=== PATIENT | female | born 1965 | race Caucasian/White ===

== ENCOUNTER 2016-07-11 16:48 | Emergency (ER) | payer BC ==
--- NOTE | 2016-07-11 18:08 | ER Document Report ---
ED Medical Screen (RME) - General Chief Complaint: Abdominal Pain Stated Complaint: FEEDING TUBE ISSUES Notes: 50 yo female with hx/o pancreatitis. feeding tube place April @ [facility]. pt reports feeding tube fell out approx 4 pm today. c/o increased pain since tube falling out. no fever. no nausea. TRAVEL OUTSIDE OF THE [place] IN LAST 30 DAYS: No - Related Data Allergies/Adverse Reactions: banana [Banana] Allergy (Intermediate, Verified 07/11/16 17:38) itching codeine [Codeine] Allergy (Verified 07/11/16 17:38) iodine [Iodine] Allergy (Verified 07/11/16 17:38) metronidazole [Metronidazole] Allergy (Verified 07/11/16 17:38) Penicillins Allergy (Verified 07/11/16 17:38) Cmnqoec-Ssw-Dle Reductase Inhibitor Adverse Reaction (Intermediate, Verified 10/22 17:38) muscle rigidity metoclopramide HCl [From Reglan] Adverse Reaction (Verified 07/11/16 17:38) Blue Cheese Allergy (Intermediate, Uncoded 07/11/16 17:38) itching Past Medical History - Social History Chew tobacco use (# tins/day): No Frequency of alcohol use: None Drug Abuse: None - Past Medical History Cardiac Medical History: Reports: Hx Hypercholesterolemia, Hx Hypertension Denies: Hx Atrial Fibrillation, Hx Congestive Heart Failure, Hx Coronary Artery Disease, Hx Heart Attack, Hx Peripheral Vascular Disease, Hx Pulmonary Embolism, Hx Heart Murmur Pulmonary Medical History: Reports: Hx Asthma, Hx Pneumonia Denies: Hx Bronchitis, Hx COPD, Hx Respiratory Failure, Hx Sleep Apnea, Hx Tuberculosis Neurological Medical History: Denies: Hx Seizures Endocrine Medical History: Reports: Hx Diabetes Mellitus Type 1, Hx Diabetes Mellitus Type 2, Hx Hypothyroidism. Denies: Hx Graves' Disease, Hx Hyperthyroidism Renal/ Medical History: Reports: Hx Kidney Stones. Denies: Hx End Stage Renal Disease, Hx Ovarian Cysts, Hx Peritoneal Dialysis, Hx Pelvic Inflammatory Disease Malignancy Medical History: Reports: Hx Pancreatic Cancer. Denies: Hx Breast Cancer, Hx Cervical Cancer, Hx Leukemia, Hx Lung Cancer, Hx Ovarian Cancer GI Medical History: Reports: Hx Gastroesophageal Reflux Disease, Hx Hiatal Hernia, Hx Irritable Bowel, Hx Ulcer, Hx Colonoscopy, Hx Endoscopy. Denies: Hx Crohn's Disease, Hx Liver Failure Musculoskeltal Medical History: Reports Hx Arthritis - rheumatoid, Denies Hx Fibromyalgia, Denies Hx Muscular Dystrophy Psychiatric Medical History: Reports: Hx Depression - current Denies: Hx Bipolar Disorder, Hx Post Traumatic Stress Disorder, Hx Schizophrenia Traumatic Medical History: Denies: Hx Fractures Infectious Medical History: Denies: Hx HIV Past Surgical History: Reports: Hx Abdominal Surgery - Pancreatic tumor removed noncancerous also at G/J tube, Hx Cholecystectomy, Hx Colostomy, Hx Herniorrhaphy, Hx Tonsillectomy. Denies: Hx Appendectomy, Hx Bowel Surgery, Hx Section, Hx Coronary Artery Bypass Graft, Hx Gastric Bypass Surgery, Hx Hysterectomy, Hx Mastectomy, Hx Pacemaker, Hx Tubal Ligation - Immunizations Hx Diphtheria, Pertussis, Tetanus Vaccination: Yes Physical Exam - Vital signs Vitals: Temp Pulse Resp BP Pulse Ox 98.9 F 108 H 18 141/90 H 95 07/11/16 17:40 07/11/16 17:40 07/11/16 17:40 07/11/16 17:40 07/11/16 17:40 Course - Vital Signs Vital signs: Temp Pulse Resp BP Pulse Ox 98.9 F 108 H 18 141/90 H 95 07/11/16 17:40 07/11/16 17:40 07/11/16 17:40 07/11/16 17:40 07/11/16 17:40
[2016-07-11] MEDS ORDERED: OXYCODONE-ACETAMINOPHEN 5-325 MG TABLET PO ONE (18:10)
[2016-07-11] MEDS ORDERED: ONDANSETRON 4 MG TAB.RAPDIS PO ONE (18:10)
[2016-07-11 18:25] LABS: ABSOLUTE BASOPHILS # (AUTO) 0.1 10^3/uL (0.0-0.2); ABSOLUTE EOSINOPHILS # (AUTO) 0.2 10^3/uL (0.0-0.6); ABSOLUTE LYMPHOCYTES (AUTO) 1.4 10^3/uL (0.5-4.7); ABSOLUTE MONOCYTES (AUTO) 0.8 10^3/uL (0.1-1.4); ABSOLUTE NEUT (AUTO) 7.5 10^3/uL (1.7-8.2); BASOPHILS % (AUTO) 1.3 % (0-2); EOSINOPHILS % (AUTO) 2.2 % (0-6); HEMATOCRIT 36.2 % (36.0-47.0); HEMOGLOBIN 12.1 g/dL (12.0-15.5); HGB HCT DIFFERENCE 0.1; LYMPHOCYTES % (AUTO) 13.8 % (13-45); MEAN CORPUSCULAR HEMOGLOBIN 26.1 pg (27.0-33.4); MEAN CORPUSCULAR HGB CONC 33.5 g/dL (32.0-36.0); MEAN CORPUSCULAR VOLUME 78 fl (80-97); MONOCYTES % (AUTO) 7.9 % (3-13); RED BLOOD COUNT 4.63 10^6/uL (3.72-5.28); RED CELL DISTRIBUTION WIDTH 14.3 % (11.5-14.0); SEGMENTED NEUTROPHILS % (AUTO) 74.8 % (42-78)
[2016-07-11 18:39] LABS: ALANINE AMINOTRANSFERASE 31 U/L (9-52); ALBUMIN 3.6 g/dL (3.5-5.0); ALKALINE PHOSPHATASE 87 U/L (38-126); ANION GAP 15 (5-19); ASPARTATE AMINO TRANSFERASE 10 U/L (14-36); BILIRUBIN,TOTAL 0.6 mg/dL (0.2-1.3); BLOOD UREA NITROGEN 14 mg/dL (7-20); CALCIUM 9.4 mg/dL (8.4-10.2); CARBON DIOXIDE 28 mmol/L (22-30); CHLORIDE 95 mmol/L (98-107); CREATININE RESULT 0.68 mg/dL (0.52-1.25); GLUCOSE 322 mg/dL (75-110); LIPASE 13.4 U/L (23-300); POTASSIUM 4.3 mmol/L (3.6-5.0); SODIUM 137.6 mmol/L (137-145); TOTAL PROTEIN 6.9 g/dL (6.3-8.2)
[2016-07-11] MEDS ORDERED: MORPHINE SULFATE 10 MG/ML INJ IV PRN (21:03)
[2016-07-11] MEDS ORDERED: NORMAL SALINE 1000 ML 1,000 ML IV ONE (21:03)
[2016-07-11] MEDS ORDERED: PROCHLORPERAZINE EDISYLATE INJ 10 MG/2 ML VIAL IV ONE (21:04)
[2016-07-11] MEDS ORDERED: CEFTRIAXONE 1 GM/D5W RTU 50 ML IV ONE (21:04)
[2016-07-11] MEDS ORDERED: INSULIN REG, HUMAN 100 UNIT/ML 3 ML VIAL (PYX) SUBCUT ONE (21:12)
[2016-07-11] MEDS ORDERED: MORPHINE SULFATE 10 MG/ML INJ IM ONE (22:25)
[2016-07-11] MEDS ORDERED: PROCHLORPERAZINE EDISYLATE INJ 10 MG/2 ML VIAL IM ONE (22:25)
[2016-07-11] MEDS ORDERED: CEPHALEXIN 500 MG CAPSULE PO ONE (22:26)
--- NOTE | 2016-07-11 22:28 | ER Document Report ---
ED General - General Chief Complaint: Abdominal Pain Stated Complaint: FEEDING TUBE ISSUES Notes: Patient is a 50-year-old female past medical history of chronic pancreatitis which has induced insulin-dependent diabetes as well as need for enzyme ingestion prior to oral intake who presents with multiple concerns. Her primary concern is that her G-tube site is infected and her G-tube has fallen out just prior to arrival. States that the site has been causing her pain that is described as a constant dull, aching pain has been progressively worsening over the last 2 weeks. No history of prior G-tube complications. She does use the G-tube for a majority of her feeds but does note that she is able to tolerate oral intake and takes all of her medicines by mouth. She has not seen her primary care physician regarding today's concerns. She also complains of diffuse, generalized abdominal pain that has been constant for the past several months and is unchanged. She is taking oxycodone without relief. States she has regular bowel movements. Denies any associated symptoms. Nothing improves or worsens this abdominal pain. She is requesting to be transferred to [facility] where she follows for her chronic pancreatitis. TRAVEL OUTSIDE OF THE [place] IN LAST 30 DAYS: No - Related Data Allergies/Adverse Reactions: banana [Banana] Allergy (Intermediate, Verified 07/11/16 17:38) itching codeine [Codeine] Allergy (Verified 07/11/16 17:38) iodine [Iodine] Allergy (Verified 07/11/16 17:38) metronidazole [Metronidazole] Allergy (Verified 07/11/16 17:38) Penicillins Allergy (Verified 07/11/16 17:38) Oezicxa-Ngs-Saa Reductase Inhibitor Adverse Reaction (Intermediate, Verified 10/22 17:38) muscle rigidity metoclopramide HCl [From Reglan] Adverse Reaction (Verified 07/11/16 17:38) Blue Cheese Allergy (Intermediate, Uncoded 07/11/16 17:38) itching Past Medical History - General Information source: Patient - Social History Smoking Status: Never Smoker Chew tobacco use (# tins/day): No Frequency of alcohol use: None Drug Abuse: None Lives with: Spouse/Significant other Family History: Arthritis, CAD, COPD, DM, Hyperlipidemia, Hypertension, Malignancy, Thyroid Disfunction Patient has suicidal ideation: No Patient has homicidal ideation: No - Past Medical History Cardiac Medical History: Reports: Hx Hypercholesterolemia, Hx Hypertension Denies: Hx Atrial Fibrillation, Hx Congestive Heart Failure, Hx Coronary Artery Disease, Hx Heart Attack, Hx Peripheral Vascular Disease, Hx Pulmonary Embolism, Hx Heart Murmur Pulmonary Medical History: Reports: Hx Asthma, Hx Pneumonia Denies: Hx Bronchitis, Hx COPD, Hx Respiratory Failure, Hx Sleep Apnea, Hx Tuberculosis Neurological Medical History: Denies: Hx Seizures Endocrine Medical History: Reports: Hx Diabetes Mellitus Type 1, Hx Diabetes Mellitus Type 2, Hx Hypothyroidism. Denies: Hx Graves' Disease, Hx Hyperthyroidism Renal/ Medical History: Reports: Hx Kidney Stones. Denies: Hx End Stage Renal Disease, Hx Ovarian Cysts, Hx Peritoneal Dialysis, Hx Pelvic Inflammatory Disease Malignancy Medical History: Reports: Hx Pancreatic Cancer. Denies: Hx Breast Cancer, Hx Cervical Cancer, Hx Leukemia, Hx Lung Cancer, Hx Ovarian Cancer GI Medical History: Reports: Hx Gastroesophageal Reflux Disease, Hx Hiatal Hernia, Hx Irritable Bowel, Hx Ulcer, Hx Colonoscopy, Hx Endoscopy. Denies: Hx Crohn's Disease, Hx Liver Failure Musculoskeltal Medical History: Reports Hx Arthritis - rheumatoid, Denies Hx Fibromyalgia, Denies Hx Muscular Dystrophy Psychiatric Medical History: Reports: Hx Depression - current Denies: Hx Bipolar Disorder, Hx Post Traumatic Stress Disorder, Hx Schizophrenia Traumatic Medical History: Denies: Hx Fractures Infectious Medical History: Denies: Hx HIV Past Surgical History: Reports: Hx Abdominal Surgery - Pancreatic tumor removed noncancerous also at G/J tube, Hx Cholecystectomy, Hx Colostomy, Hx Herniorrhaphy, Hx Tonsillectomy. Denies: Hx Appendectomy, Hx Bowel Surgery, Hx Section, Hx Coronary Artery Bypass Graft, Hx Gastric Bypass Surgery, Hx Hysterectomy, Hx Mastectomy, Hx Pacemaker, Hx Tubal Ligation - Immunizations Hx Diphtheria, Pertussis, Tetanus Vaccination: Yes Hx Pneumococcal Vaccination: 03/24/14 Review of Systems - Review of Systems Notes: Constitutional: Negative for fever. HENT: Negative for sore throat. Eyes: Negative for visual changes. Cardiovascular: Negative for chest pain. Respiratory: Negative for shortness of breath. Gastrointestinal: Positive for abdominal pain, negative for vomiting or diarrhea. Genitourinary: Negative for dysuria. Musculoskeletal: Negative for back pain. Skin: Negative for rash. Neurological: Negative for headaches, weakness or numbness. 10 point ROS negative except as marked above and in HPI. Physical Exam - Vital signs Vitals: Temp Pulse Resp BP Pulse Ox 98.9 F 108 H 18 141/90 H 95 07/11/16 17:40 07/11/16 17:40 07/11/16 17:40 07/11/16 17:40 07/11/16 17:40 Interpretation: Hypertensive, Tachycardic Notes: PHYSICAL EXAMINATION: GENERAL: Well-appearing, well-nourished and in no acute distress. HEAD: Atraumatic, normocephalic. EYES: Pupils equal round and reactive to light, extraocular movements intact, sclera anicteric, conjunctiva are normal. ENT: nares patent, oropharynx clear without exudates. Moist mucous membranes. NECK: Normal range of motion, supple without lymphadenopathy LUNGS: Breath sounds clear to auscultation bilaterally and equal. No wheezes rales or rhonchi. HEART: Regular rate and rhythm without murmurs ABDOMEN: Soft, mild epigastric tenderness to palpation, normoactive bowel sounds. No guarding, no rebound. No masses appreciated. EXTREMITIES: Normal range of motion, no pitting or edema. No cyanosis. NEUROLOGICAL: No focal neurological deficits. Moves all extremities spontaneously and on command. PSYCH: Normal mood, normal affect. SKIN: Warm, Dry, normal turgor, the G-tube site appears mildly erythematous with purulent drainage with some spreading erythema around the area Course - Re-evaluation Re-evalutation: 07/12/16 04:11 Patient presents with multiple vague complaints that did not appear to be concerning for any acute life-threatening pathology. The G-tube site does appear infected however patient will be started on antibiotics at this time. Vitals are within normal limits at time of my assessment and at time of discharge. Patient was not noted to be in distress at any point during their ER visit. At this time, based on the reassuring evaluation, I do not suspect an acute [place], pulmonary embolus, aortic dissection, acute intra-abdominal pathology, stroke, or sepsis. I did contact [facility] in an attempt to transfer the patient per her request for consideration for alternative G-tube site placement but they are on divert and are unable to evaluate the patient in the emergency department. I do not believe patient requires admission. I have offered to replace the G-tube in the emergency department and she has declined stating she wants a G-tube in a different location. This is except we will the patient does tolerate oral intake and takes her medications by mouth. Will discharge with return precautions and follow-up recommendations. Verbal discharge instructions given a the bedside and opportunity for questions given. Medication warnings reviewed. Patient is in agreement with this plan and has verbalized understanding of return precautions and the need for primary care follow-up in the next 24-72 hours. - Vital Signs Vital signs: Temp Pulse Resp BP Pulse Ox 99.2 F 87 18 126/79 H 95 07/12/16 00:10 07/12/16 00:10 07/12/16 00:10 07/12/16 00:10 07/12/16 00:10 - Laboratory Result Diagrams: 07/11/16 18:15 07/11/16 18:15 Laboratory results interpreted by me: 07/11/16 07/11/16 07/11/16 18:15 18:15 21:52 MCV 78 L MCH 26.1 L RDW 14.3 H Chloride 95 L Glucose 322 H POC Glucose 319 H AST 10 L Lipase 13.4 L - Diagnostic Test Radiology reviewed: Image reviewed, Reports reviewed Radiology results interpreted by me: 07/12/16 04:13 KUB: No bowel obstruction Discharge - Discharge Clinical Impression: Generalized abdominal pain, G-tube site cellulitis Nausea & vomiting Qualifiers: Vomiting type: unspecified Vomiting Intractability: non-intractable Qualified Code(s): R11.2 - Nausea with vomiting, unspecified Condition: Good Disposition: HOME, SELF-CARE Additional Instructions: Please contacted to GI clinic ([phone]) tomorrow regarding replacement of your G-tube as elena did not want to have it reinserted at your current site. You are being started on antibiotics to treat an infection at the G-tube site. Please take as directed. Return to the ED if your abdominal pain worsens or fails to improve, you develop bloody vomiting, bloody diarrhea, you are unable to tolerate fluids due to vomiting, fever greater than 101, or other symptoms that concern you. Prescriptions: Cephalexin Monohydrate [Keflex 500 mg Capsule] 500 mg PO QID #28 capsule Referrals: JASMYNE JACQUES MD [Primary Care Provider] - Follow up as needed
[2016-07-12 00:11] VITALS: BP 126/79
== END 2016-07-12 00:26 | disposition home or self-care (01) ==
LOC: ER 16:48
DX: K94.22 Gastrostomy infection (principal); L03.311 Cellulitis of abdominal wall; R11.2 Nausea with vomiting, unspecified; R10.9 Unspecified abdominal pain; E11.9 Type 2 diabetes mellitus without complications; Z79.4 Long term (current) use of insulin
CPT/HCPCS: 99284; 96372; 36415; 82962; 83690; 85025; 80053; 74000; S0119; J2270; J1815; J0780

== ENCOUNTER 2016-09-20 09:13 | Emergency (ER) | payer BC ==
--- NOTE | 2016-09-20 11:12 | ER Document Report ---
ED GI/ - General Time seen by provider: 11:00 Mode of Arrival: Medic Information source: Patient TRAVEL OUTSIDE OF THE [place] IN LAST 30 DAYS: No - HPI Onset: Other - see HPI note <JANEEDEVENDRA - Last Filed: 09/20/16 15:31> <ANNEMARIE KAUFFMAN - Last Filed: 10/05/16 05:50> - General Chief Complaint: Problem with Feeding Tube Stated Complaint: FEEDING TUBE PROBLEMS Notes: Patient is a 50-year-old female presented emergency department for her PEG tube falling out. Patient states that this is the second time her PEG tube has fallen out. Patient states she has a history of pancreatitis and pancreatic cancer since 2 years prior. Patient's PEG tube was placed at [facility] approximately 2 years ago; the first time the patient's PEG tube fell out it was replaced by Dr. Zuniga. Patient states that she has been losing some weight. Patient states her PEG tube fell out on 09/18/2016. Patient states she has not been able to eat but has been able to drink fluids. Patient states the area is very painful. Patient's primary care physician is Dr. Espitia. Patient states that they do not plan to remove the PEG tube permanently where she has not been aware of this idea. (DEVENDRA WELLER) - Related Data Allergies/Adverse Reactions: banana [Banana] Allergy (Intermediate, Verified 07/11/16 17:38) itching codeine [Codeine] Allergy (Verified 07/11/16 17:38) iodine [Iodine] Allergy (Verified 07/11/16 17:38) metronidazole [Metronidazole] Allergy (Verified 07/11/16 17:38) Penicillins Allergy (Verified 07/11/16 17:38) Ymxowdt-Vmh-Wts Reductase Inhibitor Adverse Reaction (Intermediate, Verified 10/22 17:38) muscle rigidity metoclopramide HCl [From Reglan] Adverse Reaction (Verified 07/11/16 17:38) Blue Cheese Allergy (Intermediate, Uncoded 07/11/16 17:38) itching Past Medical History - General Information source: Patient - Social History Smoking Status: Never Smoker Cigarette use (# per day): No Chew tobacco use (# tins/day): No Frequency of alcohol use: None Drug Abuse: None Family History: Arthritis, CAD, COPD, DM, Hyperlipidemia, Hypertension, Malignancy, Thyroid Disfunction Patient has suicidal ideation: No Patient has homicidal ideation: No - Past Medical History Cardiac Medical History: Reports: Hx Hypercholesterolemia, Hx Hypertension Pulmonary Medical History: Reports: Hx Asthma, Hx Pneumonia Endocrine Medical History: Reports: Hx Diabetes Mellitus Type 1, Hx Diabetes Mellitus Type 2, Hx Hypothyroidism Renal/ Medical History: Reports: Hx Kidney Stones Malignancy Medical History: Reports: Hx Pancreatic Cancer GI Medical History: Reports: Hx Gastroesophageal Reflux Disease, Hx Hiatal Hernia, Hx Irritable Bowel, Hx Ulcer, Hx Colonoscopy, Hx Endoscopy, Other - pancreatitis Musculoskeltal Medical History: Reports Hx Arthritis - rheumatoid Psychiatric Medical History: Reports: Hx Depression Past Surgical History: Reports: Hx Abdominal Surgery - Pancreatic tumor removed noncancerous also at G/J tube, Hx Cholecystectomy, Hx Colostomy, Hx Herniorrhaphy, Hx Tonsillectomy - Immunizations Hx Diphtheria, Pertussis, Tetanus Vaccination: Yes Hx Pneumococcal Vaccination: 03/24/14 <DEVENDRA WELLER - Last Filed: 09/20/16 15:31> Review of Systems - Review of Systems Constitutional: No symptoms reported EENT: No symptoms reported Cardiovascular: No symptoms reported Respiratory: No symptoms reported Gastrointestinal: See HPI Genitourinary: No symptoms reported Female Genitourinary: No symptoms reported Musculoskeletal: No symptoms reported Skin: No symptoms reported Hematologic/Lymphatic: No symptoms reported Neurological/Psychological: No symptoms reported -: Yes All other systems reviewed and negative <DEVENDRA WELLER - Last Filed: 09/20/16 15:31> Physical Exam - Vital signs Interpretation: Normal - General General appearance: Appears well, Alert In distress: Mild - HEENT Head: Normocephalic, Atraumatic Eyes: Normal Pupils: PERRL Mucous membranes: Moist - Respiratory Respiratory status: No respiratory distress Chest status: Nontender Breath sounds: Normal Chest palpation: Normal - Cardiovascular Rhythm: Regular Heart sounds: Normal auscultation Murmur: No - Abdominal Inspection: Obese, Other - surrounding erythema to the peg tube inscision site; no sign of infection Distension: No distension Bowel sounds: Normal Tenderness: Nontender Organomegaly: No organomegaly - Back Back: Normal, Nontender - Extremities General upper extremity: Normal inspection, Normal ROM, Normal strength General lower extremity: Normal inspection, Normal ROM, Normal strength - Neurological Neuro grossly intact: Yes Cognition: Normal Orientation: AAOx4 Wilmer Coma Scale Eye Opening: Spontaneous [place] Coma Scale Verbal: Oriented Wilmer Coma Scale Motor: Obeys Commands Wilmer Coma Scale Total: 15 Speech: Normal - Psychological Associated symptoms: Normal affect, Normal mood - Skin Skin Temperature: Warm Skin Moisture: Dry <DEVENDRA WELLER - Last Filed: 09/20/16 15:31> <ANNEMARIE KAUFFMAN - Last Filed: 10/05/16 05:50> - Vital signs Vitals: Temp Pulse Resp BP Pulse Ox 97.9 F 108 H 18 142/83 H 95 09/20/16 09:17 09/20/16 09:17 09/20/16 09:17 09/20/16 09:17 09/20/16 09:17 Course - Laboratory Result Diagrams: 09/20/16 11:25 09/20/16 11:25 <DEVENDRA WELLER - Last Filed: 09/20/16 15:31> - Laboratory Result Diagrams: 09/20/16 11:25 09/20/16 11:25 <ANNEMARIE KAUFFMAN - Last Filed: 10/05/16 05:50> - Re-evaluation Re-evalutation: 09/20/16 15:52 I personally performed the services described in the documentation, reviewed and edited the documentation which was dictated to my scribe in my presence, and it accurately records my words and actions. Patient presents emergency Department Center PEG tube fell out. She's had it since December of last year placed at [facility] for chronic pancreatitis. She said she is able to drink but not eat. She has insulin dependent diabetes but she hasn't checked her sugar is elevated here but she is not diabetic ketoacidosis. She said the PEG tube as far out once or twice in the past not while she is sleeping. On examination she is able to get the PEG tube and which is an 18. I had her lay in the Physician replace the tube with 15 amounts of fluid no difficulty whatsoever. Did a wound culture and start her on some clindamycin. She'll follow up with her primary care physician in 12-24 hours for recheck and discussed reasons for ED return sooner when and give her a dose of insulin here told her to continue to check her glucose despite the fact that she was off of the tube feeding. She verbalizes an understanding of this is well-appearing and otherwise nontoxic and discussed reasons for ED return sooner (ANNEMARIE KAUFFMAN) - Vital Signs Vital signs: Temp Pulse Resp BP Pulse Ox 98.2 F 94 16 150/94 H 96 09/20/16 16:28 09/20/16 16:28 09/20/16 16:28 09/20/16 16:28 09/20/16 16:28 - Laboratory Laboratory results interpreted by me: 09/20/16 09/20/16 11:25 11:25 MCV 78 L MCH 25.8 L RDW 14.9 H Sodium 131.1 L Chloride 90 L BUN 24 H Glucose 563 H* AST 13 L Lipase 22.5 L Discharge <DEVENDRA WELLER - Last Filed: 09/20/16 15:31> <ANNEMARIE KAUFFMAN - Last Filed: 10/05/16 05:50> - Discharge Clinical Impression: Peg tube replacement, Hyperglycemia Condition: Stable Disposition: HOME, SELF-CARE Additional Instructions: I have replaced your PEG tube that fell out at home with the exact size of your PEG tube that you brought in. It went in without any difficulty. There is some redness around the area which appears chronic but were going to go ahead and start her on some clindamycin. In addition to that I have done a wound culture which if positive we will call you with the results With her primary care physician in one to 2 days return for increasing worsening or new symptoms. Her blood sugar is also elevated here despite the fact that you have been getting anything through the PEG tube was please check your blood sugar and give appropriate insulin dose throughout the day. Return for increasing worsening or new symptoms Prescriptions: Clindamycin HCl 300 mg PO BID #14 capsule Referrals: JASMYNE JACQUES MD [Primary Care Provider] - Follow up as needed (In one to 2 days return for increasing worsening or new symptoms) Scribe Documentation - Scribe Written by Anaid:: Devendra Weller 09/20/16 15:30 acting as scribe for :: Hilario <DEVENDRA WELLER - Last Filed: 09/20/16 15:31>
[2016-09-20 11:35] LABS: ABSOLUTE BASOPHILS # (AUTO) 0.1 10^3/uL (0.0-0.2); ABSOLUTE EOSINOPHILS # (AUTO) 0.4 10^3/uL (0.0-0.6); ABSOLUTE LYMPHOCYTES (AUTO) 1.7 10^3/uL (0.5-4.7); ABSOLUTE MONOCYTES (AUTO) 0.5 10^3/uL (0.1-1.4); ABSOLUTE NEUT (AUTO) 5.7 10^3/uL (1.7-8.2); BASOPHILS % (AUTO) 1.3 % (0-2); EOSINOPHILS % (AUTO) 4.2 % (0-6); HEMATOCRIT 40.9 % (36.0-47.0); HEMOGLOBIN 13.5 g/dL (12.0-15.5); HGB HCT DIFFERENCE -0.4; LYMPHOCYTES % (AUTO) 20.6 % (13-45); MEAN CORPUSCULAR HEMOGLOBIN 25.8 pg (27.0-33.4); MEAN CORPUSCULAR VOLUME 78 fl (80-97); MONOCYTES % (AUTO) 5.8 % (3-13); RED BLOOD COUNT 5.23 10^6/uL (3.72-5.28); RED CELL DISTRIBUTION WIDTH 14.9 % (11.5-14.0); SEGMENTED NEUTROPHILS % (AUTO) 68.1 % (42-78); WHITE BLOOD COUNT 8.3 10^3/uL (4.0-10.5)
[2016-09-20 11:55] LABS: ALANINE AMINOTRANSFERASE 20 U/L (9-52); ALBUMIN 3.9 g/dL (3.5-5.0); ALKALINE PHOSPHATASE 118 U/L (38-126); ANION GAP 13 (5-19); ASPARTATE AMINO TRANSFERASE 13 U/L (14-36); BILIRUBIN,TOTAL 0.4 mg/dL (0.2-1.3); BLOOD UREA NITROGEN 24 mg/dL (7-20); CARBON DIOXIDE 28 mmol/L (22-30); CHLORIDE 90 mmol/L (98-107); CREATININE RESULT 0.95 mg/dL (0.52-1.25); LIPASE 22.5 U/L (23-300); POTASSIUM 4.4 mmol/L (3.6-5.0); SODIUM 131.1 mmol/L (137-145); TOTAL PROTEIN 7.6 g/dL (6.3-8.2)
[2016-09-20 12:03] LABS: GLUCOSE 563 mg/dL (75-110)
[2016-09-20] MEDS ORDERED: NORMAL SALINE 1000 ML 500 ML IV ONE (12:10)
[2016-09-20] MEDS ORDERED: OXYCODONE HCL SR 10 MG TABLET PO ONE (15:50)
[2016-09-20] MEDS ORDERED: INSULIN REG, HUMAN 100 UNIT/ML 3 ML VIAL (PYX) SUBCUT ONE (15:51)
[2016-09-20 16:30] VITALS: BP 150/94
== END 2016-09-20 16:43 | disposition home or self-care (01) ==
LOC: ER 09:13
PROC: 0D2DXUZ Change Feeding Device in Lower Intestinal Tract, External Approach (ICD-10-PCS; principal; 2016-09-20)
DX: Z43.4 Encounter for attention to other artificial openings of digestive tract (principal); E11.65 Type 2 diabetes mellitus with hyperglycemia; I10 Essential (primary) hypertension; J45.909 Unspecified asthma, uncomplicated; E03.9 Hypothyroidism, unspecified; E78.00 Pure hypercholesterolemia, unspecified; Z85.07 Personal history of malignant neoplasm of pancreas; Z88.6 Allergy status to analgesic agent; Z88.0 Allergy status to penicillin; Z87.442 Personal history of urinary calculi; Z90.49 Acquired absence of other specified parts of digestive tract
CPT/HCPCS: 99283; 36415; 87070; 87205; 83690; 85025; 87075; 87077; 80053; 87186; 49452; J1815; J7030

== ENCOUNTER 2016-12-18 15:31 | Emergency (ER) | payer BC ==
[2016-12-18] MEDS ORDERED: NORMAL SALINE 1000 ML 1,000 ML IV ONE ×2 (16:54→17:33)
--- NOTE | 2016-12-18 16:56 | ER Document Report ---
ED Medical Screen (RME) - General Chief Complaint: High Blood Sugar Stated Complaint: HIGH BLOOD SUGAR Time Seen by Provider: 12/18/16 16:40 Mode of Arrival: Ambulatory Information source: Patient Notes: This is a 51-year-old female with multiple medical problems including diabetes hypertension and history of pancreatitis and pancreatic cancer who presents with elevated blood sugar. Patient states that she has had bilateral "kidney pain" for the past 2 or 3 days and she was concerned she had a UTI. She went to her primary care physician who did a urinalysis and told her that she did not have a UTI but her blood sugar was over 500. At that point she was referred to the emergency department. She does report epigastric discomfort. No nausea or vomiting. She has eaten today. Of note she does have a PEG tube which she says is not functional and has not been for several months. She has had difficulty with referrals to get this taken care of. She has an insulin pump but she is concerned that it is not working correctly. I have greeted and performed a rapid initial assessment of this patient. A comprehensive ED assessment and evaluation of the patient, analysis of test results and completion of the medical decision making process will be conducted by additional ED providers. TRAVEL OUTSIDE OF THE [place] IN LAST 30 DAYS: No - Related Data Allergies/Adverse Reactions: banana [Banana] Allergy (Intermediate, Verified 12/18/16 15:34) itching codeine [Codeine] Allergy (Verified 12/18/16 15:34) iodine [Iodine] Allergy (Verified 12/18/16 15:34) metronidazole [Metronidazole] Allergy (Verified 12/18/16 15:34) Penicillins Allergy (Verified 12/18/16 15:34) Flwoeuw-Xcq-Ifh Reductase Inhibitor Adverse Reaction (Intermediate, Verified 15:34) muscle rigidity metoclopramide HCl [From Reglan] Adverse Reaction (Verified 12/18/16 15:34) Blue Cheese Allergy (Intermediate, Uncoded 12/18/16 15:34) itching Past Medical History - Social History Chew tobacco use (# tins/day): No Frequency of alcohol use: None Drug Abuse: None - Past Medical History Cardiac Medical History: Reports: Hx Hypercholesterolemia, Hx Hypertension Denies: Hx Atrial Fibrillation, Hx Congestive Heart Failure, Hx Coronary Artery Disease, Hx Heart Attack, Hx Peripheral Vascular Disease, Hx Pulmonary Embolism, Hx Heart Murmur Pulmonary Medical History: Reports: Hx Asthma, Hx Pneumonia Denies: Hx Bronchitis, Hx COPD, Hx Respiratory Failure, Hx Sleep Apnea, Hx Tuberculosis Neurological Medical History: Denies: Hx Seizures Endocrine Medical History: Reports: Hx Diabetes Mellitus Type 1, Hx Diabetes Mellitus Type 2, Hx Hypothyroidism. Denies: Hx Graves' Disease, Hx Hyperthyroidism Renal/ Medical History: Reports: Hx Kidney Stones. Denies: Hx End Stage Renal Disease, Hx Ovarian Cysts, Hx Peritoneal Dialysis, Hx Pelvic Inflammatory Disease Malignancy Medical History: Reports: Hx Pancreatic Cancer. Denies: Hx Breast Cancer, Hx Cervical Cancer, Hx Leukemia, Hx Lung Cancer, Hx Ovarian Cancer GI Medical History: Reports: Hx Gastroesophageal Reflux Disease, Hx Hiatal Hernia, Hx Irritable Bowel, Hx Ulcer, Hx Colonoscopy, Hx Endoscopy. Denies: Hx Crohn's Disease, Hx Liver Failure Musculoskeltal Medical History: Reports Hx Arthritis - rheumatoid, Denies Hx Fibromyalgia, Denies Hx Muscular Dystrophy Psychiatric Medical History: Reports: Hx Depression Denies: Hx Bipolar Disorder, Hx Post Traumatic Stress Disorder, Hx Schizophrenia Traumatic Medical History: Denies: Hx Fractures Infectious Medical History: Denies: Hx HIV Past Surgical History: Reports: Hx Abdominal Surgery - Pancreatic tumor removed noncancerous also at G/J tube, Hx Cholecystectomy, Hx Colostomy, Hx Herniorrhaphy, Hx Tonsillectomy. Denies: Hx Appendectomy, Hx Bowel Surgery, Hx Section, Hx Coronary Artery Bypass Graft, Hx Gastric Bypass Surgery, Hx Hysterectomy, Hx Mastectomy, Hx Pacemaker, Hx Tubal Ligation - Immunizations Hx Diphtheria, Pertussis, Tetanus Vaccination: Yes Physical Exam - Vital signs Vitals: Temp Pulse Resp BP Pulse Ox 98.2 F 112 H 20 152/98 H 96 12/18/16 15:34 12/18/16 15:34 12/18/16 15:34 12/18/16 15:34 12/18/16 15:34 Course - Vital Signs Vital signs: Temp Pulse Resp BP Pulse Ox 98.2 F 112 H 20 152/98 H 96 12/18/16 15:34 12/18/16 15:34 12/18/16 15:34 12/18/16 15:34 12/18/16 15:34
[2016-12-18 17:32] LABS: ABSOLUTE BASOPHILS # (AUTO) 0.1 10^3/uL (0.0-0.2); ABSOLUTE EOSINOPHILS # (AUTO) 0.3 10^3/uL (0.0-0.6); ABSOLUTE MONOCYTES (AUTO) 0.4 10^3/uL (0.1-1.4); ABSOLUTE NEUT (AUTO) 5.5 10^3/uL (1.7-8.2); BASOPHILS % (AUTO) 1.1 % (0-2); EOSINOPHILS % (AUTO) 3.8 % (0-6); HEMATOCRIT 46.5 % (36.0-47.0); HEMOGLOBIN 16.2 g/dL (12.0-15.5); HGB HCT DIFFERENCE 2.1; LYMPHOCYTES % (AUTO) 23.8 % (13-45); MEAN CORPUSCULAR HEMOGLOBIN 28.6 pg (27.0-33.4); MEAN CORPUSCULAR HGB CONC 34.8 g/dL (32.0-36.0); MEAN CORPUSCULAR VOLUME 82 fl (80-97); RED BLOOD COUNT 5.66 10^6/uL (3.72-5.28); RED CELL DISTRIBUTION WIDTH 14.8 % (11.5-14.0); SEGMENTED NEUTROPHILS % (AUTO) 66.3 % (42-78); WHITE BLOOD COUNT 8.3 10^3/uL (4.0-10.5)
--- NOTE | 2016-12-18 18:08 | ER Document Report ---
ED Blood Sugar Problem - General Chief Complaint: High Blood Sugar Stated Complaint: HIGH BLOOD SUGAR Time Seen by Provider: 12/18/16 16:40 Mode of Arrival: Ambulatory Notes: Patient is a 51-year-old female, past medical history type I diabetic, gastroparesis, chronic pancreatitis, presents with 2 days of high blood sugar readings and nausea. Her primary care physician and her Accu-Chek read high and was sent to the emergency room for further evaluation. He has a nonfunctioning G-tube and is trying to have outpatient referral by her primary care physician for removal. She is having nausea, but denies vomiting, increased abdominal pain, fevers, dysuria, headache, back pain, flank pain, chest pain or shortness of breath. TRAVEL OUTSIDE OF THE [place] IN LAST 30 DAYS: No - Related Data Allergies/Adverse Reactions: banana [Banana] Allergy (Intermediate, Verified 12/18/16 15:34) itching codeine [Codeine] Allergy (Verified 12/18/16 15:34) iodine [Iodine] Allergy (Verified 12/18/16 15:34) metronidazole [Metronidazole] Allergy (Verified 12/18/16 15:34) Penicillins Allergy (Verified 12/18/16 15:34) Qdylohj-Dxr-Wtt Reductase Inhibitor Adverse Reaction (Intermediate, Verified 15:34) muscle rigidity metoclopramide HCl [From Reglan] Adverse Reaction (Verified 12/18/16 15:34) Blue Cheese Allergy (Intermediate, Uncoded 12/18/16 15:34) itching Past Medical History - General Information source: Patient - Social History Smoking Status: Never Smoker Chew tobacco use (# tins/day): No Frequency of alcohol use: None Drug Abuse: None Family History: Arthritis, CAD, COPD, DM, Hyperlipidemia, Hypertension, Malignancy, Thyroid Disfunction Patient has suicidal ideation: No Patient has homicidal ideation: No - Past Medical History Cardiac Medical History: Reports: Hx Hypercholesterolemia, Hx Hypertension Denies: Hx Atrial Fibrillation, Hx Congestive Heart Failure, Hx Coronary Artery Disease, Hx Heart Attack, Hx Peripheral Vascular Disease, Hx Pulmonary Embolism, Hx Heart Murmur Pulmonary Medical History: Reports: Hx Asthma, Hx Pneumonia Denies: Hx Bronchitis, Hx COPD, Hx Respiratory Failure, Hx Sleep Apnea, Hx Tuberculosis Neurological Medical History: Denies: Hx Seizures Endocrine Medical History: Reports: Hx Diabetes Mellitus Type 1, Hx Diabetes Mellitus Type 2, Hx Hypothyroidism. Denies: Hx Graves' Disease, Hx Hyperthyroidism Renal/ Medical History: Reports: Hx Kidney Stones. Denies: Hx End Stage Renal Disease, Hx Ovarian Cysts, Hx Peritoneal Dialysis, Hx Pelvic Inflammatory Disease Malignancy Medical History: Reports: Hx Pancreatic Cancer. Denies: Hx Breast Cancer, Hx Cervical Cancer, Hx Leukemia, Hx Lung Cancer, Hx Ovarian Cancer GI Medical History: Reports: Hx Gastroesophageal Reflux Disease, Hx Hiatal Hernia, Hx Irritable Bowel, Hx Ulcer, Hx Colonoscopy, Hx Endoscopy. Denies: Hx Crohn's Disease, Hx Liver Failure Musculoskeltal Medical History: Reports Hx Arthritis - rheumatoid, Denies Hx Fibromyalgia, Denies Hx Muscular Dystrophy Psychiatric Medical History: Reports: Hx Depression Denies: Hx Bipolar Disorder, Hx Post Traumatic Stress Disorder, Hx Schizophrenia Traumatic Medical History: Denies: Hx Fractures Infectious Medical History: Denies: Hx HIV Past Surgical History: Reports: Hx Abdominal Surgery - Pancreatic tumor removed noncancerous also at G/J tube, Hx Cholecystectomy, Hx Colostomy, Hx Herniorrhaphy, Hx Tonsillectomy. Denies: Hx Appendectomy, Hx Bowel Surgery, Hx Section, Hx Coronary Artery Bypass Graft, Hx Gastric Bypass Surgery, Hx Hysterectomy, Hx Mastectomy, Hx Pacemaker, Hx Tubal Ligation - Immunizations Hx Diphtheria, Pertussis, Tetanus Vaccination: Yes Hx Pneumococcal Vaccination: 03/24/14 Review of Systems - Review of Systems Notes: REVIEW OF SYSTEMS: CONSTITUTIONAL: -fevers, -chills EENT: -eye pain, -difficulty swallowing, -nasal congestion CARDIOVASCULAR:-chest pain, -syncope. RESPIRATORY: -cough, -SOB GASTROINTESTINAL: -abdominal pain, +nausea, -vomiting, -diarrhea GENITOURINARY: -dysuria, -hematuria MUSCULOSKELETAL: -back pain, -neck pain SKIN: -rash or skin lesions. HEMATOLOGIC: -easy bruising or bleeding. LYMPHATIC: -swollen, enlarged glands. NEUROLOGICAL: -altered mental status or loss of consciousness, -headache, - neurologic symptoms PSYCHIATRIC: -anxiety, -depression. ALL OTHER SYSTEMS REVIEWED AND NEGATIVE. Physical Exam - Vital signs Vitals: Temp Pulse Resp BP Pulse Ox 98.2 F 112 H 20 152/98 H 96 12/18/16 15:34 12/18/16 15:34 12/18/16 15:34 12/18/16 15:34 12/18/16 15:34 - Notes Notes: PHYSICAL EXAMINATION: GENERAL: Well-appearing, well-nourished and in no acute distress. HEAD: Atraumatic, normocephalic. EYES: Pupils equal round and reactive to light, extraocular movements intact, sclera anicteric, conjunctiva are normal. ENT: nares patent, oropharynx clear without exudates. Moist mucous membranes. NECK: Normal range of motion, supple without lymphadenopathy LUNGS: Breath sounds clear to auscultation bilaterally and equal. No wheezes rales or rhonchi. HEART: Regular rate and rhythm without murmurs ABDOMEN: G-tube in place without surrounding erythema or tenderness, soft, nontender, normoactive bowel sounds. No guarding, no rebound. No masses appreciated. EXTREMITIES: Normal range of motion, no pitting or edema. No cyanosis. NEUROLOGICAL: Cranial nerves grossly intact. Normal speech, normal gait. Normal sensory and motor exams. PSYCH: Normal mood, normal affect. SKIN: Warm, Dry, normal turgor, no rashes or lesions noted. Course - Re-evaluation Re-evalutation: Peers well. She has hyperglycemia, but no evidence of DKA with a normal anion gap and only trace ketones. After fluids and insulin bolus, patient states that she is ready to go home now that she knows that she does not have DKA. She has equipment for her insulin drip and will follow up with her primary care physician. - Vital Signs Vital signs: Temp Pulse Resp BP Pulse Ox 98.1 F 109 H 16 169/100 H 98 12/18/16 21:19 12/18/16 21:19 12/18/16 21:19 12/18/16 21:19 12/18/16 21:19 - Laboratory Result Diagrams: 12/18/16 17:00 12/18/16 19:33 Laboratory results interpreted by me: 12/18/16 12/18/16 12/18/16 16:45 17:00 18:31 RBC 5.66 H Hgb 16.2 H RDW 14.8 H Sodium Chloride Carbon Dioxide Glucose POC Glucose > 550 H* Direct Bilirubin Urine Protein 100 H Urine Glucose (UA) >=500 H Urine Ketones TRACE H Ur Leukocyte Esterase SMALL H 12/18/16 19:33 RBC Hgb RDW Sodium 131.3 L Chloride 93 L Carbon Dioxide 21 L Glucose 506 H* POC Glucose Direct Bilirubin 0.7 H Urine Protein Urine Glucose (UA) Urine Ketones Ur Leukocyte Esterase Discharge - Discharge Clinical Impression: Hyperglycemia Condition: Stable Disposition: HOME, SELF-CARE Additional Instructions: HYPERGLYCEMIA (HIGH BLOOD SUGAR): You have an abnormally high blood sugar. Not all high blood sugar requires long-term treatment. High blood sugar can be due to medications, , or the stress of illness. (These cases are "borderline diabetes.") If the doctor feels your high blood sugar might resolve with time, you may not require treatment now. It's very important that you follow through, to see if the blood sugar returns to normal levels. Uncontrolled high blood sugar leads to early heart disease, strokes, nerve damage, eye damage, and kidney damage. Call the physician if there is faintness, excess sleepiness, or very rapid breathing. DIABETES: You have an abnormally high blood sugar, suspicious for diabetes. Not all high blood sugar requires long-term treatment. High blood sugar can be due to medications, , or the stress of illness. (These cases are "borderline diabetes.") If the doctor feels your high blood sugar might get better with time, you may not require treatment now. It's very important that you follow through. Uncontrolled high blood sugar leads to early heart disease, strokes, nerve damage, eye damage, and kidney damage. All diabetics should follow a diet designed to control the blood sugar. Overweight diabetics should exercise regularly and lose weight. If this is not sufficient to control the blood sugar, pills or insulin shots are necessary. Younger people who develop diabetes almost always require insulin daily. Home testing of blood sugars or urine sugar is required. Diabetic teaching is available to help you figure insulin doses and monitor the blood sugar. Call the physician if there is faintness, excess sleepiness, or very rapid breathing. If hypoglycemia (LOW blood sugar) develops, symptoms are shakiness, weakness, sweating, and confusion. In this case, you should eat or drink something with sugar at once. INSULIN: Insulin is a natural hormone that lowers blood sugar. Normal blood sugar prevents complications of diabetes. For most diabetics, insulin is the best way to treat the illness. Be sure you know how to measure the insulin correctly. Insulin is measured in "units." There are three types of insulin: N (NPH or long acting), R (regular or short acting), and L (Lente or very long acting). Be sure you are using the right amount of each type. Insulin must be injected into the fat. You can use the abdomen, upper arms , and thighs. Select a different injection site every time. Wipe the site with alcohol before injecting. When first starting insulin, some adjusting of the insulin dose is necessary. Keep a record of each insulin dose and time of injection, and of the blood sugar and the time you test it. Sometimes insulin can make the blood sugar too low. If you become dizzy, sweaty, shaky, or confused, you may be having a hypoglycemic episode. Immediately use juice or some other sweet food. Call the doctor if the symptoms don't go away. FOLLOW-UP CARE: If you have been referred to a physician for follow-up care, call the physician s office for an appointment as you were instructed or within the next two days. If you experience worsening or a significant change in your symptoms, notify the physician immediately or return to the Emergency Department at any time for re-evaluation. Referrals: JASMYNE JACQUES MD [Primary Care Provider] - Follow up as needed
[2016-12-18 19:29] LABS: APPEARANCE,URINE CLEAR; BILIRUBIN,URINE NEGATIVE (NEGATIVE); GLUCOSE, URINE >=500 mg/dL (NEGATIVE); KETONES,URINE TRACE mg/dL (NEGATIVE); LEUKOCYTE ESTERASE,URINE SMALL (NEGATIVE); NITRITE,URINE NEGATIVE (NEGATIVE); PROTEIN,URINE 100 mg/dL (NEGATIVE); UROBILINOGEN,URINE NEGATIVE mg/dL (<2.0)
[2016-12-18 19:55] LABS: ANION GAP 17 (5-19); CARBON DIOXIDE 21 mmol/L (22-30); CHLORIDE 93 mmol/L (98-107); CREATININE RESULT 0.71 mg/dL (0.52-1.25); LIPASE 107.8 U/L (23-300); SODIUM 131.3 mmol/L (137-145)
[2016-12-18 20:30] LABS: GLUCOSE 506 mg/dL (75-110)
[2016-12-18 20:31] LABS: ALBUMIN 3.8 g/dL (3.5-5.0); BLOOD UREA NITROGEN 15 mg/dL (7-20); POTASSIUM 4.7 mmol/L (3.6-5.0); TOTAL PROTEIN 7.9 g/dL (6.3-8.2)
[2016-12-18 20:32] LABS: ALANINE AMINOTRANSFERASE 22 U/L (9-52); ALKALINE PHOSPHATASE 116 U/L (38-126); ASPARTATE AMINO TRANSFERASE 25 U/L (14-36); BILIRUBIN,DIRECT 0.7 mg/dL (0.0-0.4); BILIRUBIN,TOTAL 0.9 mg/dL (0.2-1.3)
[2016-12-18] MEDS ORDERED: INSULIN REG, HUMAN 100 UNIT/ML 3 ML VIAL (PYX) IV ONE (20:35)
[2016-12-18 21:29] VITALS: BP 169/100
== END 2016-12-18 21:24 | disposition home or self-care (01) ==
LOC: ER 15:31
DX: E10.65 Type 1 diabetes mellitus with hyperglycemia (principal); R11.0 Nausea; E78.00 Pure hypercholesterolemia, unspecified; I10 Essential (primary) hypertension; J45.909 Unspecified asthma, uncomplicated; E03.9 Hypothyroidism, unspecified; Z88.0 Allergy status to penicillin; Z88.6 Allergy status to analgesic agent; Z93.1 Gastrostomy status; Z87.442 Personal history of urinary calculi; Z85.07 Personal history of malignant neoplasm of pancreas; Z90.49 Acquired absence of other specified parts of digestive tract
CPT/HCPCS: 99283; 36415; 82962; 83690; 85025; 80053; 81001; J1815

== ENCOUNTER 2017-01-02 16:34 | Emergency (ER) | payer BC ==
[2017-01-02] MEDS ORDERED: NORMAL SALINE 1000 ML 1,000 ML IV ONE (17:40)
--- NOTE | 2017-01-02 17:43 | ER Document Report ---
ED Medical Screen (RME) - General Chief Complaint: Abdominal Pain Stated Complaint: FLANK PAIN Time Seen by Provider: 01/02/17 17:34 Notes: Patient is a 51-year-old female, past medical history poorly controlled type 1 diabetes, gastroparesis, chronic pancreatitis, PEG tube that does not work, presents with epigastric pain and bilateral flank pain with nausea. She has not urinated today or had a bowel movement. Denies fevers, hematemesis, chest pain or shortness of breath. PE: Tachycardic, epigastric abdominal tenderness I have greeted and performed a rapid initial assessment of this patient. A comprehensive ED assessment and evaluation of the patient, analysis of test results and completion of the medical decision making process will be conducted by additional ED providers. TRAVEL OUTSIDE OF THE [place] IN LAST 30 DAYS: No - Related Data Allergies/Adverse Reactions: banana [Banana] Allergy (Intermediate, Verified 01/02/17 17:04) itching codeine [Codeine] Allergy (Verified 01/02/17 17:04) iodine [Iodine] Allergy (Verified 01/02/17 17:04) metronidazole [Metronidazole] Allergy (Verified 01/02/17 17:04) Penicillins Allergy (Verified 01/02/17 17:04) Edodaby-Vfr-Gsn Reductase Inhibitor Adverse Reaction (Intermediate, Verified 17:04) muscle rigidity metoclopramide HCl [From Reglan] Adverse Reaction (Verified 01/02/17 17:04) Blue Cheese Allergy (Intermediate, Uncoded 01/02/17 17:04) itching Past Medical History - Past Medical History Cardiac Medical History: Reports: Hx Hypercholesterolemia, Hx Hypertension Denies: Hx Atrial Fibrillation, Hx Congestive Heart Failure, Hx Coronary Artery Disease, Hx Heart Attack, Hx Peripheral Vascular Disease, Hx Pulmonary Embolism, Hx Heart Murmur Pulmonary Medical History: Reports: Hx Asthma, Hx Pneumonia Denies: Hx Bronchitis, Hx COPD, Hx Respiratory Failure, Hx Sleep Apnea, Hx Tuberculosis Neurological Medical History: Denies: Hx Seizures Endocrine Medical History: Reports: Hx Diabetes Mellitus Type 1, Hx Diabetes Mellitus Type 2, Hx Hypothyroidism. Denies: Hx Graves' Disease, Hx Hyperthyroidism Renal/ Medical History: Reports: Hx Kidney Stones. Denies: Hx End Stage Renal Disease, Hx Ovarian Cysts, Hx Peritoneal Dialysis, Hx Pelvic Inflammatory Disease Malignancy Medical History: Reports: Hx Pancreatic Cancer. Denies: Hx Breast Cancer, Hx Cervical Cancer, Hx Leukemia, Hx Lung Cancer, Hx Ovarian Cancer GI Medical History: Reports: Hx Gastroesophageal Reflux Disease, Hx Hiatal Hernia, Hx Irritable Bowel, Hx Ulcer, Hx Colonoscopy, Hx Endoscopy. Denies: Hx Crohn's Disease, Hx Liver Failure Musculoskeltal Medical History: Reports Hx Arthritis - rheumatoid, Denies Hx Fibromyalgia, Denies Hx Muscular Dystrophy Psychiatric Medical History: Reports: Hx Depression Denies: Hx Bipolar Disorder, Hx Post Traumatic Stress Disorder, Hx Schizophrenia Traumatic Medical History: Denies: Hx Fractures Infectious Medical History: Denies: Hx HIV Past Surgical History: Reports: Hx Abdominal Surgery - Pancreatic tumor removed noncancerous also at G/J tube, Hx Cholecystectomy, Hx Colostomy, Hx Herniorrhaphy, Hx Tonsillectomy. Denies: Hx Appendectomy, Hx Bowel Surgery, Hx Section, Hx Coronary Artery Bypass Graft, Hx Gastric Bypass Surgery, Hx Hysterectomy, Hx Mastectomy, Hx Pacemaker, Hx Tubal Ligation - Immunizations Hx Diphtheria, Pertussis, Tetanus Vaccination: Yes Physical Exam - Vital signs Vitals: Temp Pulse Resp BP Pulse Ox 98.3 F 117 H 16 186/119 H 91 L 01/02/17 16:38 01/02/17 16:38 01/02/17 16:38 01/02/17 16:38 01/02/17 16:38 Course - Vital Signs Vital signs: Temp Pulse Resp BP Pulse Ox 98.3 F 117 H 16 186/119 H 91 L 01/02/17 16:38 01/02/17 16:38 01/02/17 16:38 01/02/17 16:38 01/02/17 16:38
[2017-01-02 18:08] LABS: APPEARANCE,URINE CLEAR; BILIRUBIN,URINE NEGATIVE (NEGATIVE); GLUCOSE, URINE >=500 mg/dL (NEGATIVE); KETONES,URINE TRACE mg/dL (NEGATIVE); LEUKOCYTE ESTERASE,URINE TRACE (NEGATIVE); NITRITE,URINE NEGATIVE (NEGATIVE); PROTEIN,URINE >=500 mg/dL (NEGATIVE); URINE SPECIFIC GRAVITY 1.022; UROBILINOGEN,URINE NEGATIVE mg/dL (<2.0)
--- NOTE | 2017-01-02 18:30 | RADIOLOGY REPORT (SQ) ---
EXAM DESCRIPTION: CHEST SINGLE VIEW COMPLETED DATE/TIME: 01/02/2017 6:18 pm REASON FOR STUDY: vomiting COMPARISON: 04/17/2016 EXAM PARAMETERS: NUMBER OF VIEWS: One view. TECHNIQUE: Single frontal radiographic view of the chest acquired. RADIATION DOSE: NA LIMITATIONS: None. FINDINGS: LUNGS AND PLEURA: No opacities, masses or pneumothorax. No pleural effusion. MEDIASTINUM AND HILAR STRUCTURES: No masses. Contour normal. HEART AND VASCULAR STRUCTURES: Heart normal in size. Normal vasculature. BONES: No acute findings. HARDWARE: None in the chest. OTHER: No other significant finding. IMPRESSION: NO ACUTE RADIOGRAPHIC FINDING IN THE CHEST. TECHNICAL DOCUMENTATION: JOB ID: [id number]
[2017-01-02 18:56] LABS: ABSOLUTE BASOPHILS # (AUTO) 0.1 10^3/uL (0.0-0.2); ABSOLUTE EOSINOPHILS # (AUTO) 0.3 10^3/uL (0.0-0.6); ABSOLUTE LYMPHOCYTES (AUTO) 1.7 10^3/uL (0.5-4.7); ABSOLUTE MONOCYTES (AUTO) 0.4 10^3/uL (0.1-1.4); ABSOLUTE NEUT (AUTO) 5.2 10^3/uL (1.7-8.2); EOSINOPHILS % (AUTO) 3.4 % (0-6); HEMOGLOBIN 15.2 g/dL (12.0-15.5); HGB HCT DIFFERENCE 0.6; LYMPHOCYTES % (AUTO) 22.1 % (13-45); MEAN CORPUSCULAR HGB CONC 33.7 g/dL (32.0-36.0); MEAN CORPUSCULAR VOLUME 80 fl (80-97); MONOCYTES % (AUTO) 5.2 % (3-13); RED BLOOD COUNT 5.62 10^6/uL (3.72-5.28); RED CELL DISTRIBUTION WIDTH 14.1 % (11.5-14.0); SEGMENTED NEUTROPHILS % (AUTO) 68.3 % (42-78); WHITE BLOOD COUNT 7.7 10^3/uL (4.0-10.5)
[2017-01-02 19:08] LABS: ALANINE AMINOTRANSFERASE 38 U/L (9-52); ALBUMIN 4.7 g/dL (3.5-5.0); ALKALINE PHOSPHATASE 117 U/L (38-126); ANION GAP 17 (5-19); ASPARTATE AMINO TRANSFERASE 25 U/L (14-36); BILIRUBIN,DIRECT 0.4 mg/dL (0.0-0.4); BILIRUBIN,TOTAL 0.8 mg/dL (0.2-1.3); BLOOD UREA NITROGEN 11 mg/dL (7-20); CALCIUM 10.3 mg/dL (8.4-10.2); CARBON DIOXIDE 26 mmol/L (22-30); CHLORIDE 93 mmol/L (98-107); CREATININE RESULT 0.58 mg/dL (0.52-1.25); GLUCOSE 290 mg/dL (75-110); LIPASE 33.8 U/L (23-300); POTASSIUM 4.2 mmol/L (3.6-5.0); SODIUM 135.9 mmol/L (137-145); TOTAL PROTEIN 9.2 g/dL (6.3-8.2)
[2017-01-02] MEDS ORDERED: ONDANSETRON HCL INJ/PF 4 MG/2 ML SDV IV ONE (19:33)
[2017-01-02] MEDS ORDERED: FENTANYL CITRATE INJ/PF 100 MCG/2 ML AMPUL IV ONE (19:33)
--- NOTE | 2017-01-02 20:17 | ER Document Report ---
ED GI/ - General Chief Complaint: Abdominal Pain Stated Complaint: FLANK PAIN Time Seen by Provider: 01/02/17 17:34 Mode of Arrival: Ambulatory Information source: Patient TRAVEL OUTSIDE OF THE [place] IN LAST 30 DAYS: No - HPI Patient complains to provider of: Abdominal pain Onset: This morning Timing/Duration: Sudden Quality of pain: Sharp, Stabbing Severity at maximum: Moderate Severity in ED: Moderate Pain Level: 3 Location: Epigastric Vaginal bleeding (Compared to normal period): None Associated symptoms: Diarrhea, Nausea Exacerbated by: Denies Relieved by: Denies Similar symptoms previously: Yes Recently seen / treated by doctor: Yes Notes: 01/03/17 00:11 Patient is a 51-year-old female with a history of diabetes, gastroparesis, chronic pancreatitis and [place], who presents to the emergency room complaining of epigastric abdominal pain is been going on since earlier today, she reports nausea but no vomiting, she did have diarrhea 2 days ago, she denies fever, no dysuria or hematuria, patient is a chronic pain patient who states she currently takes fentanyl and oxycodone for pain at home, she is well known to this emergency room for frequent pain complaint visits in the past - Related Data Allergies/Adverse Reactions: banana [Banana] Allergy (Intermediate, Verified 01/02/17 17:04) itching codeine [Codeine] Allergy (Verified 01/02/17 17:04) iodine [Iodine] Allergy (Verified 01/02/17 17:04) metronidazole [Metronidazole] Allergy (Verified 01/02/17 17:04) Penicillins Allergy (Verified 01/02/17 17:04) Edhpdne-Uek-Zhd Reductase Inhibitor Adverse Reaction (Intermediate, Verified 17:04) muscle rigidity metoclopramide HCl [From Reglan] Adverse Reaction (Verified 01/02/17 17:04) Blue Cheese Allergy (Intermediate, Uncoded 01/02/17 17:04) itching Past Medical History - General Information source: Patient - Social History Smoking Status: Never Smoker Chew tobacco use (# tins/day): No Frequency of alcohol use: None Drug Abuse: None Family History: Arthritis, CAD, COPD, DM, Hyperlipidemia, Hypertension, Malignancy, Thyroid Disfunction Patient has suicidal ideation: No Patient has homicidal ideation: No - Past Medical History Cardiac Medical History: Reports: Hx Hypercholesterolemia, Hx Hypertension Denies: Hx Atrial Fibrillation, Hx Congestive Heart Failure, Hx Coronary Artery Disease, Hx Heart Attack, Hx Peripheral Vascular Disease, Hx Pulmonary Embolism, Hx Heart Murmur Pulmonary Medical History: Reports: Hx Asthma, Hx Pneumonia Denies: Hx Bronchitis, Hx COPD, Hx Respiratory Failure, Hx Sleep Apnea, Hx Tuberculosis Neurological Medical History: Denies: Hx Seizures Endocrine Medical History: Reports: Hx Diabetes Mellitus Type 1, Hx Diabetes Mellitus Type 2, Hx Hypothyroidism. Denies: Hx Graves' Disease, Hx Hyperthyroidism Renal/ Medical History: Reports: Hx Kidney Stones. Denies: Hx End Stage Renal Disease, Hx Ovarian Cysts, Hx Peritoneal Dialysis, Hx Pelvic Inflammatory Disease Malignancy Medical History: Reports: Hx Pancreatic Cancer. Denies: Hx Breast Cancer, Hx Cervical Cancer, Hx Leukemia, Hx Lung Cancer, Hx Ovarian Cancer GI Medical History: Reports: Hx Gastroesophageal Reflux Disease, Hx Hiatal Hernia, Hx Irritable Bowel, Hx Ulcer, Hx Colonoscopy, Hx Endoscopy. Denies: Hx Crohn's Disease, Hx Liver Failure Musculoskeltal Medical History: Reports Hx Arthritis - rheumatoid, Denies Hx Fibromyalgia, Denies Hx Muscular Dystrophy Psychiatric Medical History: Reports: Hx Depression Denies: Hx Bipolar Disorder, Hx Post Traumatic Stress Disorder, Hx Schizophrenia Traumatic Medical History: Denies: Hx Fractures Infectious Medical History: Denies: Hx HIV Past Surgical History: Reports: Hx Abdominal Surgery - Pancreatic tumor removed noncancerous also at G/J tube, Hx Cholecystectomy, Hx Colostomy, Hx Herniorrhaphy, Hx Tonsillectomy. Denies: Hx Appendectomy, Hx Bowel Surgery, Hx Section, Hx Coronary Artery Bypass Graft, Hx Gastric Bypass Surgery, Hx Hysterectomy, Hx Mastectomy, Hx Pacemaker, Hx Tubal Ligation - Immunizations Hx Diphtheria, Pertussis, Tetanus Vaccination: Yes Hx Pneumococcal Vaccination: 03/24/14 Review of Systems - Review of Systems Constitutional: No symptoms reported EENT: No symptoms reported Cardiovascular: No symptoms reported Respiratory: No symptoms reported Gastrointestinal: See HPI Genitourinary: No symptoms reported Female Genitourinary: No symptoms reported Musculoskeletal: No symptoms reported Skin: No symptoms reported Hematologic/Lymphatic: No symptoms reported Neurological/Psychological: No symptoms reported -: Yes All other systems reviewed and negative Physical Exam - Vital signs Vitals: Temp Pulse Resp BP Pulse Ox 98.3 F 117 H 16 186/119 H 91 L 01/02/17 16:38 01/02/17 16:38 01/02/17 16:38 01/02/17 16:38 01/02/17 16:38 Interpretation: Hypertensive, Tachycardic - General General appearance: Appears well, Alert - HEENT Head: Normocephalic, Atraumatic Eyes: Normal Pupils: PERRL - Respiratory Respiratory status: No respiratory distress Chest status: Nontender Breath sounds: Normal Chest palpation: Normal - Cardiovascular Rhythm: Regular Heart sounds: Normal auscultation Murmur: No - Abdominal Inspection: Obese, Other - Gastrostomy tube in place in left upper abdomen Distension: No distension Bowel sounds: Normal Tenderness: Tender - Epigastric Organomegaly: No organomegaly - Back Back: Normal, Nontender - Extremities General upper extremity: Normal inspection, Nontender, Normal color, Normal ROM , Normal temperature General lower extremity: Normal inspection, Nontender, Normal color, Normal ROM , Normal temperature, Normal weight bearing. No: Viviana's sign - Neurological Neuro grossly intact: Yes Cognition: Normal Orientation: AAOx4 Wilmer Coma Scale Eye Opening: Spontaneous Sanders Coma Scale Verbal: Oriented Wilmer Coma Scale Motor: Obeys Commands Wilmer Coma Scale Total: 15 Speech: Normal Motor strength normal: LUE, RUE, LLE, RLE Sensory: Normal - Psychological Associated symptoms: Normal affect, Normal mood - Skin Skin Temperature: Warm Skin Moisture: Dry Skin Color: Normal Course - Re-evaluation Re-evalutation: 01/02/17 21:15 Patient comfortably on stretcher, reports feeling much better after receiving IV medications, lab and imaging findings were discussed with her at bedside which are relatively unremarkable, she will be discharged with instructions for follow-up and advised to return if any additional concerns, patient acknowledges understanding and agreement with this plan - Vital Signs Vital signs: Temp Pulse Resp BP Pulse Ox 98.8 F 100 18 154/103 H 90 L 01/02/17 21:40 01/02/17 21:40 01/02/17 21:40 01/02/17 21:40 01/02/17 21:40 - Laboratory Result Diagrams: 01/02/17 18:45 01/02/17 18:45 Laboratory results interpreted by me: 01/02/17 01/02/17 01/02/17 17:54 18:45 18:45 RBC 5.62 H RDW 14.1 H Sodium 135.9 L Chloride 93 L Glucose 290 H Calcium 10.3 H Total Protein 9.2 H Urine Protein >=500 H Urine Glucose (UA) >=500 H Urine Ketones TRACE H Ur Leukocyte Esterase TRACE H - Diagnostic Test Radiology reviewed: Image reviewed, Reports reviewed - EKG Interpretation by Me EKG shows normal: Sinus rhythm Rate: Tachycardia Rhythm: NSR When compared to previous EKG there are: No significant change Discharge - Discharge Clinical Impression: Abdominal pain Qualifiers: Abdominal location: epigastric Qualified Code(s): R10.13 - Epigastric pain Condition: Stable Disposition: HOME, SELF-CARE Instructions: Abdominal Pain ([facility]) Additional Instructions: Follow up with your primary care provider in one to 2 days. Return to the emergency room immediately if symptoms worsen or any additional concerns. Forms: Elevated Blood Pressure Referrals: JASMYNE JACQUES MD [Primary Care Provider] - Follow up as needed
--- NOTE | 2017-01-02 21:24 | EKG REPORT ---
SEVERITY:- ABNORMAL ECG - SINUS TACHYCARDIA LEFT VENTRICULAR HYPERTROPHY BORDERLINE PROLONGED QT INTERVAL : Confirmed by: Antoine Funes 02-Jan-2017 21:22:53
[2017-01-02 21:42] VITALS: BP 154/103
== END 2017-01-02 21:42 | disposition home or self-care (01) ==
LOC: ER 16:34
DX: R10.13 Epigastric pain (principal); R10.9 Unspecified abdominal pain; R19.7 Diarrhea, unspecified; R11.0 Nausea
CPT/HCPCS: 93005; 99284; 96361; 96374; 96375; 36415; 83690; 85025; 80053; 81001; 84484; 71010; 93010; J3010; J2405; J7030

== ENCOUNTER 2017-03-23 14:29 | Emergency (ER) | payer BC ==
--- NOTE | 2017-03-23 14:37 | ER Document Report ---
ED Medical Screen (RME) - General Stated Complaint: DIZZINESS Time Seen by Provider: 03/23/17 14:32 TRAVEL OUTSIDE OF THE [place] IN LAST 30 DAYS: No - HPI Notes: 03/23/17 14:36 Asymmetric smile with a right extremity tremor. Patient is able to hold onto my fingers and pulling away will activate his stroke alert in place patient back for further evaluation - Related Data Allergies/Adverse Reactions: banana [Banana] Allergy (Intermediate, Verified 01/02/17 17:04) itching codeine [Codeine] Allergy (Verified 01/02/17 17:04) iodine [Iodine] Allergy (Verified 01/02/17 17:04) metronidazole [Metronidazole] Allergy (Verified 01/02/17 17:04) Penicillins Allergy (Verified 01/02/17 17:04) Nhzrtfo-Ttd-Vbc Reductase Inhibitor Adverse Reaction (Intermediate, Verified 17:04) muscle rigidity metoclopramide HCl [From Reglan] Adverse Reaction (Verified 01/02/17 17:04) Blue Cheese Allergy (Intermediate, Uncoded 01/02/17 17:04) itching Past Medical History - Past Medical History Cardiac Medical History: Reports: Hx Hypercholesterolemia, Hx Hypertension Denies: Hx Atrial Fibrillation, Hx Congestive Heart Failure, Hx Coronary Artery Disease, Hx Heart Attack, Hx Peripheral Vascular Disease, Hx Pulmonary Embolism, Hx Heart Murmur Pulmonary Medical History: Reports: Hx Asthma, Hx Pneumonia Denies: Hx Bronchitis, Hx COPD, Hx Respiratory Failure, Hx Sleep Apnea, Hx Tuberculosis Neurological Medical History: Denies: Hx Seizures Endocrine Medical History: Reports: Hx Diabetes Mellitus Type 1, Hx Diabetes Mellitus Type 2, Hx Hypothyroidism. Denies: Hx Graves' Disease, Hx Hyperthyroidism Renal/ Medical History: Reports: Hx Kidney Stones. Denies: Hx End Stage Renal Disease, Hx Ovarian Cysts, Hx Peritoneal Dialysis, Hx Pelvic Inflammatory Disease Malignancy Medical History: Reports: Hx Pancreatic Cancer. Denies: Hx Breast Cancer, Hx Cervical Cancer, Hx Leukemia, Hx Lung Cancer, Hx Ovarian Cancer GI Medical History: Reports: Hx Gastroesophageal Reflux Disease, Hx Hiatal Hernia, Hx Irritable Bowel, Hx Ulcer, Hx Colonoscopy, Hx Endoscopy. Denies: Hx Crohn's Disease, Hx Liver Failure Musculoskeltal Medical History: Reports Hx Arthritis - rheumatoid, Denies Hx Fibromyalgia, Denies Hx Muscular Dystrophy Psychiatric Medical History: Reports: Hx Depression Denies: Hx Bipolar Disorder, Hx Post Traumatic Stress Disorder, Hx Schizophrenia Traumatic Medical History: Denies: Hx Fractures Infectious Medical History: Denies: Hx HIV Past Surgical History: Reports: Hx Abdominal Surgery - Pancreatic tumor removed noncancerous also at G/J tube, Hx Cholecystectomy, Hx Colostomy, Hx Herniorrhaphy, Hx Tonsillectomy. Denies: Hx Appendectomy, Hx Bowel Surgery, Hx Section, Hx Coronary Artery Bypass Graft, Hx Gastric Bypass Surgery, Hx Hysterectomy, Hx Mastectomy, Hx Pacemaker, Hx Tubal Ligation - Immunizations Hx Diphtheria, Pertussis, Tetanus Vaccination: Yes Review of Systems - Review of Systems Constitutional: Other - Facial weakness Physical Exam - Notes Notes: Asymmetrical smile with a tremor on the right side
--- NOTE | 2017-03-23 15:07 | RADIOLOGY REPORT (SQ) ---
EXAM DESCRIPTION: CT HEAD WITHOUT COMPLETED DATE/TIME: 03/23/2017 2:49 pm REASON FOR STUDY: weakness COMPARISON: 04/21/2007. TECHNIQUE: Axial images acquired through the brain without intravenous contrast. Images reviewed wi th bone, brain and subdural windows. Images stored on PACS. All CT scanners at this facility use dose modulation, iterative reconstruction, and/or weight based d osing when appropriate to reduce radiation dose to as low as reasonably achievable (ALARA). [facility]: Dose Right [facility]: CareDose [facility]: Dose Right [facility]: Teradose 4D [facility]: Smart Embibe RADIATION DOSE: Up-to-date CT equipment and radiation dose reduction techniques were employed. CTDIv ol: 64.6 mGy. DLP: 1163 mGy-cm. mGy. LIMITATIONS: None. FINDINGS: VENTRICLES: Normal size and contour. CEREBRUM: No masses. No hemorrhage. No midline shift. No evidence for acute infarction. Normal gra y/white matter differentiation. No areas of low density in the white matter. CEREBELLUM: No masses. No hemorrhage. No alteration of density. No evidence for acute infarction. EXTRAAXIAL SPACES: No fluid collections. No masses. ORBITS AND GLOBE: No intra- or extraconal masses. Normal contour of globe without masses. CALVARIUM: No fracture. PARANASAL SINUSES: No fluid or mucosal thickening. SOFT TISSUES: No mass or hematoma. OTHER: No other significant finding. IMPRESSION: NORMAL BRAIN CT WITHOUT CONTRAST. COMMENT: Quality ID # [id number]: Final reports with documentation of one or more dose reduction techniques (e.g., Automated exposure control, adjustment of the mA and/or kV according to patient size, use of iterative reconstruction technique) TECHNICAL DOCUMENTATION: JOB ID: [id number] [email or web address]- All Rights Reserved
--- NOTE | 2017-03-23 15:26 | RADIOLOGY REPORT (SQ) ---
EXAM DESCRIPTION: CHEST SINGLE VIEW COMPLETED DATE/TIME: 03/23/2017 2:57 pm REASON FOR STUDY: weakness COMPARISON: 01/02/2017. EXAM PARAMETERS: NUMBER OF VIEWS: One view. TECHNIQUE: Single frontal radiographic view of the chest acquired. RADIATION DOSE: NA LIMITATIONS: None. FINDINGS: LUNGS AND PLEURA: No opacities, masses or pneumothorax. No pleural effusion. MEDIASTINUM AND HILAR STRUCTURES: No masses. Contour normal. HEART AND VASCULAR STRUCTURES: Heart normal in size. Normal vasculature. BONES: No acute findings. HARDWARE: None in the chest. OTHER: No other significant finding. IMPRESSION: NO ACUTE RADIOGRAPHIC FINDING IN THE CHEST. TECHNICAL DOCUMENTATION: JOB ID: [id number]
[2017-03-23 15:28] LABS: ABSOLUTE BASOPHILS # (AUTO) 0.1 10^3/uL (0.0-0.2); ABSOLUTE EOSINOPHILS # (AUTO) 0.6 10^3/uL (0.0-0.6); ABSOLUTE LYMPHOCYTES (AUTO) 1.6 10^3/uL (0.5-4.7); ABSOLUTE MONOCYTES (AUTO) 0.3 10^3/uL (0.1-1.4); ABSOLUTE NEUT (AUTO) 3.8 10^3/uL (1.7-8.2); EOSINOPHILS % (AUTO) 8.7 % (0-6); HEMATOCRIT 37.2 % (36.0-47.0); HEMOGLOBIN 12.8 g/dL (12.0-15.5); HGB HCT DIFFERENCE 1.2; LYMPHOCYTES % (AUTO) 25.5 % (13-45); MEAN CORPUSCULAR HEMOGLOBIN 28.3 pg (27.0-33.4); MEAN CORPUSCULAR HGB CONC 34.4 g/dL (32.0-36.0); MEAN CORPUSCULAR VOLUME 82 fl (80-97); MONOCYTES % (AUTO) 4.8 % (3-13); RED BLOOD COUNT 4.53 10^6/uL (3.72-5.28); RED CELL DISTRIBUTION WIDTH 13.9 % (11.5-14.0); WHITE BLOOD COUNT 6.3 10^3/uL (4.0-10.5)
[2017-03-23 15:34] LABS: PROTHROMBIN TIME 12.1 SEC (11.4-15.4)
[2017-03-23 15:35] LABS: PARTIAL THROMBOPLASTIN TIME 27.1 SEC (23.5-35.8)
[2017-03-23 15:46] LABS: ALANINE AMINOTRANSFERASE 23 U/L (9-52); ALBUMIN 3.8 g/dL (3.5-5.0); ALKALINE PHOSPHATASE 95 U/L (38-126); ANION GAP 16 (5-19); ASPARTATE AMINO TRANSFERASE 18 U/L (14-36); BILIRUBIN,DIRECT 0.4 mg/dL (0.0-0.4); BILIRUBIN,TOTAL 0.4 mg/dL (0.2-1.3); BLOOD UREA NITROGEN 14 mg/dL (7-20); CALCIUM 10.1 mg/dL (8.4-10.2); CARBON DIOXIDE 26 mmol/L (22-30); CHLORIDE 97 mmol/L (98-107); CREATININE RESULT 0.73 mg/dL (0.52-1.25); GLUCOSE 385 mg/dL (75-110); LIPASE 16.3 U/L (23-300); POTASSIUM 4.1 mmol/L (3.6-5.0); SODIUM 138.6 mmol/L (137-145); TOTAL PROTEIN 7.5 g/dL (6.3-8.2)
--- NOTE | 2017-03-23 15:56 | ER Document Report ---
ED General - General Information source: Patient TRAVEL OUTSIDE OF THE [place] IN LAST 30 DAYS: No - HPI Onset: Other - last known well 1145 today Onset/Duration: Sudden Associated symptoms: Other - see above <GERALD DARBY - Last Filed: 03/23/17 20:06> <PRESTON BARRIOS - Last Filed: 03/24/17 00:10> - General Chief Complaint: S/S of Possible Stroke Stated Complaint: DIZZINESS Time Seen by Provider: 03/23/17 14:32 Notes: Patient is a 51 year old female who presents to the ED with complaints of an intermittent tremor in extremities and an intermittent stutter that started today. Last known well time was 1145 today. Patient notes that she has an abscess healing on her abdomen from an infection that occurred around her insulin pump site. Patient states she has been having migraine headaches for the past week, she has no hx of migraines and she normally does not even have headaches. Patient states today she had more difficulty ambulating than normal due to the tremors, she states the tremors are worse on the right side than on the left. She denies any injuries, bee stings or new food or drink prior to onset of symptoms. She states she was watching an outdoor soccer game. She denies chest pain or dyspnea. She does have some new blurry vision. She denies any focal weakness or loss of sensation. Patient has a hx of type 1.5 diabetes and has been in DKA several times before. She states she has never felt like this when in DKA. (GERALD DARBY) - Related Data Allergies/Adverse Reactions: banana [Banana] Allergy (Intermediate, Verified 01/02/17 17:04) itching codeine [Codeine] Allergy (Verified 01/02/17 17:04) iodine [Iodine] Allergy (Verified 01/02/17 17:04) metronidazole [Metronidazole] Allergy (Verified 01/02/17 17:04) Penicillins Allergy (Verified 01/02/17 17:04) Xhqzmzl-Gdm-Yzw Reductase Inhibitor Adverse Reaction (Intermediate, Verified 17:04) muscle rigidity metoclopramide HCl [From Reglan] Adverse Reaction (Verified 01/02/17 17:04) Blue Cheese Allergy (Intermediate, Uncoded 01/02/17 17:04) itching Past Medical History - General Information source: Patient - Social History Smoking Status: Never Smoker Chew tobacco use (# tins/day): No Frequency of alcohol use: None Drug Abuse: None Family History: Arthritis, CAD, COPD, DM, Hyperlipidemia, Hypertension, Malignancy, Thyroid Disfunction Patient has suicidal ideation: No Patient has homicidal ideation: No - Past Medical History Cardiac Medical History: Reports: Hx Hypercholesterolemia, Hx Hypertension Pulmonary Medical History: Reports: Hx Asthma, Hx Pneumonia Endocrine Medical History: Reports: Hx Diabetes Mellitus Type 1, Hx Diabetes Mellitus Type 2, Hx Hypothyroidism Renal/ Medical History: Reports: Hx Kidney Stones Malignancy Medical History: Reports: Hx Pancreatic Cancer GI Medical History: Reports: Hx Gastroesophageal Reflux Disease, Hx Hiatal Hernia, Hx Irritable Bowel, Hx Ulcer, Hx Colonoscopy, Hx Endoscopy Musculoskeltal Medical History: Reports Hx Arthritis - rheumatoid Psychiatric Medical History: Reports: Hx Depression Past Surgical History: Reports: Hx Abdominal Surgery - Pancreatic tumor removed noncancerous also at G/J tube, Hx Cholecystectomy, Hx Colostomy, Hx Herniorrhaphy, Hx Tonsillectomy - Immunizations Hx Diphtheria, Pertussis, Tetanus Vaccination: Yes Hx Pneumococcal Vaccination: 03/24/14 <GERALD DARBY - Last Filed: 03/23/17 20:06> Review of Systems - Review of Systems Constitutional: No symptoms reported EENT: No symptoms reported Cardiovascular: No symptoms reported Respiratory: No symptoms reported Gastrointestinal: No symptoms reported Genitourinary: No symptoms reported Female Genitourinary: No symptoms reported Musculoskeletal: No symptoms reported Skin: No symptoms reported Hematologic/Lymphatic: No symptoms reported Neurological/Psychological: See HPI, Gait changes, Headaches, Speech impairment - stutter, Tremor. denies: Weakness <GERALD DARBY - Last Filed: 03/23/17 20:06> Physical Exam <GERALD DARBY - Last Filed: 03/23/17 20:06> <PRESTON BARRIOS - Last Filed: 03/24/17 00:10> - Vital signs Vitals: Temp Pulse Resp BP Pulse Ox 97.4 F 116 H 16 174/108 H 96 03/23/17 14:29 03/23/17 14:29 03/23/17 14:29 03/23/17 14:29 03/23/17 14:29 - Notes Notes: GENERAL: Alert, interacts well. No acute distress. Obese. HEAD: Normocephalic, atraumatic. EYES: Pupils equal, round, and reactive to light. Extraocular movements intact. ENT: Oral mucosa moist, tongue midline. NECK: Full range of motion. Supple. Trachea midline. LUNGS: Clear to auscultation bilaterally, no wheezes, rales, or rhonchi. No respiratory distress. HEART: Mild tachycardia. No murmurs, gallops, or rubs. ABDOMEN: Soft, non-tender. Non-distended. slightly decreased bowel sounds. EXTREMITIES: Moves all 4 extremities spontaneously. No edema, radial and dorsalis pedis pulses 2/4 bilaterally. No cyanosis. NEUROLOGICAL: Alert and oriented x3. No facial droop. Tremor but 5/5 muscle strength in upper and lower extremities bilaterally. Intermittent stutter, quite marked stutter when entering room, more fluent with prolonged conversation , when reminded of stutter it becomes more apparent. Intermittent tremor in extremities, when reminded of tremor it becomes more apparent. Gesticulates when speaking and no tremor is seen. PSYCH: Normal affect, normal mood. SKIN: Warm, dry, normal turgor. Sun burn noticed on face. Crusting and erythema on right lower abdomen consistent with prior abscess that patient reported on right lower abdomen, firm with no fluctuance. erythema and crusting around feeding tube. insulin pump site looks good. (GERALD DARBY) Course - Laboratory Result Diagrams: 03/23/17 15:20 03/23/17 15:20 <GERALD DARBY - Last Filed: 03/23/17 20:06> - Laboratory Result Diagrams: 03/23/17 15:20 03/23/17 15:20 <PRESTON BARRIOS - Last Filed: 03/24/17 00:10> - Re-evaluation Re-evalutation: 03/23/17 20:48 CBC unremarkable, coags normal, venous blood gas unremarkable, CMP shows elevated glucose but no evidence of DKA, cardiac enzymes negative, lipase normal , urinalysis shows glucose but no ketones, it appears to be contaminated with small leukocyte esterase, 4 WBCs and 1 squamous epithelial cell, no bacteria. Urine drug screen confirms opiates which she is prescribed. CT scan of the head rules out any acute hemorrhage or subacute infarct. Chest x-ray shows no acute process. EKG is tachycardic though it is nonischemic. Patient has no focal neurologic deficits, the stutter is transient, is worsened when she focuses on it, the tremor is also transient and is not there when I walked back into the room to reevaluate her. She did have somewhat elevated blood pressure which we treated with hydralazine, her blood pressure actually got higher after that however her headache did not change. Do not suspect hypertensive urgency or emergency, do not suspect that the headache is caused by the elevated blood pressure. No evidence of stroke. Discussed with the patient and the family that I do not know exactly why she has developed a stutter and a tremor but the symptoms are not explained by an infarct to any one particular area of the brain. NIH stroke scale is 0. Discussed with family that they should follow-up with a neuropsychiatrist as sometimes a new onset stutter can be a manifestation of a psychiatric disease. Certainly she should return should she develop focal weakness, difficulty with her vision, difficulty speaking or any new or concerning symptoms. Patient's migraine was treated with Toradol, Compazine, Benadryl. (PRESTON BARRIOS) - Vital Signs Vital signs: Temp Pulse Resp BP Pulse Ox 97.4 F 105 H 15 158/86 H 92 03/23/17 14:29 03/23/17 20:00 03/23/17 21:31 03/23/17 21:31 03/23/17 21:31 - Laboratory Laboratory results interpreted by me: 03/23/17 03/23/17 03/23/17 14:59 15:20 15:20 Eosinophils % 8.7 H VBG HCO3 Chloride 97 L Glucose 385 H POC Glucose 366 H Lipase 16.3 L Urine Protein Urine Glucose (UA) Ur Leukocyte Esterase 03/23/17 03/23/17 16:25 17:10 Eosinophils % VBG HCO3 36.5 H Chloride Glucose POC Glucose Lipase Urine Protein 100 H Urine Glucose (UA) >=500 H Ur Leukocyte Esterase SMALL H - EKG Interpretation by Me Additional EKG results interpreted by me: 03/23/17 20:50 EKG shows sinus tachycardia at a rate of 107, left anterior hemiblock, no ST segment elevations or depressions, there are isolated T-wave inversions in aVL which are nonspecific per my interpretation. (PRESTON BARRIOS) Discharge <GERALD DARBY - Last Filed: 03/23/17 20:06> <PRESTON BARRIOS - Last Filed: 03/24/17 00:10> - Discharge Clinical Impression: Stutter, Tremor, Diabetic gastroparesis Hypertension Qualifiers: Hypertension type: essential hypertension Qualified Code(s): I10 - Essential ( primary) hypertension Headache Qualifiers: Headache type: unspecified Headache chronicity pattern: acute headache Intractability: intractable Qualified Code(s): R51 - Headache Condition: Stable Disposition: HOME, SELF-CARE Additional Instructions: Today I do not see any signs of a stroke. Your stutter and tremor come and go. This is not consistent with a stroke. You may benefit from evaluation by a neuropsychiatrist. Should you develop weakness on one side of your body or the other but not both sides at once, slurred speech, or any new or concerning symptoms please return to the emergency department immediately. Your blood pressure was elevated today despite your blood pressure medications. I gave you a patch called clonidine 0.1 mg that will last for the next week. If you become dizzy, lightheaded or your heart rate is slow or your blood pressure is low please take it off and throw it away. Referrals: JASMYNE JACQUES MD [Primary Care Provider] - Follow up as needed Scribe Attestation: 03/24/17 00:10 I personally performed the services described in the documentation, reviewed and edited the documentation which was dictated to the scribe in my presence, and it accurately records my words and actions. (PRESTON BARRIOS) Scribe Documentation - Scribe Written by Liliya:: liliya Grace, 03/23/2017, 1630 acting as scribe for :: Anai <GERALD DARBY - Last Filed: 03/23/17 20:06>
[2017-03-23 17:19] LABS: APPEARANCE,URINE CLEAR; BILIRUBIN,URINE NEGATIVE (NEGATIVE); GLUCOSE, URINE >=500 mg/dL (NEGATIVE); KETONES,URINE NEGATIVE (NEGATIVE); LEUKOCYTE ESTERASE,URINE SMALL (NEGATIVE); NITRITE,URINE NEGATIVE (NEGATIVE); PROTEIN,URINE 100 mg/dL (NEGATIVE); URINE SPECIFIC GRAVITY 1.025; UROBILINOGEN,URINE NEGATIVE mg/dL (<2.0)
[2017-03-23 17:22] LABS: VENOUS BLOOD BASE EXCESS 9.9 mmol/L; VENOUS BLOOD HCO3 36.5 mmol/L (20-32); VENOUS BLOOD PCO2 57.5 mmHg (35-63); VENOUS BLOOD PH 7.42 (7.30-7.42)
[2017-03-23 17:32] LABS: URINE BARBITURATES SCREEN NEGATIVE; URINE METHADONE SCREEN NEGATIVE; URINE OPIATES LOW UNCONFIRMED POSITIVE; URINE PHENCYCLIDINE SCREEN NEGATIVE
[2017-03-23] MEDS ORDERED: HYDRALAZINE HCL INJ/PF 20 MG/1 ML SDV IV ONE (18:33)
[2017-03-23] MEDS ORDERED: KETOROLAC TROMETHAMINE INJ/PF 30 MG/1 ML SDV IV ONE (20:05)
[2017-03-23] MEDS ORDERED: DIPHENHYDRAMINE HCL 50 MG/ML VIAL IV ONE (20:05)
[2017-03-23] MEDS ORDERED: CLONIDINE 0.1 MG/24 HR PATCH.TDWK TD ONE (20:05)
[2017-03-23] MEDS ORDERED: PROCHLORPERAZINE EDISYLATE INJ 10 MG/2 ML VIAL IV ONE (20:05)
[2017-03-23 21:37] VITALS: BP 158/86
--- NOTE | 2017-03-23 22:01 | EKG REPORT ---
SEVERITY:- ABNORMAL ECG - SINUS TACHYCARDIA LVH WITH SECONDARY REPOLARIZATION ABNORMALITY : Confirmed by: Antoine Funes 23-Mar-2017 22:01:11
== END 2017-03-23 21:52 | disposition home or self-care (01) ==
LOC: ER 14:29
DX: R42 Dizziness and giddiness (principal); F98.5 Adult onset fluency disorder; R25.1 Tremor, unspecified; E11.43 Type 2 diabetes mellitus with diabetic autonomic (poly)neuropathy; K31.84 Gastroparesis; Z96.41 Presence of insulin pump (external) (internal); E78.00 Pure hypercholesterolemia, unspecified; I10 Essential (primary) hypertension; Z87.442 Personal history of urinary calculi; Z85.07 Personal history of malignant neoplasm of pancreas; Z90.49 Acquired absence of other specified parts of digestive tract
CPT/HCPCS: 93005; 99285; 96374; 96375; 36415; 82962; 83690; 85025; 85610; 85730; 80053; 81001; 84484; 80307; 82803; 71010; 70450; 93010; J1200; J0360; J1885; J0780; J3490

== ENCOUNTER 2017-04-07 15:36 | Emergency (ER) | payer BC ==
--- NOTE | 2017-04-07 17:22 | ER Document Report ---
ED Extremity Problem, Lower - General Chief Complaint: Ankle Injury Stated Complaint: LEFT ANKLE INJURY Time Seen by Provider: 04/07/17 16:22 Mode of Arrival: Wheelchair Information source: Patient Notes: 51-year-old female presents to ED for complaint of left ankle pain since yesterday. She denies any known injuries. She does have redness swelling and warmth to the left lateral ankle. She is in a wheelchair with no acute distress at this time. She has a history of a pancreatic tumor with frequent pancreatitis due to the tumor. She also has diabetic due to the tumor has a history of blood pressure cholesterol asthma pneumonia diabetes kidney stones rheumatoid arthritis as well as osteoarthritis TRAVEL OUTSIDE OF THE [place] IN LAST 30 DAYS: No - HPI Patient complains to provider of: Pain, Swelling. No: Injury Location: Ankle Occurred: Yesterday Onset/Duration: Gradual Quality of pain: Burning, Sharp Severity: Moderate Recent injury: No Associated symptoms: Painful ambulation Exacerbated by: Hanging down, Movement, Walking Relieved by: Nothing - Related Data Allergies/Adverse Reactions: banana [Banana] Allergy (Intermediate, Verified 04/07/17 16:11) itching codeine [Codeine] Allergy (Verified 04/07/17 16:11) iodine [Iodine] Allergy (Verified 04/07/17 16:11) metronidazole [Metronidazole] Allergy (Verified 04/07/17 16:11) Penicillins Allergy (Verified 04/07/17 16:11) Uoebwos-Mtd-Zfc Reductase Inhibitor Adverse Reaction (Intermediate, Verified 07/24 16:11) muscle rigidity metoclopramide HCl [From Reglan] Adverse Reaction (Verified 04/07/17 16:11) Blue Cheese Allergy (Intermediate, Uncoded 01/02/17 17:04) itching Past Medical History - General Information source: Patient - Social History Smoking Status: Former Smoker Cigarette use (# per day): No Chew tobacco use (# tins/day): No Smoking Education Provided: No Frequency of alcohol use: None Drug Abuse: None Occupation: no Lives with: Family Family History: Arthritis, CAD, COPD, DM, Hyperlipidemia, Hypertension, Malignancy, Thyroid Disfunction. denies: CVA Patient has suicidal ideation: No Patient has homicidal ideation: No - Past Medical History Cardiac Medical History: Reports: Hx Hypercholesterolemia, Hx Hypertension Pulmonary Medical History: Reports: Hx Asthma, Hx Pneumonia EENT Medical History: Reports: None Neurological Medical History: Reports: None Endocrine Medical History: Reports: Hx Diabetes Mellitus Type 2, Hx Hypothyroidism Renal/ Medical History: Reports: Hx Kidney Stones Malignancy Medical History: Denies: Hx Pancreatic Cancer - non malignant pancreatic tumor GI Medical History: Reports: Hx Gastritis, Hx Gastroesophageal Reflux Disease, Hx Hiatal Hernia, Hx Irritable Bowel, Hx Ulcer, Hx Colonoscopy, Hx Endoscopy, Other - pancreatitis Musculoskeltal Medical History: Reports Hx Arthritis - rheumatoidand osteo Skin Medical History: Reports None Psychiatric Medical History: Reports: Hx Depression Traumatic Medical History: Reports: None Infectious Medical History: Reports: None Past Surgical History: Reports: Hx Abdominal Surgery - Pancreatic tumor removed noncancerous also at G/J tube, Hx Cholecystectomy, Hx Inguinal Hernia, Hx Tonsillectomy, Hx Umbilical Hernia - Immunizations Hx Diphtheria, Pertussis, Tetanus Vaccination: Yes Hx Pneumococcal Vaccination: 03/24/14 Review of Systems - Review of Systems Constitutional: No symptoms reported EENT: No symptoms reported Cardiovascular: No symptoms reported Respiratory: No symptoms reported Gastrointestinal: No symptoms reported Genitourinary: No symptoms reported Female Genitourinary: No symptoms reported Musculoskeletal: Ankle swelling - erythema swelling warmth and tenderness to left ankle Skin: Other - erythema swelling warmth and tenderness to left ankle Hematologic/Lymphatic: No symptoms reported Neurological/Psychological: No symptoms reported Physical Exam - Vital signs Vitals: Temp Pulse Resp BP Pulse Ox 98.8 F 108 H 20 142/79 H 98 04/07/17 16:06 04/07/17 16:06 04/07/17 16:06 04/07/17 16:06 04/07/17 16:06 Interpretation: Normal - General General appearance: Appears well, Alert - HEENT Head: Normocephalic, Atraumatic Eyes: Normal Pupils: PERRL - Respiratory Respiratory status: No respiratory distress Chest status: Nontender Breath sounds: Normal Chest palpation: Normal - Cardiovascular Rhythm: Regular Heart sounds: Normal auscultation Murmur: No - Abdominal Inspection: Normal Distension: No distension Bowel sounds: Normal Tenderness: Nontender Organomegaly: No organomegaly - Back Back: Normal, Nontender - Extremities General upper extremity: Normal inspection, Nontender, Normal color, Normal ROM , Normal temperature General lower extremity: No: Viviana's sign Ankle: Tender, Edema, Limited ROM, Unable to bear weight, Other - erythema, swelling pain to lateral ankle left hot. No: Abrasion, Deformity, Ecchymosis, Instability, Positive Higgins's test - Neurological Neuro grossly intact: Yes Cognition: Normal Orientation: AAOx4 Wilmer Coma Scale Eye Opening: Spontaneous Wilmer Coma Scale Verbal: Oriented Oxford Coma Scale Motor: Obeys Commands Wilmer Coma Scale Total: 15 Speech: Normal Motor strength normal: LUE, RUE, LLE, RLE Sensory: Normal - Psychological Associated symptoms: Normal affect, Normal mood - Skin Skin Temperature: Warm Skin Moisture: Dry Skin Color: Normal Course - Re-evaluation Re-evalutation: 04/07/17 18:24 Discussed x-ray with patient and written report given to patient. Patient will be treated with colchicine right now 1.2 mg she will also be given 0.6 mg to taken 1 hour's time. Then she is to be on colchicine 0.6 mg daily. As she has been instructed to follow-up with her doctor tomorrow. - Vital Signs Vital signs: Temp Pulse Resp BP Pulse Ox 98.7 F 99 19 140/77 H 99 04/07/17 18:44 04/07/17 18:44 04/07/17 18:44 04/07/17 18:44 04/07/17 18:44 - Diagnostic Test Radiology reviewed: Image reviewed, Reports reviewed Discharge - Discharge Clinical Impression: Gout Qualifiers: Gout site: ankle Gout etiology: unspecified cause Chronicity: acute Laterality : left Qualified Code(s): M10.9 - Gout, unspecified Condition: Stable Disposition: HOME, SELF-CARE Additional Instructions: Gout You have been diagnosed as having gout. Gout is a problem caused by an excess of uric acid, a natural chemical found in the body. The cause of this disease is unknown. Gout arthritis occurs when crystals of uric acid form in the joints. The big toe is the most common joint involved, but any joint can become affected. Persons with gout may also form uric acid kidney stones, resulting in flank pain and blood in the urine. Nodules of uric acid may form under the skin. The first step of treatment is to decrease the inflammation in the joint with antiinflammatory medication. Medication to lower the uric acid level in the blood may then be prescribed. This medication should be taken regularly, as any sudden change in dosage may provoke an attack of gout. Some foods, such as red meat, can provoke an attack in some gout sufferers. Call the doctor if new symptoms arise, or if you do not improve. Gout Diet Changing your diet can decrease the uric acid in your blood. High levels of uric acid cause gouty arthritis and uric acid kidney stones. If you have gout , you should avoid meats that are high in purine. Meat products to avoid include liver, kidneys, and brains. In general, poultry is better than red meats. Seafoods to avoid include anchovies, sardines, gonzales, mackerel, and scallops. In addition to limiting purine-rich foods, people with gout should limit protein intake to 10-15% of total calories. Carbohydrate intake should be around 50% of total daily calories. Limit fat intake to 30% of total daily calories. Cholesterol intake should be less than 300 mg/day. Maintain or achieve a healthy body weight. Weight loss should be gradual. Rapid weight loss can actually increase uric acid levels temporarily. Alcohol, especially beer, should be avoided. Get plenty of fluids. This dilutes urinary uric acid, and helps prevent uric acid kidney stones. Drink eight to twelve cups of water daily. FOLLOW-UP CARE: If you have been referred to a physician for follow-up care, call the physician s office for an appointment as you were instructed or within the next two days. If you experience worsening or a significant change in your symptoms, notify the physician immediately or return to the Emergency Department at any time for re-evaluation. Prescriptions: Colchicine [Colchicine 0.6 mg Tablet] 0.6 mg PO DAILY #7 tablet Forms: Elevated Blood Pressure Referrals: JASMYNE JACQUES MD [Primary Care Provider] - Follow up tomorrow
--- NOTE | 2017-04-07 17:34 | RADIOLOGY REPORT (SQ) ---
EXAM DESCRIPTION: ANKLE LEFT COMPLETE COMPLETED DATE/TIME: 04/07/2017 5:23 pm REASON FOR STUDY: pain swelling redness to left ankle and foot COMPARISON: None. NUMBER OF VIEWS: Three views. TECHNIQUE: AP, lateral, and oblique radiographic images acquired of the left ankle. LIMITATIONS: None. FINDINGS: MINERALIZATION: Normal. BONES: No acute fracture or dislocation. No worrisome bone lesions. JOINTS: No effusions. SOFT TISSUES: Moderate soft tissue swelling. No foreign body. OTHER: No other significant finding. IMPRESSION: Moderate Soft tissue swelling. No fracture. TECHNICAL DOCUMENTATION: JOB ID: [id number] [employer]- All Rights Reserved
--- NOTE | 2017-04-07 17:36 | RADIOLOGY REPORT (SQ) ---
EXAM DESCRIPTION: FOOT LEFT COMPLETE COMPLETED DATE/TIME: 04/07/2017 5:23 pm REASON FOR STUDY: pain swelling redness to left ankle and foot COMPARISON: None. NUMBER OF VIEWS: Three views. TECHNIQUE: AP, lateral and oblique radiographic images acquired of the left foot. LIMITATIONS: None. FINDINGS: MINERALIZATION: Normal. BONES: No acute fracture or dislocation. No worrisome bone lesions. JOINTS: No effusions. SOFT TISSUES: Mild soft tissue swelling. No foreign body. OTHER: No other significant finding. IMPRESSION: No fracture. TECHNICAL DOCUMENTATION: JOB ID: [id number] [employer]- All Rights Reserved
[2017-04-07] MEDS ORDERED: COLCHICINE 0.6 MG TABLET PO ONE ×3 (18:15→18:22)
[2017-04-07 18:45] VITALS: BP 140/77
== END 2017-04-07 18:45 | disposition home or self-care (01) ==
LOC: ER 15:36
DX: M10.9 Gout, unspecified (principal); E78.00 Pure hypercholesterolemia, unspecified; I10 Essential (primary) hypertension; E11.9 Type 2 diabetes mellitus without complications; E03.9 Hypothyroidism, unspecified; Z87.442 Personal history of urinary calculi; Z90.49 Acquired absence of other specified parts of digestive tract; Z88.0 Allergy status to penicillin; Z88.6 Allergy status to analgesic agent
CPT/HCPCS: 99283

== ENCOUNTER 2017-05-23 15:21 | Emergency (ER) | payer BC ==
--- NOTE | 2017-05-23 16:12 | ER Document Report ---
ED Medical Screen (RME) - General Chief Complaint: Problem with Feeding Tube Stated Complaint: BLOOD SUGAR PROBLEMS Time Seen by Provider: 05/23/17 16:04 Notes: Patient is a 51-year-old female, past medical history type I diabetic, gastroparesis, chronic pancreatitis, chronic G-tube that is not used, presents with nausea, vomiting, elevated blood sugar readings at home and her G-tube falling out. PE: Tachycardia. No acute distress. G-tube partly out. I have greeted and performed a rapid initial assessment of this patient. A comprehensive ED assessment and evaluation of the patient, analysis of test results and completion of the medical decision making process will be conducted by additional ED providers. TRAVEL OUTSIDE OF THE [place] IN LAST 30 DAYS: No - Related Data Allergies/Adverse Reactions: banana [Banana] Allergy (Intermediate, Verified 05/23/17 15:42) itching codeine [Codeine] Allergy (Verified 05/23/17 15:42) iodine [Iodine] Allergy (Verified 05/23/17 15:42) metronidazole [Metronidazole] Allergy (Verified 05/23/17 15:42) Penicillins Allergy (Verified 05/23/17 15:42) Ktmpeub-Tnw-Hhv Reductase Inhibitor Adverse Reaction (Intermediate, Verified 15:42) muscle rigidity metoclopramide HCl [From Reglan] Adverse Reaction (Verified 05/23/17 15:42) Blue Cheese Allergy (Intermediate, Uncoded 01/02/17 17:04) itching Past Medical History - Past Medical History Cardiac Medical History: Reports: Hx Hypercholesterolemia, Hx Hypertension Pulmonary Medical History: Reports: Hx Asthma, Hx Pneumonia Endocrine Medical History: Reports: Hx Diabetes Mellitus Type 1, Hx Diabetes Mellitus Type 2, Hx Hypothyroidism Renal/ Medical History: Reports: Hx Kidney Stones. Denies: Hx Peritoneal Dialysis Malignancy Medical History: Denies: Hx Pancreatic Cancer - non malignant pancreatic tumor GI Medical History: Reports: Hx Gastritis, Hx Gastroesophageal Reflux Disease, Hx Hiatal Hernia, Hx Irritable Bowel, Hx Pancreatitis, Hx Ulcer, Hx Colonoscopy , Hx Endoscopy Musculoskeltal Medical History: Reports Hx Arthritis - rheumatoidand osteo Psychiatric Medical History: Reports: Hx Depression Past Surgical History: Reports: Hx Abdominal Surgery - Pancreatic tumor removed noncancerous also at G/J tube, Hx Cholecystectomy, Hx Inguinal Hernia, Hx Tonsillectomy, Hx Umbilical Hernia - Immunizations Hx Diphtheria, Pertussis, Tetanus Vaccination: Yes Physical Exam - Vital signs Vitals: Temp Pulse Resp BP Pulse Ox 98.4 F 111 H 16 158/94 H 94 05/23/17 15:39 05/23/17 15:39 05/23/17 15:39 05/23/17 15:39 05/23/17 15:39 Course - Vital Signs Vital signs: Temp Pulse Resp BP Pulse Ox 98.4 F 111 H 16 158/94 H 94 05/23/17 15:39 05/23/17 15:39 05/23/17 15:39 05/23/17 15:39 05/23/17 15:39
[2017-05-23 16:55] LABS: APPEARANCE,URINE CLEAR; BILIRUBIN,URINE NEGATIVE (NEGATIVE); GLUCOSE, URINE >=500 mg/dL (NEGATIVE); KETONES,URINE 20 mg/dL (NEGATIVE); LEUKOCYTE ESTERASE,URINE NEGATIVE (NEGATIVE); NITRITE,URINE NEGATIVE (NEGATIVE); PROTEIN,URINE >=500 mg/dL (NEGATIVE); UROBILINOGEN,URINE NEGATIVE mg/dL (<2.0)
[2017-05-23] MEDS: NORMAL SALINE 1000 ML 1,000 ML IV PRN ×2 (17:34→18:53)
[2017-05-23 17:43] LABS: VENOUS BLOOD BASE EXCESS 4.4 mmol/L; VENOUS BLOOD HCO3 29.8 mmol/L (20-32); VENOUS BLOOD PCO2 47.2 mmHg (35-63); VENOUS BLOOD PH 7.42 (7.30-7.42)
[2017-05-23 18:23] LABS: HEMATOCRIT 38.5 % (36.0-47.0); HEMOGLOBIN 13.6 g/dL (12.0-15.5); HGB HCT DIFFERENCE 2.3; MEAN CORPUSCULAR VOLUME 81 fl (80-97); RED BLOOD COUNT 4.79 10^6/uL (3.72-5.28); WHITE BLOOD COUNT 11.2 10^3/uL (4.0-10.5)
[2017-05-23 18:24] LABS: MEAN CORPUSCULAR HEMOGLOBIN 28.4 pg (27.0-33.4); MEAN CORPUSCULAR HGB CONC 35.2 g/dL (32.0-36.0); RED CELL DISTRIBUTION WIDTH 13.7 % (11.5-14.0)
[2017-05-23 18:26] LABS: BASOPHILS % (MANUAL) 0 % (0-2); EOSINOPHILS % (MANUAL) 2 % (0-6); LYMPHOCYTES % (MANUAL) 22 % (13-45); TOTAL CELLS COUNTED 100
[2017-05-23 18:27] LABS: TOXIC GRANULATION SLIGHT
[2017-05-23] MEDS ORDERED: ONDANSETRON HCL INJ/PF 4 MG/2 ML SDV IV ONE (18:35)
[2017-05-23] MEDS ORDERED: MORPHINE SULFATE 10 MG/ML INJ IV ONE (18:35)
[2017-05-23 19:13] LABS: ALANINE AMINOTRANSFERASE 20 U/L (9-52); ALBUMIN 3.7 g/dL (3.5-5.0); ALKALINE PHOSPHATASE 120 U/L (38-126); ANION GAP 12 (5-19); ASPARTATE AMINO TRANSFERASE 10 U/L (14-36); BILIRUBIN,DIRECT 0.4 mg/dL (0.0-0.4); BILIRUBIN,TOTAL 0.5 mg/dL (0.2-1.3); BLOOD UREA NITROGEN 12 mg/dL (7-20); CALCIUM 9.2 mg/dL (8.4-10.2); CARBON DIOXIDE 29 mmol/L (22-30); CHLORIDE 97 mmol/L (98-107); CREATININE RESULT 0.64 mg/dL (0.52-1.25); GLUCOSE 239 mg/dL (75-110); LIPASE 16.1 U/L (23-300); POTASSIUM 3.8 mmol/L (3.6-5.0); SODIUM 138.1 mmol/L (137-145)
--- NOTE | 2017-05-23 20:17 | ER Document Report ---
ED General - General Chief Complaint: Problem with Feeding Tube Stated Complaint: BLOOD SUGAR PROBLEMS Time Seen by Provider: 05/23/17 16:04 Mode of Arrival: Ambulatory Information source: Patient Notes: 51-year-old female with a history of a G/J tube presents noting that it has fallen out. Pt states last time she was here that the wrong tube was placed and did not fit her tubing. Patient also notes to some abdominal irritation though she has chronic pancreatitis and believes this may be irritated TRAVEL OUTSIDE OF THE [place] IN LAST 30 DAYS: No - HPI Onset: Just prior to arrival Onset/Duration: Sudden Quality of pain: Achy Severity: Mild Pain Level: 1 Associated symptoms: Nausea Exacerbated by: Denies Relieved by: Denies Similar symptoms previously: Yes Recently seen / treated by doctor: Yes - Related Data Allergies/Adverse Reactions: banana [Banana] Allergy (Intermediate, Verified 05/23/17 15:42) itching codeine [Codeine] Allergy (Verified 05/23/17 15:42) iodine [Iodine] Allergy (Verified 05/23/17 15:42) metronidazole [Metronidazole] Allergy (Verified 05/23/17 15:42) Penicillins Allergy (Verified 05/23/17 15:42) Kdbkrwe-Yzy-Zni Reductase Inhibitor Adverse Reaction (Intermediate, Verified 15:42) muscle rigidity metoclopramide HCl [From Reglan] Adverse Reaction (Verified 05/23/17 15:42) Blue Cheese Allergy (Intermediate, Uncoded 01/02/17 17:04) itching Past Medical History - Social History Smoking Status: Never Smoker Cigarette use (# per day): No Chew tobacco use (# tins/day): No Smoking Education Provided: No Frequency of alcohol use: None Drug Abuse: None Family History: Arthritis, CAD, COPD, DM, Hyperlipidemia, Hypertension, Malignancy, Thyroid Disfunction. denies: CVA Patient has suicidal ideation: No Patient has homicidal ideation: No - Past Medical History Cardiac Medical History: Reports: Hx Hypercholesterolemia, Hx Hypertension Pulmonary Medical History: Reports: Hx Asthma, Hx Pneumonia Endocrine Medical History: Reports: Hx Diabetes Mellitus Type 1, Hx Diabetes Mellitus Type 2, Hx Hypothyroidism Renal/ Medical History: Reports: Hx Kidney Stones. Denies: Hx Peritoneal Dialysis Malignancy Medical History: Denies: Hx Pancreatic Cancer - non malignant pancreatic tumor GI Medical History: Reports: Hx Gastritis, Hx Gastroesophageal Reflux Disease, Hx Hiatal Hernia, Hx Irritable Bowel, Hx Pancreatitis, Hx Ulcer, Hx Colonoscopy , Hx Endoscopy Musculoskeltal Medical History: Reports Hx Arthritis - rheumatoidand osteo Psychiatric Medical History: Reports: Hx Depression Past Surgical History: Reports: Hx Abdominal Surgery - Pancreatic tumor removed noncancerous also at G/J tube, Hx Cholecystectomy, Hx Inguinal Hernia, Hx Tonsillectomy, Hx Umbilical Hernia - Immunizations Hx Diphtheria, Pertussis, Tetanus Vaccination: Yes Hx Pneumococcal Vaccination: 03/24/14 Review of Systems - Review of Systems Notes: REVIEW OF SYSTEMS: CONSTITUTIONAL : Denies fever, chills, or sweats. Denies recent illness. EENT: Denies eye, ear, throat, or mouth pain or symptoms. Denies nasal or sinus congestion or discharge. Denies throat, tongue, or mouth swelling or difficulty swallowing. CARDIOVASCULAR: Denies chest pain. Denies palpitations or racing or irregular heart beat. Denies ankle edema. RESPIRATORY: Denies cough, cold, or chest congestion. Denies shortness of breath, difficulty breathing, or wheezing. GASTROINTESTINAL: Admits to abdominal pain notes feeding tube has fallen out GENITOURINARY: Denies difficulty urinating, painful urination, burning, frequency, blood in urine, or discharge. FEMALE GENITOURINARY: Denies vaginal bleeding, heavy or abnormal periods, irregular periods. Denies vaginal discharge or odor. MUSCULOSKELETAL: Denies back or neck pain or stiffness. Denies joint pain or swelling. SKIN: Denies rash, lesions or sores. HEMATOLOGIC : Denies easy bruising or bleeding. LYMPHATIC: Denies swollen, enlarged glands. NEUROLOGICAL: Denies confusion or altered mental status. Denies passing out or loss of consciousness. Denies dizziness or lightheadedness. Denies headache. Denies weakness or paralysis or loss of use of either side. Denies problems with gait or speech. Denies sensory loss, numbness, or tingling. Denies seizures. PSYCHIATRIC: Denies anxiety or stress. Denies depression, suicidal ideation, or homicidal ideation. ALL OTHER SYSTEMS REVIEWED AND NEGATIVE. PHYSICAL EXAMINATION: GENERAL: Well-appearing, well-nourished and in no acute distress. HEAD: Atraumatic, normocephalic. EYES: Pupils equal round and reactive to light, extraocular movements intact, conjunctiva are normal. ENT: Nares patent, oropharynx clear without exudates. Moist mucous membranes. NECK: Normal range of motion, supple without lymphadenopathy LUNGS: Breath sounds clear to auscultation bilaterally and equal. No wheezes rales or rhonchi. HEART: Regular rate and rhythm without murmurs ABDOMEN: Soft, nontender, nondistended abdomen. No guarding, no rebound. No masses appreciated. AFoley has been dislodged and the catheter balloon is outside of the skin with the tubing still inside the abdomen Female : deferred Musculoskeletal: Normal range of motion, no pitting or edema. No cyanosis. NEUROLOGICAL: Cranial nerves grossly intact. Normal speech, normal gait. Normal sensory, motor exams PSYCH: Normal mood, normal affect. SKIN: Warm, Dry, normal turgor, no rashes or lesions noted. Dictation was performed using [employer] voice recognition software Physical Exam - Vital signs Vitals: Temp Pulse Resp BP Pulse Ox 98.4 F 111 H 16 158/94 H 94 05/23/17 15:39 05/23/17 15:39 05/23/17 15:39 05/23/17 15:39 05/23/17 15:39 Course - Re-evaluation Re-evalutation: 05/23/17 23:35 On my evaluation the patient does in fact have a dislodged feeding tube, however we do not have the one with the ports that would fit her tubing. I did offer to place a G-tube to keep the stoma open but the patient defers and states she would rather go to [place] to have this done there. i explained that it since the patient defers on placement needs to be performed under fluoroscopy as well I will discharge her at this time to go there, I did discuss transferring her but she would rather drive herself After performing a Medical Screening Examination, I estimate there is LOW risk for OPEN FRACTURE, COMPARTMENT SYNDROME, TENDON RUPTURE, ACUTE NEUROVASCULAR INJURY, or RETAINED FOREIGN BODY, thus I consider the discharge disposition reasonable. Also, there is no evidence or peritonitis, sepsis, or toxicity. I have reevaluated this patient multiple times and no significant life threatening changes are noted. The patient and I have discussed the diagnosis and risks, and we agree with discharging home with close follow-up with the understanding that symptoms and presentations can change. We also discussed returning to the Emergency Department immediately if new or worsening symptoms occur. We have discussed the symptoms which are most concerning (e.g., changing or worsening pain, fever, numbness, weakness, cool or painful digits) that necessitate immediate return. - Vital Signs Vital signs: Temp Pulse Resp BP Pulse Ox 98.2 F 91 14 164/99 H 98 05/23/17 20:41 05/23/17 20:41 05/23/17 20:41 05/23/17 20:41 05/23/17 20:41 - Laboratory Result Diagrams: 05/23/17 17:13 05/23/17 18:28 Laboratory results interpreted by me: 05/23/17 05/23/17 05/23/17 16:26 17:13 18:28 WBC 11.2 H Chloride 97 L Glucose 239 H POC Glucose AST 10 L Lipase 16.1 L Urine Protein >=500 H Urine Glucose (UA) >=500 H Urine Ketones 20 H Urine Blood SMALL H 05/23/17 19:38 WBC Chloride Glucose POC Glucose 219 H AST Lipase Urine Protein Urine Glucose (UA) Urine Ketones Urine Blood Discharge - Discharge Clinical Impression: Encounter for gastrojejunal (GJ) tube placement Condition: Stable Disposition: HOME, SELF-CARE Additional Instructions: Please go directly to [place] where you can have the GJ tube placed otherwise return immediately if there are any other concerns Referrals: JASMYNE JACQUES MD [Primary Care Provider] - Follow up as needed
[2017-05-23 20:42] VITALS: BP 164/99
== END 2017-05-23 20:41 | disposition home or self-care (01) ==
LOC: ER 15:21
DX: Z43.4 Encounter for attention to other artificial openings of digestive tract (principal); E78.00 Pure hypercholesterolemia, unspecified; I10 Essential (primary) hypertension; E11.9 Type 2 diabetes mellitus without complications; E03.9 Hypothyroidism, unspecified; Z88.6 Allergy status to analgesic agent; Z88.0 Allergy status to penicillin; Z87.442 Personal history of urinary calculi; Z90.49 Acquired absence of other specified parts of digestive tract
CPT/HCPCS: 99283; 96361; 96374; 96375; 36415; 82962; 83690; 85025; 80053; 81001; 82803; J2270; J2405; J7030

== ENCOUNTER 2017-08-20 06:33 | Emergency (ER) | payer BC ==
[2017-08-20] MEDS ORDERED: NORMAL SALINE 1000 ML 1,000 ML IV ONE (08:20)
[2017-08-20 08:39] LABS: ABSOLUTE EOSINOPHILS # (AUTO) 0.4 10^3/uL (0.0-0.6); ABSOLUTE MONOCYTES (AUTO) 0.6 10^3/uL (0.1-1.4); ABSOLUTE NEUT (AUTO) 4.3 10^3/uL (1.7-8.2); BASOPHILS % (AUTO) 0.5 % (0-2); EOSINOPHILS % (AUTO) 5.9 % (0-6); HEMATOCRIT 40.7 % (36.0-47.0); HEMOGLOBIN 13.9 g/dL (12.0-15.5); LYMPHOCYTES % (AUTO) 27.4 % (13-45); MEAN CORPUSCULAR HEMOGLOBIN 27.5 pg (27.0-33.4); MEAN CORPUSCULAR HGB CONC 34.1 g/dL (32.0-36.0); MEAN CORPUSCULAR VOLUME 81 fl (80-97); MONOCYTES % (AUTO) 7.6 % (3-13); PLATELET COUNT 168 10^3/uL (150-450); RED BLOOD COUNT 5.05 10^6/uL (3.72-5.28); RED CELL DISTRIBUTION WIDTH 14.5 % (11.5-14.0); SEGMENTED NEUTROPHILS % (AUTO) 58.6 % (42-78); TOTAL CELLS COUNTED % (AUTO) 100 %; WHITE BLOOD COUNT 7.4 10^3/uL (4.0-10.5)
[2017-08-20 08:41] LABS: APPEARANCE,URINE CLEAR; BILIRUBIN,URINE NEGATIVE (NEGATIVE); COLOR,URINE YELLOW; GLUCOSE, URINE 50 mg/dL (NEGATIVE); KETONES,URINE NEGATIVE (NEGATIVE); LEUKOCYTE ESTERASE,URINE MODERATE (NEGATIVE); NITRITE,URINE NEGATIVE (NEGATIVE); PROTEIN,URINE 30 mg/dL (NEGATIVE); URINE SPECIFIC GRAVITY 1.019; UROBILINOGEN,URINE NEGATIVE mg/dL (<2.0)
[2017-08-20 08:56] LABS: ALANINE AMINOTRANSFERASE 27 U/L (9-52); ALBUMIN 4.4 g/dL (3.5-5.0); ALKALINE PHOSPHATASE 86 U/L (38-126); ANION GAP 9 (5-19); ASPARTATE AMINO TRANSFERASE 19 U/L (14-36); BILIRUBIN,DIRECT 0.5 mg/dL (0.0-0.4); BILIRUBIN,TOTAL 0.5 mg/dL (0.2-1.3); BLOOD UREA NITROGEN 21 mg/dL (7-20); CARBON DIOXIDE 28 mmol/L (22-30); CHLORIDE 102 mmol/L (98-107); GLUCOSE 222 mg/dL (75-110); POTASSIUM 4.7 mmol/L (3.6-5.0); SODIUM 139.2 mmol/L (137-145); TOTAL PROTEIN 8.2 g/dL (6.3-8.2)
[2017-08-20 09:05] LABS: CALCIUM 12.1 mg/dL (8.4-10.2)
[2017-08-20 09:17] LABS: VENOUS BLOOD BASE EXCESS 2.2 mmol/L; VENOUS BLOOD HCO3 28.1 mmol/L (20-32); VENOUS BLOOD PCO2 49.3 mmHg (35-63); VENOUS BLOOD PH 7.37 (7.30-7.42)
[2017-08-20] MEDS ORDERED: ONDANSETRON HCL INJ/PF 4 MG/2 ML SDV IV ONE (09:22)
[2017-08-20] MEDS ORDERED: FAMOTIDINE INJ/PF 20 MG/2 ML SDV IV ONE (09:22)
[2017-08-20] MEDS ORDERED: FENTANYL CITRATE INJ/PF 100 MCG/2 ML AMPUL IV ONE (09:22)
[2017-08-20] MEDS ORDERED: METHYLPREDNISOLONE INJ 125 MG/2 ML SDV IV ONE (10:40)
[2017-08-20] MEDS ORDERED: DIPHENHYDRAMINE HCL 50 MG/ML VIAL IV ONE (10:40)
[2017-08-20] MEDS ORDERED: HALOPERIDOL LACTATE INJ 5 MG/1 ML VIAL IV ONE (11:44)
--- NOTE | 2017-08-20 12:00 | RADIOLOGY REPORT (SQ) ---
EXAM DESCRIPTION: CT ABD/PELVIS WITH IV ONLY COMPLETED DATE/TIME: 08/20/2017 11:36 am REASON FOR STUDY: epigastric pain hx of pancreatitis COMPARISON: None. TECHNIQUE: CT scan of the abdomen and pelvis performed using helical scanning technique with dynamic intravenous contrast injection. No oral contrast. Images reviewed with lung, soft tissue, and bone windows. Reconstructed coronal and sagittal MPR images reviewed. Delayed images for evaluation of the urinary system also acquired. All images stored on PACS. All CT scanners at this facility use dose modulation, iterative reconstruction, and/or weight based d osing when appropriate to reduce radiation dose to as low as reasonably achievable (ALARA). [facility]: Dose Right [facility]: CareDose [facility]: Dose Right [facility]: Teradose 4D [facility]: [employer] CONTRAST TYPE AND DOSE: contrast/concentration: Isovue 370.00 mg/ml; Total Contrast Delivered: 100.0 ml; Total Saline Delivered: 43.5 ml 100 mL Isovue 370- low osmolar. RENAL FUNCTION: GFR > 60. RADIATION DOSE: CT Rad equipment meets quality standard of care and radiation dose reduction techniq ues were employed. CTDIvol: 17.2 - 19.4 mGy. DLP: 3227 mGy-cm.. LIMITATIONS: None. FINDINGS: LOWER CHEST: No significant findings. No nodules or infiltrates. LIVER: diffuse fatty infiltration. 3 hyperintense lesions involving the liver. Largest 3 cm. Lesi on along the inferior aspect of the right lobe of the liver has area of decreased attenuation that co uld represent edema. Etiology unclear. This lesion also does not washout as well as the other 2 les ions. Clip in close proximity. Unclear whether this is been biopsied before. SPLEEN: Normal size. No focal lesions. PANCREAS: Status post resection distal portion. No CT evidence of pancreatitis or pancreatic mass. GALLBLADDER: Surgically absent. ADRENAL GLANDS: No significant masses or asymmetry. RIGHT KIDNEY AND URETER: No solid masses. No significant calcifications. No hydronephrosis or hyd roureter. LEFT KIDNEY AND URETER: No solid masses. No significant calcifications. No hydronephrosis or hydr oureter. AORTA AND VESSELS: No aneurysm. No dissection. Renal arteries, SMA, celiac without stenosis. RETROPERITONEUM: No retroperitoneal adenopathy, hemorrhage or masses. BOWEL AND PERITONEAL CAVITY: No masses or inflammatory changes. No free fluid or peritoneal masses. APPENDIX: Not visualized. PELVIS: No mass. No free fluid. Normal bladder. ABDOMINAL WALL: Stable fat containing umbilical hernia. BONES: No significant or acute findings. OTHER: Feeding tube present. IMPRESSION: No acute findings. In particular no evidence of pancreatitis. Status post partial rese ction of the pancreas. Hyperintense lesions involving the liver most likely related to hemangiomas. Lesion along the inferior portion of the right lobe of the liver has a area of surrounding decreased attenuation and may represent edema. This lesion also does not washout as well as the others. See above discussion. Status post cholecystectomy. Feeding tube present. TECHNICAL DOCUMENTATION: JOB ID: [id number] Quality ID # [id number]: Final reports with documentation of one or more dose reduction techniques (e.g., Au tomated exposure control, adjustment of the mA and/or kV according to patient size, use of iterative reconstruction technique) 2010 [employer]- All Rights Reserved
--- NOTE | 2017-08-20 12:35 | ER Document Report ---
ED General - General Chief Complaint: Abdominal Pain Stated Complaint: ABDOMINAL PAIN Time Seen by Provider: 08/20/17 08:19 TRAVEL OUTSIDE OF THE U.S. IN LAST 30 DAYS: No - HPI Patient complains to provider of: Epigastric abdominal pain Notes: Patient coming in the epigastric abdominal pain nausea vomiting. States has history of pancreatitis. Patient states she has been taking a large amount times at home for her pain with no relief no relief Zofran all needed. Patient is concerned she is having pink otitis. Denies fevers chills diarrhea. Patient denies any trauma. Patient otherwise looks to be resting comfortably upon my evaluation. - Related Data Allergies/Adverse Reactions: banana [Banana] Allergy (Intermediate, Verified 05/23/17 15:42) itching codeine [Codeine] Allergy (Verified 05/23/17 15:42) iodine [Iodine] Allergy (Verified 05/23/17 15:42) metronidazole [Metronidazole] Allergy (Verified 05/23/17 15:42) Penicillins Allergy (Verified 05/23/17 15:42) Rgthaaj-Yne-Zuu Reductase Inhibitor Adverse Reaction (Intermediate, Verified 15:42) muscle rigidity metoclopramide HCl [From Reglan] Adverse Reaction (Verified 05/23/17 15:42) Blue Cheese Allergy (Intermediate, Uncoded 01/02/17 17:04) itching Past Medical History - Social History Smoking Status: Never Smoker Chew tobacco use (# tins/day): No Frequency of alcohol use: None Drug Abuse: None Family History: Arthritis, CAD, COPD, DM, Hyperlipidemia, Hypertension, Malignancy, Thyroid Disfunction. denies: CVA Patient has suicidal ideation: No Patient has homicidal ideation: No - Past Medical History Cardiac Medical History: Reports: Hx Hypercholesterolemia, Hx Hypertension Pulmonary Medical History: Reports: Hx Asthma, Hx Pneumonia Endocrine Medical History: Reports: Hx Diabetes Mellitus Type 1, Hx Diabetes Mellitus Type 2, Hx Hypothyroidism Renal/ Medical History: Reports: Hx Kidney Stones. Denies: Hx Peritoneal Dialysis Malignancy Medical History: Denies: Hx Pancreatic Cancer - non malignant pancreatic tumor GI Medical History: Reports: Hx Gastritis, Hx Gastroesophageal Reflux Disease, Hx Hiatal Hernia, Hx Irritable Bowel, Hx Pancreatitis, Hx Ulcer, Hx Colonoscopy , Hx Endoscopy Musculoskeltal Medical History: Reports Hx Arthritis - rheumatoidand osteo Psychiatric Medical History: Reports: Hx Depression Past Surgical History: Reports: Hx Abdominal Surgery - Pancreatic tumor removed noncancerous also at G/J tube, Hx Cholecystectomy, Hx Inguinal Hernia, Hx Tonsillectomy, Hx Umbilical Hernia - Immunizations Hx Diphtheria, Pertussis, Tetanus Vaccination: Yes Hx Pneumococcal Vaccination: 03/24/14 Review of Systems - Review of Systems Constitutional: No symptoms reported EENT: No symptoms reported Cardiovascular: No symptoms reported Respiratory: No symptoms reported Gastrointestinal: Abdominal pain Genitourinary: No symptoms reported Female Genitourinary: No symptoms reported Musculoskeletal: No symptoms reported Skin: No symptoms reported Hematologic/Lymphatic: No symptoms reported Neurological/Psychological: No symptoms reported -: Yes All other systems reviewed and negative Physical Exam - Vital signs Vitals: Temp Pulse Resp BP Pulse Ox 98.1 F 95 16 155/100 H 96 08/20/17 06:38 08/20/17 06:38 08/20/17 06:38 08/20/17 06:38 08/20/17 06:38 Interpretation: Normal - General General appearance: Appears well, Alert - HEENT Head: Normocephalic, Atraumatic Eyes: Normal Pupils: PERRL - Respiratory Respiratory status: No respiratory distress Chest status: Nontender Breath sounds: Normal Chest palpation: Normal - Cardiovascular Rhythm: Regular Heart sounds: Normal auscultation Murmur: No - Abdominal Inspection: Normal Distension: No distension Bowel sounds: Normal Tenderness: Tender - Diffuse tenderness to palpation worse in the epigastric region. No tenderness to deep auscultation with the stethoscope. Except in the epigastric region Organomegaly: No organomegaly - Back Back: Normal, Nontender - Extremities General upper extremity: Normal inspection, Nontender, Normal color, Normal ROM , Normal temperature General lower extremity: Normal inspection, Nontender, Normal color, Normal ROM , Normal temperature, Normal weight bearing. No: Viviana's sign - Neurological Neuro grossly intact: Yes Cognition: Normal Orientation: AAOx4 [place] Coma Scale Eye Opening: Spontaneous [place] Coma Scale Verbal: Oriented [place] Coma Scale Motor: Obeys Commands [place] Coma Scale Total: 15 Speech: Normal Motor strength normal: LUE, RUE, LLE, RLE Sensory: Normal - Psychological Associated symptoms: Normal affect, Normal mood - Skin Skin Temperature: Warm Skin Moisture: Dry Skin Color: Normal Course - Re-evaluation Re-evalutation: 02/14/18 12:22 Laboratory evaluation does not show any signs of acute pink otitis or other serious pathology. More likely patient has a gastritis possibly development of a gastroenteritis with nausea vomiting. Patient's vomiting was controlled with antiemetics here. Will discharge patient home with anti-medics. Patient was also given Carafate and omeprazole for her GI symptoms. Patient encouraged follow-up with her primary care physician. The patient presents with abdominal pain without signs of peritonitis or other life-threatening or serious etiology. The patient appears stable for discharge and has been instructed to return immediately if the symptoms worsen in any way, or in 8-12hr if not improved for re-evaluation. The patient has been instructed to return if the symptoms worsen or change in any way. 08/21/17 12:23 Elevated calcium more likely due to excessive Tums. - Vital Signs Vital signs: Temp Pulse Resp BP Pulse Ox 98.0 F 90 16 150/90 H 100 08/20/17 13:12 08/20/17 13:12 08/20/17 13:12 08/20/17 13:12 08/20/17 13:12 - Laboratory Result Diagrams: 08/20/17 08:29 08/20/17 08:29 Laboratory results interpreted by me: 08/20/17 08/20/17 08/20/17 08:15 08:29 08:29 RDW 14.5 H BUN 21 H Glucose 222 H Calcium 12.1 H* Direct Bilirubin 0.5 H Urine Protein 30 H Urine Glucose (UA) 50 H Ur Leukocyte Esterase MODERATE H Discharge - Discharge Clinical Impression: Epigastric abdominal pain, Excessive use of Tums Nausea & vomiting Qualifiers: Vomiting type: unspecified Vomiting Intractability: unspecified Qualified Code( s): R11.2 - Nausea with vomiting, unspecified Condition: Good Disposition: HOME, SELF-CARE Instructions: Abdominal Pain ([facility]), Gastritis ([facility]), Gastroenteritis (adult) ( [facility]) Additional Instructions: Please do not rely on Tums to help out your abdominal pain. At this time CAT scan laboratory studies not show any significant etiology for your abdominal pain or nausea vomiting. I do believe you probably have a mild case of gastritis inflammation of the stomach and more likely of viral etiology for your nausea vomiting. Please take Carafate and omeprazole to aid with your stomach relief. Please take the Zofran and rectal Phenergan as needed for nausea vomiting. Follow-up with your primary care physician. Prescriptions: Omeprazole 20 mg PO DAILY #30 capsule. Ondansetron [Zofran Odt] 4 mg PO Q6 PRN #30 tab.rapdis PRN Reason: For Nausea/Vomiting Promethazine HCl [Phenergan 25 mg Supp.rect] 1 supp RI Q6H #20 supp.rect Sucralfate [Carafate 1 gm Tablet] 1 gm PO ACHS #120 tablet Forms: Return to Work Referrals: JASMYNE JACQUES MD [Primary Care Provider] - Follow up as needed
[2017-08-20 13:13] VITALS: BP 150/90
== END 2017-08-20 13:13 | disposition home or self-care (01) ==
LOC: ER 06:33
DX: R10.13 Epigastric pain (principal); R11.2 Nausea with vomiting, unspecified; R10.817 Generalized abdominal tenderness; I10 Essential (primary) hypertension; J45.909 Unspecified asthma, uncomplicated; E11.9 Type 2 diabetes mellitus without complications; Z87.19 Personal history of other diseases of the digestive system; Z91.018 Allergy to other foods; Z88.5 Allergy status to narcotic agent; Z88.0 Allergy status to penicillin; Z88.8 Allergy status to other drugs, medicaments and biological substances; Z87.442 Personal history of urinary calculi; Z90.49 Acquired absence of other specified parts of digestive tract
CPT/HCPCS: 99284; 96361; 96374; 96375; 36415; 83605; 83690; 85025; 80053; 81001; 82803; 74177; J1200; J3010; J1630; J2930; J2405; J7030; S0028

== ENCOUNTER 2018-04-16 18:17 | Emergency (ER) | payer BC ==
[2018-04-16] MEDS ORDERED: ONDANSETRON HCL INJ/PF 4 MG/2 ML SDV IV ONE (18:56)
[2018-04-16] MEDS ORDERED: FENTANYL CITRATE INJ/PF 100 MCG/2 ML AMPUL IV ONE (18:56)
[2018-04-16] MEDS ORDERED: NORMAL SALINE 1000 ML 1,000 ML IV ONE (18:56)
--- NOTE | 2018-04-16 18:59 | ER Document Report ---
ED Medical Screen (RME) - General Chief Complaint: Abdominal Pain Stated Complaint: ABDOMINAL PAIN Time Seen by Provider: 04/16/18 18:37 Mode of Arrival: Ambulatory Information source: Patient TRAVEL OUTSIDE OF THE U.S. IN LAST 30 DAYS: No - HPI Patient complains to provider of: Abdominal pain Onset: Other - This is a 52-year-old female with recurrent pancreatitis as well as gastroparesis requiring placement of a GJ tube for which she has been dependent over the last several years, notes that multiple times it is become dislodged and that she is followed at [facility] for this which is the only place which is able to replace it. She notes that she has had increasing abdominal pain and difficulty getting her feeds tolerated with increasing dryness around the mouth over the last 2 days, she feels like this is a similar to previous episodes of pancreatitis. She also feels like this is similar to kidney pain which she has had in the past. Her G-tube is still functioning but it seems like the rate has decreased. - Related Data Allergies/Adverse Reactions: banana [Banana] Allergy (Intermediate, Verified 04/16/18 18:19) itching codeine [Codeine] Allergy (Verified 04/16/18 18:19) iodine [Iodine] Allergy (Verified 04/16/18 18:19) metronidazole [Metronidazole] Allergy (Verified 04/16/18 18:19) Penicillins Allergy (Verified 04/16/18 18:19) Puhuxxr-Wxc-Xzm Reductase Inhibitor Adverse Reaction (Intermediate, Verified 04/24 18:19) muscle rigidity metoclopramide HCl [From Reglan] Adverse Reaction (Verified 04/16/18 18:19) Blue Cheese Allergy (Intermediate, Uncoded 04/16/18 18:19) itching Past Medical History - Social History Chew tobacco use (# tins/day): No Frequency of alcohol use: None Drug Abuse: None - Past Medical History Cardiac Medical History: Reports: Hx Hypercholesterolemia, Hx Hypertension Pulmonary Medical History: Reports: Hx Asthma, Hx Pneumonia Endocrine Medical History: Reports: Hx Diabetes Mellitus Type 1, Hx Diabetes Mellitus Type 2, Hx Hypothyroidism Renal/ Medical History: Reports: Hx Kidney Stones. Denies: Hx Peritoneal Dialysis Malignancy Medical History: Denies: Hx Pancreatic Cancer - non malignant pancreatic tumor GI Medical History: Reports: Hx Gastritis, Hx Gastroesophageal Reflux Disease, Hx Hiatal Hernia, Hx Irritable Bowel, Hx Pancreatitis, Hx Ulcer, Hx Colonoscopy , Hx Endoscopy Musculoskeltal Medical History: Reports Hx Arthritis - rheumatoidand osteo Psychiatric Medical History: Reports: Hx Depression Past Surgical History: Reports: Hx Abdominal Surgery - Pancreatic tumor removed noncancerous also at G/J tube, Hx Cholecystectomy, Hx Inguinal Hernia, Hx Tonsillectomy, Hx Umbilical Hernia - Immunizations Hx Diphtheria, Pertussis, Tetanus Vaccination: Yes Physical Exam - Vital signs Vitals: Temp Pulse Resp BP Pulse Ox 98.7 F 95 18 127/91 H 98 04/16/18 18:26 04/16/18 18:26 04/16/18 18:26 04/16/18 18:26 04/16/18 18:26 Course - Re-evaluation Re-evalutation: 04/16/18 18:58 This 52-year-old female presents for evaluation of GJ tube dysfunction with possible pancreatitis kidney pain and abdominal pain. She is followed at [facility] regularly for this. Has not been there in some time. On examination her abdomen has not in place insulin pump, her G-tube does appear patent. We will initiate fluid resuscitation, obtain broad labs including lipase and urinalysis. I performed a rapid medical screening examination on this patient will defer further disposition determination workup and labs to next provider. - Vital Signs Vital signs: Temp Pulse Resp BP Pulse Ox 98.7 F 95 18 127/91 H 98 04/16/18 18:26 04/16/18 18:26 04/16/18 18:26 04/16/18 18:26 04/16/18 18:26 Doctor's Discharge - Discharge Referrals: JASMYNE JACQUES MD [Primary Care Provider] - Follow up as needed
--- NOTE | 2018-04-16 19:22 | RADIOLOGY REPORT (SQ) ---
EXAM DESCRIPTION: ABDOMEN 2 VIEWS COMPLETED DATE/TIME: 04/16/2018 7:07 pm REASON FOR STUDY: abdominal pain COMPARISON: None. NUMBER OF VIEWS: Two views. TECHNIQUE: Supine and erect/decubitus radiographic images of the abdomen acquired. LIMITATIONS: None. FINDINGS: FREE AIR: None. No abnormal gas collections. LUNG BASES: Clear. BOWEL GAS PATTERN: Nonobstructive pattern. No dilated loops or air fluid levels. CALCIFICATIONS: No suspicious calcifications. SOFT TISSUES: No gross mass or suggestion of organomegaly. HARDWARE: There is a feeding tube on the left. This appears to represent jejunostomy 2. There is a 2nd, smaller catheter that is slightly coiled overlying the mid abdomen of uncertain significance. BONES: No acute fracture. No worrisome bone lesions. OTHER: No other significant finding. IMPRESSION: There appears to be a jejunostomy tube. There is a 2nd segment of catheter that is of u ncertain significance. TECHNICAL DOCUMENTATION: JOB ID: [id number] [employer]- All Rights Reserved Reading location - IP/workstation name: [email or web address]
[2018-04-16 19:47] LABS: ABSOLUTE BASOPHILS # (AUTO) 0.1 10^3/uL (0.0-0.2); ABSOLUTE EOSINOPHILS # (AUTO) 0.2 10^3/uL (0.0-0.6); ABSOLUTE LYMPHOCYTES (AUTO) 1.3 10^3/uL (0.5-4.7); ABSOLUTE MONOCYTES (AUTO) 0.6 10^3/uL (0.1-1.4); BASOPHILS % (AUTO) 1.1 % (0-2); EOSINOPHILS % (AUTO) 2.4 % (0-6); HEMATOCRIT 39.3 % (36.0-47.0); HEMOGLOBIN 13.6 g/dL (12.0-15.5); LYMPHOCYTES % (AUTO) 15.5 % (13-45); MEAN CORPUSCULAR HEMOGLOBIN 27.8 pg (27.0-33.4); MEAN CORPUSCULAR HGB CONC 34.5 g/dL (32.0-36.0); MEAN CORPUSCULAR VOLUME 81 fl (80-97); MONOCYTES % (AUTO) 7.4 % (3-13); PLATELET COUNT 278 10^3/uL (150-450); RED BLOOD COUNT 4.88 10^6/uL (3.72-5.28); RED CELL DISTRIBUTION WIDTH 13.4 % (11.5-14.0); SEGMENTED NEUTROPHILS % (AUTO) 73.6 % (42-78); TOTAL CELLS COUNTED % (AUTO) 100 %; WHITE BLOOD COUNT 8.2 10^3/uL (4.0-10.5)
[2018-04-16 19:51] LABS: APPEARANCE,URINE CLEAR; BILIRUBIN,URINE NEGATIVE (NEGATIVE); COLOR,URINE YELLOW; GLUCOSE, URINE NEGATIVE (NEGATIVE); KETONES,URINE NEGATIVE (NEGATIVE); LEUKOCYTE ESTERASE,URINE SMALL (NEGATIVE); NITRITE,URINE NEGATIVE (NEGATIVE); PROTEIN,URINE NEGATIVE (NEGATIVE); URINE SPECIFIC GRAVITY 1.013
[2018-04-16 20:04] LABS: ALANINE AMINOTRANSFERASE 24 U/L (9-52); ALBUMIN 4.5 g/dL (3.5-5.0); ALKALINE PHOSPHATASE 97 U/L (38-126); ANION GAP 12 (5-19); ASPARTATE AMINO TRANSFERASE 24 U/L (14-36); BILIRUBIN,DIRECT 0.4 mg/dL (0.0-0.4); BILIRUBIN,TOTAL 0.6 mg/dL (0.2-1.3); BLOOD UREA NITROGEN 18 mg/dL (7-20); CARBON DIOXIDE 30 mmol/L (22-30); CHLORIDE 98 mmol/L (98-107); GLUCOSE 86 mg/dL (75-110); LIPASE 12.5 U/L (23-300); TOTAL PROTEIN 8.7 g/dL (6.3-8.2)
[2018-04-16] MEDS ORDERED: HYDROMORPHONE HCL INJ/PF 2 MG/ML AMPULE IM ONE (20:56)
[2018-04-16 22:38] VITALS: BP 119/76
--- NOTE | 2018-04-16 22:54 | ER Document Report ---
ED General - General Chief Complaint: Abdominal Pain Stated Complaint: ABDOMINAL PAIN Time Seen by Provider: 04/16/18 18:37 Mode of Arrival: Ambulatory TRAVEL OUTSIDE OF THE U.S. IN LAST 30 DAYS: No - HPI Patient complains to provider of: Abdominal pain Notes: Patient was seen in triage this is the triage note by the provider below This is a 52-year-old female with recurrent pancreatitis as well as gastroparesis requiring placement of a GJ tube for which she has been dependent over the last several years, notes that multiple times it is become dislodged and that she is followed at [facility] for this which is the only place which is able to replace it. She notes that she has had increasing abdominal pain and difficulty getting her feeds tolerated with increasing dryness around the mouth over the last 2 days, she feels like this is a similar to previous episodes of pancreatitis. She also feels like this is similar to kidney pain which she has had in the past. Her G-tube is still functioning but it seems like the rate has decreased. Upon my evaluation patient states that similar problems concerning her jejunostomy tube may be displaced also concern for pancreatitis. Patient states she decreased her recent rate to 40 cc however still having pain. Patient states she follows up with Dr. Alejandro Espitia however does not have any local surgical care patient is sitting on the bed reading a magazine upon my evaluation. Denies any fevers chills nausea vomiting denies any trauma at this time - Related Data Allergies/Adverse Reactions: banana [Banana] Allergy (Intermediate, Verified 04/16/18 18:19) itching codeine [Codeine] Allergy (Verified 04/16/18 18:19) iodine [Iodine] Allergy (Verified 04/16/18 18:19) metronidazole [Metronidazole] Allergy (Verified 04/16/18 18:19) Penicillins Allergy (Verified 04/16/18 18:19) Ptocvhz-Kfq-Tfl Reductase Inhibitor Adverse Reaction (Intermediate, Verified 04/24 18:19) muscle rigidity metoclopramide HCl [From Reglan] Adverse Reaction (Verified 04/16/18 18:19) Blue Cheese Allergy (Intermediate, Uncoded 04/16/18 18:19) itching Past Medical History - General Information source: Patient - Social History Smoking Status: Never Smoker Chew tobacco use (# tins/day): No Frequency of alcohol use: None Drug Abuse: None Family History: Arthritis, CAD, COPD, DM, Hyperlipidemia, Hypertension, Malignancy, Thyroid Disfunction. denies: CVA Patient has suicidal ideation: No Patient has homicidal ideation: No - Past Medical History Cardiac Medical History: Reports: Hx Hypercholesterolemia, Hx Hypertension Pulmonary Medical History: Reports: Hx Asthma, Hx Pneumonia Endocrine Medical History: Reports: Hx Diabetes Mellitus Type 1, Hx Diabetes Mellitus Type 2, Hx Hypothyroidism Renal/ Medical History: Reports: Hx Kidney Stones. Denies: Hx Peritoneal Dialysis Malignancy Medical History: Denies: Hx Pancreatic Cancer - non malignant pancreatic tumor GI Medical History: Reports: Hx Gastritis, Hx Gastroesophageal Reflux Disease, Hx Hiatal Hernia, Hx Irritable Bowel, Hx Pancreatitis, Hx Ulcer, Hx Colonoscopy , Hx Endoscopy Musculoskeletal Medical History: Reports Hx Arthritis - rheumatoidand osteo Psychiatric Medical History: Reports: Hx Depression Past Surgical History: Reports: Hx Abdominal Surgery - Pancreatic tumor removed noncancerous also at G/J tube, Hx Cholecystectomy, Hx Inguinal Hernia, Hx Tonsillectomy, Hx Umbilical Hernia - Immunizations Hx Diphtheria, Pertussis, Tetanus Vaccination: Yes Hx Pneumococcal Vaccination: 03/24/14 Review of Systems - Review of Systems Constitutional: No symptoms reported EENT: No symptoms reported Cardiovascular: No symptoms reported Respiratory: No symptoms reported Gastrointestinal: Abdominal pain Genitourinary: No symptoms reported Female Genitourinary: No symptoms reported Musculoskeletal: No symptoms reported Skin: No symptoms reported Hematologic/Lymphatic: No symptoms reported Neurological/Psychological: No symptoms reported -: Yes All other systems reviewed and negative Physical Exam - Vital signs Vitals: Temp Pulse Resp BP Pulse Ox 98.7 F 95 18 127/91 H 98 04/16/18 18:26 04/16/18 18:26 04/16/18 18:26 04/16/18 18:26 04/16/18 18:26 Interpretation: Normal - General General appearance: Appears well, Alert - HEENT Head: Normocephalic, Atraumatic Eyes: Normal Pupils: PERRL - Respiratory Respiratory status: No respiratory distress Chest status: Nontender Breath sounds: Normal Chest palpation: Normal - Cardiovascular Rhythm: Regular Heart sounds: Normal auscultation Murmur: No - Abdominal Inspection: No: Normal - The ostomy tube in place the adjustment is covered with 4 x 4 there was able to look underneath this bumper in place no signs of infection of the insertion site there is a insulin pump in place again no signs of infection multiple healed surgical scars Distension: No distension Bowel sounds: Normal Tenderness: Nontender Organomegaly: No organomegaly - Back Back: Normal, Nontender - Extremities General upper extremity: Normal inspection, Nontender, Normal color, Normal ROM , Normal temperature General lower extremity: Normal inspection, Nontender, Normal color, Normal ROM , Normal temperature, Normal weight bearing. No: Viviana's sign - Neurological Neuro grossly intact: Yes Cognition: Normal Orientation: AAOx4 [place] Coma Scale Eye Opening: Spontaneous [place] Coma Scale Verbal: Oriented [place] Coma Scale Motor: Obeys Commands [place] Coma Scale Total: 15 Speech: Normal Motor strength normal: LUE, RUE, LLE, RLE Sensory: Normal - Psychological Associated symptoms: Normal affect, Normal mood - Skin Skin Temperature: Warm Skin Moisture: Dry Skin Color: Normal Course - Re-evaluation Re-evalutation: 04/17/18 02:39 Laboratory studies acute abdominal series did not reveal any significant findings except for possible slight stool retention and constipation. Patient states that she has been off of her MiraLAX for last few days could be the etiology of her abdominal pain. At this time with the x-ray showing tube in place just seeing any change ostomy tube dysfunction. Recommend patient continue her MiraLAX also offered to give the patient a bottle of mag citrate. Patient agrees with this plan I did perform lactic acid look for possible signs of bowel ischemia and this was negative. Patient was encouraged to continue her feeds however decreased rate and possibly perform trickle feeds. Patient states understanding highly recommend patient follow-up with her primary care physician - Vital Signs Vital signs: Temp Pulse Resp BP Pulse Ox 99.0 F 86 16 119/76 93 04/16/18 22:37 04/16/18 22:37 04/16/18 22:37 04/16/18 22:37 04/16/18 22:37 - Laboratory Result Diagrams: 04/16/18 19:35 04/16/18 19:35 Laboratory results interpreted by me: 04/16/18 04/16/18 04/16/18 19:10 19:35 21:00 Lactic Acid 0.6 L Total Protein 8.7 H Lipase 12.5 L Urine Urobilinogen 2.0 H Ur Leukocyte Esterase SMALL H Discharge - Discharge Clinical Impression: History of jejunostomy tube placement Abdominal pain Qualifiers: Abdominal location: unspecified location Qualified Code(s): R10.9 - Unspecified abdominal pain Constipation Qualifiers: Constipation type: unspecified constipation type Qualified Code(s): K59.00 - Constipation, unspecified Condition: Good Disposition: HOME, SELF-CARE Instructions: Abdominal Pain ([facility]), Constipation ([facility]) Additional Instructions: Your laboratory studies show no signs of ischemia no signs of infection no signs of any electrolyte abnormalities. X-ray shows that the tubes currently are in place with some stool retained in the transverse colon. Would recommend to continue your bowel prep at home would recommend trying to drink the MiraLAX please be aware this can cause some nausea and some stomach cramping. Follow- up with your primary care physician return to the ER symptoms worsen. Referrals: JASMYNE JACQUES MD [Primary Care Provider] - Follow up as needed
[2018-04-16] MEDS ORDERED: MAGNESIUM CITRATE 296 ML BOTTLE PO ONE (22:55)
== END 2018-04-16 23:20 | disposition home or self-care (01) ==
LOC: ER 18:17
DX: R10.9 Unspecified abdominal pain (principal); K59.00 Constipation, unspecified; Z93.4 Other artificial openings of gastrointestinal tract status; E78.00 Pure hypercholesterolemia, unspecified; I10 Essential (primary) hypertension; E11.9 Type 2 diabetes mellitus without complications; E03.9 Hypothyroidism, unspecified; Z87.442 Personal history of urinary calculi; Z90.49 Acquired absence of other specified parts of digestive tract; Z88.0 Allergy status to penicillin
CPT/HCPCS: 99284; 96372; 96361; 96374; 96375; 36415; 82962; 83690; 85025; 80053; 81001; 83605; 74019; J3010; J1170; J2405; J7030

== ENCOUNTER 2018-12-24 12:46 | Emergency (ER) | payer BC ==
--- NOTE | 2018-12-24 13:46 | ER Document Report ---
ED Medical Screen (RME) - General Chief Complaint: Abdominal Pain Stated Complaint: ABDOMINAL PAIN Time Seen by Provider: 12/24/18 13:35 Primary Care Provider: JASMYNE JACQUES MD [Primary Care Provider] - Follow up as needed Mode of Arrival: Ambulatory Information source: Patient Notes: Patient is a 53-year-old female with a G-tube in place presenting to the emergency department with complaints of generalized abdominal pain. Patient reports Stack placed the G-tube due to her pancreatitis. Patient reports she has had bleeding at the site for about a year and now has increased pain that started at the site and has now progressed through her entire abdomen. She reports associated nausea but denies any vomiting or diarrhea. Patient reports no fevers lately. She does state that she is on a pain contract with [facility]. Exam: Generalized abdominal tenderness to palpation. I have greeted and performed a rapid initial assessment of this patient. A comprehensive ED assessment and evaluation of the patient, analysis of test results and completion of the medical decision making process will be conducted by additional ED providers. Dictation of this chart was performed using voice recognition software; therefore, there may be some unintended grammatical errors. TRAVEL OUTSIDE OF THE [place] IN LAST 30 DAYS: No - Related Data Allergies/Adverse Reactions: banana [Banana] Allergy (Intermediate, Verified 12/24/18 12:47) itching codeine [Codeine] Allergy (Verified 12/24/18 12:47) iodine [Iodine] Allergy (Verified 12/24/18 12:47) metronidazole [Metronidazole] Allergy (Verified 12/24/18 12:47) Penicillins Allergy (Verified 12/24/18 12:47) Xxzfdph-Tcj-Rdc Reductase Inhibitor Adverse Reaction (Intermediate, Verified 12/24/18 12:47) muscle rigidity metoclopramide HCl [From Reglan] Adverse Reaction (Verified 12/24/18 12:47) Blue Cheese Allergy (Intermediate, Uncoded 12/24/18 12:47) itching Past Medical History - Social History Chew tobacco use (# tins/day): No Frequency of alcohol use: None Drug Abuse: None - Past Medical History Cardiac Medical History: Reports: Hx Hypercholesterolemia, Hx Hypertension Pulmonary Medical History: Reports: Hx Asthma, Hx Pneumonia Endocrine Medical History: Reports: Hx Diabetes Mellitus Type 1, Hx Diabetes Mellitus Type 2, Hx Hypothyroidism Renal/ Medical History: Reports: Hx Kidney Stones. Denies: Hx Peritoneal Dialysis Malignancy Medical History: Denies: Hx Pancreatic Cancer - non malignant pancreatic tumor GI Medical History: Reports: Hx Gastritis, Hx Gastroesophageal Reflux Disease, Hx Hiatal Hernia, Hx Irritable Bowel, Hx Pancreatitis, Hx Ulcer, Hx Colonoscopy, Hx Endoscopy Musculoskeltal Medical History: Reports Hx Arthritis - rheumatoidand osteo, Denies Hx Systemic Lupus Erythematosus Psychiatric Medical History: Reports: Hx Depression Past Surgical History: Reports: Hx Abdominal Surgery - Pancreatic tumor removed noncancerous also at G/J tube, Hx Cholecystectomy, Hx Inguinal Hernia, Hx Tonsillectomy, Hx Umbilical Hernia - Immunizations Hx Diphtheria, Pertussis, Tetanus Vaccination: Yes Physical Exam - Vital signs Vitals: Temp Pulse Resp BP Pulse Ox 98.5 F 92 18 154/100 H 99 12/24/18 12:51 12/24/18 12:51 12/24/18 12:51 12/24/18 12:51 12/24/18 12:51 Course - Vital Signs Vital signs: Temp Pulse Resp BP Pulse Ox 98.5 F 92 18 154/100 H 99 12/24/18 12:51 12/24/18 12:51 12/24/18 12:51 12/24/18 12:51 12/24/18 12:51 Doctor's Discharge - Discharge Referrals: JASMYNE JACQUES MD [Primary Care Provider] - Follow up as needed
[2018-12-24 14:43] LABS: ABSOLUTE BASOPHILS # (AUTO) 0.1 10^3/uL (0.0-0.2); ABSOLUTE EOSINOPHILS # (AUTO) 0.2 10^3/uL (0.0-0.6); ABSOLUTE LYMPHOCYTES (AUTO) 1.3 10^3/uL (0.5-4.7); ABSOLUTE MONOCYTES (AUTO) 0.5 10^3/uL (0.1-1.4); ABSOLUTE NEUT (AUTO) 5.9 10^3/uL (1.7-8.2); BASOPHILS % (AUTO) 0.9 % (0-2); EOSINOPHILS % (AUTO) 2.2 % (0-6); HEMATOCRIT 40.5 % (36.0-47.0); HEMOGLOBIN 13.8 g/dL (12.0-15.5); LYMPHOCYTES % (AUTO) 16.7 % (13-45); MEAN CORPUSCULAR HEMOGLOBIN 27.1 pg (27.0-33.4); MEAN CORPUSCULAR HGB CONC 34.2 g/dL (32.0-36.0); MEAN CORPUSCULAR VOLUME 79 fl (80-97); MONOCYTES % (AUTO) 5.7 % (3-13); PLATELET COUNT 167 10^3/uL (150-450); RED BLOOD COUNT 5.11 10^6/uL (3.72-5.28); RED CELL DISTRIBUTION WIDTH 14.1 % (11.5-14.0); SEGMENTED NEUTROPHILS % (AUTO) 74.5 % (42-78); TOTAL CELLS COUNTED % (AUTO) 100 %; WHITE BLOOD COUNT 7.9 10^3/uL (4.0-10.5)
[2018-12-24 14:54] LABS: APPEARANCE,URINE SLIGHTLY-CLOUDY; BILIRUBIN,URINE NEGATIVE (NEGATIVE); COLOR,URINE AMBER; GLUCOSE, URINE NEGATIVE (NEGATIVE); KETONES,URINE NEGATIVE (NEGATIVE); LEUKOCYTE ESTERASE,URINE MODERATE (NEGATIVE); NITRITE,URINE NEGATIVE (NEGATIVE); PROTEIN,URINE 100 mg/dL (NEGATIVE); URINE SPECIFIC GRAVITY 1.024; UROBILINOGEN,URINE NEGATIVE mg/dL (<2.0)
[2018-12-24 15:03] LABS: ALANINE AMINOTRANSFERASE 21 U/L (9-52); ALBUMIN 4.5 g/dL (3.5-5.0); ALKALINE PHOSPHATASE 100 U/L (38-126); ANION GAP 11 (5-19); ASPARTATE AMINO TRANSFERASE 18 U/L (14-36); BILIRUBIN,DIRECT 0.3 mg/dL (0.0-0.4); BILIRUBIN,TOTAL 0.5 mg/dL (0.2-1.3); BLOOD UREA NITROGEN 15 mg/dL (7-20); CALCIUM 9.9 mg/dL (8.4-10.2); CARBON DIOXIDE 25 mmol/L (22-30); CHLORIDE 102 mmol/L (98-107); GLUCOSE 233 mg/dL (75-110); LIPASE 17.3 U/L (23-300); POTASSIUM 4.4 mmol/L (3.6-5.0); SODIUM 137.9 mmol/L (137-145); TOTAL PROTEIN 8.2 g/dL (6.3-8.2)
--- NOTE | 2018-12-24 18:29 | ER Document Report ---
ED GI/ - General Chief Complaint: Abdominal Pain Stated Complaint: ABDOMINAL PAIN Time Seen by Provider: 12/24/18 13:35 Primary Care Provider: JASMYNE JACQUES MD [Primary Care Provider] - Follow up as needed Mode of Arrival: Ambulatory Notes: This is a 53-year-old female patient emergency department chief complaint of abdominal discomfort. States that she feels very bloated. Has chronic pancr eatitis and has a feeding/J-tube. Does feeding tubes but recently started eating food again and then afterwards became bloated. States that she hurts all over. Denies any fever. No vomiting. No diarrhea. Little bit of bleeding around the feeding tube site TRAVEL OUTSIDE OF THE [place] IN LAST 30 DAYS: No - HPI Patient complains to provider of: Abdominal pain Timing/Duration: Gradual, Constant Quality of pain: Achy - Related Data Allergies/Adverse Reactions: banana [Banana] Allergy (Intermediate, Verified 12/24/18 12:47) itching codeine [Codeine] Allergy (Verified 12/24/18 12:47) iodine [Iodine] Allergy (Verified 12/24/18 12:47) metronidazole [Metronidazole] Allergy (Verified 12/24/18 12:47) Penicillins Allergy (Verified 12/24/18 12:47) Pywzyee-Onf-Fmp Reductase Inhibitor Adverse Reaction (Intermediate, Verified 12/24/18 12:47) muscle rigidity metoclopramide HCl [From Reglan] Adverse Reaction (Verified 12/24/18 12:47) Blue Cheese Allergy (Intermediate, Uncoded 12/24/18 12:47) itching Past Medical History - General Information source: Patient, [facility] Records - Social History Smoking Status: Never Smoker Chew tobacco use (# tins/day): No Frequency of alcohol use: None Drug Abuse: None Lives with: Family Family History: Arthritis, CAD, COPD, DM, Hyperlipidemia, Hypertension, Malign nithin, Thyroid Disfunction. denies: CVA Patient has suicidal ideation: No Patient has homicidal ideation: No - Past Medical History Cardiac Medical History: Reports: Hx Hypercholesterolemia, Hx Hypertension Pulmonary Medical History: Reports: Hx Asthma, Hx Pneumonia Endocrine Medical History: Reports: Hx Diabetes Mellitus Type 1, Hx Diabetes Mellitus Type 2, Hx Hypothyroidism Renal/ Medical History: Reports: Hx Kidney Stones. 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, Denies Hx Systemic Lupus Erythematosus Psychiatric Medical History: Reports: Hx Depression Past Surgical History: Reports: Hx Abdominal Surgery - Pancreatic tumor removed noncancerous also at G/J tube, Hx Cholecystectomy, Hx Inguinal Hernia, Hx Tonsillectomy, Hx Umbilical Hernia - Immunizations Hx Diphtheria, Pertussis, Tetanus Vaccination: Yes Hx Pneumococcal Vaccination: 03/24/14 Review of Systems - Review of Systems Notes: Constitutional: denies: Chills, Diaphoresis, Fever, Malaise, Weakness EENT: denies: Eye discharge, Blurred vision, Tearing, Double vision, Nose congestion, Nose discharge, Throat swelling, Mouth pain Cardiovascular: denies: Palpitations, Heart racing, Orthopnea, Dyspnea, Chest pain Respiratory: denies: Cough, Hurts to breathe, Wheezing, Shortness of breath Gastrointestinal: Vision is complaining of bloating, abdominal discomfort. Drainage from the feeding tube site. Genitourinary: denies: Burning, Dysuria, Discharge, Frequency, Flank pain, Hematuria Musculoskeletal: denies: Joint pain, Joint swelling, Muscle pain, Muscle stiffness, back pain Hematologic/Lymphatic: denies: Anemia, Easy bleeding, Easy bruising, Blood clots Neurological/Psychological: denies: Confusion, Dementia, Depression, Loss of consciousness Skin: No lesions, no masses, no skin breakdown, no abscesses Physical Exam - Vital signs Vitals: Temp Pulse Resp BP Pulse Ox 98.5 F 92 18 154/100 H 99 12/24/18 12:51 12/24/18 12:51 12/24/18 12:51 12/24/18 12:51 12/24/18 12:51 Interpretation: Normal - General General appearance: Appears well, Alert - HEENT Head: Normocephalic, Atraumatic Eyes: Normal Pupils: PERRL - Respiratory Respiratory status: No respiratory distress Chest status: Nontender Breath sounds: Normal Chest palpation: Normal - Cardiovascular Rhythm: Regular Heart sounds: Normal auscultation Murmur: No - Abdominal Inspection: Normal Distension: No distension Bowel sounds: Normal Tenderness: Tender - She has some mild diffuse tenderness but no guarding or rebound. There is a feeding tube present. There is no active bleeding. There is no significant malodorous or foul discharge coming out from around the tube. Organomegaly: No organomegaly - Back Back: Normal, Nontender - Extremities General upper extremity: Normal inspection, Nontender, Normal color, Normal ROM, Normal temperature General lower extremity: Normal inspection, Nontender, Normal color, Normal ROM, Normal temperature, Normal weight bearing. No: Viviana's sign - Neurological Neuro grossly intact: Yes Cognition: Normal Orientation: AAOx4 Wilmer Coma Scale Eye Opening: Spontaneous Wilmer Coma Scale Verbal: Oriented Wilmer Coma Scale Motor: Obeys Commands Wilmer Coma Scale Total: 15 Speech: Normal Motor strength normal: LUE, RUE, LLE, RLE Sensory: Normal - Psychological Associated symptoms: Normal affect, Normal mood - Skin Skin Temperature: Warm Skin Moisture: Dry Skin Color: Normal Course - Re-evaluation Re-evalutation: 12/24/18 21:37 Laboratory 12/24/18 12/24/18 12/24/18 14:00 14:26 14:26 WBC 7.9 RBC 5.11 Hgb 13.8 Hct 40.5 MCV 79 L MCH 27.1 MCHC 34.2 RDW 14.1 H Plt Count 167 Seg Neutrophils % 74.5 Lymphocytes % 16.7 Monocytes % 5.7 Eosinophils % 2.2 Basophils % 0.9 Absolute Neutrophils 5.9 Absolute Lymphocytes 1.3 Absolute Monocytes 0.5 Absolute Eosinophils 0.2 Absolute Basophils 0.1 Sodium 137.9 Potassium 4.4 Chloride 102 Carbon Dioxide 25 Anion Gap 11 BUN 15 Creatinine 0.67 Est GFR ( Amer) > 60 Est GFR (Non-Af Amer) > 60 Glucose 233 H Calcium 9.9 Total Bilirubin 0.5 Direct Bilirubin 0.3 Neonat Total Bilirubin Not Reportable Neonat Direct Bilirubin Not Reportable Neonat Indirect Bili Not Reportable AST 18 ALT 21 Alkaline Phosphatase 100 Total Protein 8.2 Albumin 4.5 Lipase 17.3 L Urine Color CAROLYN Urine Appearance SLIGHTLY-CLOUDY Urine pH 5.0 Ur Specific [place] 1.024 Urine Protein 100 H Urine Glucose (UA) NEGATIVE Urine Ketones NEGATIVE Urine Blood NEGATIVE Urine Nitrite NEGATIVE Urine Bilirubin NEGATIVE Urine Urobilinogen NEGATIVE Ur Leukocyte Esterase MODERATE H Urine WBC (Auto) 19 Urine RBC (Auto) 2 U Hyaline Cast (Auto) 1 Urine Bacteria (Auto) TRACE Squamous Epi Cells Auto 1 U Non-Squamous Epis Auto 1 Urine Mucus (Auto) OCC Urine Ascorbic Acid NEGATIVE Acute Abdomen Series 12/24/18 18:40 IMPRESSION: No acute disease within the chest. Nonobstructive bowel gas pattern. Moderate colonic stool load. copyright 2010 [employer]- All Rights Reserved There is no evidence of obstruction. The feeding tube was injected with some Gastrografin and the x-rays did not reveal any obstructive bowel gas pattern and the tube appears to be in place. Her labs are fairly unremarkable with exception of some WBCs and trace bacteria in the urine with moderate leukocytes. Given this finding of treated with some Cipro. I am encouraging patient to continue with all of her regular medications and to return for worsening symptoms or concerns. Continue with tube feeding only at this time as the oral feedings may be exacerbating her gastroparesis. Patient verbalizes understan ding of these instructions. Will discharge at this time in stable condition. - Vital Signs Vital signs: Temp Pulse Resp BP Pulse Ox 98.1 F 96 16 146/82 H 97 12/24/18 18:09 12/24/18 18:09 12/24/18 18:09 12/24/18 18:09 12/24/18 18:09 - Laboratory Result Diagrams: 12/24/18 14:26 12/24/18 14:26 Laboratory results interpreted by me: 12/24/18 12/24/18 12/24/18 14:00 14:26 14:26 MCV 79 L RDW 14.1 H Glucose 233 H Lipase 17.3 L Urine Protein 100 H Ur Leukocyte Esterase MODERATE H Discharge - Discharge Clinical Impression: Gastroparesis, Encounter for care related to feeding tube Condition: Good Disposition: HOME, SELF-CARE Instructions: Abdominal Pain ([facility]), Urinary Tract Infection ([facility]) Additional Instructions: Continue with the ciprofloxacin as prescribed. I would avoid using oral feedings and just stick to tube feedings at this time and to your abdominal pain and bloating is resolved. In the event that you begin to develop fever, worsening abdominal pain or worsening symptoms and please return for repeat evaluation Prescriptions: Ciprofloxacin HCl [Cipro 500 mg Tablet] 500 mg PO BID 5 Days #10 tablet Referrals: JASMYNE JACQUES MD [Primary Care Provider] - Follow up as needed
[2018-12-24] MEDS ORDERED: OXYCODONE-ACETAMINOPHEN 5-325 MG TABLET PO ONE (18:39)
[2018-12-24] MEDS ORDERED: FAMOTIDINE 20 MG TABLET PO ONE (18:40)
[2018-12-24] MEDS ORDERED: SIMETHICONE 80 MG TAB.CHEW PO ONE (18:40)
[2018-12-24] MEDS ORDERED: CIPROFLOXACIN HCL 500 MG TABLET PO ONE (19:59)
--- NOTE | 2018-12-24 21:34 | RADIOLOGY REPORT (SQ) ---
EXAM DESCRIPTION: XR ABDOMEN SUPINE AND ERECT WITH CHEST (ABD ACUTE SERIES) COMPLETED DATE/TME: 12/24/2018 18:40 CLINICAL HISTORY: 53 years, Female, abd pain COMPARISON: Prior study from 04/16/2018 NUMBER OF VIEWS: Four TECHNIQUE: Frontal radiographs of the chest and abdomen were obtained LIMITATIONS: None. FINDINGS: Cardiac and mediastinal contours are normal. Lungs are clear. No pleural effusion or pneumothorax. No subdiaphragmatic free air is appreciated. Surgical clips project over the right upper quadrant as well as the right lower quadrant. Catheter tubing projects over the mid abdomen. Contrast material appears to have been injected through a percutaneous jejunostomy tube with opacification of the jejunal bowel loops. Overall, the bowel gas pattern appears nonobstructive with a moderate amount of colonic stool. No suspicious osseous anomalies are appreciated. There are no suspicious soft tissue calcifications. IMPRESSION: No acute disease within the chest. Nonobstructive bowel gas pattern. Moderate colonic stool load. copyright 2010 [email or web address]- All Rights Reserved
[2018-12-24 22:21] VITALS: BP 158/103
== END 2018-12-24 21:50 | disposition home or self-care (01) ==
LOC: ER 12:46
DX: E11.43 Type 2 diabetes mellitus with diabetic autonomic (poly)neuropathy (principal); K31.84 Gastroparesis; R10.9 Unspecified abdominal pain; R14.0 Abdominal distension (gaseous); I10 Essential (primary) hypertension
CPT/HCPCS: 36415; 74022; 80053; 81001; 83690; 85025; 87086; 99284

== ENCOUNTER 2019-08-15 18:08 | Inpatient (IN) | payer BC ==
--- NOTE | 2019-08-15 18:23 | ER Document Report ---
ED Medical Screen (RME) - General Chief Complaint: Headache Stated Complaint: HEADACHE/RIGHT SIDE NUMBNESS Time Seen by Provider: 08/15/19 18:15 Primary Care Provider: JASMYNE JACQUES MD [Primary Care Provider] - Follow up as needed Mode of Arrival: Ambulatory Information source: Patient Notes: Patient presents stating that around 1:00 this morning she got up to go the ba throom and she noticed mild left-sided headache with entire right side weakness. Patient states that her right side of her body would not function. Patient also states that she had large spots in her field of vision to the right eye. Patient states these large spots are small spots at this time although not completely resolved. Patient states she went back to bed and woke up around 7 AM and the weakness symptoms seem to have resolved. Patient states left-sided headache pain is worsened. Patient with objectively weakened glass cleaner to the right hand as compared to the left. hx: Asthma, depression, hypertension, diabetes I have greeted and performed a rapid initial assessment of this patient. A comprehensive ED assessment and evaluation of the patient, analysis of test results and completion of the medical decision making process will be conducted by additional ED providers. TRAVEL OUTSIDE OF THE [place] IN LAST 30 DAYS: No - Related Data Allergies/Adverse Reactions: banana [Banana] Allergy (Intermediate, Verified 08/15/19 18:20) itching codeine [Codeine] Allergy (Verified 08/15/19 18:20) iodine [Iodine] Allergy (Verified 08/15/19 18:20) metronidazole [Metronidazole] Allergy (Verified 08/15/19 18:20) Penicillins Allergy (Verified 08/15/19 18:20) Yzdiirz-Vrj-Tbx Reductase Inhibitor Adverse Reaction (Intermediate, Verified 08/15/19 18:20) muscle rigidity metoclopramide HCl [From Reglan] Adverse Reaction (Verified 08/15/19 18:20) Blue Cheese Allergy (Intermediate, Uncoded 08/15/19 18:20) itching Past Medical History - Past Medical History Cardiac Medical History: Reports: Hx Hypercholesterolemia, Hx Hypertension Pulmonary Medical History: Reports: Hx Asthma, Hx Pneumonia Endocrine Medical History: Reports: Hx Diabetes Mellitus Type 1, Hx Diabetes Mellitus Type 2, Hx Hypothyroidism Renal/ Medical History: Reports: Hx Kidney Stones. 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 No: Dysarthria Doctor's Discharge - Discharge Referrals: JASMYNE JACQUES MD [Primary Care Provider] - Follow up as needed
--- NOTE | 2019-08-15 18:54 | RADIOLOGY REPORT (SQ) ---
EXAM DESCRIPTION: CT HEAD WITHOUT COMPLETED DATE/TIME: 08/15/2019 6:43 pm REASON FOR STUDY: DUFFY, vision change, RUE weakness COMPARISON: CT head 03/23/2017, 04/21/2007. TECHNIQUE: Axial images acquired through the brain without intravenous contrast. Images reviewed wi th bone, brain and subdural windows. Images stored on PACS. All CT scanners at this facility use dose modulation, iterative reconstruction, and/or weight based d osing when appropriate to reduce radiation dose to as low as reasonably achievable (ALARA). [facility]: Dose Right [facility]: CareDose [facility]: Dose Right [facility]: Teradose 4D [facility]: [employer] RADIATION DOSE: CT Rad equipment meets quality standard of care and radiation dose reduction techniq ues were employed. CTDIvol: 53.2 mGy. DLP: 937 mGy-cm. mGy. LIMITATIONS: None. FINDINGS: VENTRICLES: Normal size and contour. CEREBRUM: No mass effect. No hemorrhage. No midline shift. Normal oswald/white matter differentiatio n. No evidence for acute territorial infarction. CEREBELLUM: No mass effect. No hemorrhage. No alteration of density. No evidence for acute infarct ion. EXTRAAXIAL SPACES: No fluid collections. ORBITS AND GLOBE: Symmetrical contour of the globes. CALVARIUM: No depressed skull fracture. PARANASAL SINUSES: No air-fluid level. SOFT TISSUES: No hematoma. IMPRESSION: NO ACUTE INTRACRANIAL IMAGING FINDINGS. EVIDENCE OF ACUTE STROKE: NO. COMMENT: Quality ID # [id number]: Final reports with documentation of one or more dose reduction techniques (e.g., Automated exposure control, adjustment of the mA and/or kV according to patient size, use of iterative reconstruction technique) TECHNICAL DOCUMENTATION: JOB ID: [id number] 2010 [employer]- All Rights Reserved Reading location - IP/workstation name: [email or web address]
--- NOTE | 2019-08-15 18:56 | RADIOLOGY REPORT (SQ) ---
EXAM DESCRIPTION: CHEST SINGLE VIEW COMPLETED DATE/TIME: 08/15/2019 6:37 pm REASON FOR STUDY: DUFFY, vision change, RUE weakness COMPARISON: Chest x-ray 04/26/2013, 04/10/2013. EXAM PARAMETERS: NUMBER OF VIEWS: One view. TECHNIQUE: Single frontal radiographic view of the chest acquired. RADIATION DOSE: NA LIMITATIONS: None. FINDINGS: LUNGS AND PLEURA: No consolidation, pneumothorax or pleural effusion. MEDIASTINUM AND HILAR STRUCTURES: No masses. Contour normal. HEART AND VASCULAR STRUCTURES: Heart normal in size. Normal vasculature. BONES: No acute findings. HARDWARE: None in the chest. IMPRESSION: NO ACUTE RADIOGRAPHIC FINDING IN THE CHEST. TECHNICAL DOCUMENTATION: JOB ID: [id number] 2010 [employer]- All Rights Reserved Reading location - IP/workstation name: [email or web address]
--- NOTE | 2019-08-15 19:12 | ER Document Report ---
ED General - General Chief Complaint: S/S of Possible Stroke Stated Complaint: HEADACHE/RIGHT SIDE NUMBNESS Time Seen by Provider: 08/15/19 18:15 Primary Care Provider: JASMYNE JACQUES MD [Primary Care Provider] - Follow up as needed Mode of Arrival: Ambulatory Information source: Patient Notes: 53-year-old woman presents to the emergency department with complaint of numb ness on the right side of her body which began at approximately 1:30 AM on 08/15/2019. She states that she went to bed thinking that the symptoms will go away. She awoke at approximately 3:00 this afternoon and complained of headache left-sided and some mild continued numbness in her right upper extremity and right lower extremity. She denies weakness, speech difficulty or visual changes. She has a history of hypertension, hypercholesterolemia and obesity. She denies any history of prior CVA. TRAVEL OUTSIDE OF THE [place] IN LAST 30 DAYS: No - Related Data Allergies/Adverse Reactions: banana [Banana] Allergy (Intermediate, Verified 08/15/19 18:20) itching codeine [Codeine] Allergy (Verified 08/15/19 18:20) iodine [Iodine] Allergy (Verified 08/15/19 18:20) metronidazole [Metronidazole] Allergy (Verified 08/15/19 18:20) Penicillins Allergy (Verified 08/15/19 18:20) Uocnyui-Atn-Wse Reductase Inhibitor Adverse Reaction (Intermediate, Verified 08/15/19 18:20) muscle rigidity metoclopramide HCl [From Reglan] Adverse Reaction (Verified 08/15/19 18:20) Blue Cheese Allergy (Intermediate, Uncoded 08/15/19 18:20) itching Home Medications: metorpolol, cozar, lido patch, phenergan, amitriptyline, gabapentin, cymbalta, fenofibrate, colchine, fentanyl patch, novolog insuline, tylenol, plaquenil, synthroid, prilosec.... may be more Past Medical History - General Information source: Patient - Social History Smoking Status: Never Smoker Chew tobacco use (# tins/day): No Frequency of alcohol use: None Drug Abuse: None Family History: Arthritis, CAD, COPD, DM, Hyperlipidemia, Hypertension, Malignancy, Thyroid Disfunction. denies: CVA Patient has suicidal ideation: No Patient has homicidal ideation: No - Past Medical History Cardiac Medical History: Reports: Hx Hypercholesterolemia, Hx Hypertension Pulmonary Medical History: Reports: Hx Asthma, Hx Pneumonia Endocrine Medical History: Reports: Hx Diabetes Mellitus Type 1, Hx Diabetes Mellitus Type 2, Hx Hypothyroidism Renal/ Medical History: Reports: Hx Kidney Stones. 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, Denies Hx Systemic Lupus Erythematosus Psychiatric Medical History: Reports: Hx Depression Past Surgical History: Reports: Hx Abdominal Surgery - Pancreatic tumor removed noncancerous also at G/J tube, Hx Cholecystectomy, Hx Inguinal Hernia, Hx Tonsillectomy, Hx Umbilical Hernia - Immunizations Hx Diphtheria, Pertussis, Tetanus Vaccination: Yes Hx Pneumococcal Vaccination: 03/24/14 Review of Systems - Review of Systems Notes: Constitutional: Negative for fever. HENT: Negative for sore throat. Eyes: Negative for visual changes. Cardiovascular: Negative for chest pain. Respiratory: Negative for shortness of breath. Gastrointestinal: Negative for abdominal pain, vomiting or diarrhea. Genitourinary: Negative for dysuria. Musculoskeletal: Negative for back pain. Skin: Negative for rash. Neurological: + Headaches, + numbness/tingling, no weakness 10 point ROS negative except as marked above and in HPI. Physical Exam - Vital signs Vitals: Temp Pulse Resp BP Pulse Ox 97.5 F 81 20 152/95 H 96 08/15/19 18:12 08/15/19 18:12 08/15/19 18:12 08/15/19 18:12 08/15/19 18:12 - Notes Notes: PHYSICAL EXAMINATION: Physical Exam: General: Well-nourished well-developed 53-year-old woman in no acute distress HEENT: NC/AT, pupils equal round and reactive to light, MM moist,nares clear, Neck: supple, no adenopathy, no masses. Lungs: clear, no wheezing, no rales no rhonchi CVS: Regular rate and rhythm no murmur gallop or rub Abdomen: Soft active nontender, no masses, no hepatosplenomegaly Ext: No edema clubbing or cyanosis. Neuro: Face symmetric. Tongue protrudes midline. Extraocular motions intact. Pupils are 2 mm and equally reactive. Normal speech, normal gait. 5 out of 5 strength in both the distal and proximal upper and lower extremities bilaterally. Sensation is grossly intact throughout. Finger to nose testing normal. Pronator drift normal. Skin: Intact no open lesions, no rash PSYCH: Normal mood, normal affect. Course - Re-evaluation Re-evalutation: 08/15/19 19:12 Patient presents with acute neurologic symptoms of greater than 17 hours. Patient is not a candidate for TPA given the duration of her symptoms and an NIH score of 1-2. 08/15/19 22:06 The hospitalist was contacted, , a review of the patient's pre sentation and evaluation to date was given. States that he will see the patient in the emergency department. - Vital Signs Vital signs: Temp Pulse Resp BP Pulse Ox 97.5 F 81 13 156/98 H 93 08/15/19 18:12 08/15/19 18:12 08/15/19 22:01 08/15/19 22:01 08/15/19 22:01 - Laboratory Result Diagrams: 08/15/19 19:00 08/15/19 19:00 Laboratory results interpreted by me: 08/15/19 08/15/19 19:00 19:00 MCV 79 L RDW 14.2 H Sodium 136.7 L Chloride 97 L Glucose 135 H Discharge - Discharge Clinical Impression: Numbness on right side, Poorly-controlled hypertension Headache Qualifiers: Headache type: unspecified Headache chronicity pattern: episodic headache Intractability: not intractable Qualified Code(s): R51 - Headache Condition: Stable Disposition: ADMITTED INPATIENT Admitting Provider: Jessica (Hospitalist) Unit Admitted: IMCU Referrals: JASMYNE JACQUES MD [Primary Care Provider] - Follow up as needed
[2019-08-15] MEDS ORDERED: PROCHLORPERAZINE EDISYLATE INJ 10 MG/2 ML VIAL IV ONE (19:21)
[2019-08-15 19:24] LABS: ABSOLUTE BASOPHILS # (AUTO) 0.1 10^3/uL (0.0-0.2); ABSOLUTE EOSINOPHILS # (AUTO) 0.4 10^3/uL (0.0-0.6); ABSOLUTE LYMPHOCYTES (AUTO) 1.8 10^3/uL (0.5-4.7); ABSOLUTE MONOCYTES (AUTO) 0.4 10^3/uL (0.1-1.4); ABSOLUTE NEUT (AUTO) 3.5 10^3/uL (1.7-8.2); BASOPHILS % (AUTO) 1.2 % (0-2); EOSINOPHILS % (AUTO) 5.6 % (0-6); HEMATOCRIT 39.9 % (36.0-47.0); HEMOGLOBIN 13.9 g/dL (12.0-15.5); LYMPHOCYTES % (AUTO) 29.8 % (13-45); MEAN CORPUSCULAR HEMOGLOBIN 27.4 pg (27.0-33.4); MEAN CORPUSCULAR HGB CONC 34.8 g/dL (32.0-36.0); MEAN CORPUSCULAR VOLUME 79 fl (80-97); MONOCYTES % (AUTO) 7.1 % (3-13); PLATELET COUNT 195 10^3/uL (150-450); RED BLOOD COUNT 5.06 10^6/uL (3.72-5.28); RED CELL DISTRIBUTION WIDTH 14.2 % (11.5-14.0); SEGMENTED NEUTROPHILS % (AUTO) 56.3 % (42-78); TOTAL CELLS COUNTED % (AUTO) 100 %; WHITE BLOOD COUNT 6.2 10^3/uL (4.0-10.5)
[2019-08-15 19:27] LABS: INTERNATIONAL RATION (INR) 0.92
[2019-08-15 19:28] LABS: PARTIAL THROMBOPLASTIN TIME 25.8 SEC (23.5-35.8)
[2019-08-15 19:35] LABS: PROTHROMBIN TIME 12.3 SEC (11.4-15.4)
[2019-08-15 19:38] LABS: ALKALINE PHOSPHATASE 91 U/L (38-126); ANION GAP 10 (5-19); ASPARTATE AMINO TRANSFERASE 36 U/L (14-36); BILIRUBIN,DIRECT 0.2 mg/dL (0.0-0.4); BILIRUBIN,TOTAL 0.7 mg/dL (0.2-1.3); BLOOD UREA NITROGEN 13 mg/dL (7-20); CALCIUM 9.4 mg/dL (8.4-10.2); CARBON DIOXIDE 30 mmol/L (22-30); CHLORIDE 97 mmol/L (98-107); CREATINE KINASE 92 U/L (30-135); GLUCOSE 135 mg/dL (75-110); POTASSIUM 4.2 mmol/L (3.6-5.0); TOTAL PROTEIN 7.6 g/dL (6.3-8.2)
[2019-08-15 19:55] LABS: TROPONIN I < 0.012 ng/mL
--- NOTE | 2019-08-15 21:19 | EKG REPORT ---
SEVERITY:- ABNORMAL ECG - SINUS RHYTHM PROBABLE LEFT ATRIAL ABNORMALITY LEFT VENTRICULAR HYPERTROPHY ANTERIOR Q WAVES, POSSIBLY DUE TO LVH : Confirmed by: Irais Sherman MD 15-Aug-2019 21:18:20
[2019-08-15] MEDS ORDERED: ACETAMINOPHEN 325 MG TABLET PO PRN (23:03)
[2019-08-15] MEDS ORDERED: DOCUSATE SODIUM 100 MG CAPSULE PO PRN (23:03)
[2019-08-15] MEDS ORDERED: FAMOTIDINE 20 MG TABLET PO SCH (23:15)
[2019-08-15] MEDS ORDERED: PROMETHAZINE HCL INJ 25 MG/1 ML VIAL IV PRN (23:22)
[2019-08-15] MEDS ORDERED: METOPROLOL TARTRATE PF/INJ 5 MG/5 ML SDV IV PRN (23:24)
[2019-08-15] MEDS ORDERED: DEXTROSE 50%-WATER 25 GM/50 ML DISP.SYRIN IV PRN ×2 (23:30)
[2019-08-15] MEDS ORDERED: DEXTROSE 40% GEL 15 GM TUBE PO PRN ×2 (23:30)
[2019-08-15] MEDS ORDERED: GLUCAGON,HUMAN RECOMB 1 MG INJ IM PRN (23:30)
[2019-08-15] MEDS ORDERED: PHARMACY COMMUNICATION ORDER MC NR (23:30)
--- NOTE | 2019-08-15 23:52 | PDOC H&P ---
History of Present Illness Admission Date/PCP: JASMYNE JACQUES MD Patient complains of: Stroke History of Present Illness: MODESTO NESBITT is a 53 year old female with multiple complex past medical history. She is on an insulin pump from recurrent episodes of pancreatitis due to hypertriglyceridemia. She has nonalcoholic steatohepatitis and wears an insulin pump due to the nonfunctioning pancreas. She also has hypothyroidism. She has chronic abdominal pain due to the pancreas and liver. She has a GJ tube for Peptamen feeding at 40 mL/h from 8 PM to 8 AM every night. She woke up at 1:30 in the morning August 15 with right-sided weakness. She had difficulty standing. She denied slurred speech or confusion. She went to bed. She woke up at approximately 8:00 in the morning and still have the weakness as well as a headache. She took her morning medications and try to go back to sleep. Finally this afternoon she still had a severe headache when she spoke to her children that made her present to the emergency department. Despite a negative CAT scan she had right-sided hemiparesis. Speech was intact. Cognition was intact. She has a history of hypertension and hypertriglyceridemia as well as the endocrine issues noted above. CT scan was unremarkable. Examination revealed the right-sided hemiparesis. She also admits to severe depression. She has had suicidal thoughts in the past but is not currently suicidal. She will be admitted to [facility] on the stroke protocol. We will continue to use her insulin pump for baseline dosing and utilize our sliding scale for elevated glucose. She is not sure of all of her medications so we will initiate medications we know. We will try to mimic her Peptamen feeding nightly from 8 PM to 8 AM. Past Medical History Cardiac Medical History: Reports: Hyperlipidema, Hypertension Pulmonary Medical History: Reports: Asthma, Pneumonia Endocrine Medical History: Reports: Diabetes Mellitus Type 1, Diabetes Mellitus Type 2, Hypothyroidism Malignancy Medical History: Denies: Pancreatic Cancer - non malignant pancreatic tumor GI Medical History: Reports: Gastroesophageal Reflux Disease, Hiatal Hernia Musculoskeltal Medical History: Reports: Arthritis - rheumatoidand osteo Psychiatric Medical History: Reports: Depression Hematology: Reports: Anemia Denies: Hemophilia, Sickle Cell Disease Past Surgical History Past Surgical History: Reports: Cholecystectomy, Tonsillectomy Denies: Amputation Social History Smoking Status: Never Smoker Electronic Cigarette use?: No Frequency of Alcohol Use: None Hx Recreational Drug Use: No Drugs: None Hx Prescription Drug Abuse: No Family History Family History: Arthritis, CAD, COPD, DM, Hyperlipidemia, Hypertension, Malignancy, Thyroid Disfunction. denies: CVA Parental Family History Reviewed: Yes Children Family History Reviewed: Yes Sibling(s) Family History Reviewed.: Yes Medication/Allergy Home Medications: Hydroxychloroquine Sulfate [Plaquenil 200 mg Tablet] 400 mg PO DAILY 07/24/13 Albuterol Sulfate [Albuterol Sulfate Hfa] 2 inh PO Q4HP PRN 03/20/14 Aspirin [Aspirin 81 mg Chewable Tablet] 81 mg PO DAILY 03/20/14 Diphenhydramine HCl [Benadryl 25 mg Capsule] 25 cap PO Q8HP PRN 03/20/14 Glucagon,Human Recombinant [Glucagon Emergency Kit] 1 mg IJ PRN 03/20/14 Promethazine HCl [Phenergan 25 mg Tablet] 25 mg PO TID PRN 03/20/14 Omeprazole [Prilosec] 40 mg PO DAILY 08/24/14 Insulin Aspart [Novolog Insulin (Aspart) 100 unit/mL] 150 units SQ ASDIR 6 Losartan/Hydrochlorothiazide [Losartan-Hctz 50-12.5 mg Tab] 1 tab PO DAILY 07/08/15 Fenofibrate Nanocrystallized [Fenofibrate] 1 tab PO DAILY 08/11/15 Levothyroxine Sodium 1 tab PO DAILY 08/11/15 Promethazine HCl [Phenergan 25 mg Supp.rect] 1 supp MO Q6H #12 supp.rect 08/11/15 Duloxetine HCl [Cymbalta] 60 mg PO DAILY 04/17/16 Gabapentin [Neurontin 400 mg Capsule] 400 mg PO Q8 04/17/16 Melatonin/Pyridoxine [Melatonin 3 mg Tablet] 1 each PO QHS 04/17/16 Oxycodone HCl [Oxycontin] 20 mg PO Q12 04/17/16 Sulfasalazine [Azulfidine 500 mg Tablet.] 1,000 mg PO BID 04/17/16 Ciprofloxacin HCl [Ciloxan 0.3% Oph Soln 2.5 ml] 1 drop OD Q6 #1 bottle 04/21/16 Folic Acid [Folvite 1 mg Tablet] 1 mg PO DAILY tablet 04/21/16 Lipase/Protease/Amylase [Pancreaze-10 Capsule.] 6 cap PO TID #540 capsule. 04/21/16 Morphine Sulfate 30 mg PO Q8HP PRN #100 ml 04/21/16 Cephalexin Monohydrate [Keflex 500 mg Capsule] 500 mg PO QID #28 capsule 07/11/16 Clindamycin HCl 300 mg PO BID #14 capsule 09/20/16 Colchicine [Colchicine 0.6 mg Tablet] 0.6 mg PO DAILY #7 tablet 04/07/17 Omeprazole 20 mg PO DAILY #30 capsule. 08/20/17 Ondansetron [Zofran Odt] 4 mg PO Q6 PRN #30 tab.rapdis 08/20/17 Promethazine HCl [Phenergan 25 mg Supp.rect] 1 supp MO Q6H #20 supp.rect 08/20/17 Sucralfate [Carafate 1 gm Tablet] 1 gm PO ACHS #120 tablet 08/20/17 Ciprofloxacin HCl [Cipro 500 mg Tablet] 500 mg PO BID 5 Days #10 tablet 12/24/18 Lidocaine [Topicaine 5] 113 gm TP TID 10 Days #1 tube 12/24/18 Allergies/Adverse Reactions: banana [Banana] Allergy (Intermediate, Verified 08/15/19 18:20) itching codeine [Codeine] Allergy (Verified 08/15/19 18:20) iodine [Iodine] Allergy (Verified 08/15/19 18:20) metronidazole [Metronidazole] Allergy (Verified 08/15/19 18:20) Penicillins Allergy (Verified 08/15/19 18:20) Cdwqvbp-Zix-Cix Reductase Inhibitor Adverse Reaction (Intermediate, Verified 08/15/19 18:20) muscle rigidity metoclopramide HCl [From Reglan] Adverse Reaction (Verified 08/15/19 18:20) Blue Cheese Allergy (Intermediate, Uncoded 08/15/19 18:20) itching Physical Exam Vital Signs: Temp Pulse Resp BP Pulse Ox 97.5 F 81 13 156/98 H 93 08/15/19 18:12 08/15/19 18:12 08/15/19 22:01 08/15/19 22:01 08/15/19 22:01 General appearance: PRESENT: no acute distress, cooperative, well-developed Head exam: PRESENT: atraumatic, normocephalic Eye exam: PRESENT: conjunctiva pale, EOMI, PERRLA. ABSENT: nystagmus, scleral icterus Ear exam: PRESENT: normal external ear exam. ABSENT: bleeding, drainage Mouth exam: PRESENT: moist, tongue midline Teeth exam: PRESENT: poor dentation - Waiting to have all of her teeth pulled Neck exam: ABSENT: carotid bruit, JVD, lymphadenopathy, tracheostomy Respiratory exam: PRESENT: clear to auscultation jose de jesus, symmetrical, unlabored. ABSENT: accessory muscle use, rales, rhonchi, tachypnea, wheezes Cardiovascular exam: PRESENT: RRR, +S1, +S2, systolic murmur - 07/13 GI/Abdominal exam: PRESENT: normal bowel sounds, soft, tenderness - Around the GJ tube site, other - GJ tube in place left upper quadrant. ABSENT: distended, guarding, mass Rectal exam: PRESENT: deferred Gentrourinary exam: ABSENT: indwelling catheter Extremities exam: ABSENT: pedal edema Neurological exam: PRESENT: alert, awake, oriented to person, oriented to place, oriented to time, oriented to situation, CN II-XII grossly intact, motor sensory deficit - Right hand dry folder cloth squeeze as well as flexion and extension of the arm are 3/5 compared to 5/5 on the left. Plantar flexion and dorsiflexion as well as right leg raise approximately 3/5 as well. Unable to elicit deep tendon reflexes on either side but the patient states this is normal for her. Psychiatric exam: PRESENT: depressed - Patient reports a history of suicidal thoughts but no current thoughts or intentions., flat affect. ABSENT: agitated, anxious Focused psych exam: ABSENT: delusional, restlessness Skin exam: PRESENT: dry, normal color, warm. ABSENT: cyanosis, rash Results Laboratory Results: 08/15/19 19:00 08/15/19 19:00 08/15/19 08/15/19 19: 19:00 WBC 6.2 RBC 5.06 Hgb 13.9 Hct 39.9 MCV 79 L MCH 27.4 MCHC 34.8 RDW 14.2 H Plt Count 195 Seg Neutrophils % 56.3 Sodium 136.7 L Potassium 4.2 Chloride 97 L Carbon Dioxide 30 Anion Gap 10 BUN 13 Creatinine 0.83 Est GFR ( Amer) > 60 Glucose 135 H Calcium 9.4 Total Bilirubin 0.7 AST 36 Alkaline Phosphatase 91 Total Protein 7.6 Albumin 4.0 08/15/19 08/15/19 19:00 19:00 Creatine Kinase 92 CK-MB (CK-2) 1.40 Troponin I < 0.012 Impressions: Chest X-Ray 08/15/19 18:20 IMPRESSION: NO ACUTE RADIOGRAPHIC FINDING IN THE CHEST. Head CT 08/15/19 18:20 IMPRESSION: NO ACUTE INTRACRANIAL IMAGING FINDINGS. EVIDENCE OF ACUTE STROKE: NO. Assessment and Plan - Diagnosis (1) Right hemiparesis Is this a current diagnosis for this admission?: Yes Plan: The patient still has right-sided weakness secondary to a stroke more than 24 hours ago. Thrombolytic therapy was not administered as she did not meet acceptable criteria. She will be admitted and I have asked physical and Occupational Therapy to assess the patient. There is a family history of stroke. She will be on an aspirin daily. Carotid ultrasound and MRI studies have been ordered. She will be on a diabetic/cardiac diet and we will attempt to achieve good blood pressure control. 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 The stroke does suggest a left middle cerebral artery origin. She is on aspirin and statin therapy. We will continue her blood pressure medications to achieve systolic blood pressure less than 140 and diastolic blood pressure less than 90. Physical and occupational therapies have been ordered. She may need anticoagulation therapy as well. 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 She has had recurrent episodes of pancreatitis due to her hypertriglyceridemia. The majority of her nutrition is through her gastrojejunostomy tube. She normally uses Peptamen. I have asked for vital 1.5 to be utilized as I do not believe we have Peptamen on our formulary. I have asked the dietitian to evaluate the patient as well. She does eat and I have continued her pancreatic enzymes. (4) Hypothyroidism Qualifiers: Hypothyroidism type: unspecified Qualified Code(s): E03.9 - Hypothyroidism, unspecified Is this a current diagnosis for this admission?: Yes Plan: She reports that her levothyroxine is 200 mcg daily. We will continue same. (5) Chronic abdominal pain Is this a current diagnosis for this admission?: Yes Plan: The patient is on a pain management contract with [facility]. I have continued her 25 mcg fentanyl patch. In addition she takes 10 mg of oxycodone every 8 hours as needed. She states this is basically how often she takes medications. In addition she typically takes promethazine 25 mg with the narcotics as they tend to cause nausea. She reports that the pain is in the abdomen due to the recurrent episodes of pancreatitis. (6) Hypertension Qualifiers: Hypertension type: essential hypertension Qualified Code(s): I10 - Essential (primary) hypertension Is this a current diagnosis for this admission?: Yes Plan: The patient was unsure of some of her doses. I have placed her on a regimen based on some of her regimen that she was able to answer and old medication reconciliation's. She will be monitored on telemetry with vital signs every 4 hours. Medications will be adjusted based on her vital signs. (7) Hypertriglyceridemia Is this a current diagnosis for this admission?: Yes Plan: The patient reports that the hypertriglyceridemia is what caused the recurrent pancreatitis as well as her steatohepatitis. She is currently on statin therapy. Fenofibrate therapy was mentioned in old records. She denies being on fib rate therapy. A lipid panel has been ordered. (8) UTI (lower urinary tract infection) Is this a current diagnosis for this admission?: Yes Plan: The patient did report that she gets frequent urinary tract infections likely secondary to hyperglycemia. Her urine analysis strongly suggested infection. I have asked for a urine culture and initiated therapy with ceftriaxone. The patient has been on oral cephalosporins in the past. Await urine culture results to better determine focused therapy. (9) Dental caries Is this a current diagnosis for this admission?: Yes Plan: The patient states that she is waiting to get her teeth removed. She has horrible dentition. No evidence of acute dental infection at this time. (10) Major depression, chronic Is this a current diagnosis for this admission?: Yes Plan: The patient is quite depressed. She has discussed increasing her antidepressant medication with her primary care provider. She started seeing a therapist. She reports that she is on a very low-dose of duloxetine but could not remember the dose. Old records indicate 60 mg once a day. I have ordered 30 mg twice daily and I will add a second medication to try and complement the first. I will add bupropion to complement the duloxetine. (11) FIORE (nonalcoholic steatohepatitis) Is this a current diagnosis for this admission?: Yes Plan: The patient has steatohepatitis. Evaluation is underway to see if she is appropriate for a specialty protocol at [facility] or [facility]. I will continue her statin therapy at this time. Lipid profile has been ordered. Liver panel is unremarkable. (12) Headache Qualifiers: Headache type: unspecified Headache chronicity pattern: episodic headache Intractability: not intractable Qualified Code(s): R51 - Headache Is this a current diagnosis for this admission?: Yes Plan: The patient reports a headache. In addition to her regular medications I will order intravenous Toradol to see if this is effective if her headache is not improved with oral medications. (13) Asthma Qualifiers: Asthma severity: unspecified severity Asthma complication type: uncomplicated Is this a current diagnosis for this admission?: Yes Plan: The patient reports a history of asthma. She states that it has been stable for some time. She does not even use schedule inhaler therapy. I have ordered as needed nebulizers should her asthma flare. (14) History of jejunostomy tube placement Is this a current diagnosis for this admission?: Yes Plan: She has a jejunostomy tube. She uses the tube mostly for nutrition. I have ordered her tube feeds. I will also order lidocaine as she has discomfort at the site quite often. - Time Time Spent with patient: 35 or more minutes Medications reviewed and adjusted accordingly: Yes Anticipated discharge: Home - Inpatient Certification Based on my medical assessment, after consideration of the patient's comorbidities, presenting symptoms, or acuity I expect that the services needed warrant INPATIENT care.: Yes I certify that my determination is in accordance with my understanding of Medicare's requirements for reasonable and necessary INPATIENT services [42 CFR 412.3e].: Yes Medical Necessity: Significant Comorbidiites Make Outpatient Treatment Too Risky, Need For Continuous Telemetry Monitoring, Need for Neurological Checks, Need for IV Antibiotics Post Hospital Care: D/C Mushroom Packer Documentation
[2019-08-16] MEDS: GABAPENTIN 400 MG CAPSULE PO SCH ×3 (01:46→21:32)
[2019-08-16] MEDS: OXYCODONE HCL IR 5 MG TABLET PO PRN ×3 (01:47→18:13)
[2019-08-16] MEDS: METOPROLOL SUCCINATE 50 MG TAB.SR.24H PO SCH ×3 (01:47→21:33)
[2019-08-16] MEDS: DULOXETINE HCL 30 MG CAPSULE.DR PO SCH ×3 (01:47→21:32)
[2019-08-16] MEDS: AMITRIPTYLINE HCL 25 MG TABLET PO SCH ×2 (01:52→21:59)
[2019-08-16 03:26] LABS: APPEARANCE,URINE SLIGHTLY-CLOUDY; BILIRUBIN,URINE NEGATIVE (NEGATIVE); GLUCOSE, URINE NEGATIVE (NEGATIVE); KETONES,URINE TRACE mg/dL (NEGATIVE); LEUKOCYTE ESTERASE,URINE LARGE (NEGATIVE); NITRITE,URINE NEGATIVE (NEGATIVE); PROTEIN,URINE >=500 mg/dL (NEGATIVE); URINE SPECIFIC GRAVITY 1.034
[2019-08-16 03:27] LABS: COLOR,URINE DARK YELLOW
[2019-08-16] MEDS: LEVOTHYROXINE SODIUM 0.1 MG TABLET PO SCH (05:25)
[2019-08-16] MEDS: CEFTRIAXONE 1 GM/D5W RTU 1 GM/50 ML RTUPB IV SCH ×3 (05:25→17:19)
[2019-08-16] MEDS: PANTOPRAZOLE SODIUM 40 MG TABLET.DR PO SCH (05:26)
[2019-08-16 07:02] LABS: ABSOLUTE BASOPHILS # (AUTO) 0.1 10^3/uL (0.0-0.2); ABSOLUTE EOSINOPHILS # (AUTO) 0.3 10^3/uL (0.0-0.6); ABSOLUTE LYMPHOCYTES (AUTO) 1.8 10^3/uL (0.5-4.7); ABSOLUTE MONOCYTES (AUTO) 0.4 10^3/uL (0.1-1.4); ABSOLUTE NEUT (AUTO) 3.3 10^3/uL (1.7-8.2); BASOPHILS % (AUTO) 1.1 % (0-2); EOSINOPHILS % (AUTO) 4.6 % (0-6); HEMATOCRIT 38.1 % (36.0-47.0); HEMOGLOBIN 13.1 g/dL (12.0-15.5); LYMPHOCYTES % (AUTO) 30.5 % (13-45); MEAN CORPUSCULAR HEMOGLOBIN 27.6 pg (27.0-33.4); MEAN CORPUSCULAR HGB CONC 34.4 g/dL (32.0-36.0); MEAN CORPUSCULAR VOLUME 80 fl (80-97); MONOCYTES % (AUTO) 6.9 % (3-13); PLATELET COUNT 180 10^3/uL (150-450); RED BLOOD COUNT 4.75 10^6/uL (3.72-5.28); RED CELL DISTRIBUTION WIDTH 14.3 % (11.5-14.0); SEGMENTED NEUTROPHILS % (AUTO) 56.9 % (42-78); TOTAL CELLS COUNTED % (AUTO) 100 %; WHITE BLOOD COUNT 5.8 10^3/uL (4.0-10.5)
[2019-08-16 07:26] LABS: ALBUMIN 3.7 g/dL (3.5-5.0); ALKALINE PHOSPHATASE 81 U/L (38-126); ANION GAP 9 (5-19); ASPARTATE AMINO TRANSFERASE 29 U/L (14-36); BILIRUBIN,DIRECT 0.4 mg/dL (0.0-0.4); BILIRUBIN,TOTAL 0.5 mg/dL (0.2-1.3); BLOOD UREA NITROGEN 18 mg/dL (7-20); CALCIUM 9.2 mg/dL (8.4-10.2); CARBON DIOXIDE 27 mmol/L (22-30); CHLORIDE 99 mmol/L (98-107); GLUCOSE 152 mg/dL (75-110); POTASSIUM 3.8 mmol/L (3.6-5.0); TOTAL PROTEIN 7.3 g/dL (6.3-8.2)
[2019-08-16 07:33] LABS: DIRECT LDL 89 mg/dL (<100)
[2019-08-16 07:34] LABS: TRIGLYCERIDES 945 mg/dL (<150)
[2019-08-16] MEDS: HYDROCHLOROTHIAZIDE 12.5 MG TABLET PO SCH (08:20)
[2019-08-16] MEDS: INSULIN LISPRO 100 UNIT/ML 3 ML VIAL SUBCUT SCH ×4 (08:20→23:00)
[2019-08-16] MEDS: LIPASE/PROTEASE/AMYLASE 1 CAP CAPSULE.DR PO SCH ×3 (08:20→17:19)
[2019-08-16] MEDS: ASPIRIN 81 MG TABLET, ENT COATED PO SCH (09:40)
[2019-08-16] MEDS: LOSARTAN POTASSIUM 50 MG TABLET PO SCH (09:40)
[2019-08-16] MEDS: BUPROPION HCL 75 MG TABLET PO SCH ×2 (09:40→21:21)
[2019-08-16] MEDS: ENOXAPARIN SODIUM INJ 40 MG/0.4 ML DISP.SYRIN SUBCUT SCH (09:40)
[2019-08-16] MEDS: KETOROLAC TROMETHAMINE INJ/PF 30 MG/1 ML SDV IV PRN ×2 (09:41→18:14)
[2019-08-16] MEDS: PROMETHAZINE HCL 25 MG TABLET PO PRN ×2 (09:44→18:13)
--- NOTE | 2019-08-16 12:13 | RADIOLOGY REPORT (SQ) ---
EXAM DESCRIPTION: MRI HEAD WITHOUT COMPLETED DATE/TIME: 08/16/2019 9:32 am REASON FOR STUDY: Stroke COMPARISON: None. TECHNIQUE: Multiplanar imaging includes non-contrasted T1, T2, FLAIR, and diffusion with ADC map seq uences. Images stored on PACS. LIMITATIONS: Motion. FINDINGS: ANATOMY: No anomalies. Normal vascular flow voids. Pituitary fossa normal. CSF SPACES: Normal in size and contour. No hemorrhage. CEREBRUM: Sulci and gyri normal in size and contour. Normal white matter signal on FLAIR imaging. No evidence of hemorrhage, mass, or extraaxial fluid collection. POSTERIOR FOSSA: No signal alteration. No hemorrhage. No edema, masses or mass effect. Internal kisha tory canals, cerebello-pontine angles, normal. Fluid in the right mastoids. DIFFUSION IMAGIN.5 cm maximum diameter oval focus of abnormal high signal on diffusion with corre sponding low signal on ADC map in the left thalamus. ORBITS: No masses. Globes normal. PARANASAL SINUSES: No fluid levels. Mucosa normal. OTHER: No other significant finding. IMPRESSION: Acute, nonhemorrhagic small infarct left thalamus. EVIDENCE OF ACUTE STROKE: YES. LEFT [employer] TECHNICAL DOCUMENTATION: JOB ID: [id number] [employer]- All Rights Reserved Reading location - IP/workstation name: [email or web address]
--- NOTE | 2019-08-16 18:09 | PSYCHOLOGICAL NOTE ---
Psych Note - Psych Note Date seen by psych provider: 08/16/19 Time seen by psych provider: 09:05 - 1st attempt Evaluation [id number] Psych Note: Reason For Consult: Depression Consent Permissions: Not provided Patient actively and openly engages with clinician to discuss her history and symptoms. Patient reports ongoing depression with significant increase since 2010 after the loss of both of parents. Patient also has been having additional social stressors (arguing with her daughter, difficulty with mobility and getting around to see people) and increase in medical stressors due to her health. Patient has multiple pets and family members that she identifies as support. Patient discloses passive suicidal ideation i.e. no plans means or intent with 1 event in 2010 after losing both of her parents where she identifies coming very close to harming herself. Patient denies following through and states she has never engaged in self-harm or had any suicide attempts. Patient is alert and orientated to person, place, time and circumstance. Mood is euthymic with congruent affect. Patient denies suicidal and homicidal ideation. Delusions are absent and behaviors congruent with an intact reality based presentation I organized and linear thought process. Eye contact is well- maintained. Conversational speech was very verbose. intellectual abilities appear to be within the average range. Attention and concentration are good. Insight, judgment, impulse control are fair. Medication recommendations per [facility]'s contracted psychiatrist Dr. Ck AHN are as follows Please discontinue Wellbutrin Please start Celexa 20 mg daily Impression\plan: Patient is cleared from acute psychiatric services. Patient describes a long history of depression with passive suicidal ideation. Patient denies current thoughts of wanting to harm herself. Patient does have an outpatient mental health provider for both medication management and therapy. She has discussed the need of possible medication adjustments with her therapist just recently and is requesting assistance for medications. Medication recommendations have been provided. Patient is recommended to continue with her outpatient mental health provider. Dr. Ritter was consulted to care management of this patient; attending physicians in agreement with recommendations and disposition.
--- NOTE | 2019-08-16 18:43 | PDOC PROGRESS REPORT ---
Subjective Progress Note for:: 08/16/19 Reason For Visit: STROKE,PANCREATIC INSUFFICIENCY,HYPOTHYROIDISM, 08/16/2019 Patient admitted with a probable CVA, follows a multitude of chronic medical illnesses including diabetes with an insulin pump, pancreatitis due to hypertriglyceridemia hypertension, pression hypothyroidism, chronic abdominal pain, [place], UTI Physical Exam Vital Signs: Temp Pulse Resp BP Pulse Ox 98.4 F 80 17 131/81 H 95 08/16/19 15:10 08/16/19 16:00 08/16/19 16:00 08/16/19 16:00 08/16/19 16:00 Intake & Output 08/15/19 08/16/19 08/17/19 06:59 06:59 06:59 Intake Total 312 956 Balance 312 956 Weight 102.2 kg General appearance: PRESENT: no acute distress Respiratory exam: PRESENT: clear to auscultation jose de jesus. ABSENT: rales, rhonchi, wheezes Cardiovascular exam: PRESENT: RRR. ABSENT: diastolic murmur, rubs, systolic murmur Neurological exam: PRESENT: alert, awake, oriented to person, oriented to place, oriented to time, oriented to situation, CN II-XII grossly intact. ABSENT: motor sensory deficit Psychiatric exam: PRESENT: appropriate affect, normal mood. ABSENT: homicidal ideation, suicidal ideation Results Laboratory Results: 08/16/19 06:38 08/16/19 06:38 08/15/19 08/15/19 08/16/19 19:00 19:00 03:00 WBC 6.2 RBC 5.06 Hgb 13.9 Hct 39.9 MCV 79 L MCH 27.4 MCHC 34.8 RDW 14.2 H Plt Count 195 Seg Neutrophils % 56.3 Sodium 136.7 L Potassium 4.2 Chloride 97 L Carbon Dioxide 30 Anion Gap 10 BUN 13 Creatinine 0.83 Est GFR ( Amer) > 60 Glucose 135 H Calcium 9.4 Total Bilirubin 0.7 AST 36 Alkaline Phosphatase 91 Total Protein 7.6 Albumin 4.0 Triglycerides Cholesterol LDL Cholesterol Direct HDL Cholesterol Urine Color DARK YELLOW Urine Appearance SLIGHTLY-CLOUDY Urine pH 5.0 Ur Specific Stryker 1.034 Urine Protein >=500 H Urine Glucose (UA) NEGATIVE Urine Ketones TRACE H Urine Blood NEGATIVE Urine Nitrite NEGATIVE Ur Leukocyte Esterase LARGE H Urine WBC (Auto) >182 Urine RBC (Auto) 8 02/03/2708/16/19 08/16/19 06:38 06:38 06:38 WBC 5.8 RBC 4.75 Hgb 13.1 Hct 38.1 MCV 80 MCH 27.6 MCHC 34.4 RDW 14.3 H Plt Count 180 Seg Neutrophils % 56.9 Sodium 134.9 L Potassium 3.8 Chloride 99 Carbon Dioxide 27 Anion Gap 9 BUN 18 Creatinine 0.81 Est GFR ( Amer) > 60 Glucose 152 H Calcium 9.2 Total Bilirubin 0.5 AST 29 Alkaline Phosphatase 81 Total Protein 7.3 Albumin 3.7 Triglycerides 945 H Cholesterol 254.60 H LDL Cholesterol Direct 89 HDL Cholesterol 30 L Urine Color Urine Appearance Urine pH Ur Specific Stryker Urine Protein Urine Glucose (UA) Urine Ketones Urine Blood Urine Nitrite Ur Leukocyte Esterase Urine WBC (Auto) Urine RBC (Auto) 08/15/19 08/15/19 19:00 19:00 Creatine Kinase 92 CK-MB (CK-2) 1.40 Troponin I < 0.012 Impressions: Chest X-Ray 08/15/19 18:20 IMPRESSION: NO ACUTE RADIOGRAPHIC FINDING IN THE CHEST. Head CT 08/15/19 18:20 IMPRESSION: NO ACUTE INTRACRANIAL IMAGING FINDINGS. EVIDENCE OF ACUTE STROKE: NO. Head MRI 08/15/19 23:30 IMPRESSION: Acute, nonhemorrhagic small infarct left thalamus. EVIDENCE OF ACUTE STROKE: YES. 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 Carotid Dopplers tomorrow. Patient had an MRI of the brain today which did show a infarct nonischemic in the left thalamic's. I have also ordered an echocardiogram for tomorrow.. She was placed on 1 aspirin daily as she was not taking aspirin prior to admission Patient has no obvious neurologic deficits today Patient will be seen by psychiatry for her depression. Patient does not appear to be suicidal or homicidal - Time Time Spent with patient: 25-34 minutes
[2019-08-16] MEDS: ATORVASTATIN CALCIUM 40 MG TABLET PO SCH (21:33)
[2019-08-17] MEDS: OXYCODONE HCL IR 5 MG TABLET PO PRN (03:40)
[2019-08-17] MEDS: LEVOTHYROXINE SODIUM 0.1 MG TABLET PO SCH (06:06)
[2019-08-17] MEDS: PANTOPRAZOLE SODIUM 40 MG TABLET.DR PO SCH (06:06)
[2019-08-17] MEDS: LIPASE/PROTEASE/AMYLASE 1 CAP CAPSULE.DR PO SCH ×3 (08:11→17:15)
[2019-08-17] MEDS: INSULIN LISPRO 100 UNIT/ML 3 ML VIAL SUBCUT SCH ×4 (08:11→21:52)
[2019-08-17] MEDS: HYDROCHLOROTHIAZIDE 12.5 MG TABLET PO SCH (08:11)
[2019-08-17] MEDS: KETOROLAC TROMETHAMINE INJ/PF 30 MG/1 ML SDV IV PRN ×2 (08:14→20:03)
[2019-08-17] MEDS: BUPROPION HCL 75 MG TABLET PO SCH ×2 (09:21→21:53)
[2019-08-17] MEDS: DULOXETINE HCL 30 MG CAPSULE.DR PO SCH ×2 (09:26→21:52)
[2019-08-17] MEDS: LOSARTAN POTASSIUM 50 MG TABLET PO SCH (09:26)
[2019-08-17] MEDS: GABAPENTIN 400 MG CAPSULE PO SCH ×2 (09:26→21:53)
[2019-08-17] MEDS: ASPIRIN 81 MG TABLET, ENT COATED PO SCH (09:27)
[2019-08-17] MEDS: ENOXAPARIN SODIUM INJ 40 MG/0.4 ML DISP.SYRIN SUBCUT SCH (09:27)
[2019-08-17] MEDS: METOPROLOL SUCCINATE 50 MG TAB.SR.24H PO SCH ×2 (09:27→21:54)
[2019-08-17] MEDS ORDERED: CLOPIDOGREL BISULFATE 75 MG TABLET PO ONE (09:32)
--- NOTE | 2019-08-17 09:49 | PDOC PROGRESS REPORT ---
Subjective Progress Note for:: 08/17/19 Reason For Visit: STROKE,PANCREATIC INSUFFICIENCY,HYPOTHYROIDISM, 08/17/2019 Admitted through the emergency room for new CVA with right-sided symptoms, and multiple chronic medical conditions Physical Exam Vital Signs: Temp Pulse Resp BP Pulse Ox 97.8 F 71 18 131/78 H 96 08/17/19 07:38 08/17/19 08:00 08/17/19 08:00 08/17/19 08:00 08/17/19 08:00 Intake & Output 08/16/19 08/17/19 08/18/19 06:59 06:59 06:59 Intake Total 312 2146 Output Total 0 Balance 312 2146 Weight 102.2 kg 104 kg General appearance: PRESENT: mild distress Respiratory exam: PRESENT: clear to auscultation jose de jesus. ABSENT: rales, rhonchi, wheezes Cardiovascular exam: PRESENT: RRR. ABSENT: diastolic murmur, rubs, systolic m urmur Neurological exam: PRESENT: alert, awake, oriented to person, oriented to place, oriented to time, oriented to situation, CN II-XII grossly intact, motor sensory deficit, other - Has weakness of the right lower extremity 4/5, she did not have yesterday. She also continues to have a left-sided headache Psychiatric exam: PRESENT: appropriate affect, normal mood. ABSENT: homicidal ideation, suicidal ideation Results Laboratory Results: 08/16/19 06:38 08/16/19 06:38 08/15/19 08/15/19 19:00 19:00 Creatine Kinase 92 CK-MB (CK-2) 1.40 Troponin I < 0.012 Impressions: Chest X-Ray 08/15/19 18:20 IMPRESSION: NO ACUTE RADIOGRAPHIC FINDING IN THE CHEST. Head CT 08/15/19 18:20 IMPRESSION: NO ACUTE INTRACRANIAL IMAGING FINDINGS. EVIDENCE OF ACUTE STROKE: NO. Head MRI 08/15/19 23:30 IMPRESSION: Acute, nonhemorrhagic small infarct left thalamus. EVIDENCE OF ACUTE STROKE: YES. 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 Is this a current diagnosis for this admission?: Yes (4) Hypertension Qualifiers: Hypertension type: essential hypertension Qualified Code(s): I10 - Essential (primary) hypertension Is this a current diagnosis for this admission?: Yes (5) Hypertriglyceridemia Is this a current diagnosis for this admission?: Yes (6) Major depression, chronic Is this a current diagnosis for this admission?: Yes (8) Headache Qualifiers: Headache type: unspecified Headache chronicity pattern: episodic headache Intractability: not intractable Qualified Code(s): R51 - Headache Is this a current diagnosis for this admission?: Yes - Plan Summary Summary: Patient is going to have a routine work-up for CVA. Carotid Dopplers tomorrow. Patient had an MRI of the brain today which did show a infarct nonischemic in the left thalamic's. I have also ordered an echocardiogram for tomorrow.. She was placed on 1 aspirin daily as she was not taking aspirin prior to admission Patient has no obvious neurologic deficits today Patient will be seen by psychiatry for her depression. Patient does not appear to be suicidal or homicidal 08/17/2019 Heart rate is stable between 70 and 80 On admission her blood pressure was slightly elevated at 152/95, and for a brief period it did go as high as 160/105, but for the last 24 hours or so she has been very stable at about 130/80 No significant fluctuations Labs are stable white count is normal H&H is normal platelets are normal. Triglycerides and cholesterol are elevated patient was taking Lipitor 80 mg p rior to admission. Pancrease has been added to patient's regimen here in the hospital Admission urinalysis was suspicious for UTI with large leukocytes, urine culture is pending although it should be back today. Is currently on Rocephin MRI of the brain yesterday showed a acute infarct, nonhemorrhagic of the left thalamus region. This corresponds to patient's symptoms. Carotid Dopplers are going to be done today as well as an echo I have added Plavix to her aspirin regimen since she continues to progress with her CVA. She was taking neither aspirin nor Plavix prior to admission. I have told her that the literature does not support starting both of these drugs for the first CVA however I see no harm in doing it and I think it may lessen the chances of this evolving. Also with her hyperlipidemia I think that her risk are higher than the average person. Patient understands this and agrees with both aspirin and Plavix at this time. Patient did have a psych consult for her depression. They recommended discontinuing the Wellbutrin and starting Celexa, however patient is already on Cymbalta. I am going to let patient address this issue as an outpatient after she is discharged. She was cleared to be no suicidal or homicidal threat. In summary patient was admitted for a new onset CVA with multiple comorbidities of a chronic nature. Patient's blood pressure is being managed aggressively. When patient is discharged she would like to go back home as she has a good support system with the assistance of home health. - Time Time Spent with patient: 35 or more minutes
[2019-08-17] MEDS ORDERED: FENTANYL 25 MCG/HR PATCH.TD72 TD SCH (10:00)
[2019-08-17] MEDS ORDERED: CLOPIDOGREL BISULFATE 75 MG TABLET PO SCH ×2 (10:00→18:00)
[2019-08-17] MEDS: OXYCODONE HCL IR 5 MG TABLET PO SCH ×2 (13:26→21:53)
[2019-08-17] MEDS: PROMETHAZINE HCL 25 MG TABLET PO SCH ×2 (13:26→21:54)
[2019-08-17] MEDS: CEFTRIAXONE 1 GM/D5W RTU 1 GM/50 ML RTUPB IV SCH (17:14)
[2019-08-17] MEDS: AMITRIPTYLINE HCL 25 MG TABLET PO SCH (21:52)
[2019-08-17] MEDS: ATORVASTATIN CALCIUM 40 MG TABLET PO SCH (21:52)
--- NOTE | 2019-08-18 00:35 | XCELERA REPORT ---
[address] [address] Transthoracic Echocardiogram Report Name: MODESTO NESBITT Age: 53 yrs Gender: Female : 1965 Patient Status: Inpatient Patient Location: [address] [place], [place] [address] Study Date: 08/17/2019 06:04 PM Height: 68 in Weight: 225 lb BSA: 2.1 m2 Procedure: A two-dimensional transthoracic echocardiogram with color flow and Doppler was performed. Study Quality: Poor. The study was technically limited with all images being suboptimal in quality. Reason For Study: new onset cva History: CVA. Ordering Physician: JEAN-CLAUDE MARION Performed By: Manuela Servin Interpretation Summary There is no obvious cardiac source of embolus noted on this transthoracic echocardiogram. Follow-up with a TREVON is suggested if cardiac source is still suspected. The left ventricle is normal in size. LV EF is 65% Left ventricular systolic function is normal. Doppler measurements suggest impaired left ventricular relaxation, which is associated with grade I/IV or mild diastolic dysfunction Probably no thrombus.Cannot assess ASD,VSD,or PFO. The right ventricle is grossly normal size. The right atrium is normal. The left atrial size is normal. There is no evidence of mitral valve prolapse. There is no vegetation seen on the mitral valve. There is no mitral valve stenosis. There is a trace amount of mitral regurgitation There is no aortic valvular vegetation. There is no aortic valve stenosis There is no LVOT obstruction. No aortic regurgitation is present. There is no tricuspid stenosis. There is a trace to mild amount of tricuspid regurgitation RVSP is 32.2 mm of Hg , with RA mean of 10, There is no pulmonic valvular stenosis. There is no pulmonic valvular regurgitation. The aortic root is not well visualized. The inferior vena cava was not visualized There is no pericardial effusion. There is no obvious cardiac source of embolus noted on this transthoracic echocardiogram. Follow-up with a TREVON is suggested if cardiac source is still suspected MMode/2D Measurements & Calculations RVDd: 2.3 cm LVIDd: 4.2 cm FS: 28.3 % Ao root diam: 2.7 cm IVSd: 1.1 cm LVIDs: 3.0 cm EDV(Teich): Ao root area: LVPWd: 0.76 cm 78.7 ml 5.6 cm2 ESV(Teich): LA dimension: 3.0 cm 35.4 ml EF(Teich): 55.1 % LVLd ap4: 7.0 cm SV(MOD-sp4): EDV(MOD-sp4): 26.0 ml 40.0 ml LVLs ap4: 5.4 cm ESV(MOD-sp4): 14.0 ml EF(MOD-sp4): 65.0 % Doppler Measurements & Calculations MV E max marilin: MV P1/2t max marilin: Ao V2 max: LV V1 max P.6 cm/sec 89.2 cm/sec 139.6 cm/sec 5.4 mmHg MV A max marilin: MV P1/2t: 53.3 msec Ao max P.8 mmHg LV V1 max: 76.0 cm/sec MVA(P1/2t): 4.1 cm2 116.0 cm/sec MV E/A: 0.89 MV dec slope: 490.2 cm/sec2 MV dec time: 0.18 sec PA V2 max: TR max marilin: MV P1/2t-pr_phl: 82.4 cm/sec 235.6 cm/sec 53.3 msec PA max PG: TR max P.2 mmHg 2.7 mmHg Left Ventricle The left ventricle is normal in size. There is normal left ventricular wall thickness. LV EF is 65%. Left ventricular systolic function is normal. Doppler measurements suggest impaired left ventricular relaxation, which is associated with grade I/IV or mild diastolic dysfunction. The left ventricular wall motion is normal. Probably no thrombus.Cannot assess ASD,VSD,or PFO. Right Ventricle The right ventricle is grossly normal size. The right ventricle is not well visualized secondary to technical limitations. Atria The right atrium is normal. The left atrial size is normal. Mitral Valve There is no evidence of mitral valve prolapse. There is no vegetation seen on the mitral valve. There is no mitral valve stenosis. There is a trace amount of mitral regurgitation. Aortic Valve There is no aortic valvular vegetation. There is no aortic valve stenosis. There is no LVOT obstruction. No aortic regurgitation is present. Tricuspid Valve There is no tricuspid stenosis. There is a trace to mild amount of tricuspid regurgitation. There is mild pulmonary hypertension by echo. RVSP is 32.2 mm of Hg , with RA mean of 10,. Pulmonic Valve There is no pulmonic valvular stenosis. There is no pulmonic valvular regurgitation. Great Vessels The aortic root is not well visualized. The inferior vena cava was not visualized. Effusions There is no pericardial effusion. : JEAN-CLAUDE MARION, Irais
[2019-08-18 04:26] VITALS: BP 140/82
[2019-08-18] MEDS: PROMETHAZINE HCL 25 MG TABLET PO SCH (05:08)
[2019-08-18] MEDS: OXYCODONE HCL IR 5 MG TABLET PO SCH (05:08)
[2019-08-18] MEDS: LEVOTHYROXINE SODIUM 0.1 MG TABLET PO SCH (05:08)
[2019-08-18] MEDS: PANTOPRAZOLE SODIUM 40 MG TABLET.DR PO SCH (05:11)
[2019-08-18] MEDS: HYDROCHLOROTHIAZIDE 12.5 MG TABLET PO SCH (07:45)
[2019-08-18] MEDS: LIPASE/PROTEASE/AMYLASE 1 CAP CAPSULE.DR PO SCH (07:45)
[2019-08-18] MEDS: INSULIN LISPRO 100 UNIT/ML 3 ML VIAL SUBCUT SCH (07:46)
--- NOTE | 2019-08-18 08:40 | RADIOLOGY REPORT (SQ) ---
EXAM DESCRIPTION: CAROTID DOPPLER COMPLETED DATE/TIME: 08/17/2019 9:13 pm REASON FOR STUDY: Stroke COMPARISON: None. TECHNIQUE: Grayscale ultrasound, Doppler velocity and spectra, and color Doppler images acquired of the extra-cranial carotid and vertebral arteries. Images stored on PACS. LIMITATIONS: None. FINDINGS: RIGHT CAROTID CCA Velocities: Within normal limits. ICA Velocities Peak systolic 1.09 m/s. End diastolic 0.4 m/s. Proximal ICA/CCA peak systolic ratio 1.3. Spectra normal. No significant plaque. LEFT CAROTID CCA Velocities: Within normal limits. ICA Velocities Peak systolic 0.82 m/s. End diastolic 0.36 m/s. Proximal ICA/CCA peak systolic ratio 0.9. Spectra normal. No significant plaque. VERTEBRAL ARTERIES: Antegrade flow. Normal waveforms. SUBCLAVIAN ARTERIES: No finding. OTHER: No other significant finding. IMPRESSION: NO HEMODYNAMICALLY SIGNIFICANT STENOSIS. COMMENT: Quality ID #[id number]: Velocity criteria are extrapolated from the diameter data as defined by t he Society of Radiologists in Ultrasound Consensus Conference. Radiology 2003: 229; 340-346. TECHNICAL DOCUMENTATION: JOB ID: [id number] 2010 [employer]- All Rights Reserved Reading location - IP/workstation name: [email or web address]
[2019-08-18] MEDS: BUPROPION HCL 75 MG TABLET PO SCH (10:09)
[2019-08-18] MEDS: GABAPENTIN 400 MG CAPSULE PO SCH (10:10)
[2019-08-18] MEDS: METOPROLOL SUCCINATE 50 MG TAB.SR.24H PO SCH (10:11)
[2019-08-18] MEDS: LOSARTAN POTASSIUM 50 MG TABLET PO SCH (10:11)
[2019-08-18] MEDS: DULOXETINE HCL 30 MG CAPSULE.DR PO SCH (10:11)
[2019-08-18] MEDS: ASPIRIN 81 MG TABLET, ENT COATED PO SCH (10:12)
[2019-08-18] MEDS: ENOXAPARIN SODIUM INJ 40 MG/0.4 ML DISP.SYRIN SUBCUT SCH (10:12)
[2019-08-18] MEDS: KETOROLAC TROMETHAMINE INJ/PF 30 MG/1 ML SDV IV PRN (11:11)
--- NOTE | 2019-08-19 16:47 | PDOC DISCHARGE SUMMARY ---
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 Is this a current diagnosis for this admission?: Yes (4) Headache Is this a current diagnosis for this admission?: Yes (5) Hypertriglyceridemia Is this a current diagnosis for this admission?: Yes (6) Hypertension Is this a current diagnosis for this admission?: Yes (7) Major depression, chronic Is this a current diagnosis for this admission?: Yes - Additional Information Resuscitation Status: Full Code Discharge Activity: Activity As Tolerated Referrals: JASMYNE JACQUES MD [Primary Care Provider] - 08/26/19 2:30 pm Prescriptions: Aspirin [Adult Low Dose Aspirin EC] 81 mg PO DAILY 30 Days #30 tablet. [place]-3 Acid Ethyl Esters [Lovaza 1 gm Capsule] 1 gm PO TID 30 Days #90 capsule Home Medications: Allopurinol [Zyloprim 100 mg Tablet] 100 mg PO DAILY 08/16/19 Amitriptyline HCl [Elavil 50 mg Tablet] 50 mg PO QHS 08/16/19 Atorvastatin Calcium [Lipitor 80 mg Tablet] 80 mg PO QHS 08/16/19 Duloxetine HCl [Cymbalta 20 mg Capsule.] 20 mg PO QHS 08/16/19 Fentanyl [Duragesic 25 mcg/hr Transdermal Patch] 25 mcg TOP Q3D 08/16/19 Gabapentin [Neurontin 400 mg Capsule] 400 mg PO TID 08/16/19 Hydrochlorothiazide [Hydrodiuril 12.5 mg Tablet] 12.5 mg PO DAILY 08/16/19 Insulin Aspart [Novolog Insulin (Aspart) 100 unit/mL] 45 units SQ .PUMP 08/16/19 Levothyroxine Sodium [Synthroid] 200 mcg PO Q6AM 08/16/19 Lidocaine HCl [Xylocaine 5% Ointment 35.44 gm] 1 applic TOP TIDP PRN 08/16/19 Losartan Potassium 100 mg PO DAILY 08/16/19 Metoprolol Tartrate [Lopressor 25 mg Tablet] 25 mg PO Q12 08/16/19 Omeprazole 20 mg PO DAILY 08/16/19 Oxycodone HCl [Oxy-Ir 5 mg Tablet] 10 mg PO Q8HP PRN 08/16/19 Promethazine HCl [Phenergan 25 mg Tablet] 25 mg PO Q6HP PRN 08/16/19 Aspirin [Adult Low Dose Aspirin EC] 81 mg PO DAILY 30 Days #30 tablet. 08/18/19 [place]-3 Acid Ethyl Esters [Lovaza 1 gm Capsule] 1 gm PO TID 30 Days #90 capsule 08/18/19 History of Present Illiness History of Present Illness: MODESTO NESBITT is a 53 year old female with multiple complex past medical history. She is on an insulin pump from recurrent episodes of pancreatitis due to hypertriglyceridemia. She has nonalcoholic steatohepatitis and wears an insulin pump due to the nonfunctioning pancreas. She also has hypothyroidism. She has chronic abdominal pain due to the pancreas and liver. She has a GJ tube for Peptamen feeding at 40 mL/h from 8 PM to 8 AM every night. She woke up at 1:30 in the morning August 15 with right-sided weakness. She had difficulty standing. She denied slurred speech or confusion. She went to bed. She woke up at approximately 8:00 in the morning and still have the weakness as well as a headache. She took her morning medications and try to go back to sleep. Finally this afternoon she still had a severe headache when she spoke to her children that made her present to the emergency department. Despite a negative CAT scan she had right-sided hemiparesis. Speech was intact. Cognition was intact. She has a history of hypertension and hypertriglyceridemia as well as the endocrine issues noted above. CT scan was unremarkable. Examination revealed the right-sided hemiparesis. She also admits to severe depression. She has had suicidal thoughts in the past but is not currently suicidal. She will be admitted to [facility] on the stroke protocol. We will continue to use her insulin pump for baseline dosing and utilize our sliding scale for elevated glucose. She is not sure of all of her medications so we will initiate medications we know. We will try to mimic her Peptamen feeding nightly from 8 PM to 8 AM. Hospital Course Hospital Course: Was a started on IM, with a stroke protocol and started on statins and DAPT, BP is optimized. Started on PT OT ST and MRI/MRA head obtained which showed acute nonhemorrhagic left thalamic lacunar infarct. Carotid Doppler did not show any hemodynamically significant stenosis. 2D echo left ejection fraction 6 5% and negative for any embolic source of acute stroke. PT OT ST was consulted. Patient did not require transfer to inpatient rehab. Alert and nursing staff for. Denies any focal neurological deficits. P.o. tolerant. Ambulatory and having normal bowel and bladder movements. Patient decided to be discharged home. Patient was discharged on antiplatelets and was asked to restart her losartan, metoprolol, hydrochlorothiazide, and statins. Was advised to follow- up with PCP and neurologist. Physical Exam Vital Signs: Temp Pulse Resp BP Pulse Ox 97.7 F 72 20 140/82 H 94 08/18/19 11:24 08/18/19 11:24 08/18/19 11:24 08/18/19 03:31 08/18/19 11:24 Intake & Output 08/18/19 08/19/19 08/20/19 06:59 06:59 06:59 Intake Total 1370 Output Total 0 Balance 1370 Weight 104.1 kg General appearance: PRESENT: no acute distress, well-developed, well-nourished Head exam: PRESENT: atraumatic, normocephalic Respiratory exam: PRESENT: clear to auscultation jose de jesus. ABSENT: rales, rhonchi, wheezes Cardiovascular exam: PRESENT: RRR. ABSENT: diastolic murmur, rubs, systolic murmur GI/Abdominal exam: PRESENT: normal bowel sounds, soft. ABSENT: distended, guarding, mass, organolmegaly, rebound, tenderness Neurological exam: PRESENT: alert, awake, oriented to person, oriented to place, oriented to time, oriented to situation, CN II-XII grossly intact. ABSENT: motor sensory deficit Results Laboratory Results: WBC 5.8 10^3/uL (4.0-10.5) 08/16/19 06:38 RBC 4.75 10^6/uL (3.72-5.28) 08/16/19 06:38 Hgb 13.1 g/dL (12.0-15.5) 08/16/19 06:38 Hct 38.1 % (36.0-47.0) 08/16/19 06:38 MCV 80 fl (80-97) 08/16/19 06:38 MCH 27.6 pg (27.0-33.4) 08/16/19 06:38 MCHC 34.4 g/dL (32.0-36.0) 08/16/19 06:38 RDW 14.3 % (11.5-14.0) H 08/16/19 06:38 Plt Count 180 10^3/uL (150-450) 08/16/19 06:38 Lymph % (Auto) 30.5 % (13-45) 08/16/19 06:38 [place] % (Auto) 6.9 % (3-13) 08/16/19 06:38 Eos % (Auto) 4.6 % (0-6) 08/16/19 06:38 Baso % (Auto) 1.1 % (0-2) 08/16/19 06:38 Absolute Neuts (auto) 3.3 10^3/uL (1.7-8.2) 08/16/19 06:38 Absolute Lymphs (auto) 1.8 10^3/uL (0.5-4.7) 08/16/19 06:38 Absolute Monos (auto) 0.4 10^3/uL (0.1-1.4) 08/16/19 06:38 Absolute Eos (auto) 0.3 10^3/uL (0.0-0.6) 08/16/19 06:38 Absolute Basos (auto) 0.1 10^3/uL (0.0-0.2) 08/16/19 06:38 Seg Neutrophils % 56.9 % (42-78) 08/16/19 06:38 PT 12.3 SEC (11.4-15.4) 08/15/19 19:00 INR 0.92 08/15/19 19:00 APTT 25.8 SEC (23.5-35.8) 08/15/19 19:00 Sodium 134.9 mmol/L (137-145) L 08/16/19 06:38 Potassium 3.8 mmol/L (3.6-5.0) 08/16/19 06:38 Chloride 99 mmol/L (98-107) 08/16/19 06:38 Carbon Dioxide 27 mmol/L (22-30) 02/09/20 06:38 Anion Gap 9 (5-19) 08/16/19 06:38 BUN 18 mg/dL (7-20) 08/16/19 06:38 Creatinine 0.81 mg/dL (0.52-1.25) 08/16/19 06:38 Est GFR ( Amer) > 60 (>60) 08/16/19 06:38 Est GFR (MDRD) Non-Af > 60 (>60) 08/16/19 06:38 Glucose 152 mg/dL (75-110) H 08/16/19 06:38 POC Glucose 173 mg/dL (70-110) H 08/17/19 21:28 Hemoglobin A1c % 10.5 % (4.7-6.0) H 08/16/19 06:38 Calcium 9.2 mg/dL (8.4-10.2) 08/16/19 06:38 Total Bilirubin 0.5 mg/dL (0.2-1.3) 08/16/19 06:38 Direct Bilirubin 0.4 mg/dL (0.0-0.4) 08/16/19 06:38 Neonat Total Bilirubin Not Reportable 08/16/19 06:38 Neonat Direct Bilirubin Not Reportable 08/16/19 06:38 Neonat Indirect Bili Not Reportable 08/16/19 06:38 AST 29 U/L (14-36) 08/16/19 06:38 ALT 21 U/L (<35) 08/16/19 06:38 Alkaline Phosphatase 81 U/L (38-126) 08/16/19 06:38 Creatine Kinase 92 U/L (30-135) 08/15/19 19:00 CK-MB (CK-2) 1.40 ng/mL (<4.55) 08/15/19 19:00 Troponin I < 0.012 ng/mL 08/15/19 19:00 Total Protein 7.3 g/dL (6.3-8.2) 08/16/19 06:38 Albumin 3.7 g/dL (3.5-5.0) 08/16/19 06:38 Triglycerides 945 mg/dL (<150) H 08/16/19 06:38 Cholesterol 254.60 mg/dL (0-200) H 08/16/19 06:38 LDL Cholesterol Direct 89 mg/dL (<100) 08/16/19 06:38 VLDL Cholesterol, Calc UNABLE TO CALCULATE 08/16/19 06:38 HDL Cholesterol 30 mg/dL (>40) L 08/16/19 06:38 Urine Color DARK YELLOW 08/16/19 03:00 Urine Appearance SLIGHTLY-CLOUDY 08/16/19 03:00 Urine pH 5.0 (5.0-9.0) 08/16/19 03:00 Ur Specific [place] 1.034 08/16/19 03:00 Urine Protein >=500 mg/dL (NEGATIVE) H 08/16/19 03:00 Urine Glucose (UA) NEGATIVE mg/dL (NEGATIVE) 08/16/19 03:00 Urine Ketones TRACE mg/dL (NEGATIVE) H 08/16/19 03:00 Urine Blood NEGATIVE (NEGATIVE) 08/16/19 03:00 Urine Nitrite NEGATIVE (NEGATIVE) 08/16/19 03:00 Urine Bilirubin NEGATIVE (NEGATIVE) 08/16/19 03:00 Urine Urobilinogen 2.0 mg/dL (<2.0) H 08/16/19 03:00 Ur Leukocyte Esterase LARGE (NEGATIVE) H 08/16/19 03:00 Urine WBC (Auto) >182 /HPF 08/16/19 03:00 Urine RBC (Auto) 8 /HPF 08/16/19 03:00 U Hyaline Cast (Auto) 3 /LPF 08/16/19 03:00 Urine Bacteria (Auto) TRACE /HPF 08/16/19 03:00 Squamous Epi Cells Auto 3 /HPF 08/16/19 03:00 U Non-Squamous Epis Auto 3 /HPF 08/16/19 03:00 Urine Mucus (Auto) RARE /LPF 08/16/19 03:00 Urine Ascorbic Acid NEGATIVE (NEGATIVE) 08/16/19 03:00 08/15/19 19:00 CK-MB (CK-2) 1.40 Troponin I < 0.012 Impressions: Chest X-Ray 08/15/19 18:20 IMPRESSION: NO ACUTE RADIOGRAPHIC FINDING IN THE CHEST. Head CT 08/15/19 18:20 IMPRESSION: NO ACUTE INTRACRANIAL IMAGING FINDINGS. EVIDENCE OF ACUTE STROKE: NO. Head MRI 08/15/19 23:30 IMPRESSION: Acute, nonhemorrhagic small infarct left thalamus. EVIDENCE OF ACUTE STROKE: YES. LEFT CUSTODIAL AIDE Carotid Doppler Study 02/10/20 07:00 IMPRESSION: NO HEMODYNAMICALLY SIGNIFICANT STENOSIS. Plan Time Spent: Greater than 30 Minutes Stroke Is this a Stroke Patient?: Yes Stroke Pt being discharged on Anti-thrombolytic therapy?: Yes Acute Heart Failure - Is this a Heart Failure Patient?: No
== END 2019-08-18 14:32 | disposition home health service (06) | DRG 64 ==
LOC: ER 18:08 → EH 23:11 → 3W 08-16 01:25
PROVIDERS: ADMIT Hospitalist; ATTEND Hospitalist
DX: I63.512 Cerebral infarction due to unspecified occlusion or stenosis of left middle cerebral artery (principal); K85.90 Acute pancreatitis without necrosis or infection, unspecified; G81.91 Hemiplegia, unspecified affecting right dominant side; N39.0 Urinary tract infection, site not specified; K75.81 Nonalcoholic steatohepatitis (NASH); E03.9 Hypothyroidism, unspecified; D64.9 Anemia, unspecified; E11.9 Type 2 diabetes mellitus without complications; R51 Headache; E78.1 Pure hyperglyceridemia; I10 Essential (primary) hypertension; F32.9 Major depressive disorder, single episode, unspecified; Z96.41 Presence of insulin pump (external) (internal); E78.5 Hyperlipidemia, unspecified; J45.909 Unspecified asthma, uncomplicated; K21.9 Gastro-esophageal reflux disease without esophagitis; K44.9 Diaphragmatic hernia without obstruction or gangrene; M06.9 Rheumatoid arthritis, unspecified; K02.9 Dental caries, unspecified; R10.9 Unspecified abdominal pain; G89.29 Other chronic pain; Z79.82 Long term (current) use of aspirin; Z88.6 Allergy status to analgesic agent; Z88.0 Allergy status to penicillin; Z88.8 Allergy status to other drugs, medicaments and biological substances; Z91.018 Allergy to other foods; Z82.61 Family history of arthritis; Z83.3 Family history of diabetes mellitus; Z82.49 Family history of ischemic heart disease and other diseases of the circulatory system; Z83.42 Family history of familial hypercholesterolemia
CPT/HCPCS: 36415; 70450; 70551; 71045; 80053; 80061; 81001; 82550; 82553; 82962; 83036; 84484; 85025; 85610; 85730; 87086; 93005; 93010; 93306; 93880; 96374; 99285; J0696; J0780; J1650; J1815; J1885; J3490

== ENCOUNTER 2020-02-21 09:37 | Inpatient (IN) | payer BC ==
[2020-02-21] MEDS ORDERED: ONDANSETRON HCL INJ/PF 4 MG/2 ML SDV IV ONE (09:43)
[2020-02-21] MEDS ORDERED: NORMAL SALINE 1000 ML 1,000 ML IV ONE ×4 (09:43→12:34)
--- NOTE | 2020-02-21 10:15 | ER Document Report ---
ED General - General Chief Complaint: Weakness Stated Complaint: WEAKNESS Mode of Arrival: Medic Information source: Emergency Med Personnel Notes: This is a 53-year-old female with multiple complex medical issues. She is on insulin pump, EMS reports it has not been working for the last 5 days. She also has a JG tube which has also not been working for at least 1 week. Family called stating that she was altered and having nausea, vomiting and diarrhea, they state the last time he saw her normal was about 2 weeks ago. She apparently lives by herself. TRAVEL OUTSIDE OF THE [place] IN LAST 30 DAYS: No - Related Data Allergies/Adverse Reactions: banana [Banana] Allergy (Intermediate, Verified 02/21/20 09:48) itching codeine [Codeine] Allergy (Verified 02/21/20 09:48) iodine [Iodine] Allergy (Verified 02/21/20 09:48) metronidazole [Metronidazole] Allergy (Verified 02/21/20 09:48) Penicillins Allergy (Verified 02/21/20 09:48) Drormop-Ahy-Zsr Reductase Inhibitor Adverse Reaction (Intermediate, Verified 02/21/20 09:48) muscle rigidity metoclopramide HCl [From Reglan] Adverse Reaction (Verified 02/21/20 09:48) Blue Cheese Allergy (Intermediate, Uncoded 08/15/19 18:20) itching Past Medical History - General Information source: [facility] Records - Social History Smoking Status: Unknown if Ever Smoked Family History: Arthritis, CAD, COPD, DM, Hyperlipidemia, Hypertension, Malignancy, Thyroid Disfunction. denies: CVA - Past Medical History Cardiac Medical History: Reports: Hx Hypercholesterolemia, Hx Hypertension Pulmonary Medical History: Reports: Hx Asthma, Hx Pneumonia Neurological Medical History: Reports: Hx Cerebrovascular Accident Endocrine Medical History: Reports: Hx Diabetes Mellitus Type 1, Hx Diabetes Mellitus Type 2, Hx Hypothyroidism Renal/ Medical History: Reports: Hx Kidney Stones. Denies: Hx Peritoneal Dialysis Malignancy Medical History: Denies: Hx Pancreatic Cancer - non malignant pancreatic tumor GI Medical History: Reports: Hx Gastritis, Hx Gastroesophageal Reflux Disease, H x Hiatal Hernia, Hx Irritable Bowel, Hx Pancreatitis, Hx Ulcer, Hx Colonoscopy, Hx Endoscopy Musculoskeletal Medical History: Reports Hx Arthritis - rheumatoidand osteo, Denies Hx Systemic Lupus Erythematosus Psychiatric Medical History: Reports: Hx Depression Past Surgical History: Reports: Hx Abdominal Surgery - Pancreatic tumor removed noncancerous also at G/J tube, Hx Cholecystectomy, Hx Inguinal Hernia, Hx Tonsillectomy, Hx Umbilical Hernia - Immunizations Hx Diphtheria, Pertussis, Tetanus Vaccination: Yes Hx Pneumococcal Vaccination: 03/24/14 Review of Systems - Review of Systems Constitutional: Malaise, Weakness EENT: No symptoms reported Cardiovascular: Dyspnea Respiratory: Short of breath Gastrointestinal: Nausea, Vomiting Genitourinary: No symptoms reported Female Genitourinary: No symptoms reported Musculoskeletal: No symptoms reported Skin: No symptoms reported Hematologic/Lymphatic: No symptoms reported Neurological/Psychological: Confusion, Weakness Physical Exam - Vital signs Vitals: Resp 25 H 02/21/20 09:43 - Notes Notes: PHYSICAL EXAMINATION: GENERAL: Ill-appearing, in moderate distress. HEAD: Atraumatic, normocephalic. EYES: Pupils equal round and reactive to light, extraocular movements intact, conjunctiva are normal. ENT: Nares patent, oropharynx clear without exudates. Dry mucous membranes. NECK: Supple without lymphadenopathy LUNGS: Breath sounds clear to auscultation bilaterally and equal. No wheezes rales or rhonchi. HEART: Tachycardic ABDOMEN: Abdomen nondistended, diffuse tenderness to palpation, PEG tube in place. Female : deferred Musculoskeletal: Normal range of motion, no pitting or edema. No cyanosis. NEUROLOGICAL: Cranial nerves grossly intact. PSYCH: Unable to assess. SKIN: Pale, dry. Course - Re-evaluation Re-evalutation: Patient appears acutely ill on arrival. She is tachypneic, tachycardic, likely DKA. She is also complaining of diffuse abdominal pain. Patient is maintaining her own airway. She does not her head to some of my questions but is sleepy and altered. EMS reports patient uses fentanyl patches. I will have the nursing staff inspect the patient's entire body for any fentanyl patches remaining. 02/21/20 10:16 Patient had a run of ventricular tachycardia heart rate to the 180s. Dr. Ford and I immediately went and reevaluate we did the patient, her heart rate is down to 100. She will be moved to the main side immediately. Nursing staff reports to me that they found 3 fentanyl patches on the patient, all 3 of these were removed and disposed of. Patient now in bed 8. Her heart rate has come down to 110-220. She has been a difficult IV stick for the nursing staff. They do have 2 peripheral IVs at this point in time. I discussed her labs with attending physician who recommends starting her on vancomycin and Levaquin. Her chemistry has hemolyzed. At the time the repeat Chemistry is drawn patient has already had 2 L of IV fluids infused. 02/21/20 14:00 Accepted for admission to ICU. - Vital Signs Vital signs: Temp Pulse Resp BP Pulse Ox 24 H 176/94 H 97 02/21/20 12:33 02/21/20 12:33 02/21/20 12:33 - Laboratory Result Diagrams: 02/21/20 10:23 02/21/20 11:35 Laboratory results interpreted by me: 02/21/20 02/21/20 02/21/20 10:10 10:23 10:23 WBC 21.1 H RBC 5.76 H Hgb 16.4 H Hct 52.7 H MCHC 31.1 L RDW 15.2 H Plt Count 458 H Seg Neuts % (Manual) 86 H Lymphocytes % (Manual) 7 L Abs Neuts (Manual) 18.1 H Carbonic Acid ABG pH ABG pCO2 ABG pO2 ABG HCO3 ABG Total CO2 VBG pH 6.95 L* VBG pCO2 31.1 L VBG HCO3 6.7 L Sodium Chloride Carbon Dioxide BUN Creatinine Est GFR ( Amer) Est GFR (MDRD) Non-Af Glucose POC Glucose Hemoglobin A1c % Lactic Acid Total Protein Urine Protein 100 H Urine Glucose (UA) >=500 H Urine Ketones 80 H Urine Blood SMALL H 02/21/20 02/21/20 02/21/20 10:23 10:23 11:35 WBC RBC Hgb Hct MCHC RDW Plt Count Seg Neuts % (Manual) Lymphocytes % (Manual) Abs Neuts (Manual) Carbonic Acid ABG pH ABG pCO2 ABG pO2 ABG HCO3 ABG Total CO2 VBG pH VBG pCO2 VBG HCO3 Sodium 134.1 L Chloride 89 L Carbon Dioxide < 5 L* BUN 31 H Creatinine 1.75 H Est GFR ( Amer) 37 L Est GFR (MDRD) Non-Af 31 L Glucose 866 H* POC Glucose Hemoglobin A1c % 12.5 H Lactic Acid 3.5 H Total Protein 8.6 H Urine Protein Urine Glucose (UA) Urine Ketones Urine Blood 02/21/20 02/21/20 02/21/20 13:16 14:18 15:41 WBC RBC Hgb Hct MCHC RDW Plt Count Seg Neuts % (Manual) Lymphocytes % (Manual) Abs Neuts (Manual) Carbonic Acid 0.34 L ABG pH 6.99 L* ABG pCO2 11.4 L* ABG pO2 141.4 H ABG HCO3 2.7 L ABG Total CO2 3.1 L VBG pH VBG pCO2 VBG HCO3 Sodium Chloride Carbon Dioxide BUN Creatinine Est GFR ( Amer) Est GFR (MDRD) Non-Af Glucose POC Glucose > 550 H* Hemoglobin A1c % Lactic Acid Total Protein Urine Protein 30 H Urine Glucose (UA) >=500 H Urine Ketones 80 H Urine Blood SMALL H - EKG Interpretation by Me EKG shows normal: Sinus rhythm Rate: Tachycardia When compared to previous EKG there are: No significant change, Other - See bel ow Additional EKG results interpreted by me: 02/21/20 14:17 Prolonged QTC with a QTC of 505. No ST segment elevations or depressions to suggest ischemia. Previous EKG on file from 08/15/2019 shows a sinus rhythm, rate of 77, normal QTC. There are no acute changes other than the rate. Critical Care Note - Critical Care Note Total time excluding time spent on procedures (mins): 45 Comments: Multiple re-evaluations made of this critically ill patient. This included multiple consultations and re-evaluations. Discharge - Discharge Clinical Impression: Dehydration DKA (diabetic ketoacidoses) Qualifiers: Diabetes mellitus type: other specified (including LANG) Diabetes mellitus complication detail: without coma Qualified Code(s): E13.10 - Other specified diabetes mellitus with ketoacidosis without coma Abdominal pain Qualifiers: Abdominal location: generalized Qualified Code(s): R10.84 - Generalized abdominal pain Disposition: ADMITTED INPATIENT Admitting Provider: Tino (Lead Dental Assistant)
--- NOTE | 2020-02-21 10:27 | RADIOLOGY REPORT (SQ) ---
EXAM DESCRIPTION: CHEST SINGLE VIEW IMAGES COMPLETED DATE/TIME: 02/21/2020 10:15 am REASON FOR STUDY: sob COMPARISON: 08/15/2019 EXAM PARAMETERS: NUMBER OF VIEWS: One view. TECHNIQUE: Single frontal radiographic view of the chest acquired. RADIATION DOSE: NA LIMITATIONS: Patient rotation. FINDINGS: LUNGS AND PLEURA: No opacities, masses or pneumothorax. No pleural effusion. MEDIASTINUM AND HILAR STRUCTURES: No masses. Contour normal. HEART AND VASCULAR STRUCTURES: Heart normal in size. Normal vasculature. BONES: No acute findings. HARDWARE: None in the chest. OTHER: No other significant finding. IMPRESSION: No evidence of acute cardiopulmonary abnormality. TECHNICAL DOCUMENTATION: JOB ID: [id number] 2010 [employer]- All Rights Reserved Reading location - IP/workstation name: [email or web address]
[2020-02-21 10:47] LABS: VENOUS BLOOD BASE EXCESS -24.9 mmol/L; VENOUS BLOOD HCO3 6.7 mmol/L (20-32); VENOUS BLOOD PCO2 31.1 mmHg (35-63)
[2020-02-21 10:50] LABS: APPEARANCE,URINE CLEAR; BILIRUBIN,URINE NEGATIVE (NEGATIVE); COLOR,URINE YELLOW; GLUCOSE, URINE >=500 mg/dL (NEGATIVE); KETONES,URINE 80 mg/dL (NEGATIVE); PROTEIN,URINE 100 mg/dL (NEGATIVE); URINE SPECIFIC GRAVITY 1.022; UROBILINOGEN,URINE NEGATIVE mg/dL (<2.0)
[2020-02-21 10:50] LABS: HEMATOCRIT 52.7 % (36.0-47.0); HEMOGLOBIN 16.4 g/dL (12.0-15.5); MEAN CORPUSCULAR HEMOGLOBIN 28.5 pg (27.0-33.4); MEAN CORPUSCULAR HGB CONC 31.1 g/dL (32.0-36.0); MEAN CORPUSCULAR VOLUME 92 fl (80-97); PLATELET COUNT 458 10^3/uL (150-450); RED BLOOD COUNT 5.76 10^6/uL (3.72-5.28); RED CELL DISTRIBUTION WIDTH 15.2 % (11.5-14.0); WHITE BLOOD COUNT 21.1 10^3/uL (4.0-10.5)
[2020-02-21 10:56] LABS: VENOUS BLOOD PH 6.95 (7.30-7.42)
[2020-02-21 11:08] LABS: ABSOLUTE LYMPHOCYTES# (MANUAL) 1.7 10^3/uL (0.5-4.7); ABSOLUTE MONOCYTES # (MANUAL) 1.1 10^3/uL (0.1-1.4); BASOPHILS % (MANUAL) 0 % (0-2); EOSINOPHILS % (MANUAL) 1 % (0-6); LYMPHOCYTES % (MANUAL) 7 % (13-45); MONOCYTES % (MANUAL) 5 % (3-13); SEGMENTED NEUTROPHILS % (MAN) 86 % (42-78); TOTAL CELLS COUNTED 100
[2020-02-21 11:09] LABS: ANISOCYTOSIS SLIGHT
[2020-02-21 11:10] LABS: PLATELET COMMENT ADEQUATE
[2020-02-21] MEDS ORDERED: LEVOFLOXACIN 750 MG/D5W RTU 750 MG/150 ML RTUPB IV ONE (11:21)
[2020-02-21] MEDS ORDERED: VANCOMYCIN HCL INJ 1000 MG VIAL IV ONE (11:21)
--- NOTE | 2020-02-21 11:34 | RADIOLOGY REPORT (SQ) ---
EXAM DESCRIPTION: CT HEAD WITHOUT IMAGES COMPLETED DATE/TIME: 02/21/2020 11:20 am REASON FOR STUDY: ams COMPARISON: 08/16/2019 and 03/04/2020 TECHNIQUE: Axial images acquired through the brain without intravenous contrast. Images reviewed wi th bone, brain and subdural windows. Additional sagittal and coronal reconstructions were generated. Images stored on PACS. All CT scanners at this facility use dose modulation, iterative reconstruction, and/or weight based d osing when appropriate to reduce radiation dose to as low as reasonably achievable (ALARA). [facility]: Dose Right [facility]: CareDose [facility]: Dose Right [facility]: Teradose 4D [facility]: MetaFLO RADIATION DOSE: CT Rad equipment meets quality standard of care and radiation dose reduction techniq ues were employed. CTDIvol: 53.2 mGy. DLP: 1070 mGy-cm. mGy. LIMITATIONS: None. FINDINGS: VENTRICLES: Normal size and contour. CEREBRUM: No masses. No hemorrhage. No midline shift. No evidence for acute infarction. Normal gra y/white matter differentiation. No areas of low density in the white matter. CEREBELLUM: No masses. No hemorrhage. No alteration of density. No evidence for acute infarction. EXTRAAXIAL SPACES: No fluid collections. No masses. ORBITS AND GLOBE: No intra- or extraconal masses. Normal contour of globe without masses. CALVARIUM: No fracture. PARANASAL SINUSES: No fluid or mucosal thickening. SOFT TISSUES: No mass or hematoma. OTHER: No other significant finding. IMPRESSION: NO ACUTE INTRACRANIAL IMAGING FINDINGS. EVIDENCE OF ACUTE STROKE: NO. COMMENT: Quality ID # [id number]: Final reports with documentation of one or more dose reduction techniques (e.g., Automated exposure control, adjustment of the mA and/or kV according to patient size, use of iterative reconstruction technique) TECHNICAL DOCUMENTATION: JOB ID: [id number] 2010 [employer]- All Rights Reserved Reading location - IP/workstation name: [email or web address]
[2020-02-21 12:12] LABS: ALBUMIN 4.6 g/dL (3.5-5.0); ALKALINE PHOSPHATASE 119 U/L (38-126); ASPARTATE AMINO TRANSFERASE 21 U/L (14-36); BILIRUBIN,DIRECT 0.2 mg/dL (0.0-0.4); BILIRUBIN,TOTAL 0.5 mg/dL (0.2-1.3); BLOOD UREA NITROGEN 31 mg/dL (7-20); CALCIUM 8.9 mg/dL (8.4-10.2); CHLORIDE 89 mmol/L (98-107); POTASSIUM 4.9 mmol/L (3.6-5.0); TOTAL PROTEIN 8.6 g/dL (6.3-8.2)
[2020-02-21 12:24] LABS: GLUCOSE 866 mg/dL (75-110)
[2020-02-21 12:25] LABS: CARBON DIOXIDE < 5 mmol/L (22-30)
[2020-02-21] MEDS ORDERED: DEXTROSE 50%-WATER 25 GM/50 ML DISP.SYRIN IV PRN ×3 (12:28→15:27)
[2020-02-21] MEDS ORDERED: GLUCAGON,HUMAN RECOMB 1 MG INJ IM PRN ×2 (12:28→15:27)
[2020-02-21] MEDS ORDERED: NORMAL SALINE 100 ML with INSULIN REGULAR, HUMAN 100 UNIT IV PRN ×2 (12:28)
[2020-02-21] MEDS ORDERED: SODIUM BICARBONATE 8.4% INJ 50 MEQ/50 ML DISP.SYRIN IV ONE ×2 (12:30→15:32)
[2020-02-21] MEDS ORDERED: INSULIN REG, HUMAN 100 UNIT/ML 3 ML VIAL (PYX) IV ONE (12:34)
[2020-02-21] MEDS ORDERED: INSULIN REG, HUMAN 100 UNIT/ML 3 ML VIAL (PYX) ONE (13:16)
[2020-02-21 13:24] LABS: URINE AMPHETAMINES SCREEN NEGATIVE; URINE BARBITURATES SCREEN NEGATIVE; URINE BENZODIAZEPINES SCREEN NEGATIVE; URINE COCAINE SCREEN NEGATIVE; URINE MARIJUANA (THC) SCREEN NEGATIVE; URINE METHADONE SCREEN NEGATIVE; URINE PHENCYCLIDINE SCREEN NEGATIVE
[2020-02-21 15:01] LABS: ARTERIAL BLOOD BASE EXCESS -26.8 mmol/L; ARTERIAL BLOOD FIO2 ROOM AIR; ARTERIAL BLOOD H2CO3 0.34 mmol/L (1.05-1.35); ARTERIAL BLOOD HCO3 2.7 mmol/L (20-24); ARTERIAL BLOOD O2 SATURATION 97.4 % (94-98); ARTERIAL BLOOD PO2 141.4 mmHg (80-100); ARTERIAL BLOOD TOTAL CO2 3.1 mmol/L (21-25)
[2020-02-21 15:04] LABS: ARTERIAL BLOOD PCO2 11.4 mmHg (35-45); ARTERIAL BLOOD PH 6.99 (7.35-7.45)
[2020-02-21] MEDS ORDERED: NORMAL SALINE 1000 ML 1,000 ML IV PRN (15:16)
[2020-02-21] MEDS: NORMAL SALINE 100 ML with INSULIN REGULAR, HUMAN 100 UNIT IV PRN ×2 (16:00)
[2020-02-21 16:06] LABS: APPEARANCE,URINE CLEAR; BILIRUBIN,URINE NEGATIVE (NEGATIVE); COLOR,URINE STRAW; GLUCOSE, URINE >=500 mg/dL (NEGATIVE); KETONES,URINE 80 mg/dL (NEGATIVE); LEUKOCYTE ESTERASE,URINE NEGATIVE (NEGATIVE); NITRITE,URINE NEGATIVE (NEGATIVE); PROTEIN,URINE 30 mg/dL (NEGATIVE); UROBILINOGEN,URINE NEGATIVE mg/dL (<2.0)
[2020-02-21] MEDS ORDERED: SODIUM BICARBONATE 8.4% INJ 50 MEQ/50 ML DISP.SYRIN ONE (16:44)
--- NOTE | 2020-02-21 17:32 | RADIOLOGY REPORT (SQ) ---
EXAM DESCRIPTION: CT ABD/PELVIS NO ORAL OR IV IMAGES COMPLETED DATE/TIME: 02/21/2020 5:05 pm REASON FOR STUDY: N/V/D, abd pain COMPARISON: 03/20/2014 TECHNIQUE: CT scan of the abdomen and pelvis performed without intravenous or oral contrast. Images reviewed with lung, soft tissue, and bone windows. Reconstructed coronal and sagittal MPR images revi ewed. All images stored on PACS. All CT scanners at this facility use dose modulation, iterative reconstruction, and/or weight based d osing when appropriate to reduce radiation dose to as low as reasonably achievable (ALARA). [facility]: Dose Right [facility]: CareDose [facility]: Dose Right [facility]: Teradose 4D [facility]: Smart [employer] RADIATION DOSE: CT Rad equipment meets quality standard of care and radiation dose reduction techniq ues were employed. CTDIvol: 14.4 mGy. DLP: 886 mGy-cm.mGy. LIMITATIONS: None. FINDINGS: LOWER CHEST: No significant findings. No nodules or infiltrates. NON-CONTRASTED LIVER, SPLEEN, ADRENALS: Evaluation limited by lack of IV contrast. No identified sign ificant masses. Similar hepatomegaly. PANCREAS: No masses. No peripancreatic inflammatory changes. GALLBLADDER: Surgically absent. RIGHT KIDNEY AND URETER: No cysts identified. No solid masses. No calcified stones. No hydronephrosis or hydroureter. LEFT KIDNEY AND URETER: No cysts identified. No solid masses. No calcified stones. No hydronephrosis or hydroureter. AORTA AND RETROPERITONEUM: No aneurysm. No retroperitoneal masses or adenopathy. BOWEL AND PERITONEAL CAVITY: G-J tube present. No obvious masses or inflammatory changes. No free fl uid. APPENDIX: Normal. PELVIS, BLADDER, AND ABDOMINAL WALL:No abnormal masses. No free fluid. Unremarkable bladder. BONES: No acute findings. OTHER: No other significant finding. IMPRESSION: NO ACUTE FINDINGS. TECHNICAL DOCUMENTATION: JOB ID: [id number] Quality ID # [id number]: Final reports with documentation of one or more dose reduction techniques (e.g., Au tomated exposure control, adjustment of the mA and/or kV according to patient size, use of iterative reconstruction technique) 2010 [employer]- All Rights Reserved Reading location - IP/workstation name: [email or web address]
[2020-02-21] MEDS ORDERED: METOPROLOL TARTRATE PF/INJ 5 MG/5 ML SDV IV SCH ×2 (18:00→23:48)
--- NOTE | 2020-02-21 18:07 | CRITICAL CARE ADMISSION REPORT ---
HPI Date:: 02/21/20 Time:: 15:33 Reason for ICU Reason:: Diabetic ketoacidosis Admission Date/Time & PCP: Admission Date/Time: Primary Care Provider: JASMYNE JACQUES MD HPI: This 54-year-old female presented to [facility] with complaints of nausea, vomiting and diarrhea. She is a known diabetic who has an insulin pump; however, she reports that her insulin pump has been "broken" for the past 5 days. The time of clinical interview, the patient is lethargic, albeit arousable. She participates minimally in clinical interview. She is able to protect her airway. Initial ER laboratory evaluation revealed elevated anion gap metabolic acidosis, compatible with diabetic ketoacidosis. History obtained from:: Discussion with ER nurse (Maegan Gao RN) - Diagnosis/Plan (1) Diabetic ketoacidosis Qualifiers: Diabetes mellitus type: other specified (including LANG) Diabetes mellitus complication detail: without coma Qualified Code(s): E13.10 - Other specified diabetes mellitus with ketoacidosis without coma Is this a current diagnosis for this admission?: Yes Plan: ABG upon arrival to ICU. IV fluid resuscitation. Initiate insulin infusion. Accu-Cheks every 1 hour. N.p.o. Serial labs: BMP every 4 hours, magnesium every 8 hours, phosphorus every 12 hours. Check troponin. Blood and urine cultures. Got 1 dose of Levaquin and vancomycin in the emergency department. (2) Accelerated hypertension Is this a current diagnosis for this admission?: Yes Plan: Dark Vasotec 1.25 mg IV every 6 hours. (3) ARF (acute renal failure) Is this a current diagnosis for this admission?: Yes Plan: Renal dosing of medications. Monitor urine output. Monitor creatinine. (4) Abdominal pain Qualifiers: Abdominal location: generalized Qualified Code(s): R10.84 - Generalized abdominal pain Is this a current diagnosis for this admission?: Yes (5) Dehydration Is this a current diagnosis for this admission?: Yes Past Medical History Cardiac Medical History: Reports: Hyperlipidema, Hypertension Pulmonary Medical History: Reports: Asthma, Pneumonia Endocrine Medical History: Reports: Diabetes Mellitus Type 1, Diabetes Mellitus Type 2, Hypothyroidism Malignancy Medical History: Denies: Pancreatic Cancer - non malignant pancreatic tumor GI Medical History: Reports: Gastroesophageal Reflux Disease, Hiatal Hernia Musculoskeltal Medical History: Reports: Arthritis - rheumatoidand osteo Psychiatric Medical History: Reports: Depression Hematology: Reports: Anemia Denies: Hemophilia, Sickle Cell Disease Past Surgical History Past Surgical History: Reports: Cholecystectomy, Tonsillectomy Denies: Amputation Social/Family History - Social History Smoking Status: Unknown if Ever Smoked Frequency of Alcohol Use: None Hx Recreational Drug Use: No Drugs: None Hx Prescription Drug Abuse: No - Medication/Allergies Home Medications: Amitriptyline HCl [Elavil 50 mg Tablet] 50 mg PO QHS 08/16/19 Atorvastatin Calcium [Lipitor 80 mg Tablet] 80 mg PO QHS 08/16/19 Duloxetine HCl [Cymbalta 20 mg Capsule.] 60 mg PO QHS 08/16/19 Fentanyl [Duragesic 25 mcg/hr Transdermal Patch] 25 mcg TOP Q3D 08/16/19 Hydrochlorothiazide [Hydrodiuril 12.5 mg Tablet] 12.5 mg PO DAILY 08/16/19 Insulin Aspart [Novolog Insulin (Aspart) 100 unit/mL] 45 units SQ .PUMP 08/16/19 Lidocaine HCl [Xylocaine 5% Ointment 35.44 gm] 1 applic TOP TIDP PRN 08/16/19 Omeprazole 20 mg PO DAILY 08/16/19 Oxycodone HCl [Oxy-Ir 5 mg Tablet] 10 mg PO Q8HP PRN 08/16/19 Promethazine HCl [Phenergan 25 mg Tablet] 25 mg PO Q6HP PRN 08/16/19 Aspirin [Adult Low Dose Aspirin EC] 81 mg PO DAILY 30 Days #30 tablet. 08/18/19 Amlodipine Besylate [Norvasc 5 mg Tablet] 5 mg PO DAILY 02/21/20 Hydroxychloroquine Sulfate [Plaquenil 200 mg Tablet] 400 mg PO DAILY 02/21/20 Levothyroxine Sodium [Synthroid 50 Mcg Tablet] 50 mcg PO DAILY 02/21/20 Lipase/Protease/Amylase [Krystian Gifford 24,000 Units Capsule] 1 cap PO BID 02/21/20 Allergies/Adverse Reactions: banana [Banana] Allergy (Intermediate, Verified 02/21/20 09:48) itching codeine [Codeine] Allergy (Verified 02/21/20 09:48) iodine [Iodine] Allergy (Verified 02/21/20 09:48) metronidazole [Metronidazole] Allergy (Verified 02/21/20 09:48) Penicillins Allergy (Verified 02/21/20 09:48) Sphilgh-Anv-Wbn Reductase Inhibitor Adverse Reaction (Intermediate, Verified 02/21/20 09:48) muscle rigidity metoclopramide HCl [From Reglan] Adverse Reaction (Verified 02/21/20 09:48) Blue Cheese Allergy (Intermediate, Uncoded 08/15/19 18:20) itching Review of Systems ROS unobtainable: Due to mental status Physical Exam Vital Signs: Temp Pulse Resp BP Pulse Ox 24 H 176/94 H 97 02/21/20 12:33 02/21/20 12:33 02/21/20 12:33 Intake & Output 02/20/20 02/21/20 02/22/20 06:59 06:59 06:59 Intake Total 4000 Balance 4000 Weight 88 kg Weight/Height Weight 88 kg Height 1.73 m General appearance: PRESENT: no acute distress, obese, well-developed, well- nourished Head exam: PRESENT: atraumatic, normocephalic Eye exam: PRESENT: conjunctiva pink, EOMI, PERRLA. ABSENT: scleral icterus Neck exam: ABSENT: carotid bruit, JVD, lymphadenopathy, thyromegaly Respiratory exam: PRESENT: clear to auscultation jose de jesus, tachypnea. ABSENT: rales, rhonchi, wheezes Cardiovascular exam: PRESENT: RRR. ABSENT: diastolic murmur, rubs, systolic murmur Pulses: PRESENT: normal dorsalis pedis pul GI/Abdominal exam: PRESENT: normal bowel sounds, soft, tenderness - Diffuse. ABSENT: distended, firm, guarding, mass, organolmegaly, rebound Extremities exam: PRESENT: full ROM. ABSENT: calf tenderness, clubbing, pedal edema Musculoskeletal exam: PRESENT: normal inspection. ABSENT: deformity Neurological exam: PRESENT: altered, oriented to person, oriented to place, oriented to situation, reflexes normal, CN II-XII grossly intact. ABSENT: oriented to time, motor sensory deficit Psychiatric exam: PRESENT: flat affect. ABSENT: agitated, anxious Skin exam: PRESENT: dry, intact, warm. ABSENT: cyanosis, rash Laboratory/Radiographs Laboratory Results: 02/21/20 10:23 02/21/20 11:35 02/21/20 02/21/20 02/21/20 10:10 10:23 10:23 WBC 21.1 H RBC 5.76 H Hgb 16.4 H Hct 52.7 H MCV 92 MCH 28.5 MCHC 31.1 L RDW 15.2 H Plt Count 458 H Seg Neutrophils % Not Reportable Carbonic Acid HCO3/H2CO3 Ratio ABG pH ABG pCO2 ABG pO2 ABG HCO3 ABG O2 Saturation ABG Base Excess VBG pH VBG pCO2 VBG HCO3 VBG Base Excess FiO2 Sodium Cancelled Potassium Cancelled Chloride Cancelled Carbon Dioxide Cancelled Anion Gap Cancelled BUN Cancelled Creatinine Cancelled Est GFR ( Amer) Cancelled Est GFR (Non-Af Amer) Cancelled Glucose Cancelled Lactic Acid Calcium Cancelled Magnesium Cancelled Total Bilirubin Cancelled AST Cancelled Alkaline Phosphatase Cancelled Ammonia Total Protein Cancelled Albumin Cancelled Lipase Cancelled Urine Color YELLOW Urine Appearance CLEAR Urine pH 5.0 Ur Specific Green 1.022 Urine Protein 100 H Urine Glucose (UA) >=500 H Urine Ketones 80 H Urine Blood SMALL H Urine RBC (Auto) 0 02/21/20 02/21/20 02/21/20 10:23 10:23 11:35 WBC RBC Hgb Hct MCV MCH MCHC RDW Plt Count Seg Neutrophils % Carbonic Acid HCO3/H2CO3 Ratio ABG pH ABG pCO2 ABG pO2 ABG HCO3 ABG O2 Saturation ABG Base Excess VBG pH 6.95 L* VBG pCO2 31.1 L VBG HCO3 6.7 L VBG Base Excess -24.9 FiO2 Sodium 134.1 L Potassium 4.9 Chloride 89 L Carbon Dioxide < 5 L* Anion Gap Not Reportable BUN 31 H Creatinine 1.75 H Est GFR ( Amer) 37 L Est GFR (Non-Af Amer) Glucose 866 H* Lactic Acid 3.5 H Calcium 8.9 Magnesium 2.2 Total Bilirubin 0.5 AST 21 Alkaline Phosphatase 119 Ammonia Total Protein 8.6 H Albumin 4.6 Lipase 219.6 Urine Color Urine Appearance Urine pH Ur Specific Green Urine Protein Urine Glucose (UA) Urine Ketones Urine Blood Urine RBC (Auto) 02/21/20 02/21/20 02/21/20 12:11 13:16 13:25 WBC RBC Hgb Hct MCV MCH MCHC RDW Plt Count Seg Neutrophils % Carbonic Acid 0.34 L HCO3/H2CO3 Ratio 7:1 ABG pH 6.99 L* ABG pCO2 11.4 L* ABG pO2 141.4 H ABG HCO3 2.7 L ABG O2 Saturation 97.4 ABG Base Excess -26.8 VBG pH VBG pCO2 VBG HCO3 VBG Base Excess FiO2 ROOM AIR Sodium Potassium Chloride Carbon Dioxide Anion Gap BUN Creatinine Est GFR ( Amer) Est GFR (Non-Af Amer) Glucose Lactic Acid Calcium Magnesium Total Bilirubin AST Alkaline Phosphatase Ammonia Cancelled 17.0 Total Protein Albumin Lipase Urine Color Urine Appearance Urine pH Ur Specific Green Urine Protein Urine Glucose (UA) Urine Ketones Urine Blood Urine RBC (Auto) Impressions: Chest X-Ray 02/21/20 09:44 IMPRESSION: No evidence of acute cardiopulmonary abnormality. Head CT 02/21/20 10:14 IMPRESSION: NO ACUTE INTRACRANIAL IMAGING FINDINGS. EVIDENCE OF ACUTE STROKE: NO. All labs, radiographs, diagnostic studies and EKGs were personally reviewed: Yes In addition, reports of radiographic and diagnostic studies were read: Yes Critical Time Critical Time (minutes): 60 -: The care of a critically ill patient is dynamic. This note represents a static moment in the admission process. Orders and treatments may be given simul taneously and urgently, and time is not paper sales representative of the treatment process. This patient requires Critical Care secondary to life threatening organ or limb dysfunction. Without Critical Care services, the patient is at risk for increased mortality and morbidity.
[2020-02-21 18:11] LABS: ALKALINE PHOSPHATASE 99 U/L (38-126); ASPARTATE AMINO TRANSFERASE 20 U/L (14-36); BILIRUBIN,DIRECT 0.2 mg/dL (0.0-0.4); BILIRUBIN,TOTAL 0.5 mg/dL (0.2-1.3); BLOOD UREA NITROGEN 30 mg/dL (7-20); CALCIUM 7.7 mg/dL (8.4-10.2); CHLORIDE 106 mmol/L (98-107); POTASSIUM 4.7 mmol/L (3.6-5.0); TOTAL PROTEIN 7.6 g/dL (6.3-8.2)
[2020-02-21] MEDS: ENALAPRILAT DIHYDRATE INJ/PF 1.25 MG/1 ML SDV IV SCH (18:14)
[2020-02-21 18:20] LABS: CARBON DIOXIDE < 5 mmol/L (22-30); GLUCOSE 617 mg/dL (75-110)
--- NOTE | 2020-02-21 20:12 | EKG REPORT ---
SEVERITY:- ABNORMAL ECG - SINUS TACHYCARDIA LVH WITH IVCD AND SECONDARY REPOL ABNRM : Confirmed by: Lam Noel MD 21-Feb-2020 20:11:26
[2020-02-21] MEDS ORDERED: 1/2 NORMAL SALINE 1,000 ML IV PRN (22:12)
[2020-02-21 22:41] LABS: VENOUS BLOOD BASE EXCESS -16.6 mmol/L; VENOUS BLOOD HCO3 9.5 mmol/L (20-32); VENOUS BLOOD PCO2 24.8 mmHg (35-63); VENOUS BLOOD PH 7.2 (7.30-7.42)
[2020-02-21 22:47] LABS: ALBUMIN 3.8 g/dL (3.5-5.0); ALKALINE PHOSPHATASE 102 U/L (38-126); ASPARTATE AMINO TRANSFERASE 15 U/L (14-36); BILIRUBIN,DIRECT 0.1 mg/dL (0.0-0.4); BILIRUBIN,TOTAL 0.5 mg/dL (0.2-1.3); BLOOD UREA NITROGEN 35 mg/dL (7-20); CHLORIDE 110 mmol/L (98-107); GLUCOSE 390 mg/dL (75-110); POTASSIUM 3.8 mmol/L (3.6-5.0); TOTAL PROTEIN 7.3 g/dL (6.3-8.2)
[2020-02-21 22:58] LABS: ANION GAP 28 (5-19)
[2020-02-21 22:59] LABS: CARBON DIOXIDE 7 mmol/L (22-30)
[2020-02-21] MEDS: FAMOTIDINE INJ/PF 20 MG/2 ML SDV IV SCH (23:21)
[2020-02-21] MEDS: HEPARIN SOD (PORCINE) 5,000 UNIT/ML 1 ML VIAL SUBCUT SCH (23:21)
[2020-02-21] MEDS ORDERED: POTASSI CL 20 MEQ/1/2NS 1L 20 MEQ/1,000 ML RTUINJ IV PRN (23:45)
[2020-02-22] MEDS: METOPROLOL TARTRATE PF/INJ 5 MG/5 ML SDV IV SCH ×4 (00:16→17:02)
[2020-02-22] MEDS ORDERED: INSULIN REG, HUMAN 100 UNIT/ML 3 ML VIAL (PYX) ONE (00:19)
[2020-02-22] MEDS: NORMAL SALINE 100 ML with INSULIN REGULAR, HUMAN 100 UNIT IV PRN ×4 (00:23→11:23)
[2020-02-22] MEDS: ENALAPRILAT DIHYDRATE INJ/PF 1.25 MG/1 ML SDV IV SCH ×4 (00:54→17:02)
[2020-02-22] MEDS: POTASSI CL 20 MEQ/D5-1/2NS 1L 1,000 ML IV PRN ×3 (03:17→17:50)
[2020-02-22 04:15] LABS: VENOUS BLOOD BASE EXCESS -11.3 mmol/L; VENOUS BLOOD HCO3 13.8 mmol/L (20-32); VENOUS BLOOD PCO2 29.5 mmHg (35-63); VENOUS BLOOD PH 7.29 (7.30-7.42)
[2020-02-22 06:03] LABS: ANION GAP 15 (5-19); BLOOD UREA NITROGEN 37 mg/dL (7-20); CARBON DIOXIDE 12 mmol/L (22-30); CHLORIDE 115 mmol/L (98-107); GLUCOSE 188 mg/dL (75-110); POTASSIUM 3.9 mmol/L (3.6-5.0)
[2020-02-22 06:04] LABS: PHOSPHORUS 0.8 mg/dL (2.5-4.5)
[2020-02-22] MEDS: HEPARIN SOD (PORCINE) 5,000 UNIT/ML 1 ML VIAL SUBCUT SCH ×3 (06:21→21:14)
[2020-02-22 09:41] LABS: ANION GAP 10 (5-19); BLOOD UREA NITROGEN 35 mg/dL (7-20); CALCIUM 8.1 mg/dL (8.4-10.2); CARBON DIOXIDE 17 mmol/L (22-30); CHLORIDE 114 mmol/L (98-107); GLUCOSE 180 mg/dL (75-110)
[2020-02-22] MEDS: FAMOTIDINE INJ/PF 20 MG/2 ML SDV IV SCH (10:09)
--- NOTE | 2020-02-22 11:48 | PDOC CRITICAL CARE PROG REPORT ---
General Date:: 02/22/20 ICU Day:: 2 Hospital Day:: 2 Resuscitation Status: Full Code Events in the past 12 to 24 Hours:: DKA improved but not resolved Review of systems relevant to events:: Endocrine, neurological. Reason for ICU Addmission:: Diabetic ketoacidosis-severe. Delirium - Medications: Medications reviewed and adjusted accordingly: Yes Vasopressors:: None Sedation:: None Physical Exam Vital Signs: Temp Pulse Resp BP Pulse Ox 99.3 F 102 H 16 131/75 H 96 02/22/20 11:00 02/22/20 08:00 02/22/20 11:00 02/22/20 10:06 02/22/20 11:00 Intake & Output 02/21/20 02/22/20 02/23/20 06:59 06:59 06:59 Intake Total 5981 1049 Output Total 2117 325 Balance 3864 724 Weight 89.9 kg 89.9 kg Weight/Height Weight 89.9 kg Height 5 ft 8 in General appearance: PRESENT: no acute distress Head exam: PRESENT: atraumatic, normocephalic Eye exam: PRESENT: conjunctiva pink, EOMI, PERRLA. ABSENT: scleral icterus Mouth exam: PRESENT: dry mucosa Respiratory exam: PRESENT: clear to auscultation jose de jesus. ABSENT: rales, rhonchi, wheezes Cardiovascular exam: PRESENT: RRR, tachycardia. ABSENT: diastolic murmur, rubs, systolic murmur GI/Abdominal exam: PRESENT: hypoactive bowel sounds, tenderness - Diffuse, not acute. Rectal exam: PRESENT: deferred Gentrourinary exam: PRESENT: indwelling catheter Extremities exam: PRESENT: full ROM. ABSENT: calf tenderness, clubbing, pedal edema Musculoskeletal exam: PRESENT: normal inspection Neurological exam: PRESENT: altered, awake, CN II-XII grossly intact, other - Delirious but improved. Able to answer simple wuestions. Psychiatric exam: PRESENT: anxious Skin exam: PRESENT: dry, intact, warm. ABSENT: cyanosis, rash Laboratory/Radiographs Laboratory Results: 02/21/20 10:23 02/22/20 08:39 02/21/20 02/21/20 02/21/20 11:35 12:11 13:16 Carbonic Acid 0.34 L HCO3/H2CO3 Ratio 7:1 ABG pH 6.99 L* ABG pCO2 11.4 L* ABG pO2 141.4 H ABG HCO3 2.7 L ABG O2 Saturation 97.4 ABG Base Excess -26.8 VBG pH VBG pCO2 VBG HCO3 VBG Base Excess FiO2 ROOM AIR Sodium 134.1 L Potassium 4.9 Chloride 89 L Carbon Dioxide < 5 L* Anion Gap Not Reportable BUN 31 H Creatinine 1.75 H Est GFR ( Amer) 37 L Glucose 866 H* Lactic Acid Calcium 8.9 Phosphorus Magnesium 2.2 Total Bilirubin 0.5 AST 21 Alkaline Phosphatase 119 Ammonia Cancelled Total Protein 8.6 H Albumin 4.6 Lipase 219.6 Urine Color Urine Appearance Urine pH Ur Specific [place] Urine Protein Urine Glucose (UA) Urine Ketones Urine Blood Urine Nitrite Ur Leukocyte Esterase 02/21/20 02/21/20 02/21/20 13:25 14:18 17:10 Carbonic Acid HCO3/H2CO3 Ratio ABG pH ABG pCO2 ABG pO2 ABG HCO3 ABG O2 Saturation ABG Base Excess VBG pH VBG pCO2 VBG HCO3 VBG Base Excess FiO2 Sodium Potassium Chloride Carbon Dioxide Anion Gap BUN Creatinine Est GFR ( Amer) Glucose Lactic Acid Calcium Phosphorus Magnesium 1.9 Total Bilirubin AST Alkaline Phosphatase Ammonia 17.0 Total Protein Albumin Lipase Urine Color STRAW Urine Appearance CLEAR Urine pH 5.0 Ur Specific [place] 1.020 Urine Protein 30 H Urine Glucose (UA) >=500 H Urine Ketones 80 H Urine Blood SMALL H Urine Nitrite NEGATIVE Ur Leukocyte Esterase NEGATIVE 02/21/20 02/21/20 02/21/20 17:10 17:10 22:12 Carbonic Acid HCO3/H2CO3 Ratio ABG pH ABG pCO2 ABG pO2 ABG HCO3 ABG O2 Saturation ABG Base Excess VBG pH VBG pCO2 VBG HCO3 VBG Base Excess FiO2 Sodium 142.4 144.7 Potassium 4.7 3.8 Chloride 106 110 H Carbon Dioxide < 5 L* 7 L* Anion Gap Not Reportable 28 H BUN 30 H 35 H Creatinine 1.18 1.22 Est GFR ( Amer) 58 L 56 L Glucose 617 H* 390 H Lactic Acid Calcium 7.7 L 8.0 L Phosphorus 3.2 Magnesium Total Bilirubin 0.5 0.5 AST 20 15 Alkaline Phosphatase 99 102 Ammonia Total Protein 7.6 7.3 Albumin 4.0 3.8 Lipase Urine Color Urine Appearance Urine pH Ur Specific [place] Urine Protein Urine Glucose (UA) Urine Ketones Urine Blood Urine Nitrite Ur Leukocyte Esterase 02/21/20 02/22/20 02/22/20 22:12 00:42 03:50 Carbonic Acid HCO3/H2CO3 Ratio ABG pH ABG pCO2 ABG pO2 ABG HCO3 ABG O2 Saturation ABG Base Excess VBG pH 7.20 L VBG pCO2 24.8 L VBG HCO3 9.5 L VBG Base Excess -16.6 FiO2 Sodium 142.4 Potassium 3.9 Chloride 115 H Carbon Dioxide 12 L Anion Gap 15 BUN 37 H Creatinine 0.95 Est GFR ( Amer) > 60 Glucose 188 H Lactic Acid 1.0 Calcium 8.0 L Phosphorus 0.8 L D Magnesium Total Bilirubin AST Alkaline Phosphatase Ammonia Total Protein Albumin Lipase Urine Color Urine Appearance Urine pH Ur Specific [place] Urine Protein Urine Glucose (UA) Urine Ketones Urine Blood Urine Nitrite Ur Leukocyte Esterase 02/22/20 02/22/20 03:50 08:39 Carbonic Acid HCO3/H2CO3 Ratio ABG pH ABG pCO2 ABG pO2 ABG HCO3 ABG O2 Saturation ABG Base Excess VBG pH 7.29 L VBG pCO2 29.5 L VBG HCO3 13.8 L VBG Base Excess -11.3 FiO2 Sodium 141.0 Potassium 4.0 Chloride 114 H Carbon Dioxide 17 L Anion Gap 10 BUN 35 H Creatinine 0.81 Est GFR ( Amer) > 60 Glucose 180 H Lactic Acid Calcium 8.1 L Phosphorus Magnesium 1.8 Total Bilirubin AST Alkaline Phosphatase Ammonia Total Protein Albumin Lipase Urine Color Urine Appearance Urine pH Ur Specific [place] Urine Protein Urine Glucose (UA) Urine Ketones Urine Blood Urine Nitrite Ur Leukocyte Esterase 02/21/20 11:35 Troponin I < 0.012 Impressions: Chest X-Ray 02/21/20 09:44 IMPRESSION: No evidence of acute cardiopulmonary abnormality. Head CT 02/21/20 10:14 IMPRESSION: NO ACUTE INTRACRANIAL IMAGING FINDINGS. EVIDENCE OF ACUTE STROKE: NO. Abdomen/Pelvis CT 02/21/20 11:22 IMPRESSION: NO ACUTE FINDINGS. EKG: NSR with LVH. All labs, radiographs, diagnostic studies and EKGs were personally reviewed: Yes In addition, reports of radiographic and diagnostic studies were read: Yes Assessment and Plan - Diagnosis (1) Diabetic ketoacidosis Qualifiers: Diabetes mellitus type: other specified (including LANG) Diabetes mellitus complication detail: without coma Qualified Code(s): E13.10 - Other specified diabetes mellitus with ketoacidosis without coma Is this a current diagnosis for this admission?: Yes Plan: Improving. Gap is closed but bicarb only 17 up from 12. pH nearly normal. I believe the insulin drip can be stopped today with lantus before stopping the drip. At discharge with a broken pump she may need to be set up with lantus and a sling scale which she says she has at home but I am not certain if she understands the implications at this stage. (2) GERD (gastroesophageal reflux disease) Qualifiers: Esophagitis presence: esophagitis presence not specified Qualified Code(s): K21.9 - Gastro-esophageal reflux disease without esophagitis Is this a current diagnosis for this admission?: Yes Plan: Off IV H2 shalini back on home PO meds. (3) Hypertension Qualifiers: Hypertension type: essential hypertension Qualified Code(s): I10 - Essential (primary) hypertension Is this a current diagnosis for this admission?: Yes Plan: Controlled (4) Nausea & vomiting Qualifiers: Vomiting type: unspecified Vomiting Intractability: unspecified Qualified Code(s): R11.2 - Nausea with vomiting, unspecified Is this a current diagnosis for this admission?: Yes Plan: She has DKA, chronic abd pain and IBS. It is uncertain with her mental state how mch is contributed by each. No surgical abdomen. Plan Summary: Stable to transfer to [facility] Critical Time Critical Time (minutes): 35 Level of Care: IMCU Anticipated discharge: Home Anticipated DC Timeframe: within 36 hours -: 1. The care of a critical patient is a dynamic process. This note is a lead generation representative synopsis but static in nature. The timeframe for treatments given in order is not necessarily the actual time these treatments may have been done. 2. This patient requires critical care secondary to ongoing requirements for therapy not offered or safe outside the critical care environment. Transfer to a lower level of care will result in altered life or limb morbidity and mortal ity. 3. Multidisciplinary rounds completed. 4. ABCDE bundle addressed.
[2020-02-22] MEDS ORDERED: FENTANYL 25 MCG/HR PATCH.TD72 TOP SCH (12:00)
[2020-02-22 15:22] LABS: ANION GAP 11 (5-19); BLOOD UREA NITROGEN 28 mg/dL (7-20); CALCIUM 8.5 mg/dL (8.4-10.2); CARBON DIOXIDE 20 mmol/L (22-30); CHLORIDE 114 mmol/L (98-107); GLUCOSE 284 mg/dL (75-110); POTASSIUM 3.9 mmol/L (3.6-5.0)
[2020-02-22] MEDS: OXYCODONE HCL IR 5 MG TABLET PO PRN (16:59)
[2020-02-22] MEDS ORDERED: (PENDING PHARMACY ID) (Lipase/Protease/Amylase [Creon Dr 24,000 Units Capsule] 1 CAP) PO SCH (18:00)
[2020-02-22] MEDS: ATORVASTATIN CALCIUM 80 MG TABLET PO SCH (21:14)
[2020-02-22] MEDS: AMITRIPTYLINE HCL 50 MG TABLET PO SCH (21:14)
[2020-02-22] MEDS: DULOXETINE HCL 30 MG CAPSULE.DR PO SCH (21:14)
[2020-02-22] MEDS ORDERED: DULOXETINE HCL 20 MG CAPSULE.DR PO SCH (22:00)
[2020-02-22 23:00] LABS: ANION GAP 9 (5-19); BLOOD UREA NITROGEN 20 mg/dL (7-20); CALCIUM 8.7 mg/dL (8.4-10.2); CARBON DIOXIDE 22 mmol/L (22-30); CHLORIDE 116 mmol/L (98-107); GLUCOSE 181 mg/dL (75-110); PHOSPHORUS 0.8 mg/dL (2.5-4.5); POTASSIUM 3.2 mmol/L (3.6-5.0)
[2020-02-23] MEDS: POTASSI CL 20 MEQ/D5-1/2NS 1L 1,000 ML IV PRN (00:08)
[2020-02-23] MEDS: ENALAPRILAT DIHYDRATE INJ/PF 1.25 MG/1 ML SDV IV SCH ×3 (01:00→11:48)
[2020-02-23] MEDS: METOPROLOL TARTRATE PF/INJ 5 MG/5 ML SDV IV SCH ×4 (01:41→11:48)
[2020-02-23] MEDS: OXYCODONE HCL IR 5 MG TABLET PO PRN ×4 (01:43→21:15)
[2020-02-23] MEDS ORDERED: INSULIN LISPRO 100 UNIT/ML 3 ML VIAL ONE (01:48)
[2020-02-23] MEDS ORDERED: INSULIN REG, HUMAN 100 UNIT/ML 3 ML VIAL (PYX) ONE (01:59)
[2020-02-23] MEDS: NORMAL SALINE 100 ML with INSULIN REGULAR, HUMAN 100 UNIT IV PRN ×2 (02:00)
[2020-02-23 06:16] LABS: ABSOLUTE BASOPHILS # (AUTO) 0.1 10^3/uL (0.0-0.2); ABSOLUTE LYMPHOCYTES (AUTO) 1.7 10^3/uL (0.5-4.7); ABSOLUTE MONOCYTES (AUTO) 0.6 10^3/uL (0.1-1.4); ABSOLUTE NEUT (AUTO) 7.3 10^3/uL (1.7-8.2); BASOPHILS % (AUTO) 0.9 % (0-2); HEMATOCRIT 37.5 % (36.0-47.0); LYMPHOCYTES % (AUTO) 17.5 % (13-45); MEAN CORPUSCULAR HGB CONC 35.2 g/dL (32.0-36.0); PLATELET COUNT 199 10^3/uL (150-450); RED BLOOD COUNT 4.72 10^6/uL (3.72-5.28); RED CELL DISTRIBUTION WIDTH 14.5 % (11.5-14.0); SEGMENTED NEUTROPHILS % (AUTO) 75.6 % (42-78); TOTAL CELLS COUNTED % (AUTO) 100 %; WHITE BLOOD COUNT 9.7 10^3/uL (4.0-10.5)
[2020-02-23 06:20] LABS: MEAN CORPUSCULAR VOLUME 80 fl (80-97)
[2020-02-23 06:25] LABS: HEMOGLOBIN 13.2 g/dL (12.0-15.5)
[2020-02-23] MEDS: HEPARIN SOD (PORCINE) 5,000 UNIT/ML 1 ML VIAL SUBCUT SCH ×3 (06:25→21:18)
[2020-02-23] MEDS: PANTOPRAZOLE SODIUM 20 MG TABLET.DR PO SCH (06:26)
[2020-02-23] MEDS: LEVOTHYROXINE SODIUM 0.05 MG TABLET PO SCH (06:26)
[2020-02-23 06:31] LABS: ANION GAP 11 (5-19); BLOOD UREA NITROGEN 15 mg/dL (7-20); CALCIUM 8.8 mg/dL (8.4-10.2); CARBON DIOXIDE 21 mmol/L (22-30); CHLORIDE 114 mmol/L (98-107); GLUCOSE 86 mg/dL (75-110)
[2020-02-23 06:37] LABS: POTASSIUM 2.8 mmol/L (3.6-5.0)
[2020-02-23] MEDS ORDERED: GLUCAGON,HUMAN RECOMB 1 MG INJ IM PRN (06:41)
[2020-02-23] MEDS ORDERED: DEXTROSE 40% GEL 15 GM TUBE PO PRN ×2 (06:41)
[2020-02-23] MEDS ORDERED: DEXTROSE 50%-WATER 25 GM/50 ML DISP.SYRIN IV PRN ×2 (06:41)
[2020-02-23] MEDS: INSULIN LISPRO 100 UNIT/ML 3 ML VIAL SUBCUT SCH ×4 (07:30→21:16)
[2020-02-23] MEDS: POTASSI CL 20 MEQ/50 ML RIDER 20 MEQ/50 ML RTUPB IV SCH ×2 (07:31→10:34)
[2020-02-23] MEDS: HYDROXYCHLOROQUINE SULFATE 200 MG TABLET PO SCH (09:08)
[2020-02-23] MEDS: ASPIRIN 81 MG TABLET, ENT COATED PO SCH (09:08)
[2020-02-23] MEDS ORDERED: AMLODIPINE BESYLATE 5 MG TABLET PO SCH (10:00)
--- NOTE | 2020-02-23 14:48 | PDOC PROGRESS REPORT ---
Subjective Progress Note for:: 02/23/20 Reason For Visit: DIABETIC KETOACIDOSIS Physical Exam Vital Signs: Temp Pulse Resp BP Pulse Ox 98.7 F 108 H 17 181/105 H 99 02/23/20 11:49 02/23/20 11:49 02/23/20 11:49 02/23/20 11:49 02/23/20 11:49 Intake & Output 02/22/20 02/23/20 02/24/20 06:59 06:59 06:59 Intake Total 5981 4475 325 Output Total 2117 1225 1000 Balance 3864 3250 -675 Weight 89.9 kg 91.4 kg General appearance: PRESENT: no acute distress Head exam: PRESENT: atraumatic, normocephalic Eye exam: PRESENT: conjunctiva pink, EOMI, PERRLA. ABSENT: scleral icterus Mouth exam: PRESENT: moist, tongue midline Teeth exam: PRESENT: poor dentation Neck exam: ABSENT: carotid bruit, JVD, lymphadenopathy, thyromegaly Respiratory exam: PRESENT: clear to auscultation jose de jesus. ABSENT: rales, rhonchi, wheezes Cardiovascular exam: PRESENT: RRR, +S1, +S2. ABSENT: diastolic murmur, rubs, systolic murmur Pulses: PRESENT: normal dorsalis pedis pul Vascular exam: PRESENT: normal capillary refill GI/Abdominal exam: PRESENT: normal bowel sounds, soft, other - PEG Tube. ABSENT: distended, guarding, mass, organolmegaly, rebound, tenderness Rectal exam: PRESENT: deferred Extremities exam: PRESENT: full ROM. ABSENT: calf tenderness, clubbing, pedal edema Neurological exam: PRESENT: alert, awake, oriented to person, oriented to time, CN II-XII grossly intact, other - somewhat confused. ABSENT: motor sensory deficit Psychiatric exam: PRESENT: appropriate affect, normal mood. ABSENT: homicidal ideation, suicidal ideation Skin exam: PRESENT: dry, intact, warm. ABSENT: cyanosis, rash Results Laboratory Results: 02/23/20 05:51 02/23/20 05:51 02/22/20 02/22/20 02/23/20 14:38 22:15 05:51 WBC 9.7 RBC 4.72 Hgb 13.2 D Hct 37.5 MCV 80 D MCH 28.0 MCHC 35.2 RDW 14.5 H Plt Count 199 Seg Neutrophils % 75.6 Sodium 145.4 H 146.6 H Potassium 3.9 3.2 L Chloride 114 H 116 H Carbon Dioxide 20 L 22 Anion Gap 11 9 BUN 28 H 20 Creatinine 0.85 0.70 Est GFR ( Amer) > 60 > 60 Glucose 284 H 181 H Calcium 8.5 8.7 Phosphorus 0.8 L Magnesium 1.8 02/23/20 05:51 WBC RBC Hgb Hct MCV MCH MCHC RDW Plt Count Seg Neutrophils % Sodium 145.5 H Potassium 2.8 L* Chloride 114 H Carbon Dioxide 21 L Anion Gap 11 BUN 15 Creatinine 0.61 Est GFR ( Amer) > 60 Glucose 86 Calcium 8.8 Phosphorus Magnesium 02/21/20 14:18 Catheterized Urine Urine Culture - Final NO GROWTH 2 DAYS 02/21/20 11:35 Troponin I < 0.012 Impressions: Chest X-Ray 02/21/20 09:44 IMPRESSION: No evidence of acute cardiopulmonary abnormality. Head CT 02/21/20 10:14 IMPRESSION: NO ACUTE INTRACRANIAL IMAGING FINDINGS. EVIDENCE OF ACUTE STROKE: NO. Abdomen/Pelvis CT 02/21/20 11:22 IMPRESSION: NO ACUTE FINDINGS. Assessment and Plan - Diagnosis (1) Abdominal pain Qualifiers: Abdominal location: generalized Qualified Code(s): R10.84 - Generalized abdominal pain Is this a current diagnosis for this admission?: Yes (2) Accelerated hypertension Is this a current diagnosis for this admission?: Yes Plan: Her blood pressure still poorly controlled. I have changed some of her parenteral antihypertensives are now continue with as needed parenteral. We will continue to adjust antihypertensives as per blood pressure for optimal control (3) Dehydration Is this a current diagnosis for this admission?: Yes (4) Diabetic ketoacidosis Qualifiers: Diabetes mellitus type: other specified (including LANG) Diabetes mellitus complication detail: without coma Qualified Code(s): E13.10 - Other specified diabetes mellitus with ketoacidosis without coma Is this a current diagnosis for this admission?: Yes Plan: This is resolved. Patient is currently off insulin drip. She uses a pump at home which is currently broken. I am really not sure how this lady takes care of herself. She is unable to tell me any details about her insulin no tube feedings. She is on tube feeding but she also says she is able to eat orally but she is unable to tell me what she normally takes at home. They just appears to be something that is off on this lady. We will also obtain a case management consult (5) ARF (acute renal failure) Is this a current diagnosis for this admission?: Yes (6) Metabolic encephalopathy Is this a current diagnosis for this admission?: Yes Plan: Patient is clearly confused. I am not sure what underlying mental status is. I have asked for the nurse to contact her so we can find out a lot bit more about this patient underlying status. Of course she can have toxic or metabolic encephalopathy from DKA but it is just unclear what this patient's baseline is. She also expressed some thoughts of depression although she denies any intent to hurt herself. We will consult behavioral department for evaluation - Time Time Spent with patient: 25-34 minutes Medications reviewed and adjusted accordingly: Yes Anticipated Discharge Disposition: Home, Self Care Anticipated Discharge Timeframe: within 72 hours - Inpatient Certification Based on my medical assessment, after consideration of the patient's comorbidities, presenting symptoms, or acuity I expect that the services needed warrant INPATIENT care.: Yes Medical Necessity: Need For Continuous Telemetry Monitoring
[2020-02-23] MEDS: METOPROLOL SUCCINATE 50 MG TAB.SR.24H PO SCH ×2 (15:03→21:15)
[2020-02-23] MEDS ORDERED: INSULIN GLARGINE,HUM.REC.ANLOG 1,000 UNIT/10 ML VIAL (PYX) SUBCUT ONE ×2 (17:00→17:07)
[2020-02-23 19:12] LABS: ANION GAP 17 (5-19); BLOOD UREA NITROGEN 16 mg/dL (7-20); CALCIUM 9.1 mg/dL (8.4-10.2); CARBON DIOXIDE 17 mmol/L (22-30); CHLORIDE 103 mmol/L (98-107); GLUCOSE 385 mg/dL (75-110); POTASSIUM 3.6 mmol/L (3.6-5.0)
[2020-02-23] MEDS ORDERED: ONDANSETRON HCL INJ/PF 4 MG/2 ML SDV ONE (19:33)
[2020-02-23] MEDS: AMITRIPTYLINE HCL 50 MG TABLET PO SCH (21:15)
[2020-02-23] MEDS: ATORVASTATIN CALCIUM 80 MG TABLET PO SCH (21:15)
[2020-02-23] MEDS: DULOXETINE HCL 30 MG CAPSULE.DR PO SCH (21:15)
[2020-02-23] MEDS ORDERED: FENTANYL 25 MCG/HR PATCH.TD72 TD ONE (21:45)
[2020-02-24] MEDS: ONDANSETRON HCL INJ/PF 4 MG/2 ML SDV IV PRN (03:15)
[2020-02-24] MEDS: OXYCODONE HCL IR 5 MG TABLET PO PRN ×4 (03:15→22:45)
[2020-02-24] MEDS: ENALAPRILAT DIHYDRATE INJ/PF 1.25 MG/1 ML SDV IV PRN ×2 (05:35)
[2020-02-24] MEDS: PANTOPRAZOLE SODIUM 20 MG TABLET.DR PO SCH (05:35)
[2020-02-24] MEDS: LEVOTHYROXINE SODIUM 0.05 MG TABLET PO SCH (05:35)
[2020-02-24] MEDS: HEPARIN SOD (PORCINE) 5,000 UNIT/ML 1 ML VIAL SUBCUT SCH ×3 (05:35→22:47)
[2020-02-24] MEDS ORDERED: INSULIN GLARGINE,HUM.REC.ANLOG 1,000 UNIT/10 ML VIAL SUBCUT SCH (06:00)
[2020-02-24 06:36] LABS: ABSOLUTE LYMPHOCYTES (AUTO) 1.4 10^3/uL (0.5-4.7); ABSOLUTE MONOCYTES (AUTO) 0.3 10^3/uL (0.1-1.4); BASOPHILS % (AUTO) 0.8 % (0-2); EOSINOPHILS % (AUTO) 0.1 % (0-6); HEMATOCRIT 39.3 % (36.0-47.0); HEMOGLOBIN 13.6 g/dL (12.0-15.5); LYMPHOCYTES % (AUTO) 29.5 % (13-45); MEAN CORPUSCULAR HEMOGLOBIN 28.2 pg (27.0-33.4); MEAN CORPUSCULAR HGB CONC 34.7 g/dL (32.0-36.0); MEAN CORPUSCULAR VOLUME 81 fl (80-97); MONOCYTES % (AUTO) 6.5 % (3-13); PLATELET COUNT 160 10^3/uL (150-450); RED BLOOD COUNT 4.83 10^6/uL (3.72-5.28); RED CELL DISTRIBUTION WIDTH 14.5 % (11.5-14.0); SEGMENTED NEUTROPHILS % (AUTO) 63.1 % (42-78); TOTAL CELLS COUNTED % (AUTO) 100 %; WHITE BLOOD COUNT 4.8 10^3/uL (4.0-10.5)
[2020-02-24 07:02] LABS: ANION GAP 14 (5-19); BLOOD UREA NITROGEN 17 mg/dL (7-20); CALCIUM 8.7 mg/dL (8.4-10.2); CARBON DIOXIDE 21 mmol/L (22-30); CHLORIDE 103 mmol/L (98-107); GLUCOSE 399 mg/dL (75-110); POTASSIUM 3.8 mmol/L (3.6-5.0)
[2020-02-24] MEDS ORDERED: INSULIN GLARGINE,HUM.REC.ANLOG 1,000 UNIT/10 ML VIAL SUBCUT ONE (07:40)
[2020-02-24] MEDS ORDERED: INSULIN GLARGINE,HUM.REC.ANLOG 1,000 UNIT/10 ML VIAL (PYX) SUBCUT ONE ×2 (08:00→10:00)
[2020-02-24] MEDS: INSULIN LISPRO 100 UNIT/ML 3 ML VIAL SUBCUT SCH ×3 (08:58→17:24)
[2020-02-24] MEDS: AMLODIPINE BESYLATE 5 MG TABLET PO SCH (09:07)
[2020-02-24] MEDS: ASPIRIN 81 MG TABLET, ENT COATED PO SCH (09:07)
[2020-02-24] MEDS: METOPROLOL SUCCINATE 50 MG TAB.SR.24H PO SCH ×2 (09:07→22:45)
[2020-02-24] MEDS: HYDROXYCHLOROQUINE SULFATE 200 MG TABLET PO SCH (09:08)
--- NOTE | 2020-02-24 15:34 | PDOC PROGRESS REPORT ---
Subjective Progress Note for:: 02/24/20 Subjective:: Patient mental status is much improved today. She is still a little loopy and confused but nowhere near yesterday's. She seems a little bit clear and she is able to provide little bit more information. She states that her pump is not effective but she was the one that was just using a different kind of insulin from which was prescribed. We are trying to get her medication list from her physician she is still unable to determine precisely what she was on. Her pump has been removed and taken home by her . She continues to deny any suicidal ideations. A little chatty but definitely making a little bit more sense today than she was yesterday Reason For Visit: DIABETIC KETOACIDOSIS Physical Exam Vital Signs: Temp Pulse Resp BP Pulse Ox 98.0 F 83 20 132/77 H 97 02/24/20 11:33 02/24/20 11:33 02/24/20 11:33 02/24/20 11:33 02/24/20 11:33 Intake & Output 02/23/20 02/24/20 02/25/20 06:59 06:59 06:59 Intake Total 4475 1158 390 Output Total 1225 2610 Balance 3250 -1452 390 Weight 91.4 kg 91.4 kg 91.4 kg General appearance: PRESENT: no acute distress, well-developed, well-nourished Head exam: PRESENT: atraumatic, normocephalic Eye exam: PRESENT: conjunctiva pink, EOMI, PERRLA. ABSENT: scleral icterus Ear exam: PRESENT: normal external ear exam Mouth exam: PRESENT: moist, tongue midline Teeth exam: PRESENT: poor dentation Neck exam: ABSENT: carotid bruit, JVD, lymphadenopathy, thyromegaly Respiratory exam: PRESENT: clear to auscultation jose de jesus. ABSENT: rales, rhonchi, wheezes Cardiovascular exam: PRESENT: RRR, +S1, +S2. ABSENT: diastolic murmur, rubs, systolic murmur Pulses: PRESENT: normal dorsalis pedis pul Vascular exam: PRESENT: normal capillary refill GI/Abdominal exam: PRESENT: normal bowel sounds, soft, other - PEG Tube. ABSENT: distended, guarding, mass, organolmegaly, rebound, tenderness Rectal exam: PRESENT: deferred Extremities exam: PRESENT: full ROM. ABSENT: calf tenderness, clubbing, pedal edema Neurological exam: PRESENT: alert, awake, oriented to person, oriented to place, oriented to time, oriented to situation, CN II-XII grossly intact, other - Intermittently confused. ABSENT: motor sensory deficit Psychiatric exam: PRESENT: appropriate affect, normal mood. ABSENT: homicidal ideation, suicidal ideation Skin exam: PRESENT: dry, intact, warm. ABSENT: cyanosis, rash Results Laboratory Results: 02/24/20 05:50 02/24/20 05:50 02/23/20 02/24/20 02/24/20 18:25 05:50 05:50 WBC 4.8 RBC 4.83 Hgb 13.6 Hct 39.3 MCV 81 MCH 28.2 MCHC 34.7 RDW 14.5 H Plt Count 160 Seg Neutrophils % 63.1 Sodium 137.4 137.6 Potassium 3.6 3.8 Chloride 103 103 Carbon Dioxide 17 L 21 L Anion Gap 17 14 BUN 16 17 Creatinine 0.55 0.61 Est GFR ( Amer) > 60 > 60 Glucose 385 H 399 H Calcium 9.1 8.7 02/21/20 11:35 Troponin I < 0.012 Impressions: Chest X-Ray 02/21/20 09:44 IMPRESSION: No evidence of acute cardiopulmonary abnormality. Head CT 02/21/20 10:14 IMPRESSION: NO ACUTE INTRACRANIAL IMAGING FINDINGS. EVIDENCE OF ACUTE STROKE: NO. Abdomen/Pelvis CT 02/21/20 11:22 IMPRESSION: NO ACUTE FINDINGS. Assessment and Plan - Diagnosis (1) Abdominal pain Qualifiers: Abdominal location: generalized Qualified Code(s): R10.84 - Generalized abdominal pain Is this a current diagnosis for this admission?: Yes Plan: This likely secondary to gastroparesis as well as possibly chronic pancreatitis. Patient is now requesting narcotics today like she was the other day (2) Accelerated hypertension Is this a current diagnosis for this admission?: Yes Plan: Blood pressure is improved today Continue to adjust medications as needed (3) Dehydration Is this a current diagnosis for this admission?: Yes (4) Diabetic ketoacidosis Qualifiers: Diabetes mellitus type: other specified (including LANG) Diabetes mellitus complication detail: without coma Qualified Code(s): E13.10 - Other specified diabetes mellitus with ketoacidosis without coma Is this a current diagnosis for this admission?: Yes Plan: Patient is off insulin drip. I have increased her Lantus dose again today. Now she tells me that she thinks she was on Novolin at home [facility] home. She is not sure exactly what she was taking. Not really sure how compliant or how much this patient is reliable. Will continue to adjust her Lantus which I increased to 10 units of acute twice a day along with the sliding scale and may consider further adjustments for optimal blood sugar control. We will follow-up on her insulin dose that was prescribed for her (5) ARF (acute renal failure) Is this a current diagnosis for this admission?: Yes (6) Metabolic encephalopathy Is this a current diagnosis for this admission?: Yes Plan: Patient is clearly confused. I am not sure what underlying mental status is. I have asked for the nurse to contact her so we can find out a lot bit more about this patient underlying status. Of course she can have toxic or metabolic encephalopathy from DKA but it is just unclear what this patient's baseline is. She also expressed some thoughts of depression although she denies any intent to hurt herself. We will consult behavioral department for ev aluation 02/23 mental status is much improved today. She is still somewhat confused. Still not quite all there yet. Hopefully this is all mostly acute and that she will continue to clear mentally - Plan Summary Summary: A psychiatric consultation was obtained as patient had expressed some thought of being depressed yesterday although denies any suicidal ideation. Follow-up with psych evaluation. Today her mentation is clearly a lot better. She was pretty chatty and her affect is definitely on the upswing with no overt sign of clinical depression - Time Time Spent with patient: 15-24 minutes Anticipated Discharge Disposition: Home with Home Health Anticipated Discharge Timeframe: within 48 hours - Inpatient Certification Based on my medical assessment, after consideration of the patient's comorbidities, presenting symptoms, or acuity I expect that the services needed warrant INPATIENT care.: Yes Medical Necessity: Risk of Complication if Not Cared For in Hospital
[2020-02-24] MEDS: FENTANYL 25 MCG/HR PATCH.TD72 TOP SCH (16:05)
[2020-02-24] MEDS: INSULIN GLARGINE,HUM.REC.ANLOG 1,000 UNIT/10 ML VIAL SUBCUT SCH (17:25)
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
[2020-02-24] MEDS: ATORVASTATIN CALCIUM 80 MG TABLET PO SCH (22:45)
[2020-02-24] MEDS: DULOXETINE HCL 30 MG CAPSULE.DR PO SCH (22:45)
[2020-02-24] MEDS: AMITRIPTYLINE HCL 50 MG TABLET PO SCH (22:47)
[2020-02-25] MEDS: ENALAPRILAT DIHYDRATE INJ/PF 1.25 MG/1 ML SDV IV PRN ×2 (00:52→05:50)
[2020-02-25] MEDS: INSULIN LISPRO 100 UNIT/ML 3 ML VIAL SUBCUT SCH ×6 (00:52→22:35)
[2020-02-25 05:14] LABS: ABSOLUTE EOSINOPHILS # (AUTO) 0.1 10^3/uL (0.0-0.6); ABSOLUTE LYMPHOCYTES (AUTO) 1.3 10^3/uL (0.5-4.7); ABSOLUTE MONOCYTES (AUTO) 0.3 10^3/uL (0.1-1.4); ABSOLUTE NEUT (AUTO) 1.8 10^3/uL (1.7-8.2); BASOPHILS % (AUTO) 0.8 % (0-2); EOSINOPHILS % (AUTO) 2.6 % (0-6); HEMATOCRIT 36.3 % (36.0-47.0); HEMOGLOBIN 12.7 g/dL (12.0-15.5); LYMPHOCYTES % (AUTO) 37.9 % (13-45); MEAN CORPUSCULAR HEMOGLOBIN 28.3 pg (27.0-33.4); MEAN CORPUSCULAR HGB CONC 35.1 g/dL (32.0-36.0); MEAN CORPUSCULAR VOLUME 81 fl (80-97); MONOCYTES % (AUTO) 7.2 % (3-13); PLATELET COUNT 130 10^3/uL (150-450); RED BLOOD COUNT 4.51 10^6/uL (3.72-5.28); RED CELL DISTRIBUTION WIDTH 14.7 % (11.5-14.0); SEGMENTED NEUTROPHILS % (AUTO) 51.5 % (42-78); TOTAL CELLS COUNTED % (AUTO) 100 %; WHITE BLOOD COUNT 3.6 10^3/uL (4.0-10.5)
[2020-02-25 05:36] LABS: ANION GAP 10 (5-19); BLOOD UREA NITROGEN 25 mg/dL (7-20); CALCIUM 9.1 mg/dL (8.4-10.2); CARBON DIOXIDE 25 mmol/L (22-30); CHLORIDE 102 mmol/L (98-107); GLUCOSE 325 mg/dL (75-110); POTASSIUM 3.6 mmol/L (3.6-5.0)
[2020-02-25] MEDS: LEVOTHYROXINE SODIUM 0.05 MG TABLET PO SCH (05:48)
[2020-02-25] MEDS: PANTOPRAZOLE SODIUM 20 MG TABLET.DR PO SCH (05:48)
[2020-02-25] MEDS: INSULIN GLARGINE,HUM.REC.ANLOG 1,000 UNIT/10 ML VIAL SUBCUT SCH (05:49)
[2020-02-25] MEDS: HEPARIN SOD (PORCINE) 5,000 UNIT/ML 1 ML VIAL SUBCUT SCH ×3 (05:49→22:33)
[2020-02-25] MEDS: OXYCODONE HCL IR 5 MG TABLET PO PRN ×3 (07:05→19:56)
[2020-02-25] MEDS: ASPIRIN 81 MG TABLET, ENT COATED PO SCH (10:31)
[2020-02-25] MEDS: AMLODIPINE BESYLATE 5 MG TABLET PO SCH (10:32)
[2020-02-25] MEDS: METOPROLOL SUCCINATE 50 MG TAB.SR.24H PO SCH ×2 (10:32→22:37)
[2020-02-25] MEDS: HYDROXYCHLOROQUINE SULFATE 200 MG TABLET PO SCH (10:32)
[2020-02-25] MEDS: VENLAFAXINE HCL 37.5 MG CAP.SR.24H PO SCH (19:56)
--- NOTE | 2020-02-25 20:13 | PDOC PROGRESS REPORT ---
Subjective Progress Note for:: 02/25/20 Subjective:: The patient was seen and examined at bedside. She is awake, alert and able to hold lengthy conversations, still with some very mild memory issues. She denies any chest pain, SOB, abdominal pain. No nausea/vomiting. She wants to try if she can eat something by oral intake, stated that she usually does this at home when she can and only do tube feeds if her abdominal pain is severe. Reason For Visit: DIABETIC KETOACIDOSIS Physical Exam Vital Signs: Temp Pulse Resp BP Pulse Ox 98.7 F 72 20 130/77 H 99 02/25/20 11:22 02/25/20 11:22 02/25/20 07:30 02/25/20 11:22 02/25/20 11:22 Intake & Output 02/24/20 02/25/20 02/26/20 06:59 06:59 06:59 Intake Total 1158 1370 300 Output Total 2610 400 Balance -1452 970 300 Weight 91.4 kg 89.7 kg General appearance: PRESENT: no acute distress, obese Head exam: PRESENT: atraumatic, normocephalic Eye exam: PRESENT: EOMI, PERRLA. ABSENT: conjunctival injection Mouth exam: PRESENT: moist Neck exam: ABSENT: lymphadenopathy Respiratory exam: PRESENT: symmetrical, unlabored. ABSENT: rales, rhonchi, wheezes Pulses: PRESENT: +2 pedal pulses bilateral GI/Abdominal exam: PRESENT: other - GJ tube intact with no obvious bleeding, leakage or signs of infection. Nurse able to dislodge blockage Musculoskeletal exam: PRESENT: ambulatory Neurological exam: PRESENT: alert, altered, oriented to person, oriented to place, oriented to time Psychiatric exam: PRESENT: normal mood Results Laboratory Results: 02/25/20 04:43 02/25/20 04:43 02/25/20 02/25/20 04:43 04:43 WBC 3.6 L RBC 4.51 Hgb 12.7 Hct 36.3 MCV 81 MCH 28.3 MCHC 35.1 RDW 14.7 H Plt Count 130 L Seg Neutrophils % 51.5 Sodium 137.4 Potassium 3.6 Chloride 102 Carbon Dioxide 25 Anion Gap 10 BUN 25 H Creatinine 0.61 Est GFR ( Amer) > 60 Glucose 325 H Calcium 9.1 02/21/20 11:35 Troponin I < 0.012 Impressions: Chest X-Ray 02/21/20 09:44 IMPRESSION: No evidence of acute cardiopulmonary abnormality. Head CT 02/21/20 10:14 IMPRESSION: NO ACUTE INTRACRANIAL IMAGING FINDINGS. EVIDENCE OF ACUTE STROKE: NO. Abdomen/Pelvis CT 02/21/20 11:22 IMPRESSION: NO ACUTE FINDINGS. Assessment and Plan - Diagnosis (1) Diabetic ketoacidosis Qualifiers: Diabetes mellitus type: type 2 Diabetes mellitus complication detail: without coma Qualified Code(s): E11.10 - Type 2 diabetes mellitus with ketoacidosis without coma Is this a current diagnosis for this admission?: Yes Plan: - RESOLVED. anion gap closed - A1C 12.5%. Patient was on insulin pump but told me today she ran put of her Novolog and instead was using regular insulin for her pump. Pump managed by her with PCP - review of POC glucose shows consistently high readings 300+ - was on Lantus 10 u BID with sliding scale - Total insulin requirement calculated - modified her Lantus to 20 u nightly, Lispro 7 units with meals and sliding scale - continue ACHS glucose monitoring - hypoglycemia protocol in place (2) Metabolic encephalopathy Is this a current diagnosis for this admission?: Yes Plan: - RESOLVED - secondary to DKA. 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 Uses Novolog with her insulin pump but according to her she ran out of her novolog and was using the wrong type of insulin - On lantus 20 u HS and novolog 7 u with meals - will consult director of casework services on how to get her the right insulin type for her pump. (4) ARF (acute renal failure) Qualifiers: Acute renal failure type: unspecified Qualified Code(s): N17.9 - Acute kidney failure, unspecified Is this a current diagnosis for this admission?: Yes Plan: - RESOLVED - crea up to 1.2 when she was admitted. - currently at 0.61 (5) Chronic abdominal pain Is this a current diagnosis for this admission?: Yes Plan: - secondary to Chronic pancreatitis - has a GJ tube - continue fentanyl 25 mcg patch and oxy 10 mg q6 PRN (6) Depression Qualifiers: Depression Type: unspecified Qualified Code(s): F32.9 - Major depressive disorder, single episode, unspecified Is this a current diagnosis for this admission?: Yes Plan: - has a history of depression. - denies SI now - was on cymbalta and elavil - psych consulted who recommended to dc elavil and cymbalta and start her on effexor. orders entered - she will be followed up by psych outpatient (7) History of jejunostomy tube placement Is this a current diagnosis for this admission?: Yes Plan: - functioning tube - she usually eats regular food and apparently only does the tube feeding if she has severe abdominal pain. According to her tube does not clog even if she eats regular food - will put her on a carb controlled diet - continue tube feeding (8) Hypothyroidism Qualifiers: Hypothyroidism type: unspecified Qualified Code(s): E03.9 - Hypothyroidism, unspecified Is this a current diagnosis for this admission?: No Plan: - continue levothyroxine - Time Time Spent with patient: 25-34 minutes Medications reviewed and adjusted accordingly: Yes Anticipated Discharge Disposition: Home with Home Health Anticipated Discharge Timeframe: to be determined - Inpatient Certification Medical Necessity: Risk of Complication if Not Cared For in Hospital
[2020-02-25] MEDS ORDERED: INSULIN GLARGINE,HUM.REC.ANLOG 1,000 UNIT/10 ML VIAL SUBCUT ONE (22:00)
[2020-02-25] MEDS: ATORVASTATIN CALCIUM 80 MG TABLET PO SCH (22:36)
[2020-02-26] MEDS: OXYCODONE HCL IR 5 MG TABLET PO PRN ×3 (05:07→18:06)
[2020-02-26] MEDS: PANTOPRAZOLE SODIUM 20 MG TABLET.DR PO SCH (05:07)
[2020-02-26] MEDS: ENALAPRILAT DIHYDRATE INJ/PF 1.25 MG/1 ML SDV IV PRN (05:08)
[2020-02-26] MEDS: LEVOTHYROXINE SODIUM 0.05 MG TABLET PO SCH (05:08)
[2020-02-26] MEDS: HEPARIN SOD (PORCINE) 5,000 UNIT/ML 1 ML VIAL SUBCUT SCH ×2 (05:21→14:01)
[2020-02-26] MEDS: INSULIN LISPRO 100 UNIT/ML 3 ML VIAL SUBCUT SCH ×6 (07:50→16:33)
[2020-02-26] MEDS: AMLODIPINE BESYLATE 5 MG TABLET PO SCH (09:31)
[2020-02-26] MEDS: METOPROLOL SUCCINATE 50 MG TAB.SR.24H PO SCH (09:31)
[2020-02-26] MEDS: HYDROXYCHLOROQUINE SULFATE 200 MG TABLET PO SCH (09:32)
[2020-02-26] MEDS: ASPIRIN 81 MG TABLET, ENT COATED PO SCH (09:32)
[2020-02-26 10:14] LABS: ABSOLUTE EOSINOPHILS # (AUTO) 0.2 10^3/uL (0.0-0.6); ABSOLUTE LYMPHOCYTES (AUTO) 1.8 10^3/uL (0.5-4.7); ABSOLUTE MONOCYTES (AUTO) 0.3 10^3/uL (0.1-1.4); ABSOLUTE NEUT (AUTO) 3.6 10^3/uL (1.7-8.2); BASOPHILS % (AUTO) 0.8 % (0-2); EOSINOPHILS % (AUTO) 3.1 % (0-6); HEMATOCRIT 42.7 % (36.0-47.0); HEMOGLOBIN 14.6 g/dL (12.0-15.5); LYMPHOCYTES % (AUTO) 30.4 % (13-45); MEAN CORPUSCULAR HEMOGLOBIN 28.1 pg (27.0-33.4); MEAN CORPUSCULAR HGB CONC 34.3 g/dL (32.0-36.0); MEAN CORPUSCULAR VOLUME 82 fl (80-97); MONOCYTES % (AUTO) 5.6 % (3-13); PLATELET COUNT 140 10^3/uL (150-450); RED BLOOD COUNT 5.21 10^6/uL (3.72-5.28); RED CELL DISTRIBUTION WIDTH 14.2 % (11.5-14.0); SEGMENTED NEUTROPHILS % (AUTO) 60.1 % (42-78); TOTAL CELLS COUNTED % (AUTO) 100 %
[2020-02-26 10:31] LABS: ALBUMIN 4.1 g/dL (3.5-5.0); ALKALINE PHOSPHATASE 74 U/L (38-126); ANION GAP 14 (5-19); ASPARTATE AMINO TRANSFERASE 32 U/L (14-36); BILIRUBIN,DIRECT 0.2 mg/dL (0.0-0.4); BILIRUBIN,TOTAL 0.8 mg/dL (0.2-1.3); BLOOD UREA NITROGEN 21 mg/dL (7-20); CALCIUM 9.4 mg/dL (8.4-10.2); CARBON DIOXIDE 23 mmol/L (22-30); CHLORIDE 99 mmol/L (98-107); GLUCOSE 281 mg/dL (75-110); POTASSIUM 3.7 mmol/L (3.6-5.0); TOTAL PROTEIN 7.7 g/dL (6.3-8.2)
[2020-02-26] MEDS: ONDANSETRON HCL INJ/PF 4 MG/2 ML SDV IV PRN ×2 (11:27→18:39)
--- NOTE | 2020-02-26 20:33 | PDOC PROGRESS REPORT ---
Subjective Progress Note for:: 02/26/20 Subjective:: Patient was seen and examined at bedside. She is alert awake and oriented. Denies any nausea vomiting chest pain or shortness of breath. He tolerates oral feeding with no worsening of abdominal pain Reason For Visit: DIABETIC KETOACIDOSIS Physical Exam Vital Signs: Temp Pulse Resp BP Pulse Ox 98.1 F 72 14 113/76 97 02/26/20 15:45 02/26/20 15:45 02/26/20 15:45 02/26/20 15:45 02/26/20 15:45 Intake & Output 02/25/20 02/26/20 02/27/20 06:59 06:59 06:59 Intake Total 1370 1818 462 Output Total 400 1200 650 Balance 970 618 -188 Weight 89.7 kg 90.6 kg 90.6 kg General appearance: PRESENT: no acute distress, cooperative Head exam: PRESENT: atraumatic, normocephalic Eye exam: PRESENT: EOMI, PERRLA Mouth exam: PRESENT: neck supple Neck exam: PRESENT: full ROM. ABSENT: JVD, tracheal deviation Respiratory exam: PRESENT: clear to auscultation jose de jesus, unlabored. ABSENT: rales, rhonchi, wheezes Cardiovascular exam: PRESENT: RRR, +S1, +S2 - normal Pulses: PRESENT: +2 pedal pulses bilateral GI/Abdominal exam: PRESENT: normal bowel sounds, soft, other - GJ tube in place. No signs of erythema swelling or infection. ABSENT: distended, guarding, rebound Rectal exam: PRESENT: deferred Extremities exam: ABSENT: calf tenderness, joint swelling Musculoskeletal exam: PRESENT: full ROM Neurological exam: PRESENT: alert, awake, oriented to person, oriented to place, oriented to time Psychiatric exam: PRESENT: normal mood Skin exam: PRESENT: normal color. ABSENT: pallor Results Laboratory Results: 02/26/20 09:31 02/26/20 09:31 02/26/20 02/26/20 09:31 09:31 WBC 6.0 RBC 5.21 Hgb 14.6 Hct 42.7 MCV 82 MCH 28.1 MCHC 34.3 RDW 14.2 H Plt Count 140 L Seg Neutrophils % 60.1 Sodium 136.4 L Potassium 3.7 Chloride 99 Carbon Dioxide 23 Anion Gap 14 BUN 21 H Creatinine 0.60 Est GFR ( Amer) > 60 Glucose 281 H Calcium 9.4 Total Bilirubin 0.8 AST 32 Alkaline Phosphatase 74 Total Protein 7.7 Albumin 4.1 02/21/20 11:35 Blood Blood Culture - Final NO GROWTH IN 5 DAYS 02/21/20 10:23 Blood Blood Culture - Final NO GROWTH IN 5 DAYS 02/21/20 11:35 Troponin I < 0.012 Impressions: Chest X-Ray 02/21/20 09:44 IMPRESSION: No evidence of acute cardiopulmonary abnormality. Head CT 02/21/20 10:14 IMPRESSION: NO ACUTE INTRACRANIAL IMAGING FINDINGS. EVIDENCE OF ACUTE STROKE: NO. Abdomen/Pelvis CT 02/21/20 11:22 IMPRESSION: NO ACUTE FINDINGS. Assessment and Plan - Diagnosis (1) Diabetic ketoacidosis Qualifiers: Diabetes mellitus type: type 2 Diabetes mellitus complication detail: without coma Qualified Code(s): E11.10 - Type 2 diabetes mellitus with ketoacidosis without coma Is this a current diagnosis for this admission?: Yes Plan: - RESOLVED. anion gap closed - A1C 12.5%. Patient was on insulin pump at home. Pump managed by her with PCP - review of POC glucose shows better controlled pre-meal glucose but still above 200 - modified her Lantus to 20 u nightly, Lispro increased to 10 units with meals units with meals and sliding scale - continue ACHS glucose monitoring - hypoglycemia protocol in place -Plan is to discharge her once glucose are better controlled hopefully by tomorrow (2) Metabolic encephalopathy Is this a current diagnosis for this admission?: Yes Plan: - RESOLVED - secondary to DKA. 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 - On lantus 20 u HS and novolog increased to 10 units with meals - will consult oil field caser on how to get her the right insulin type for her pump. (4) Chronic abdominal pain Is this a current diagnosis for this admission?: Yes (5) Depression Qualifiers: Depression Type: unspecified Qualified Code(s): F32.9 - Major depressive disorder, single episode, unspecified Is this a current diagnosis for this admission?: Yes Plan: - has a history of depression. - denies SI now - was on cymbalta and elavil - psych consulted who recommended to dc elavil and cymbalta and start her on eff exor. orders entered - she will be followed up by psych outpatient (6) History of jejunostomy tube placement Is this a current diagnosis for this admission?: Yes Plan: - functioning tube - she usually eats regular food and apparently only does the tube feeding if she has severe abdominal pain. According to her tube does not clog even if she eats regular food - will put her on a carb controlled diet - continue tube feeding (7) Hypothyroidism Qualifiers: Hypothyroidism type: unspecified Qualified Code(s): E03.9 - Hypothyroidism, unspecified Is this a current diagnosis for this admission?: No Plan: - continue levothyroxine - Plan Summary Summary: Is more alert and awake. DKA has resolved. Aim is to better control her blood sugar. Barrier to discharge is getting her appropriate insulin for her insulin pump. Currently receiving Lantus 20 units at night and 10 units with meals of NovoLog - Time Time Spent with patient: 15-24 minutes Anticipated Discharge Disposition: Home with Home Health - resume home health upon discharge Anticipated Discharge Timeframe: within 48 hours - Inpatient Certification Medical Necessity: Risk of Complication if Not Cared For in Hospital
[2020-02-26] MEDS ORDERED: INSULIN GLARGINE,HUM.REC.ANLOG 1,000 UNIT/10 ML VIAL SUBCUT SCH (22:00)
[2020-02-27] MEDS: VENLAFAXINE HCL 37.5 MG CAP.SR.24H PO SCH ×2 (00:11→21:11)
[2020-02-27] MEDS: SENNOSIDES/DOCUSATE 8.6-50 MG 1 EACH TABLET PO SCH ×2 (00:11→21:11)
[2020-02-27] MEDS: ATORVASTATIN CALCIUM 80 MG TABLET PO SCH ×2 (00:12→21:12)
[2020-02-27] MEDS: METOPROLOL SUCCINATE 50 MG TAB.SR.24H PO SCH ×3 (00:12→21:12)
[2020-02-27] MEDS: ENALAPRILAT DIHYDRATE INJ/PF 1.25 MG/1 ML SDV IV PRN ×3 (00:14→11:49)
[2020-02-27] MEDS: OXYCODONE HCL IR 5 MG TABLET PO PRN ×4 (00:14→19:03)
[2020-02-27] MEDS: ONDANSETRON HCL INJ/PF 4 MG/2 ML SDV IV PRN ×2 (00:14→06:25)
[2020-02-27] MEDS: INSULIN LISPRO 100 UNIT/ML 3 ML VIAL SUBCUT SCH ×9 (00:16→22:55)
[2020-02-27] MEDS: HEPARIN SOD (PORCINE) 5,000 UNIT/ML 1 ML VIAL SUBCUT SCH ×4 (00:17→21:14)
[2020-02-27] MEDS: LEVOTHYROXINE SODIUM 0.05 MG TABLET PO SCH (06:25)
[2020-02-27] MEDS: PANTOPRAZOLE SODIUM 20 MG TABLET.DR PO SCH (06:25)
[2020-02-27] MEDS: ASPIRIN 81 MG TABLET, ENT COATED PO SCH (11:48)
[2020-02-27] MEDS: AMLODIPINE BESYLATE 5 MG TABLET PO SCH (11:48)
[2020-02-27] MEDS: FENTANYL 25 MCG/HR PATCH.TD72 TOP SCH (11:49)
--- NOTE | 2020-02-27 19:59 | PDOC PROGRESS REPORT ---
Subjective Progress Note for:: 02/27/20 Subjective:: Was seen and examined at bedside denies any nausea vomiting abdominal pain. Tolerating diet Reason For Visit: DIABETIC KETOACIDOSIS Physical Exam Vital Signs: Temp Pulse Resp BP Pulse Ox 97.8 F 74 21 H 118/67 98 02/27/20 16:16 02/27/20 16:16 02/27/20 16:16 02/27/20 16:16 02/27/20 16:16 Intake & Output 02/26/20 02/27/20 02/28/20 06:59 06:59 06:59 Intake Total 1818 906 542 Output Total 1200 1450 750 Balance 618 -544 -208 Weight 90.6 kg 91.3 kg General appearance: PRESENT: no acute distress, cooperative Head exam: PRESENT: atraumatic, normocephalic Eye exam: PRESENT: EOMI, PERRLA Mouth exam: PRESENT: moist Neck exam: PRESENT: full ROM Respiratory exam: PRESENT: clear to auscultation jose de jesus, symmetrical, unlabored Cardiovascular exam: PRESENT: RRR, +S1, +S2 Vascular exam: PRESENT: normal capillary refill GI/Abdominal exam: PRESENT: normal bowel sounds, soft, other - GJ tube in place. ABSENT: tenderness Musculoskeletal exam: PRESENT: full ROM Neurological exam: PRESENT: alert, awake Results Laboratory Results: 02/26/20 09:31 02/26/20 09:31 02/21/20 11:35 Troponin I < 0.012 Impressions: Chest X-Ray 02/21/20 09:44 IMPRESSION: No evidence of acute cardiopulmonary abnormality. Head CT 02/21/20 10:14 IMPRESSION: NO ACUTE INTRACRANIAL IMAGING FINDINGS. EVIDENCE OF ACUTE STROKE: NO. Abdomen/Pelvis CT 02/21/20 11:22 IMPRESSION: NO ACUTE FINDINGS. Assessment and Plan - Diagnosis (1) Diabetic ketoacidosis Qualifiers: Diabetes mellitus type: type 2 Diabetes mellitus [facility]: [facility] Qualified Code(s): E11.10 - Type 2 diabetes mellitus with ketoacidosis without coma Is this a current diagnosis for this admission?: Yes Plan: - RESOLVED. anion gap closed - A1C 12.5%. Patient was on insulin pump at home. Pump managed by her with PCP - review of POC glucose shows better controlled pre-meal glucose but still above 200 - modified her Lantus to 30 u nightly, Lispro increased to 13 units with meals units with meals and sliding scale - continue ACHS glucose monitoring - hypoglycemia protocol in place -Plan is to discharge her once glucose are better controlled hopefully by tomorrow (2) Metabolic encephalopathy Is this a current diagnosis for this admission?: Yes Plan: - RESOLVED - secondary to DKA. 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 - On lantus 30 u HS and novolog increased to 13 units with meals - will consult skilled nursing case manager on how to get her the right insulin type for her pump. (4) Chronic abdominal pain Is this a current diagnosis for this admission?: Yes (5) History of jejunostomy tube placement Is this a current diagnosis for this admission?: Yes Plan: - functioning tube - she usually eats regular food and apparently only does the tube feeding if she has severe abdominal pain. According to her tube does not clog even if she eats regular food - will put her on a carb controlled diet - continue tube feeding - Plan Summary Summary: Is more alert and awake. DKA has resolved. Aim is to better control her blood sugar. Barrier to discharge is getting her appropriate insulin for her insulin pump. Currently receiving Lantus 20 units at night and 10 units with meals of NovoLog - Time Time Spent with patient: 15-24 minutes Anticipated Discharge Disposition: Home, Self Care Anticipated Discharge Timeframe: within 48 hours - Inpatient Certification Medical Necessity: Risk of Complication if Not Cared For in Hospital
[2020-02-27 20:39] LABS: ABSOLUTE BASOPHILS # (AUTO) 0.1 10^3/uL (0.0-0.2); ABSOLUTE EOSINOPHILS # (AUTO) 0.2 10^3/uL (0.0-0.6); ABSOLUTE MONOCYTES (AUTO) 0.6 10^3/uL (0.1-1.4); ABSOLUTE NEUT (AUTO) 7.1 10^3/uL (1.7-8.2); BASOPHILS % (AUTO) 0.8 % (0-2); EOSINOPHILS % (AUTO) 1.9 % (0-6); HEMATOCRIT 38.2 % (36.0-47.0); HEMOGLOBIN 13.2 g/dL (12.0-15.5); LYMPHOCYTES % (AUTO) 20.3 % (13-45); MEAN CORPUSCULAR HEMOGLOBIN 28.1 pg (27.0-33.4); MEAN CORPUSCULAR HGB CONC 34.6 g/dL (32.0-36.0); MEAN CORPUSCULAR VOLUME 81 fl (80-97); MONOCYTES % (AUTO) 5.6 % (3-13); PLATELET COUNT 197 10^3/uL (150-450); RED CELL DISTRIBUTION WIDTH 13.9 % (11.5-14.0); SEGMENTED NEUTROPHILS % (AUTO) 71.4 % (42-78); TOTAL CELLS COUNTED % (AUTO) 100 %; WHITE BLOOD COUNT 9.9 10^3/uL (4.0-10.5)
[2020-02-27 20:55] LABS: ALBUMIN 3.9 g/dL (3.5-5.0); ALKALINE PHOSPHATASE 89 U/L (38-126); ANION GAP 11 (5-19); ASPARTATE AMINO TRANSFERASE 28 U/L (14-36); BILIRUBIN,DIRECT 0.3 mg/dL (0.0-0.4); BILIRUBIN,TOTAL 0.6 mg/dL (0.2-1.3); BLOOD UREA NITROGEN 25 mg/dL (7-20); CALCIUM 9.4 mg/dL (8.4-10.2); CARBON DIOXIDE 24 mmol/L (22-30); CHLORIDE 101 mmol/L (98-107); GLUCOSE 273 mg/dL (75-110); POTASSIUM 4.1 mmol/L (3.6-5.0); TOTAL PROTEIN 7.3 g/dL (6.3-8.2)
[2020-02-27] MEDS ORDERED: INSULIN GLARGINE,HUM.REC.ANLOG 1,000 UNIT/10 ML VIAL SUBCUT SCH (22:00)
[2020-02-27] MEDS: INSULIN GLARGINE,HUM.REC.ANLOG 1,000 UNIT/10 ML VIAL SUBCUT SCH (22:54)
[2020-02-28] MEDS: OXYCODONE HCL IR 5 MG TABLET PO PRN ×4 (02:54→23:19)
[2020-02-28] MEDS: ONDANSETRON HCL INJ/PF 4 MG/2 ML SDV IV PRN ×4 (02:55→23:25)
[2020-02-28] MEDS: HEPARIN SOD (PORCINE) 5,000 UNIT/ML 1 ML VIAL SUBCUT SCH ×3 (06:22→22:16)
[2020-02-28] MEDS: LEVOTHYROXINE SODIUM 0.05 MG TABLET PO SCH (06:23)
[2020-02-28] MEDS: PANTOPRAZOLE SODIUM 20 MG TABLET.DR PO SCH (06:23)
[2020-02-28] MEDS: ENALAPRILAT DIHYDRATE INJ/PF 1.25 MG/1 ML SDV IV PRN (06:23)
[2020-02-28] MEDS: AMLODIPINE BESYLATE 5 MG TABLET PO SCH (09:56)
[2020-02-28] MEDS: ASPIRIN 81 MG TABLET, ENT COATED PO SCH (09:56)
[2020-02-28] MEDS: METOPROLOL SUCCINATE 50 MG TAB.SR.24H PO SCH ×2 (09:56→22:16)
[2020-02-28] MEDS: INSULIN LISPRO 100 UNIT/ML 3 ML VIAL SUBCUT SCH ×7 (09:57→22:16)
[2020-02-28] MEDS ORDERED: INSULIN GLARGINE,HUM.REC.ANLOG 1,000 UNIT/10 ML VIAL (PYX) SUBCUT ONE ×3 (11:00→13:30)
--- NOTE | 2020-02-28 15:28 | PDOC PROGRESS REPORT ---
Subjective Progress Note for:: 02/28/20 Subjective:: Patient was seen and examined at bedside. She is eating well denies any abdominal pain nausea or vomiting. I talked to her about her insulin needs the patient told me that [facility] only will give her 1 vial of insulin for her pump which will last her for just 1 day. Plan was to initially discharge her today but if she does not have enough insulin at home she would likely end up back in the ED with high blood glucose and DKA again. Reason For Visit: DIABETIC KETOACIDOSIS Physical Exam Vital Signs: Temp Pulse Resp BP Pulse Ox 98.2 F 80 22 H 107/67 97 02/28/20 11:24 02/28/20 11:24 02/28/20 11:24 02/28/20 11:24 02/28/20 11:24 Intake & Output 02/27/20 02/28/20 02/29/20 06:59 06:59 06:59 Intake Total 906 764 270 Output Total 1450 750 Balance -544 14 270 Weight 91.3 kg 89.8 kg General appearance: PRESENT: no acute distress, cooperative Head exam: PRESENT: atraumatic, normocephalic Eye exam: PRESENT: EOMI, PERRLA Mouth exam: PRESENT: moist Neck exam: PRESENT: full ROM Respiratory exam: PRESENT: clear to auscultation jose de jesus, symmetrical, unlabored Cardiovascular exam: PRESENT: RRR, +S1, +S2 Pulses: PRESENT: normal carotid pulses GI/Abdominal exam: PRESENT: other - GJ tube in place Rectal exam: PRESENT: deferred Extremities exam: ABSENT: joint swelling, pedal edema Musculoskeletal exam: PRESENT: full ROM Neurological exam: PRESENT: alert, awake, oriented to person, oriented to time Psychiatric exam: PRESENT: normal mood Results Laboratory Results: 02/27/20 20:29 02/27/20 20:29 02/27/20 02/27/20 20:29 20:29 WBC 9.9 RBC 4.70 Hgb 13.2 Hct 38.2 MCV 81 MCH 28.1 MCHC 34.6 RDW 13.9 Plt Count 197 Seg Neutrophils % 71.4 Sodium 135.6 L Potassium 4.1 Chloride 101 Carbon Dioxide 24 Anion Gap 11 BUN 25 H Creatinine 0.74 Est GFR ( Amer) > 60 Glucose 273 H Calcium 9.4 Total Bilirubin 0.6 AST 28 Alkaline Phosphatase 89 Total Protein 7.3 Albumin 3.9 02/21/20 11:35 Troponin I < 0.012 Impressions: Chest X-Ray 02/21/20 09:44 IMPRESSION: No evidence of acute cardiopulmonary abnormality. Head CT 02/21/20 10:14 IMPRESSION: NO ACUTE INTRACRANIAL IMAGING FINDINGS. EVIDENCE OF ACUTE STROKE: NO. Abdomen/Pelvis CT 02/21/20 11:22 IMPRESSION: NO ACUTE FINDINGS. Assessment and Plan - Diagnosis (1) Diabetic ketoacidosis Qualifiers: Diabetes mellitus type: type 2 Diabetes mellitus complication detail: without coma Qualified Code(s): E11.10 - Type 2 diabetes mellitus with ketoacidosis without coma Is this a current diagnosis for this admission?: Yes Plan: - RESOLVED. anion gap closed - A1C 12.5%. Patient was on insulin pump at home. Pump managed by her with PCP - review of POC glucose shows better controlled pre-meal glucose but still above 200 - modified her Lantus to 30 u nightly, Lispro increased to 16 units with meals units with meals and sliding scale - continue ACHS glucose monitoring - hypoglycemia protocol in place -Barriers to discharge is unable to get enough insulin for her pump. Her primary care office gives her her insulin but according to her they are not giving her enough to actively manage her diabetes. Will have to call her primary care's office tomorrow before discharge (2) Metabolic encephalopathy Is this a current diagnosis for this admission?: Yes Plan: - RESOLVED - secondary to DKA. 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 - On lantus 30 u HS and novolog increased to 16 units with meals - will consult child welfare caseworker on how to get her the right insulin type for her pump. (4) History of jejunostomy tube placement Is this a current diagnosis for this admission?: Yes Plan: - functioning tube - she usually eats regular food and apparently only does the tube feeding if she has severe abdominal pain. According to her tube does not clog even if she eats regular food - will put her on a carb controlled diet - continue tube feeding - Plan Summary Summary: Is more alert and awake. DKA has resolved. Aim is to better control her blood sugar. Barrier to discharge is getting her appropriate insulin for her insulin pump. Currently receiving Lantus 20 units at night and 10 units with meals of NovoLog - Time Time Spent with patient: Less than 15 minutes Anticipated Discharge Disposition: Home, Self Care Anticipated Discharge Timeframe: within 48 hours - Inpatient Certification Medical Necessity: Risk of Complication if Not Cared For in Hospital
[2020-02-28] MEDS: SENNOSIDES/DOCUSATE 8.6-50 MG 1 EACH TABLET PO SCH (22:16)
[2020-02-28] MEDS: ATORVASTATIN CALCIUM 80 MG TABLET PO SCH (22:16)
[2020-02-28] MEDS: INSULIN GLARGINE,HUM.REC.ANLOG 1,000 UNIT/10 ML VIAL SUBCUT SCH (22:17)
[2020-02-28] MEDS: VENLAFAXINE HCL 37.5 MG CAP.SR.24H PO SCH (22:19)
[2020-02-29] MEDS: ONDANSETRON HCL INJ/PF 4 MG/2 ML SDV IV PRN (06:42)
[2020-02-29] MEDS: HEPARIN SOD (PORCINE) 5,000 UNIT/ML 1 ML VIAL SUBCUT SCH (06:42)
[2020-02-29] MEDS: OXYCODONE HCL IR 5 MG TABLET PO PRN ×2 (06:42→12:57)
[2020-02-29] MEDS: LEVOTHYROXINE SODIUM 0.05 MG TABLET PO SCH (06:43)
[2020-02-29] MEDS: PANTOPRAZOLE SODIUM 20 MG TABLET.DR PO SCH (06:43)
[2020-02-29] MEDS: INSULIN LISPRO 100 UNIT/ML 3 ML VIAL SUBCUT SCH ×4 (08:28→12:00)
[2020-02-29] MEDS: ASPIRIN 81 MG TABLET, ENT COATED PO SCH (09:55)
[2020-02-29] MEDS: METOPROLOL SUCCINATE 50 MG TAB.SR.24H PO SCH (10:02)
[2020-02-29] MEDS: AMLODIPINE BESYLATE 5 MG TABLET PO SCH (10:03)
[2020-02-29 12:11] VITALS: BP 134/71
--- NOTE | 2020-03-03 11:56 | PDOC DISCHARGE SUMMARY ---
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 DKA has resolved. Aim is to better control her blood sugar. Barrier to discharge is getting her appropriate insulin for her insulin pump. Currently receiving Lantus 20 units at night and 10 units with meals of NovoLog - Additional Information Resuscitation Status: Full Code Discharge Diet: Diabetic Discharge Activity: Activity As Tolerated Referrals: JASMYNE JACQUES MD [Primary Care Provider] - 03/09/20 2:00 pm Prescriptions: Insulin Lispro [Humalog Insulin (Lispro) 100 unit/mL] 16 unit SUBCUT AC 30 Days #100 vial NS Insulin Detemir [Levemir] 40 unit SQ HSP PRN 30 Days #30 vial NS PRN Reason: Home Medications: Amitriptyline HCl [Elavil 50 mg Tablet] 50 mg PO QHS 08/16/19 Atorvastatin Calcium [Lipitor 80 mg Tablet] 80 mg PO QHS 08/16/19 Duloxetine HCl [Cymbalta 20 mg Capsule.] 60 mg PO QHS 08/16/19 Fentanyl [Duragesic 25 mcg/hr Transdermal Patch] 25 mcg TOP Q3D 08/16/19 Hydrochlorothiazide [Hydrodiuril 12.5 mg Tablet] 12.5 mg PO DAILY 08/16/19 Lidocaine HCl [Xylocaine 5% Ointment 35.44 gm] 1 applic TOP TIDP PRN 08/16/19 Oxycodone HCl [Oxy-Ir 5 mg Tablet] 10 mg PO Q8HP PRN 08/16/19 Promethazine HCl [Phenergan 25 mg Tablet] 25 mg PO Q6HP PRN 08/16/19 Aspirin [Adult Low Dose Aspirin EC] 81 mg PO DAILY 30 Days #30 tablet. 08/18/19 Amlodipine Besylate [Norvasc 5 mg Tablet] 5 mg PO DAILY 02/21/20 Hydroxychloroquine Sulfate [Plaquenil 200 mg Tablet] 400 mg PO DAILY 02/21/20 Levothyroxine Sodium [Synthroid 0.05 mg Tablet] 50 mcg PO DAILY 02/21/20 Lipase/Protease/Amylase [Krystian Gifford 24,000 Units Capsule] 1 cap PO BID 02/21/20 Insulin Detemir [Levemir] 40 unit SQ HSP PRN 30 Days #30 vial NS 02/29/20 Insulin Lispro [Humalog Insulin (Lispro) 100 unit/mL] 16 unit SUBCUT AC 30 Days #100 vial NS 02/29/20 History of Present Illiness History of Present Illness: MODESTO NESBITT is a 54 year old female, who has a past medical history of diab etes mellitus type 2 uncontrolled, hypertension,, multiple admissions for diabetic ketoacidosis, who was admitted on February 20 due to vomiting and diarrhea. Patient uses an insulin pump and apparently has been using the wrong type of Insulin because she ran out of her usual insulin. She was noted to be very lethargic during admission. The ED blood glucose was noted to be high with positive ketones hence she was admitted for management of diabetic ketoacidosis. Hospital Course Hospital Course: In the ICU the patient was started on IV fluids insulin drip. Her anion gap closed and her mental status improved she was able to eat and was subsequently transition to subcutaneous insulin. She was transferred to the floors on the , where her blood glucose continued to be elevated requiring frequent titrations of her insulin doses. Her blood glucose improved and she was eventually sent home on the eighth day of admission with prescriptions for basal bolus insulin. Instructed to follow-up with her primary care physician regarding her insulin pump Physical Exam Vital Signs: Temp Pulse Resp BP Pulse Ox 98.4 F 71 16 134/71 H 96 02/29/20 14:23 02/29/20 14:23 02/29/20 14:23 02/29/20 14:23 02/29/20 14:23 General appearance: PRESENT: no acute distress, cooperative, well-developed, well-nourished Head exam: PRESENT: atraumatic, normocephalic Eye exam: PRESENT: EOMI, PERRLA. ABSENT: nystagmus, scleral icterus Ear exam: PRESENT: normal external ear exam Mouth exam: PRESENT: moist Neck exam: PRESENT: full ROM. ABSENT: JVD Respiratory exam: PRESENT: clear to auscultation jose de jesus, unlabored. ABSENT: crackles, rales, wheezes Cardiovascular exam: PRESENT: RRR, +S1, +S2. ABSENT: diastolic murmur, systolic murmur, tachycardia Pulses: PRESENT: +2 pedal pulses bilateral Vascular exam: PRESENT: normal capillary refill GI/Abdominal exam: PRESENT: normal bowel sounds, soft. ABSENT: guarding, tenderness Rectal exam: PRESENT: deferred Extremities exam: PRESENT: full ROM. ABSENT: joint swelling, pedal edema, tenderness Musculoskeletal exam: PRESENT: full ROM Neurological exam: PRESENT: alert, awake, oriented to person, oriented to place, oriented to time, oriented to situation Psychiatric exam: PRESENT: normal mood Skin exam: ABSENT: abrasion, pallor, rash Results Laboratory Results: WBC 9.9 10^3/uL (4.0-10.5) 02/27/20 20: RBC 4.70 10^6/uL (3.72-5.28) 02/27/20: Hgb 13.2 g/dL (12.0-15.5) 02/27/20: Hct 38.2 % (36.0-47.0) 02/27/20: MCV 81 fl (80-97) 02/27/20: MCH 28.1 pg (27.0-33.4) 02/27/20: MCHC 34.6 g/dL (32.0-36.0) 02/27/20: RDW 13.9 % (11.5-14.0) 02/27/20 Plt Count 197 10^3/uL (150-450) 02/27/20 20: Lymph % (Auto) 20.3 % (13-45) 02/27/20: [place] % (Auto) 5.6 % (3-13) 02/27/20: Eos % (Auto) 1.9 % (0-6) 02/27/20: Baso % (Auto) 0.8 % (0-2) 02/27/20 20: Absolute Neuts (auto) 7.1 10^3/uL (1.7-8.2) 02/27/20 Absolute Lymphs (auto) 2.0 10^3/uL (0.5-4.7) 02/27/20 20:29 Absolute Monos (auto) 0.6 10^3/uL (0.1-1.4) 02/27/20 20:29 Absolute Eos (auto) 0.2 10^3/uL (0.0-0.6) 02/27/20 20:29 Absolute Basos (auto) 0.1 10^3/uL (0.0-0.2) 02/27/20 20:29 Total Counted 100 02/21/20 10:23 Seg Neutrophils % 71.4 % (42-78) 02/27/20 20:29 Seg Neuts % (Manual) 86 % (42-78) H 02/21/20 10:23 Lymphocytes % (Manual) 7 % (13-45) L 02/21/20 10:23 Atypical Lymphs % 1 % (0) 02/21/20 10:23 Monocytes % (Manual) 5 % (3-13) 02/21/20 10:23 Eosinophils % (Manual) 1 % (0-6) 02/21/20 10:23 Basophils % (Manual) 0 % (0-2) 02/21/20 10:23 Abs Neuts (Manual) 18.1 10^3/uL (1.7-8.2) H 02/21/20 10:23 Abs Lymphs (Manual) 1.7 10^3/uL (0.5-4.7) 02/21/20 10:23 Abs Monocytes (Manual) 1.1 10^3/uL (0.1-1.4) 02/21/20 10:23 Absolute Eos (Manual) 0.2 10^3/uL (0.0-0.6) 02/21/20 10:23 Abs Basophils (Manual) 0.0 10^3/uL (0.0-0.2) 02/21/20 10:23 Platelet Comment ADEQUATE 02/21/20 10:23 Anisocytosis SLIGHT 02/21/20 10:23 Carbonic Acid 0.34 mmol/L (1.05-1.35) L 02/21/20 13:16 HCO3/H2CO3 Ratio 7:1 02/21/20 13:16 ABG pH 6.99 (7.35-7.45) L* 02/21/20 13:16 ABG pCO2 11.4 mmHg (35-45) L* 02/21/20 13:16 ABG pO2 141.4 mmHg (80-100) H 02/21/20 13:16 ABG HCO3 2.7 mmol/L (20-24) L 02/21/20 13:16 ABG Total CO2 3.1 mmol/L (21-25) L 02/21/20 13:16 ABG O2 Saturation 97.4 % (94-98) 02/21/20 13:16 ABG Base Excess -26.8 mmol/L 02/21/20 13:16 VBG pH 7.29 (7.30-7.42) L 02/22/20 03:50 VBG pCO2 29.5 mmHg (35-63) L 02/22/20 03:50 VBG HCO3 13.8 mmol/L (20-32) L 02/22/20 03:50 VBG Base Excess -11.3 mmol/L 02/22/20 03:50 FiO2 ROOM AIR 02/21/20 13:16 Sodium 135.6 mmol/L (137-145) L 02/27/20 20:29 Potassium 4.1 mmol/L (3.6-5.0) 02/27/20 20:29 Chloride 101 mmol/L (98-107) 02/27/20 20:29 Carbon Dioxide 24 mmol/L (22-30) 02/27/20 20:29 Anion Gap 11 (5-19) 02/27/20 20:29 BUN 25 mg/dL (7-20) H 02/27/20 20:29 Creatinine 0.74 mg/dL (0.52-1.25) 02/27/20 20:29 Est GFR ( Amer) > 60 (>60) 02/27/20 20:29 Est GFR (Non-Af Amer) Cancelled 02/21/20 10:23 Est GFR (MDRD) Non-Af > 60 (>60) 02/27/20 20:29 Glucose 273 mg/dL (75-110) H 02/27/20 20:29 POC Glucose 286 mg/dL (70-110) H 02/29/20 11:01 Hemoglobin A1c % 12.5 % (4.7-6.0) H 02/21/20 10:23 Lactic Acid 1.0 mmol/L (0.7-2.1) 02/22/20 00:42 Calcium 9.4 mg/dL (8.4-10.2) 02/27/20 20:29 Phosphorus 0.8 mg/dL (2.5-4.5) L 02/22/20 22:15 Magnesium 1.8 mg/dL (1.6-2.3) 02/22/20 22:15 Total Bilirubin 0.6 mg/dL (0.2-1.3) 02/27/20 20:29 Direct Bilirubin 0.3 mg/dL (0.0-0.4) 02/27/20 20:29 Neonat Total Bilirubin Not Reportable 02/27/20 20:29 Neonat Direct Bilirubin Not Reportable 02/27/20 20:29 Neonat Indirect Bili Not Reportable 02/27/20 20:29 AST 28 U/L (14-36) 02/27/20 20:29 ALT 20 U/L (<35) 02/27/20 20:29 Alkaline Phosphatase 89 U/L (38-126) 02/27/20 20:29 Ammonia 17.0 umol/L (9-33) 02/21/20 13:25 Troponin I < 0.012 ng/mL 02/21/20 11:35 Total Protein 7.3 g/dL (6.3-8.2) 02/27/20 20:29 Albumin 3.9 g/dL (3.5-5.0) 02/27/20 20:29 Lipase 219.6 U/L (23-300) 02/21/20 11:35 EGFR Cancelled 02/21/20 10:23 Urine Color STRAW 02/21/20 14:18 Urine Appearance CLEAR 02/21/20 14:18 Urine pH 5.0 (5.0-9.0) 02/21/20 14:18 Ur Specific Ferguson 1.020 02/21/20 14:18 Urine Protein 30 mg/dL (NEGATIVE) H 02/21/20 14:18 Urine Glucose (UA) >=500 mg/dL (NEGATIVE) H 02/21/20 14:18 Urine Ketones 80 mg/dL (NEGATIVE) H 02/21/20 14:18 Urine Blood SMALL (NEGATIVE) H 02/21/20 14:18 Urine Nitrite NEGATIVE (NEGATIVE) 02/21/20 14:18 Urine Nitrite (Reflex) NEGATIVE (NEGATIVE) 02/21/20 10:10 Urine Bilirubin NEGATIVE (NEGATIVE) 02/21/20 14:18 Urine Urobilinogen NEGATIVE mg/dL (<2.0) 02/21/20 14:18 Ur Leukocyte Esterase NEGATIVE (NEGATIVE) 02/21/20 14:18 Leukocyte Esterase Rfl NEGATIVE (NEGATIVE) 02/21/20 10:10 Urine RBC (Auto) 0 /HPF 02/21/20 10:10 Squamous Epi Cells Auto <1 /HPF 02/21/20 10:10 Urine Mucus (Auto) RARE /LPF 02/21/20 14:18 Urine Ascorbic Acid NEGATIVE (NEGATIVE) 02/21/20 14:18 Urine Opiates Screen NEGATIVE 02/21/20 10:10 Urine Methadone Screen NEGATIVE 02/21/20 10:10 Ur Barbiturates Screen NEGATIVE 02/21/20 10:10 Ur Phencyclidine Scrn NEGATIVE 02/21/20 10:10 Ur Amphetamines Screen NEGATIVE 02/21/20 10:10 U Benzodiazepines Scrn NEGATIVE 02/21/20 10:10 Urine Cocaine Screen NEGATIVE 02/21/20 10:10 U Marijuana (THC) Screen NEGATIVE 02/21/20 10:10 COVID-19 Source NASOPHARYNGEAL 02/21/20 18:07 COVID-19 (CAROLYN) NOT DETECTED 02/21/20 18:07 02/21/20 11:35 Troponin I < 0.012 Impressions: Chest X-Ray 02/21/20 09:44 IMPRESSION: No evidence of acute cardiopulmonary abnormality. Head CT 02/21/20 10:14 IMPRESSION: NO ACUTE INTRACRANIAL IMAGING FINDINGS. EVIDENCE OF ACUTE STROKE: NO. Abdomen/Pelvis CT 02/21/20 11:22 IMPRESSION: NO ACUTE FINDINGS. Plan Health Concerns: Control of her diabetes Plan of Treatment: She is to go home with basal bolus insulin. Will need to follow-up as soon as possible with her primary care physician for her insulin pump management Time Spent: Greater than 30 Minutes Stroke Is this a Stroke Patient?: No Stroke Pt being discharged on Anti-thrombolytic therapy?: No Reason(s) for not prescribing Anti-thrombolytic therapy:: Not indicated Stroke Pt being discharged on Anti-coagulation therapy?: No Reason(s) for not prescribing Anti-coagulation therapy:: Not indicated Reason(s) for not prescribing Statins therapy:: Not indicated Acute Heart Failure - Is this a Heart Failure Patient?: No Documentation of LVEF assessment?: No, Document reason LVEF - Reason: Not indicated LVEF: LVEF Greater Than 40% Anticoagulant Therapy: No, document contraindications Reason(s) not Discharged on Anticoagulant Therapy: Other Anticoagulant Therapy Reason - Other: Not indicated Discharged on Evidence-Based Beta Blockers: No, document contraindications Reason(s) not discharged on Evidence-Based Beta Blockers: Other Beta Arin Reason - Other: Not indicated Discharged on ARNI?: No-Document Contraindications Reason(s) not discharged on ARNI: Other ARNI Reason - Other: Not indicated Discharged on ARB?: No-document contraindications Reason(s) not Discharged on ARB: Other ARB Reason - Other: Not indicated Discharged on ACEI?: No, document contraindications Reason(s) not Discharged on ACEI: other ACEI Reason - Other: Not indicated For LVEF <35%, discharged on Aldosterone Antagonist?: No-document contraincations Follow-up Appointment scheduled within 7 days?: No, document reason
== END 2020-02-29 14:20 | disposition home health service (06) | DRG 637 ==
LOC: ER 09:37 → EH 16:22 → ICU 20:55 → 3N 02-22 18:10 → 3W 02-24 07:56
PROVIDERS: ADMIT Internal Medicine Critical Care Medicine; ATTEND Internal Medicine
DX: E13.10 Other specified diabetes mellitus with ketoacidosis without coma (principal); G93.41 Metabolic encephalopathy; N17.9 Acute kidney failure, unspecified; K86.1 Other chronic pancreatitis; E03.9 Hypothyroidism, unspecified; E78.5 Hyperlipidemia, unspecified; I10 Essential (primary) hypertension; K21.9 Gastro-esophageal reflux disease without esophagitis; K86.89 Other specified diseases of pancreas; Z96.41 Presence of insulin pump (external) (internal); Z11.59 Encounter for screening for other viral diseases; Z79.82 Long term (current) use of aspirin; Z79.891 Long term (current) use of opiate analgesic; Z79.899 Other long term (current) drug therapy; Z93.4 Other artificial openings of gastrointestinal tract status
CPT/HCPCS: 36415; 70450; 71045; 74176; 80048; 80053; 80307; 81001; 82140; 82803; 82962; 83036; 83605; 83690; 83735; 84100; 84484; 85025; 87040; 87070; 87086; 87635; 93005; 93010; 96365; 96366; 96367; 96375; 99221; 99285; 99291; C9803; J1644; J1815; J1956; J2405; J3370; J3480; J3490; J7030; J7050; S0028

== ENCOUNTER 2020-03-24 15:29 | Emergency (ER) | payer BC ==
--- NOTE | 2020-03-24 15:59 | ER Document Report ---
ED Medical Screen (RME) - General Chief Complaint: Diarrhea Stated Complaint: DIARRHEA/POS PANCREATITIS Time Seen by Provider: 03/24/20 15:48 Primary Care Provider: JASMYNE JACQUES MD [Primary Care Provider] - Follow up as needed Mode of Arrival: Ambulatory Information source: Patient Notes: HPI; 54-year-old female past medical history significant for diabetes, pancreatitis, with a feeding tube presents emergency room with persistent diarrhea since the end of February after being discharged from the hospital with ketoacidosis. States she has about 2-3 very greasy appearing stools daily. States she is been taking Imodium with minimal relief. Has tried changing her feedings to her feeding tube without success. Started having abdominal pain 2 days ago. Of nausea but no vomiting. PE: Alert and oriented x3. Mild distress noted. Lungs: Clear to auscultation without rales, rhonchi, wheezes heart: Regular rate rhythm without murmurs, rubs, gallops. I have greeted and performed a rapid initial assessment of this patient. A comprehensive ED assessment and evaluation of the patient, analysis of test results and completion of the medical decision making process will be conducted by additional ED providers. I have specifically instructed the patient or family members with the patient to immediately return to any nursing staff should anything change in the patient's condition or with their chief complaint. TRAVEL OUTSIDE OF THE [place] IN LAST 30 DAYS: No - Related Data Allergies/Adverse Reactions: banana [Banana] Allergy (Intermediate, Verified 02/21/20 09:48) itching codeine [Codeine] Allergy (Verified 02/21/20 09:48) iodine [Iodine] Allergy (Verified 02/21/20 09:48) metronidazole [Metronidazole] Allergy (Verified 02/21/20 09:48) Penicillins Allergy (Verified 02/21/20 09:48) Oscqtht-Nst-Juj Reductase Inhibitor Adverse Reaction (Intermediate, Verified 02/21/20 09:48) muscle rigidity metoclopramide HCl [From Reglan] Adverse Reaction (Verified 02/21/20 09:48) Blue Cheese Allergy (Intermediate, Uncoded 08/15/19 18:20) itching Past Medical History - Social History Frequency of alcohol use: None Drug Abuse: None - Past Medical History Cardiac Medical History: Reports: Hx Hypercholesterolemia, Hx Hypertension Pulmonary Medical History: Reports: Hx Asthma, Hx Pneumonia Neurological Medical History: Reports: Hx Cerebrovascular Accident Endocrine Medical History: Reports: Hx Diabetes Mellitus Type 1, Hx Diabetes Mellitus Type 2, Hx Hypothyroidism Renal/ Medical History: Reports: Hx Kidney Stones. 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, Denies Hx Systemic Lupus Erythematosus Psychiatric Medical History: Reports: Hx Depression Past Surgical History: Reports: Hx Abdominal Surgery - Pancreatic tumor removed noncancerous also at G/J tube, Hx Cholecystectomy, Hx Inguinal Hernia, Hx Tonsillectomy, Hx Umbilical Hernia - Immunizations Hx Diphtheria, Pertussis, Tetanus Vaccination: Yes Physical Exam - Vital signs Vitals: Temp Pulse Resp BP Pulse Ox 98.6 F 85 20 142/104 H 98 03/24/20 15:45 03/24/20 15:45 03/24/20 15:45 03/24/20 15:45 03/24/20 15:45 Course - Vital Signs Vital signs: Temp Pulse Resp BP Pulse Ox 98.6 F 85 20 142/104 H 98 03/24/20 15:45 03/24/20 15:45 03/24/20 15:45 03/24/20 15:45 03/24/20 15:45 Doctor's Discharge - Discharge Referrals: JASMYNE JACQUES MD [Primary Care Provider] - Follow up as needed
[2020-03-24 16:41] LABS: ABSOLUTE BASOPHILS # (AUTO) 0.1 10^3/uL (0.0-0.2); ABSOLUTE EOSINOPHILS # (AUTO) 0.3 10^3/uL (0.0-0.6); ABSOLUTE LYMPHOCYTES (AUTO) 1.6 10^3/uL (0.5-4.7); ABSOLUTE MONOCYTES (AUTO) 0.4 10^3/uL (0.1-1.4); ABSOLUTE NEUT (AUTO) 4.8 10^3/uL (1.7-8.2); BASOPHILS % (AUTO) 1.2 % (0-2); EOSINOPHILS % (AUTO) 3.8 % (0-6); HEMATOCRIT 39.5 % (36.0-47.0); HEMOGLOBIN 13.4 g/dL (12.0-15.5); LYMPHOCYTES % (AUTO) 21.9 % (13-45); MEAN CORPUSCULAR HEMOGLOBIN 27.9 pg (27.0-33.4); MEAN CORPUSCULAR VOLUME 82 fl (80-97); MONOCYTES % (AUTO) 5.4 % (3-13); PLATELET COUNT 241 10^3/uL (150-450); RED BLOOD COUNT 4.81 10^6/uL (3.72-5.28); RED CELL DISTRIBUTION WIDTH 14.6 % (11.5-14.0); SEGMENTED NEUTROPHILS % (AUTO) 67.7 % (42-78); TOTAL CELLS COUNTED % (AUTO) 100 %; WHITE BLOOD COUNT 7.2 10^3/uL (4.0-10.5)
[2020-03-24 17:16] LABS: ALBUMIN 4.4 g/dL (3.5-5.0); ALKALINE PHOSPHATASE 84 U/L (38-126); ANION GAP 11 (5-19); ASPARTATE AMINO TRANSFERASE 22 U/L (14-36); BILIRUBIN,DIRECT 0.4 mg/dL (0.0-0.4); BILIRUBIN,TOTAL 0.4 mg/dL (0.2-1.3); BLOOD UREA NITROGEN 36 mg/dL (7-20); CALCIUM 9.7 mg/dL (8.4-10.2); CARBON DIOXIDE 25 mmol/L (22-30); CHLORIDE 101 mmol/L (98-107); GLUCOSE 225 mg/dL (75-110); POTASSIUM 4.6 mmol/L (3.6-5.0); TOTAL PROTEIN 7.9 g/dL (6.3-8.2)
[2020-03-24 20:14] LABS: APPEARANCE,URINE CLEAR; BILIRUBIN,URINE NEGATIVE (NEGATIVE); COLOR,URINE YELLOW; GLUCOSE, URINE NEGATIVE (NEGATIVE); KETONES,URINE NEGATIVE (NEGATIVE); LEUKOCYTE ESTERASE,URINE MODERATE (NEGATIVE); NITRITE,URINE NEGATIVE (NEGATIVE); PROTEIN,URINE NEGATIVE (NEGATIVE); UROBILINOGEN,URINE NEGATIVE mg/dL (<2.0)
[2020-03-25] MEDS ORDERED: DIPHENHYDRAMINE HCL 50 MG/ML VIAL IV ONE (03:20)
[2020-03-25] MEDS ORDERED: METHYLPREDNISOLONE INJ 125 MG/2 ML SDV IV ONE (03:20)
[2020-03-25] MEDS ORDERED: FAMOTIDINE INJ/PF 20 MG/2 ML SDV IV ONE (03:21)
--- NOTE | 2020-03-25 03:21 | ER Document Report ---
ED GI/ - General Chief Complaint: Diarrhea Stated Complaint: DIARRHEA/POS PANCREATITIS Time Seen by Provider: 03/24/20 15:48 Primary Care Provider: JASMYNE JACQUES MD [Primary Care Provider] - Follow up in 3-5 days Mode of Arrival: Ambulatory Notes: Patient is a 54-year-old female that comes emergency department for chief complaint of abdominal pain, abdominal swelling, and diarrhea. She states that she had 3 episodes of diarrhea today, nonbloody, she also had diarrhea yesterday, she has had loose stools ever since she was released from the hospital 1 month ago. She denies history of C. difficile, denies fever, denies vomiting. She does report intermittent nausea and early satiety with difficulty eating. She does combine feeding with J/G-tube and oral. She states that she had a J/G-tube placed because of inability to eat during a severe case of pancreatitis in the past. She also has a history of diabetes, frequent DKA, insulin pump. She states she had a benign tumor removed from her pancreas previously but denies cancer otherwise. She is on chronic pain management with fentanyl and oxycodone and states that usually she has constipation instead of diarrhea. She states she is going to follow-up with her primary care for the pain but the pain became much worse today so she came in for evaluation. TRAVEL OUTSIDE OF THE [place] IN LAST 30 DAYS: No - Related Data Allergies/Adverse Reactions: banana [Banana] Allergy (Intermediate, Verified 02/21/20 09:48) itching codeine [Codeine] Allergy (Verified 02/21/20 09:48) iodine [Iodine] Allergy (Verified 02/21/20 09:48) metronidazole [Metronidazole] Allergy (Verified 02/21/20 09:48) Penicillins Allergy (Verified 02/21/20 09:48) Whxwenp-Ixc-Nzw Reductase Inhibitor Adverse Reaction (Intermediate, Verified 02/21/20 09:48) muscle rigidity metoclopramide HCl [From Reglan] Adverse Reaction (Verified 02/21/20 09:48) Blue Cheese Allergy (Intermediate, Uncoded 08/15/19 18:20) itching Past Medical History - General Information source: Patient - Social History Smoking Status: Never Smoker Frequency of alcohol use: None Drug Abuse: None Lives with: Family Family History: Arthritis, CAD, COPD, DM, Hyperlipidemia, Hypertension, Malignancy, Thyroid Disfunction. denies: CVA - Past Medical History Cardiac Medical History: Reports: Hx Hypercholesterolemia, Hx Hypertension Pulmonary Medical History: Reports: Hx Asthma, Hx Pneumonia Neurological Medical History: Reports: Hx Cerebrovascular Accident Endocrine Medical History: Reports: Hx Diabetes Mellitus Type 1, Hx Diabetes Mellitus Type 2, Hx Hypothyroidism Renal/ Medical History: Reports: Hx Kidney Stones. 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, Denies Hx Systemic Lupus Erythematosus Psychiatric Medical History: Reports: Hx Depression Past Surgical History: Reports: Hx Abdominal Surgery - Pancreatic tumor removed noncancerous also at G/J tube, Hx Cholecystectomy, Hx Inguinal Hernia, Hx Tonsillectomy, Hx Umbilical Hernia - Immunizations Hx Diphtheria, Pertussis, Tetanus Vaccination: Yes Hx Pneumococcal Vaccination: 03/24/14 Review of Systems - Review of Systems Constitutional: No symptoms reported EENT: No symptoms reported Cardiovascular: No symptoms reported Respiratory: No symptoms reported Gastrointestinal: See HPI Genitourinary: No symptoms reported Female Genitourinary: No symptoms reported Musculoskeletal: No symptoms reported Skin: No symptoms reported Hematologic/Lymphatic: No symptoms reported Neurological/Psychological: No symptoms reported Physical Exam - Vital signs Vitals: Temp Pulse Resp BP Pulse Ox 98.6 F 85 20 142/104 H 98 03/24/20 15:45 03/24/20 15:45 03/24/20 15:45 03/24/20 15:45 03/24/20 15:45 - Notes Notes: GENERAL: Alert, interacts well. Patient sitting up and rocking slightly in an almost anxious fashion but she does not appear to be in distress HEAD: Normocephalic, atraumatic. EYES: Pupils equal, round, and reactive to light. Extraocular movements intact. ENT: Oral mucosa moist, tongue midline. Oropharynx unremarkable. Airway patent. NECK: Full range of motion. Supple. Trachea midline. No lymphadenopathy. LUNGS: Clear to auscultation bilaterally, no wheezes, rales, or rhonchi. No respiratory distress. Non-tender chest wall. HEART: Regular rate and rhythm. No murmur ABDOMEN: Abdomen is slightly distended, there is mild generalized tenderness. Bowel sounds are quiet. There is a J/G-tube in the left mid upper abdomen. Insulin pump in the right mid abdomen. Otherwise unremarkable. EXTREMITIES: Moves all 4 extremities spontaneously. No edema, normal radial and dorsalis pedis pulses bilaterally. No cyanosis. BACK: no cervical, thoracic, lumbar midline tenderness. No saddle anesthesia, normal distal neurovascular exam. Moves all extremities in full range of motion. NEUROLOGICAL: Alert and oriented x3. Normal speech. Cranial nerves II through XII grossly intact. Strength 5/5 in all extremities. PSYCH: Mildly anxious SKIN: Warm, dry, normal turgor. No rashes or lesions noted. Course - Re-evaluation Re-evalutation: CBC, chemistry, with no overt abnormality other than borderline renal functioning, patient given IV fluids. Lipase unremarkable. Urinalysis shows UTI. CT of the abdomen and pelvis shows possible gastritis, retained stool, c hronic findings. No obstruction, no overt acute abnormality. On reevaluation abdomen is reassuring. Patient is able to tolerate p.o. I discussed details at length with patient. Patient will be treated with stool softeners, treatment of UTI, treatment of gastritis, and she will follow closely with her primary care. Discussed return precautions in detail. Patient states appreciation and agree ment. Stable and well-appearing at time of discharge. - Vital Signs Vital signs: Temp Pulse Resp BP Pulse Ox 98.3 F 94 20 149/98 H 100 03/25/20 06:58 03/25/20 06:58 03/25/20 06:58 03/25/20 06:58 03/25/20 06:58 - Laboratory Result Diagrams: 03/24/20 16:27 03/24/20 16:27 Laboratory results interpreted by me: 03/24/20 03/24/20 03/24/20 16:27 16:27 19:50 RDW 14.6 H BUN 36 H Creatinine 1.32 H Est GFR ( Amer) 51 L Est GFR (MDRD) Non-Af 42 L Glucose 225 H Lipase 21.1 L Ur Leukocyte Esterase MODERATE H Discharge - Discharge Clinical Impression: Abdominal pain Qualifiers: Abdominal location: generalized Qualified Code(s): R10.84 - Generalized abdominal pain Condition: Stable Disposition: HOME, SELF-CARE Additional Instructions: Your laboratory work-up is reassuring other than dehydration, your work-up other carlson shows retained stool, UTI, and inflammation of the upper gastrointestinal tract as we discussed. I recommend the magnesium citrate initially for stool softener (ex: drink 1/4 to 1/2 of the magnesium citrate, then if after several hours you do not have bowel movement results drink another 1/4 to half. You may need to take the MiraLAX stool softener for the next 2-4 days as well as prescribed. Make sure you have plenty of vegetables, fruits, fiber, and fluids. For the gastritis I recommend the Carafate as prescribed, avoid NSAIDs, alcohol, smoking, caffeine, spicy food, and start with bland food. Take Phenergan if needed for nausea. For the UTI take the antibiotics as prescribed to completion. Follow-up with primary care for additional management. Return if you worsen including severe worsening abdominal pain, fever, vomiting, or any other concerning or worsening symptoms. Prescriptions: Sucralfate [Carafate 1 gm Tablet] 1 gm PO QID #20 tablet Cephalexin Monohydrate [Keflex 500 mg Capsule] 500 mg PO BID 5 Days #10 capsule Polyethylene Glycol 3350 [Miralax Powder 17 gm/Packet] 1 packet PO DAILY PRN #1 pkg PRN Reason: Promethazine HCl [Phenergan 25 mg Tablet] 25 mg PO Q6H PRN #15 tablet PRN Reason: Referrals: JASMYNE JACQUES MD [Primary Care Provider] - Follow up in 3-5 days
--- NOTE | 2020-03-25 05:48 | RADIOLOGY REPORT (SQ) ---
EXAM DESCRIPTION: CT ABDOMEN PELVIS WITH IV CONTRAST COMPLETED DATE/TME: 03/24/2020 15:57 CLINICAL HISTORY: 54 years, Female, abdominal pain COMPARISON: 02/21/2020 CT TECHNIQUE: 813 Images stored on PACS. All CT scanners at this facility use dose modulation, iterative reconstruction, and/or weight based dosing when appropriate to reduce radiation dose to as low as reasonably achievable (ALARA). [facility]: Dose Right [facility]: CareDose [facility]: Dose Right [facility]: Teradose 4D [facility]: [employer] LIMITATIONS: None. FINDINGS: The lung bases are unremarkable. Osseous structures are grossly intact. Fatty infiltrative change to the liver. Multiple prominent varices of the upper abdomen. Feeding tube in the stomach. There is an anterior abdominal wall hernia slightly to the right of midline and to the right of the feeding tube placement. The hernia contains vasculature and a small portion of the liver. The spleen, adrenal glands are unremarkable. Atrophic appearance to the body and tail of the pancreas. Subjective wall thickening of the stomach. The stomach is not distended. The kidneys are unremarkable. There is no gross evidence for bowel obstruction. No free air or free fluid. Fat-containing periumbilical hernia. The appendix is not well seen. No pericecal inflammation. Moderate stool throughout colon. IMPRESSION: Subjective wall thickening of the stomach may reflect incomplete distention. Nonspecific gastritis could be considered. No other evidence for acute intra-abdominal/pelvic process. Multiple chronic findings, as above. TECHNICAL DOCUMENTATION: Quality ID # [id number]: Final reports with documentation of one or more dose reduction techniques (e.g., Automated exposure control, adjustment of the mA and/or kV according to patient size, use of iterative reconstruction technique) copyright 2011 [employer]- All Rights Reserved
[2020-03-25] MEDS ORDERED: CEPHALEXIN 500 MG CAPSULE PO ONE (06:03)
[2020-03-25] MEDS ORDERED: MORPHINE SULFATE 10 MG/ML INJ IV ONE (06:03)
[2020-03-25] MEDS ORDERED: MAGNESIUM CITRATE 296 ML BOTTLE PO ONE (06:03)
[2020-03-25 06:59] VITALS: BP 149/98
== END 2020-03-25 06:48 | disposition home or self-care (01) ==
LOC: ER 15:29
DX: R10.84 Generalized abdominal pain (principal); R19.7 Diarrhea, unspecified; E78.00 Pure hypercholesterolemia, unspecified; I10 Essential (primary) hypertension; E11.9 Type 2 diabetes mellitus without complications; Z79.4 Long term (current) use of insulin; Z87.442 Personal history of urinary calculi; Z88.0 Allergy status to penicillin; Z88.6 Allergy status to analgesic agent; Z93.4 Other artificial openings of gastrointestinal tract status
CPT/HCPCS: 99285; 96374; 96375; 36415; 87045; 83690; 85025; 80053; 81001; 74177; J3490; J1200; J2930; J2270; S0028

== ENCOUNTER 2020-08-01 09:59 | Emergency (ER) | payer BC ==
--- NOTE | 2020-08-01 10:26 | ER Document Report ---
ED Medical Screen (RME) - General Stated Complaint: ELEVATED BLOOD PRESSURE Time Seen by Provider: 08/01/20 10:14 Primary Care Provider: JASMYNE JACQUES MD [Primary Care Provider] - Follow up as needed TRAVEL OUTSIDE OF THE [place] IN LAST 30 DAYS: No - HPI Notes: Patient is a 54-year-old female with a history of CVA, DM and HTN who presents with elevated blood pressure. Patient was seen at her pain management office today for her chronic pancreatitis and was advised to come to the emergency department due to an elevated blood pressure. Patient is unsure what her blood pressure was at the time. She states she took her blood pressure medication this morning as prescribed. She reports an intermittent headache for the past 3 months. She also reports dizziness and constipation. She denies blurred vis ion, chest pain, shortness of breath, and vomiting. - Related Data Allergies/Adverse Reactions: banana [Banana] Allergy (Intermediate, Verified 08/01/20 10:06) itching codeine [Codeine] Allergy (Verified 08/01/20 10:06) iodine [Iodine] Allergy (Verified 08/01/20 10:06) metronidazole [Metronidazole] Allergy (Verified 08/01/20 10:06) Penicillins Allergy (Verified 08/01/20 10:06) Wxxvbgu-Ujb-Lkn Reductase Inhibitor Adverse Reaction (Intermediate, Verified 08/01/20 10:06) muscle rigidity metoclopramide HCl [From Reglan] Adverse Reaction (Verified 08/01/20 10:06) Blue Cheese Allergy (Intermediate, Uncoded 08/01/20 10:06) itching Past Medical History - Past Medical History Cardiac Medical History: Reports: Hx Hypercholesterolemia, Hx Hypertension Pulmonary Medical History: Reports: Hx Asthma, Hx Pneumonia Neurological Medical History: Reports: Hx Cerebrovascular Accident Endocrine Medical History: Reports: Hx Diabetes Mellitus Type 1, Hx Diabetes Mellitus Type 2, Hx Hypothyroidism Renal/ Medical History: Reports: Hx Kidney Stones. 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, Denies Hx Systemic Lupus Erythematosus Psychiatric Medical History: Reports: Hx Depression Past Surgical History: Reports: Hx Abdominal Surgery - Pancreatic tumor removed noncancerous also at G/J tube, Hx Cholecystectomy, Hx Inguinal Hernia, Hx Tonsillectomy, Hx Umbilical Hernia - Immunizations Hx Diphtheria, Pertussis, Tetanus Vaccination: Yes Physical Exam - HEENT Pupils: PERRL - Neurological Cognition: Normal Wilmer Coma Scale Eye Opening: Spontaneous Burton Coma Scale Verbal: Oriented Wilmer Coma Scale Motor: Obeys Commands Burton Coma Scale Total: 15 Speech: Normal Additional motor exam 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 A comprehensive ED assessment and evaluation of the patient, analysis of test results and completion of medical decision making process will be conducted by an additional ED providers. Doctor's Discharge - Discharge Referrals: JASMYNE JACQUES MD [Primary Care Provider] - Follow up as needed
[2020-08-01 10:53] LABS: ABSOLUTE BASOPHILS # (AUTO) 0.1 10^3/uL (0.0-0.2); ABSOLUTE EOSINOPHILS # (AUTO) 0.2 10^3/uL (0.0-0.6); ABSOLUTE LYMPHOCYTES (AUTO) 1.6 10^3/uL (0.5-4.7); ABSOLUTE MONOCYTES (AUTO) 0.5 10^3/uL (0.1-1.4); BASOPHILS % (AUTO) 0.9 % (0-2); EOSINOPHILS % (AUTO) 3.1 % (0-6); HEMATOCRIT 41.5 % (36.0-47.0); HEMOGLOBIN 13.7 g/dL (12.0-15.5); LYMPHOCYTES % (AUTO) 21.1 % (13-45); MEAN CORPUSCULAR HEMOGLOBIN 26.6 pg (27.0-33.4); MEAN CORPUSCULAR HGB CONC 33.1 g/dL (32.0-36.0); MEAN CORPUSCULAR VOLUME 80 fl (80-97); MONOCYTES % (AUTO) 7.4 % (3-13); PLATELET COUNT 259 10^3/uL (150-450); RED BLOOD COUNT 5.16 10^6/uL (3.72-5.28); RED CELL DISTRIBUTION WIDTH 14.2 % (11.5-14.0); SEGMENTED NEUTROPHILS % (AUTO) 67.5 % (42-78); TOTAL CELLS COUNTED % (AUTO) 100 %; WHITE BLOOD COUNT 7.5 10^3/uL (4.0-10.5)
[2020-08-01 11:01] LABS: APPEARANCE,URINE CLEAR; BILIRUBIN,URINE NEGATIVE (NEGATIVE); COLOR,URINE YELLOW; GLUCOSE, URINE NEGATIVE (NEGATIVE); KETONES,URINE NEGATIVE (NEGATIVE); LEUKOCYTE ESTERASE,URINE MODERATE (NEGATIVE); NITRITE,URINE NEGATIVE (NEGATIVE); PROTEIN,URINE 100 mg/dL (NEGATIVE); URINE SPECIFIC GRAVITY 1.013; UROBILINOGEN,URINE NEGATIVE mg/dL (<2.0)
[2020-08-01] MEDS ORDERED: AMLODIPINE BESYLATE 5 MG TABLET PO ONE (11:01)
--- NOTE | 2020-08-01 11:02 | RADIOLOGY REPORT (SQ) ---
EXAM DESCRIPTION: KUB/ABDOMEN (SINGLE VIEW) IMAGES COMPLETED DATE/TIME: 08/01/2020 10:51 am REASON FOR STUDY: constipation COMPARISON: AP views of the abdomen from 12/24/2018. NUMBER OF VIEWS: One view. TECHNIQUE: Supine radiographic image of the abdomen acquired. LIMITATIONS: None. FINDINGS: BOWEL GAS PATTERN: There is gas and fecal material within nondilated loops of large bowel down to the level of the rectum. There are no dilated loops of bowel. CALCIFICATIONS: None. SOFT TISSUES: No acute abnormality. HARDWARE: There is a gastrojejunostomy tube in place. There are surgical clips in the right upper an d right lower quadrants. BONES: No acute abnormality. OTHER: No other findings. IMPRESSION: 1. Nonobstructive bowel gas pattern. 2. Gastrojejunostomy in place. TECHNICAL DOCUMENTATION: JOB ID: [id number] 2010 [employer]- All Rights Reserved Reading location - IP/workstation name: [email or web address]
[2020-08-01 11:12] LABS: ALBUMIN 4.5 g/dL (3.5-5.0); ALKALINE PHOSPHATASE 97 U/L (38-126); ANION GAP 12 (5-19); ASPARTATE AMINO TRANSFERASE 27 U/L (14-36); BILIRUBIN,DIRECT 0.3 mg/dL (0.0-0.4); BILIRUBIN,TOTAL 0.4 mg/dL (0.2-1.3); BLOOD UREA NITROGEN 16 mg/dL (7-20); CALCIUM 10.1 mg/dL (8.4-10.2); CARBON DIOXIDE 25 mmol/L (22-30); CHLORIDE 102 mmol/L (98-107); GLUCOSE 213 mg/dL (75-110); POTASSIUM 4.3 mmol/L (3.6-5.0); TOTAL PROTEIN 8.3 g/dL (6.3-8.2)
--- NOTE | 2020-08-01 11:26 | RADIOLOGY REPORT (SQ) ---
EXAM DESCRIPTION: CT HEAD WITHOUT IMAGES COMPLETED DATE/TIME: 08/01/2020 11:17 am REASON FOR STUDY: dizzy COMPARISON: 02/21/2020. TECHNIQUE: Axial images acquired through the brain without intravenous contrast. Images reviewed wi th bone, brain and subdural windows. Additional sagittal and coronal reconstructions were generated. Images stored on PACS. All CT scanners at this facility use dose modulation, iterative reconstruction, and/or weight based d osing when appropriate to reduce radiation dose to as low as reasonably achievable (ALARA). [facility]: Dose Right [facility]: CareDose [facility]: Dose Right [facility]: Teradose 4D [facility]: [employer] RADIATION DOSE: CT Rad equipment meets quality standard of care and radiation dose reduction techniq ues were employed. CTDIvol: 53.2 mGy. DLP: 1097 mGy-cm. mGy. LIMITATIONS: None. FINDINGS: VENTRICLES: Normal size and contour. CEREBRUM: No masses. No hemorrhage. No midline shift. No evidence for acute infarction. Normal gra y/white matter differentiation. No areas of low density in the white matter. CEREBELLUM: No masses. No hemorrhage. No alteration of density. No evidence for acute infarction. EXTRAAXIAL SPACES: No fluid collections. No masses. ORBITS AND GLOBE: No intra- or extraconal masses. Normal contour of globe without masses. CALVARIUM: No fracture. PARANASAL SINUSES: No fluid or mucosal thickening. SOFT TISSUES: No mass or hematoma. OTHER: No other significant finding. IMPRESSION: NORMAL BRAIN CT WITHOUT CONTRAST. EVIDENCE OF ACUTE STROKE: NO. COMMENT: Quality ID # 436: Final reports with documentation of one or more dose reduction techniques (e.g., Automated exposure control, adjustment of the mA and/or kV according to patient size, use of iterative reconstruction technique) TECHNICAL DOCUMENTATION: JOB ID: [id number] 2010 [employer]- All Rights Reserved Reading location - IP/workstation name: [email or web address]
--- NOTE | 2020-08-01 13:03 | ER Document Report ---
ED General - General Chief Complaint: High Blood Pressure Stated Complaint: ELEVATED BLOOD PRESSURE Time Seen by Provider: 08/01/20 10:14 Primary Care Provider: JASMYNE JACQUES MD [Primary Care Provider] - Follow up as needed Information source: Patient TRAVEL OUTSIDE OF THE [place] IN LAST 30 DAYS: No - HPI Notes: Patient presents complaining of elevated blood pressure. She states she was at her pain management visit today and they referred her to the emergency department for elevated blood pressure. She states she is also been having some trouble with memory but apparently this has been going on for 7 to 8 months. She states she did have a stroke approximately 1 year ago. She states she has never had any type of neurological follow-up for this. accompanies the patient and states that he agrees and has noticed the memory trouble for the last 7 to 8 months as well as balance trouble for approximately 6 months. There is no new memory or balance trouble today. - Related Data Allergies/Adverse Reactions: banana [Banana] Allergy (Intermediate, Verified 08/01/20 10:06) itching codeine [Codeine] Allergy (Verified 08/01/20 10:06) iodine [Iodine] Allergy (Verified 08/01/20 10:06) metronidazole [Metronidazole] Allergy (Verified 08/01/20 10:06) Penicillins Allergy (Verified 08/01/20 10:06) Odfjmat-Bbp-Mta Reductase Inhibitor Adverse Reaction (Intermediate, Verified 08/01/20 10:06) muscle rigidity metoclopramide HCl [From Reglan] Adverse Reaction (Verified 08/01/20 10:06) Blue Cheese Allergy (Intermediate, Uncoded 08/01/20 10:06) itching Past Medical History - General Information source: Patient - Social History Smoking Status: Never Smoker Chew tobacco use (# tins/day): No Frequency of alcohol use: None Drug Abuse: None Family History: Arthritis, CAD, COPD, DM, Hyperlipidemia, Hypertension, Malignancy, Thyroid Disfunction. denies: CVA - Past Medical History Cardiac Medical History: Reports: Hx Hypercholesterolemia, Hx Hypertension Pulmonary Medical History: Reports: Hx Asthma, Hx Pneumonia Neurological Medical History: Reports: Hx Cerebrovascular Accident Endocrine Medical History: Reports: Hx Diabetes Mellitus Type 1, Hx Diabetes Mellitus Type 2, Hx Hypothyroidism Renal/ Medical History: Reports: Hx Kidney Stones. 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, Denies Hx Systemic Lupus Erythematosus Psychiatric Medical History: Reports: Hx Depression Past Surgical History: Reports: Hx Abdominal Surgery - Pancreatic tumor removed noncancerous also at G/J tube, Hx Cholecystectomy, Hx Inguinal Hernia, Hx Tonsillectomy, Hx Umbilical Hernia - Immunizations Hx Diphtheria, Pertussis, Tetanus Vaccination: Yes Hx Pneumococcal Vaccination: 03/24/14 Review of Systems - Review of Systems Constitutional: denies: Chills, Fever Cardiovascular: denies: Chest pain, Palpitations Respiratory: denies: Cough, Short of breath -: Yes All other systems reviewed and negative Physical Exam - Vital signs Vitals: Temp Pulse Resp BP Pulse Ox 98.5 F 79 18 163/95 H 97 08/01/20 10:05 08/01/20 10:05 08/01/20 10:05 08/01/20 10:05 08/01/20 10:05 Interpretation: Hypertensive - General General appearance: Appears well, Alert - HEENT Head: Normocephalic, Atraumatic Eyes: Normal Pupils: PERRL - Respiratory Respiratory status: No respiratory distress Chest status: Nontender Breath sounds: Normal Chest palpation: Normal - Cardiovascular Rhythm: Regular Heart sounds: Normal auscultation Murmur: No - Abdominal Inspection: Normal Distension: No distension Bowel sounds: Normal Tenderness: Nontender Organomegaly: No organomegaly - Back Back: Normal, Nontender - Extremities General upper extremity: Normal inspection, Nontender, Normal color, Normal ROM, Normal temperature General lower extremity: Normal inspection, Nontender, Normal color, Normal ROM, Normal temperature, Normal weight bearing. No: Viviana's sign - Neurological Neuro grossly intact: Yes Cognition: Confused Orientation: Disoriented to time Beatty Coma Scale Eye Opening: Spontaneous Beatty Coma Scale Verbal: Confused Wilmer Coma Scale Motor: Obeys Commands Beatty Coma Scale Total: 14 Speech: Normal Motor strength normal: LUE, RUE, LLE, RLE Sensory: Normal - Psychological Associated symptoms: Normal affect, Normal mood - Skin Skin Temperature: Warm Skin Moisture: Dry Skin Color: Normal Course - Re-evaluation Re-evalutation: 08/01/20 14:05 I called and spoke with the patient's primary care physician. Since patient presents with dizziness and cognitive abnormalities for 6 to 8 months. Her and her state this started after a stroke about a year ago. The inciting event for today's visit was actually high blood pressure at her pain management visit who then referred to the emergency department. However once patient arrived they relate to me the history of the cognitive and balance problems. They state they have been unable to see a neurologist. In speaking with the patient's primary care physician, Dr. Espitia, he states that he knows the patient well and he will work to get her into neurology. - Vital Signs Vital signs: Temp Pulse Resp BP Pulse Ox 98.5 F 79 17 159/97 H 100 08/01/20 10:07 08/01/20 10:05 08/01/20 13:01 08/01/20 13:01 08/01/20 13:01 - Laboratory Results Result Diagrams: 08/01/20 10:39 08/01/20 10:39 Laboratory Results Interpreted: 08/01/20 08/01/20 08/01/20 10:39 10:39 10:39 [facility] 26.6 L RDW 14.2 H Glucose 213 H Total Protein 8.3 H Urine Protein 100 H Ur Leukocyte Esterase MODERATE H Critical Laboratory Results Reviewed: No Critical Results - Radiology Results Critical Radiology Results Reviewed: No Critical Results Discharge - Discharge Clinical Impression: Dizziness, Uncontrolled hypertension, Memory changes Condition: Stable Disposition: HOME, SELF-CARE Instructions: Dizziness ([facility]) Additional Instructions: Please follow-up with Dr. Jacques eating as soon as possible. He was going to work to get you into neurology. Referrals: JASMYNE JACQUES MD [Primary Care Provider] - Follow up in 3-5 days
[2020-08-01 14:20] VITALS: BP 154/111
== END 2020-08-01 14:19 | disposition home or self-care (01) ==
LOC: ER 09:59
DX: I10 Essential (primary) hypertension (principal); R42 Dizziness and giddiness; R41.3 Other amnesia; Z88.0 Allergy status to penicillin; Z88.8 Allergy status to other drugs, medicaments and biological substances; J45.909 Unspecified asthma, uncomplicated
CPT/HCPCS: 36415; 70450; 74018; 80053; 81001; 85025; 99285